=== PATIENT | female | born 1940 | race Caucasian/White ===

== ENCOUNTER → 2019-04-06 12:54 | Outpatient (CLI) | payer MEDICARE, SELFPAY | PROVIDERS: Visit Provider Physician Assistant | DX: L02.91 Cutaneous abscess, unspecified (principal) | CPT/HCPCS: 87070; 87075; 87077; 87147; 87186; 87205 ==

== ENCOUNTER → 2020-04-09 15:19 | Outpatient (CLI) | payer MEDICARE, SELFPAY ==
[2020-04-09 17:09] LABS: BUN Creatinine Ratio 29.4 (6-22); Blood Urea Nitrogen 15 mg/dL (7-17); Carbon Dioxide 27 mmol/L (22-32); Chloride 104 mmol/L (98-107); Estimated Glomerular Filt Rate > 60.0 mL/min (>60); Glucose 119 mg/dL (80-110); HEMOLYSIS < 15 (0-50); Phosphorous 3.3 mg/dL (2.8-4.1); Potassium 4.3 mmol/L (3.4-5.1); Sodium 139 mmol/L (137-145)
== END ==
PROVIDERS: PCP Student in an Organized Health Care Education/Training Program; Referring Provider Student in an Organized Health Care Education/Training Program; Visit Provider Student in an Organized Health Care Education/Training Program
DX: E83.31 Familial hypophosphatemia (principal); I10 Essential (primary) hypertension
CPT/HCPCS: 36415; 80048; 84100

== ENCOUNTER → 2020-06-03 11:36 | Outpatient (CLI) | payer MEDICARE, SELFPAY ==
[2020-06-03 12:31] LABS: Appearance Urine UA CLOUDY; Bilirubin Urine UA NEGATIVE (NEGATIVE); Color Urine UA YELLOW; Glucose Urine UA NEGATIVE (Negative); Ketones Urine UA NEGATIVE (NEGATIVE); Leukocyte Esterase Urine UA 3+ (NEGATIVE); Nitrite Urine UA POSITIVE (Negative); Occult Blood Urine UA 1+ (Negative); Protein Urine UA TRACE (Negative); Urobilinogen Urine UA 0.2 E.U./dL (0.2)
[2020-06-03 12:36] LABS: Bacteria Urine Many (>30); Culture Indicated Urine Specimen Cultured; RBC Urine 5-10/HPF (0-5/HPF); WBC Urine >100/HPF (0-5/HPF)
== END ==
PROVIDERS: PCP Student in an Organized Health Care Education/Training Program; Referring Provider Student in an Organized Health Care Education/Training Program; Visit Provider Student in an Organized Health Care Education/Training Program
DX: R30.0 Dysuria (principal)
CPT/HCPCS: 81001; 87077; 87086; 87186

== ENCOUNTER → 2021-01-13 12:08 | Outpatient (CLI) | payer MEDICARE, MEDICAID, SELFPAY ==
[2021-01-13 13:05] LABS: BUN Creatinine Ratio 26.5 (6-22); Blood Urea Nitrogen 13 mg/dL (7-17); Calcium 8.9 mg/dL (8.4-10.2); Carbon Dioxide 29 mmol/L (22-32); Chloride 104 mmol/L (98-107); Estimated Glomerular Filt Rate > 60.0 mL/min (>60); Glucose 107 mg/dL (80-110); HEMOLYSIS < 15 (0-50); Phosphorous 2.4 mg/dL (2.8-4.1); Potassium 4.1 mmol/L (3.4-5.1); Sodium 140 mmol/L (137-145)
== END ==
PROVIDERS: PCP Student in an Organized Health Care Education/Training Program; Referring Provider Student in an Organized Health Care Education/Training Program; Visit Provider Student in an Organized Health Care Education/Training Program
DX: E83.31 Familial hypophosphatemia (principal); I10 Essential (primary) hypertension
CPT/HCPCS: 36415; 80048; 84100

== ENCOUNTER → 2021-04-22 14:44 | Outpatient (CLI) | payer MEDICARE, MEDICAID, SELFPAY ==
--- NOTE | 2021-04-22 14:45 | DI.RAD.S_ITS ---
PROCEDURE: XR KNEE RT 1TO2V INDICATIONS: Cellulitis, R/o osteo TECHNIQUE: 2 views of the knee were acquired. COMPARISON: [facility], , XR KNEE 1 OR 2 VIEWS RIGHT, 11/09/2019, 17:12. FINDINGS: Bones: Poorly visualized distal femoral fracture with mild displacement is present. Severe degenerative changes present at the knee. Below the knee amputation is present. There are areas of irregularity within the distal stump, noting increased sclerosis and bony overgrowth. This appears chronic. No definitive area of new erosion is identified. Soft tissues: No joint effusion. No suspicious soft tissue calcifications. IMPRESSION: Proximal femoral fracture is present. Below the knee amputation demonstrate sclerosis of bony overgrowth at the stump suggestive of a chronic process. Underlying area of acute osteomyelitis cannot be excluded. Dictated by: Tammy Quiroz M.D. on 04/22/2021 at 16:43 Approved by: Tammy Quiroz M.D. on 04/22/2021 at 16:45
== END ==
PROVIDERS: PCP Student in an Organized Health Care Education/Training Program; Referring Provider Student in an Organized Health Care Education/Training Program; Visit Provider Student in an Organized Health Care Education/Training Program
DX: S72.401A Unspecified fracture of lower end of right femur, initial encounter for closed fracture (principal); L03.90 Cellulitis, unspecified; L89.90 Pressure ulcer of unspecified site, unspecified stage; Z89.511 Acquired absence of right leg below knee
CPT/HCPCS: 73560

== ENCOUNTER → 2022-12-21 16:03 | Outpatient (ROUT) | payer MEDICARE, MEDICAID, SELFPAY ==
[2022-12-21 16:56] LABS: Clostridium Difficile Tox PCR Positive for C. diff (Negative)
[2022-12-23 13:55] LABS: C difficie Toxins A and B, EIA Positive (Negative)
== END ==
PROVIDERS: PCP Student in an Organized Health Care Education/Training Program; Visit Provider Internal Medicine
DX: R19.7 Diarrhea, unspecified (principal)
CPT/HCPCS: 87324; 87493

== ENCOUNTER → 2023-04-19 11:21 | Outpatient (ROUT) | payer MEDICARE, MEDICAID, SELFPAY ==
[2023-04-19 12:11] LABS: Appearance Urine UA CLEAR; Bilirubin Urine UA NEGATIVE (NEGATIVE); Color Urine UA YELLOW; Glucose Urine UA NEGATIVE (Negative); Ketones Urine UA NEGATIVE (NEGATIVE); Leukocyte Esterase Urine UA TRACE (NEGATIVE); Nitrite Urine UA POSITIVE (Negative); Occult Blood Urine UA TRACE-INTACT (Negative); Protein Urine UA 2+ (Negative); Urobilinogen Urine UA 0.2 E.U./dL (0.2)
[2023-04-19 12:58] LABS: Bacteria Urine Many (>30); Culture Indicated Urine Specimen Cultured; RBC Urine 0-1/HPF (0-5/HPF); Squamous Epithelial Cell Urine 0-1 /HPF (0-5/HPF); WBC Urine 1-5/HPF (0-5/HPF)
== END ==
PROVIDERS: PCP Student in an Organized Health Care Education/Training Program; Visit Provider Internal Medicine
DX: G00.8 Other bacterial meningitis (principal)
CPT/HCPCS: 81001; 87077; 87086; 87186

== ENCOUNTER → 2023-06-09 18:11 | Outpatient (ROUT) | payer MEDICARE, MEDICAID, SELFPAY ==
[2023-06-09 20:43] LABS: Clostridium Difficile Tox PCR Negative for C. diff (Negative)
== END ==
PROVIDERS: PCP Student in an Organized Health Care Education/Training Program; Visit Provider Registered Nurse
DX: Z11.2 Encounter for screening for other bacterial diseases (principal)
CPT/HCPCS: 87493

== ENCOUNTER 2023-07-31 18:18 | Inpatient (IN) | payer MEDICARE, MEDICAID, SELFPAY ==
[2023-07-31] VITALS (15 sets, daily range): BP systolic 118–179; BP diastolic 57–81; PULSE 66–107; RESP 22–33; TEMP 36.9; O2SAT 87–99; BMI 25.6
--- NOTE | 2023-07-31 18:39 | DI.RAD.S_ITS ---
PROCEDURE: XR CHEST 1V INDICATIONS: cough TECHNIQUE: One view of the chest was acquired. COMPARISON: [facility], , XR CHEST 1 VIEW, 11/09/2019, 19:25. FINDINGS: Surgical changes and devices: None. Lungs and pleura: Multifocal consolidations, including retrocardiac and right perihilar. Possible left pleural effusion. Low lung volumes. Mediastinum: Cardiomegaly. Heart borders are obscured. Bones and chest wall: Degenerative changes. IMPRESSION: Multifocal consolidations suspicious for infection. Suspected cardiomegaly. Possible left pleural effusion. Consider future imaging surveillance to assess for resolution. Dictated by: Lv Vargas M.D. on 07/31/2023 at 20:48 Approved by: Lv Vargas M.D. on 07/31/2023 at 20:49
[2023-07-31 18:57] LABS: Add Manual Diff / Slide Review NO; Basophils Absolute Auto 100 /uL (0-100); Basophils Percent Auto 0.8 % (0-2); Eosinophils Absolute Auto 300 /uL (0-450); Eosinophils Percent Auto 3.2 % (2-4); Hematocrit 34.9 % (36-46); Hemoglobin 11.7 g/dL (12.0-16.0); Lymphocytes Absolute Auto 2000 /uL (1100-4500); Lymphocytes Percent Auto 20.3 % (25-40); Mean Corpuscular HGB Conc 33.4 % (30-36); Mean Corpuscular Hemoglobin 29.8 PG (26-34); Mean Corpuscular Volume 89.3 fL (80-100); Monocytes Absolute Auto 700 /uL (0-900); Neutrophils Absolute Auto 6600 /uL (1500-7000); Neutrophils Percent Auto 68.7 % (50-75); Platelet Count 442 X10^3/uL (150-400); Red Blood Cell Count 3.91 X10^6/uL (4.0-5.2); White Blood Cell Count 9.6 X10^3/uL (4.5-11.0)
[2023-07-31 19:01] LABS: INR 1.2 (0.9-1.3); Prothrombin Time 14.2 SECONDS (9.4-12.5)
[2023-07-31 19:04] LABS: PTT Partial Thromboplastin Tim 27 SECONDS (25.1-36.5)
[2023-07-31 19:08] LABS: Lactate (Lactic Acid) 2.8 mmol/L (0.7-2.1)
[2023-07-31 19:09] LABS: Alanine Aminotransferase 19 IU/L (<35); Albumin 3.2 g/dL (3.5-5.0); Albumin Globulin Ratio 0.8 (1.0-2.8); Alkaline Phosphatase 130 U/L (38-126); Aspartate Aminotransferase 26 IU/L (14-36); BUN Creatinine Ratio 46.3 (6-22); Bilirubin Total 0.5 mg/dL (0.2-1.3); Blood Urea Nitrogen 25 mg/dL (7-17); Calcium 8.2 mg/dL (8.4-10.2); Carbon Dioxide 28 mmol/L (22-32); Chloride 103 mmol/L (98-107); Creatine Kinase 161 U/L (30-135); Estimated Glomerular Filt Rate > 60 mL/min (>60); Globulin 4.2 g/dL (1.7-4.1); Glucose 196 mg/dL (80-110); HEMOLYSIS < 15 (0-50); Lipase 47 U/L (23-300); Potassium 3.1 mmol/L (3.4-5.1); Sodium 139 mmol/L (137-145); Total Protein 7.4 g/dL (6.3-8.2)
[2023-07-31 19:18] LABS: NT-proBNP (BNP-Adult 18+) 385 pg/mL (<450)
[2023-07-31 19:20] LABS: Troponin I < 0.012 ng/mL (0.01-0.034)
[2023-07-31 19:26] LABS: Procalcitonin 0.08 ng/mL (<0.5)
[2023-07-31 19:32] LABS: Influenza A - CEPHEID Flu A NEGATIVE (NEGATIVE); Influenza B - CEPHEID Flu B NEGATIVE (NEGATIVE); Respiratory Syncytial Virus Negative (Negative)
[2023-07-31 19:35] LABS: COVID-19 CEPHEID 4-PLEX PCR Negative (Negative)
--- NOTE | 2023-07-31 19:54 | ED.ABDPAIN ---
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 Daughter at bedside reports that she has been residing rehab center for the last 3-4 months. She has a cut at her amputation site it has been there for about a week it was thought to be infected and a skin tear. It is unclear if she fell. However she reports it is quite swollen and tender she is concerned about that. She is also concerned increased abdominal distention significant decrease in appetite. She reports that normally she eats very well how the last 5 days she has not been eating. She is noted to be hypoxic here in the ED with O2 sat in the 80s on about 3-4 L nasal cannula. No fever chills or cough. Daughter reports that she is at her baseline mental status. Previously she has had UTIs and had altered mental status but not at this time. She has has had productive raspy like cough. Patient herself is not very verbal daughter is primary historian. Related Data Previous Rx's Medication Instructions Recorded lamotrigine 150 mg tablet 150 mg PO DAILY #90 tabs 04/23/21 Probiotic #30 ea 06/22/21 ascorbic acid (vitamin C) 500 mg 500 mg PO DAILY #30 tabs 06/22/21 tablet polyethylene glycol 3350 17 17 g PO DAILY PRN constipation 06/22/21 gram/dose oral powder (Miralax) #510 grams primidone 250 mg tablet 250 mg PO BEDTIME #90 tabs 06/24/21 primidone 50 mg tablet 50 mg PO BEDTIME #90 tabs 06/24/21 acetaminophen 500 mg tablet 1,000 mg (2 x 500 mg) PO TID PRN 07/09/21 fever or pain #180 tabs lorazepam 0.5 mg tablet 0.5 mg PO Q6H PRN agitation #10 01/18/22 tabs calcitriol 0.25 mcg capsule 0.25 mcg PO DAILY #90 caps 03/07/22 sodium di- and 1 tab PO BID #180 tabs 04/05/22 monophosphate-potassium phos monobasic 250 mg tablet (D-[id number]-Jbxoatp) escitalopram oxalate 20 mg tablet 20 mg PO DAILY #15 tabs 07/26/22 lisinopril 10 mg tablet 10 mg PO DAILY #30 tabs 08/24/22 Allergies Allergy/AdvReac Type Severity Reaction Status Date / Time No Known Allergies Allergy Uncoded 04/22/21 14:10 Patient History Social History household members: other Smoking Status: Never smoker alcohol intake: never Smoking Status: Never smoker Substance Use Type: does not use Exam Initial Vital Signs Initial Vital Signs: Vital Signs Pulse Rate 87 07/31/23 18:27 Respiratory Rate 32 H 07/31/23 18:27 Pulse Oximetry 87 L 07/31/23 18:27 Oxygen Delivery Method Room Air 07/31/23 18:27 GENERAL: Alert 82-year-old female no acute distress HEENT: Head atraumatic,EOMI, pupils reactive, face symmetric, moist mucous membranes CARDIOVASCULAR: Regular rate and rhythm without murmurs, rubs or gallops. RESPIRATORY: Breath sounds equal bilaterally, no wheezes rales or rhonchi. Shallow breathing but not coarse ABDOMEN: Soft, mild distention no guarding no rebound no fluid wave, mild tenderness right upper quadrant minimal guarding EXTREMITIES: Normal range of motion, no clubbing or edema. Neurovascularly intact NEUROLOGICAL: Right-sided deficit at baseline moving left side good test and balance engineer strength no facial droop SKIN: Right [id number] amputation mild swelling no significant erythema no drainage Course Orders Ordered: ED Orders 07/31/23 22:02 US abdomen limited Stat Acetaminophen (Acetaminophen 325 Mg Tablet) 650 mg PO Q6H PRN PRN Reason: Fever/Mild Pain (1-3) Albuterol (Albuterol 2.5 Mg/3 Ml Neb (Adult)) 2.5 mg INH [id number] PRN PRN Reason: Shortness Of Breath Escitalopram Oxalate (Escitalopram 10 Mg Tablet) 20 mg PO DAILY KELSIE Guaifenesin (Guaifenesin Er 600 Mg Tab) 600 mg PO BID KELSIE Sodium Chloride (Normal Saline 0.9%) 1,000 mls @ 125 mls/hr IV CONT KELSIE Last Admin: 07/31/23 22:35 Dose: 125 mls/hr Documented By: JEANNETTE Ceftriaxone Sodium 1,000 mg/ (Sodium Chloride) 100 mls @ 200 mls/hr IV Q24H KELSIE Azithromycin 500 mg/ Dextrose 250 mls @ 250 mls/hr IV Q24H KELSIE Lamotrigine (Lamotrigine 100 Mg Tablet) 150 mg PO DAILY KELSIE Lorazepam (Lorazepam 0.5 Mg Tablet) 0.5 mg PO Q6H PRN PRN Reason: agitation Magnesium Hydroxide (Magnesium Hydroxide 30 Ml Udc) 30 ml PO DAILY PRN PRN Reason: Constipation Naloxone HCl (Naloxone 0.4 Mg/Ml Vial) 0.2 mg IV Q2MIN PRN PRN Reason: Opiate Reversal Ondansetron HCl (Ondansetron 4 Mg Odt) 4 mg PO Q8HR PRN PRN Reason: Nausea And Vomiting Primidone (Primidone 50 Mg Tablet) 300 mg PO BEDTIME KELSIE Discontinued Medications Acetaminophen (Ofirmev) 1,000 mg in 100 mls @ 400 mls/hr IV NOW ONE Stop: 07/31/23 20:10 Last Infusion: 07/31/23 20:50 Dose: Infused Documented By: Admin: 07/31/23 20:29 Dose: 400 mls/hr Documented By: GABY Ceftriaxone Sodium 2,000 mg/ (Sodium Chloride) 100 mls @ 200 mls/hr IV NOW ONE Stop: 07/31/23 22:06 Last Admin: 07/31/23 22:40 Dose: 200 mls/hr Documented By: JEANNETTE Azithromycin 500 mg/ Dextrose 250 mls @ 250 mls/hr IV NOW ONE Stop: 07/31/23 22:06 Last Admin: 07/31/23 23:24 Dose: 250 mls/hr Documented By: JEANNETTE Primidone (Primidone 50 Mg Tablet) 50 mg PO BEDTIME KELSIE Vital Signs Vital signs: Vital Signs - 8 hr 07/31/23 22:00 07/31/23 22:27 07/31/23 22:27 Pulse Rate 69 76 Respiratory Rate 26 H 28 H Blood Pressure 131/65 Pulse Oximetry 97 92 Oxygen Delivery Method Nasal Cannula Nasal Cannula Oxygen Flow Rate 2 2 07/31/23 22:30 07/31/23 22:30 07/31/23 23:00 Pulse Rate 72 66 Respiratory Rate 26 H 25 H Blood Pressure 118/57 L Pulse Oximetry 96 98 Oxygen Delivery Method Oxygen Flow Rate MDM - Abdominal Pain Lab Data 07/31/23 18:45 07/31/23 18:45 Labs: Lab Results 07/31/23 07/31/23 Range/Units 18:45 21:45 WBC 9.6 (4.5-11.0) X10^3/uL RBC 3.91 L (4.0-5.2) X10^6/uL Hgb 11.7 L (12.0-16.0) g/dL Hct 34.9 L (36-46) % MCV 89.3 (80-100) fL MCH 29.8 (26-34) PG MCHC 33.4 (30-36) % RDW 13.0 (11.6-14.8) % Plt Count 442 H (150-400) X10^3/uL Neut % (Auto) 68.7 (50-75) % Lymph % (Auto) 20.3 L (25-40) % [place] % (Auto) 7.0 (3-14) % Eos % (Auto) 3.2 (2-4) % Baso % (Auto) 0.8 (0-2) % Neut # (Auto) 6600 (3086-3587) /uL Lymph # (Auto) 2000 (8794-6406) /uL [place] # (Auto) 700 (0-900) /uL Eos # (Auto) 300 (0-450) /uL Baso # (Auto) 100 (0-100) /uL PT 14.2 H (9.4-12.5) SECONDS INR 1.2 (0.9-1.3) APTT 27 (25.1-36.5) SECONDS Sodium 139 (137-145) mmol/L Potassium 3.1 L (3.4-5.1) mmol/L Chloride 103 (98-107) mmol/L Carbon Dioxide 28 (22-32) mmol/L BUN 25 H (7-17) mg/dL Creatinine 0.54 (0.52-1.04) mg/dL Estimated GFR > 60 (>60) mL/min BUN/Creatinine Ratio 46.3 H (6-22) Glucose 196 H (80-110) mg/dL Lactate 2.8 H 1.5 (0.7-2.1) mmol/L Calcium 8.2 L (8.4-10.2) mg/dL Total Bilirubin 0.5 (0.2-1.3) mg/dL AST 26 (14-36) IU/L ALT 19 (<35) IU/L Alkaline Phosphatase 130 H (38-126) U/L Total Creatine Kinase 161 H (30-135) U/L Troponin I < 0.012 (0.01-0.034) ng/mL NT-Pro-B Natriuret Pep 385 (<450) pg/mL Total Protein 7.4 (6.3-8.2) g/dL Albumin 3.2 L (3.5-5.0) g/dL Globulin 4.2 H (1.7-4.1) g/dL Albumin/Globulin Ratio 0.8 L (1.0-2.8) Lipase 47 (23-300) U/L Procalcitonin 0.08 (<0.5) ng/mL SARS-CoV-2 (PCR) Negative (Negative) Influenza A (RT-PCR) Flu a negative (NEGATIVE) Influenza B (RT-PCR) Flu b negative (NEGATIVE) RSV (PCR) Negative (Negative) Imaging Data CT scan - abdomen/pelvis: Radiologist's Impression: PROCEDURE: CT ABDOMEN PELVIS W CON INDICATIONS: ab pain. TECHNIQUE: After the administration of intravenous contrast, axial sections acquired from the lung bases to the pubic symphysis. Coronal and sagittal reformats were performed. For radiation dose reduction, the following was used: automated exposure control, adjustment of mA and/or kV according to patient size. COMPARISON: None. FINDINGS: Image quality: Diagnostic Lower chest: Bibasilar opacities and atelectasis, [id number]. There is pleural thickening without drainable effusion. Small hiatal hernia. Leftward shift of the heart, which is borderline enlarged. Liver: Hypoattenuating liver lesions, these are under a cm and too small to characterize and may represent cysts or hemangiomas. Gallbladder and biliary system: Distended gallbladder. Mild pericholecystic fat stranding and wall thickening. CBD is prominent, not pathologically dilated Pancreas: Unremarkable Spleen: Nonenlarged. Possible cyst at the posterior region. Adrenals: Bilateral thickening and nodularity, a focal nodule is seen at the left adrenal body measuring 1 cm, consider adrenal protocol CT or MRI for confirmation. Kidneys: No solid mass or hydronephrosis Vessels and lymph nodes: The main portal vein is patent. No abdominal aortic aneurysm or pathologic lymph nodes by size criteria. Bowel and peritoneum: No evidence of small bowel obstruction. No pathologic ascites or drainable abscess. Colonic diverticulosis. There is mild wall thickening in the distal colon, and rectum. Possible wall thickening also seen in the ascending colon. Body wall: There are anterior body wall venous collaterals. Pelvis: Bladder is unremarkable. Reproductive organs are not well evaluated on this study, overall unremarkable Bones: Advanced degenerative changes and osseous demineralization. No suspicious focal findings. Small scattered sclerotic lesions, for example at the right ischium, indeterminate, possibly bone islands of patient does not have a malignancy history. IMPRESSION: Distended gallbladder with mild surrounding inflammatory changes, consider sonographic correlation for cholecystitis. Scattered colonic wall thickening particularly involving the cecum and distal colon. Wall thickening extends in the rectum. Findings suggestive of proctocolitis. Consider correlation with age-appropriate colonoscopy results. Bibasilar atelectasis and pulmonary opacities, possibly infectious or inflammatory, including from aspiration. Consider future imaging surveillance to assess for resolution. Numerous other suspected nonacute incidental findings are described above Dictated by: Lv Vargas M.D. on 07/31/2023 at 21:14 Chest x-ray: Radiologist's Impression: PROCEDURE: XR CHEST 1V INDICATIONS: cough TECHNIQUE: One view of the chest was acquired. COMPARISON: [facility], , XR CHEST 1 VIEW, 11/09/2019, 19:25. FINDINGS: Surgical changes and devices: None. Lungs and pleura: Multifocal consolidations, including retrocardiac and right perihilar. Possible left pleural effusion. Low lung volumes. Mediastinum: Cardiomegaly. Heart borders are obscured. Bones and chest wall: Degenerative changes. IMPRESSION: Multifocal consolidations suspicious for infection. Suspected cardiomegaly. Possible left pleural effusion. Consider future imaging surveillance to assess for resolution. Dictated by: Lv Vargas M.D. on 07/31/2023 at 20:48 ECG Data Interpretation: Is rhythm rate 79 DE interval 158 QRS [address] depression lead 2 and V3 no elevations or T-wave inversions no priors to compare MDM Narrative Medical decision making narrative: Patient 82-year-old female resides at rehab facility presenting today a variety of symptoms. It sounds as though she has had a 5 day decline with decreasing intake some coughing maybe some abdominal pain daughter is worried about infection in the right lower leg. On exam she is hypoxic but lung sounds are fairly clear she has not in respiratory distress. She is tender in her right upper quadrant. Like itself does not look significantly infected no severe erythema or swelling but she does have a open wound is not draining. Blood work has been reviewed overall reassuring she has no leukocytosis, lactate mildly elevated 2.8 improves to 1.5, potassium slightly low at 3.1, mild dehydration BUN 25 with a creatinine of 0.5 bilirubin 0.5 AST 26 ALT 19 alk-phos 130 lipase 47 Chest x-ray reviewed does show concern for an infection Abdominal CT show cholelithiasis ultrasound confirms cholelithiasis without evidence of cholecystitis Patient is requiring 2-3 L she has pneumonia on x-ray she does have a cough. She has afebrile no leukocytosis. She is on a thickened diet due to some aphasia secondary to stroke. Possible aspiration. No evidence cardiomegaly. Suspicion for pulmonary embolism. Patient mildly tender right upper quadrant consistent cholelithiasis without cholecystitis or ascending cholangitis. Dr. Urban accepts patient. Agree no need for CT at this time Discharge Plan Departure Patient Disposition: Admitted As Inpatient Clinical Impression: Pneumonia, Hypoxia Admit Date/Time: 07/31/23 23:45 Admit Provider: Yovanny Junior
--- NOTE | 2023-07-31 19:55 | DI.RAD.S_ITS ---
PROCEDURE: XR KNEE RT 1TO2V INDICATIONS: amputation (old) swelling pain TECHNIQUE: 2 view(s) of the knee acquired. COMPARISON: [facility], CR, XR KNEE RT 1TO2V, 04/22/2021, 14:41. FINDINGS: Bones: There are advanced degenerative changes of the knee. Diffuse osseous around is a reyez. Suspected old distal femur fracture deformity also again seen. Proximal tibial amputation with overall similar corticated edges and irregularity of the stomach. Soft tissues: No suspicious calcifications elsewhere. There is soft tissue swelling, without a significant joint effusion on lateral view. IMPRESSION: Chronic deformities of the distal femur, and proximal tibial amputation. There is soft tissue swelling. Overall osseous structures appear stable compared to 2020. Knee advanced degenerative changes. Consider CT or MRI if there is further concern. Dictated by: Lv Vargas M.D. on 07/31/2023 at 20:50 Approved by: Lv Vargas M.D. on 07/31/2023 at 20:51
[2023-07-31] MEDS: ACETAMINOPHEN IV 1,000 MG/100 ML VIAL 400 MG IV (20:29)
[2023-07-31 20:33] LABS: Reflexed Lactate in 2 Hours Y
--- NOTE | 2023-07-31 22:02 | DI.US.S_ITS ---
PROCEDURE: US ABDOMEN LIMITED INDICATIONS: ruq TECHNIQUE: Real-time focused scanning was performed of the abdomen, with image documentation. COMPARISON: [facility], CT, CT ABDOMEN PELVIS W CON, 07/31/2023, 20:22. FINDINGS: Liver measures 12 cm. Cholelithiasis. No sonographic Pena sign. Mild distention of the gallbladder. CBD measures 4 mm. Visualized pancreas unremarkable. IMPRESSION: Cholelithiasis with mildly distended gallbladder. No sonographic Pena sign to suggest acute cholecystitis. Dictated by: Lv Vargas M.D. on 07/31/2023 at 23:08 Approved by: Lv Vargas M.D. on 07/31/2023 at 23:10
[2023-07-31 22:22] LABS: Lactate 2HR (Lactic Acid Rflx) 1.5 mmol/L (0.7-2.1)
[2023-07-31] MEDS: SODIUM CHLORIDE 0.9% 1,000 ML 125 ML IV (22:35)
[2023-07-31] MEDS: cefTRIAXone 2,000 MG in SODIUM CHLORIDE 0.9% 100 ML 200 MG IV (22:40)
[2023-07-31] MEDS: AZITHROMYCIN 500 MG in DEXTROSE 5% IN WATER 250 ML 250 MG IV (23:24)
[2023-08-01 00:35] VITALS: BP 112/57; PULSE 67; RESP 20; TEMP 36.8; O2SAT 99
[2023-08-01 01:09] VITALS: BP 100/46; PULSE 67; RESP 16; TEMP 36.2; O2SAT 95
[2023-08-01 02:35] VITALS: O2SAT 95
[2023-08-01 06:53] LABS: Add Manual Diff / Slide Review NO; Basophils Absolute Auto 100 /uL (0-100); Basophils Percent Auto 0.8 % (0-2); Eosinophils Absolute Auto 300 /uL (0-450); Hematocrit 29.6 % (36-46); Lymphocytes Absolute Auto 2300 /uL (1100-4500); Lymphocytes Percent Auto 23.7 % (25-40); Mean Corpuscular HGB Conc 33.6 % (30-36); Mean Corpuscular Hemoglobin 30.2 PG (26-34); Monocytes Absolute Auto 700 /uL (0-900); Monocytes Percent Auto 7.8 % (3-14); Neutrophils Absolute Auto 6200 /uL (1500-7000); Neutrophils Percent Auto 64.7 % (50-75); Platelet Count 340 X10^3/uL (150-400); Red Blood Cell Count 3.29 X10^6/uL (4.0-5.2); White Blood Cell Count 9.5 X10^3/uL (4.5-11.0)
[2023-08-01 06:54] LABS: BUN Creatinine Ratio 44.9 (6-22); Blood Urea Nitrogen 22 mg/dL (7-17); Calcium 7.6 mg/dL (8.4-10.2); Carbon Dioxide 28 mmol/L (22-32); Chloride 107 mmol/L (98-107); Estimated Glomerular Filt Rate > 60 mL/min (>60); Glucose 87 mg/dL (80-110); HEMOLYSIS 33 (0-50); Potassium 2.8 mmol/L (3.4-5.1); Sodium 138 mmol/L (137-145)
--- NOTE | 2023-08-01 07:18 | PM.HP.1 ---
History of Present Illness History of Present Illness Date Patient Seen: 07/31/23 Chief complaint: Lethargy/Weakness Narrative: 82 y/o with PMH of SAH, aphasia, came from the alf in which she moved in 4 months ago, accompanied by her daughter who reported on poor oral intake in the last 5 days and 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 In the ED hypoxemic, with leukocytosis and infiltrates on CXR. [facility] Social History household members: other Smoking Status: Never smoker alcohol intake: never Meds Home Medications and Allergies Home Medications Medication Instructions Recorded Confirmed Type lamotrigine 150 mg tablet 150 mg PO DAILY #90 tabs 04/23/21 Rx Probiotic #30 ea 06/22/21 Rx ascorbic acid (vitamin C) 500 mg 500 mg PO DAILY #30 tabs 06/22/21 Rx tablet polyethylene glycol 3350 17 17 g PO DAILY PRN constipation 06/22/21 Rx gram/dose oral powder (Miralax) #510 grams primidone 250 mg tablet 250 mg PO BEDTIME #90 tabs 06/24/21 Rx primidone 50 mg tablet 50 mg PO BEDTIME #90 tabs 06/24/21 Rx acetaminophen 500 mg tablet 1,000 mg (2 x 500 mg) PO TID PRN 07/09/21 Rx fever or pain #180 tabs lorazepam 0.5 mg tablet 0.5 mg PO Q6H PRN agitation #10 01/18/22 Rx tabs calcitriol 0.25 mcg capsule 0.25 mcg PO DAILY #90 caps 03/07/22 Rx sodium di- and 1 tab PO BID #180 tabs 04/05/22 Rx monophosphate-potassium phos monobasic 250 mg tablet (I-Jblz-Yqmdpiz) escitalopram oxalate 20 mg tablet 20 mg PO DAILY #15 tabs 07/26/22 Rx lisinopril 10 mg tablet 10 mg PO DAILY #30 tabs 08/24/22 Rx Allergies Allergy/AdvReac Type Severity Reaction Status Date / Time No Known Allergies Allergy Uncoded 04/22/21 14:10 Review of Systems Review of Systems Narrative: Unobtainable due to old aphasia, fatigue Exam Vital Signs (past 8 hours): - 07/31/23 23:50 08/01/23 00:35 08/01/23 01:09 Temperature 98.3 F 97.1 F L Pulse Rate 67 67 Respiratory Rate 20 16 Blood Pressure 112/57 L 100/46 L Pulse Oximetry 99 95 Oxygen Delivery Method Nasal Cannula Nasal Cannula Oxygen Flow Rate 2 2 08/01/23 02:35 Temperature Pulse Rate Respiratory Rate Blood Pressure Pulse Oximetry 95 Oxygen Delivery Method Nasal Cannula Oxygen Flow Rate 2 Oxygen Delivery Method Nasal Cannula Oxygen Flow Rate 2 Const Other: appears weak, in no distress Neck Other: supple Resp Other: tachypneic, rhonchi Cardio Other: RRR Neuro Other: aphasia Extrem Other: Rt BKA Objective Labs 08/01/23 06:09 08/01/23 06:09 Labs: Laboratory Results - last 24 hr 07/31/23 07/31/23 08/01/23 18:45 21:45 06:09 WBC 9.6 9.5 RBC 3.91 L 3.29 L Hgb 11.7 L 10.0 L Hct 34.9 L 29.6 L MCV 89.3 90.0 MCH 29.8 30.2 MCHC 33.4 33.6 RDW 13.0 13.0 Plt Count 442 H 340 Neut % (Auto) 68.7 64.7 Lymph % (Auto) 20.3 L 23.7 L [place] % (Auto) 7.0 7.8 Eos % (Auto) 3.2 3.0 Baso % (Auto) 0.8 0.8 Neut # (Auto) 6600 6200 Lymph # (Auto) 2000 2300 [place] # (Auto) 700 700 Eos # (Auto) 300 300 Baso # (Auto) 100 100 PT 14.2 H INR 1.2 APTT 27 Sodium 139 138 Potassium 3.1 L 2.8 L Chloride 103 107 Carbon Dioxide 28 28 BUN 25 H 22 H Creatinine 0.54 0.49 L Estimated GFR > 60 > 60 BUN/Creatinine Ratio 46.3 H 44.9 H Glucose 196 H 87 D Lactate 2.8 H 1.5 Calcium 8.2 L 7.6 L Total Bilirubin 0.5 AST 26 ALT 19 Alkaline Phosphatase 130 H Total Creatine Kinase 161 H Troponin I < 0.012 NT-Pro-B Natriuret Pep 385 Total Protein 7.4 Albumin 3.2 L Globulin 4.2 H Albumin/Globulin Ratio 0.8 L Lipase 47 Procalcitonin 0.08 SARS-CoV-2 (PCR) Negative Influenza A (RT-PCR) Flu a negative Influenza B (RT-PCR) Flu b negative RSV (PCR) Negative Assessment & Plan Assessment and plan (1) Pneumonia: Status: Acute Plan: Prudence Henry - [employer] for swallow evaluation - O2 for hypoxemia (2) Essential hypertension: Status: Chronic Plan: Holding home Lisinopril 10 mg daily (3) 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
--- NOTE | 2023-08-01 07:24 | PM.HP.1 ---
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 In the ED hypoxemic, with leukocytosis and infiltrates on CXR. [facility] Social History household members: other Smoking Status: Never smoker alcohol intake: never Meds Home Medications and Allergies Home Medications Medication Instructions Recorded Confirmed Type lamotrigine 150 mg tablet 150 mg PO DAILY #90 tabs 04/23/21 08/01/23 Rx Probiotic #30 ea 06/22/21 08/01/23 Rx ascorbic acid (vitamin C) 500 mg 500 mg PO DAILY #30 tabs 06/22/21 08/01/23 Rx tablet polyethylene glycol 3350 17 17 g PO DAILY PRN constipation 06/22/21 08/01/23 Rx gram/dose oral powder (Miralax) #510 grams primidone 250 mg tablet 250 mg PO BEDTIME #90 tabs 06/24/21 08/01/23 Rx primidone 50 mg tablet 50 mg PO BEDTIME #90 tabs 06/24/21 08/01/23 Rx acetaminophen 500 mg tablet 1,000 mg (2 x 500 mg) PO TID PRN 07/09/21 08/01/23 Rx fever or pain #180 tabs lorazepam 0.5 mg tablet 0.5 mg PO Q6H PRN agitation #10 01/18/22 08/01/23 Rx tabs calcitriol 0.25 mcg capsule 0.25 mcg PO DAILY #90 caps 03/07/22 08/01/23 Rx sodium di- and 1 tab PO BID #180 tabs 04/05/22 08/01/23 Rx monophosphate-potassium phos monobasic 250 mg tablet (T-Xulq-Dinruzl) escitalopram oxalate 20 mg tablet 20 mg PO DAILY #15 tabs 07/26/22 08/01/23 Rx lisinopril 10 mg tablet 10 mg PO DAILY #30 tabs 08/24/22 08/01/23 Rx Allergies Allergy/AdvReac Type Severity Reaction Status Date / Time No Known Allergies Allergy Uncoded 04/22/21 14:10 Review of Systems Review of Systems Narrative: Unobtainable due to old aphasia, fatigue Exam Vital Signs (past 8 hours): - 07/31/23 23:50 08/01/23 00:35 08/01/23 01:09 Temperature 98.3 F 97.1 F L Pulse Rate 67 67 Respiratory Rate 20 16 Blood Pressure 112/57 L 100/46 L Pulse Oximetry 99 95 Oxygen Delivery Method Nasal Cannula Nasal Cannula Oxygen Flow Rate 2 2 08/01/23 02:35 Temperature Pulse Rate Respiratory Rate Blood Pressure Pulse Oximetry 95 Oxygen Delivery Method Nasal Cannula Oxygen Flow Rate 2 Oxygen Delivery Method Nasal Cannula Oxygen Flow Rate 2 Const Other: appears weak, in no distress Neck Other: supple Resp Other: tachypneic, rhonchi Cardio Other: RRR Neuro Other: aphasia Extrem Other: Rt BKA Objective Labs 08/01/23 06:09 08/01/23 06:09 Labs: Laboratory Results - last 24 hr 07/31/23 07/31/23 08/01/23 18:45 21:45 06:09 WBC 9.6 9.5 RBC 3.91 L 3.29 L Hgb 11.7 L 10.0 L Hct 34.9 L 29.6 L MCV 89.3 90.0 MCH 29.8 30.2 MCHC 33.4 33.6 RDW 13.0 13.0 Plt Count 442 H 340 Neut % (Auto) 68.7 64.7 Lymph % (Auto) 20.3 L 23.7 L [place] % (Auto) 7.0 7.8 Eos % (Auto) 3.2 3.0 Baso % (Auto) 0.8 0.8 Neut # (Auto) 6600 6200 Lymph # (Auto) 2000 2300 [place] # (Auto) 700 700 Eos # (Auto) 300 300 Baso # (Auto) 100 100 PT 14.2 H INR 1.2 APTT 27 Sodium 139 138 Potassium 3.1 L 2.8 L Chloride 103 107 Carbon Dioxide 28 28 BUN 25 H 22 H Creatinine 0.54 0.49 L Estimated GFR > 60 > 60 BUN/Creatinine Ratio 46.3 H 44.9 H Glucose 196 H 87 D Lactate 2.8 H 1.5 Calcium 8.2 L 7.6 L Total Bilirubin 0.5 AST 26 ALT 19 Alkaline Phosphatase 130 H Total Creatine Kinase 161 H Troponin I < 0.012 NT-Pro-B Natriuret Pep 385 Total Protein 7.4 Albumin 3.2 L Globulin 4.2 H Albumin/Globulin Ratio 0.8 L Lipase 47 Procalcitonin 0.08 SARS-CoV-2 (PCR) Negative Influenza A (RT-PCR) Flu a negative Influenza B (RT-PCR) Flu b negative RSV (PCR) Negative Assessment & Plan Assessment and plan (1) Pneumonia: Status: Acute Plan: with acute hypoxic resp failure Prudence Henry - DIABETES SOLUTIONS SPECIALIST for swallow evaluation changed to dysphagia diet - O2 for hypoxemia (2) Essential hypertension: Status: Chronic Plan: Holding home Lisinopril 10 mg daily (3) 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
--- NOTE | 2023-08-01 07:30 | PC.NURSE ---
Admit/NOC Shift Note- Patient arrived to room via britton at 0045 from ER. Admit questions done with daughter, medication list reviewed, physical assessmnent done, and skin check completed. patient close to nurses station for frequent visual checks. Bed alartm activated. Call lainez and phone within reach. will continue to monitor.
[2023-08-01] MEDS: SODIUM CHLORIDE 0.9% 1,000 ML 125 ML IV ×3 (08:30→23:55)
[2023-08-01 09:00] VITALS: BP 131/59; PULSE 71; RESP 16; TEMP 36.4; O2SAT 100; O2SAT 98
[2023-08-01 09:14] LABS: Magnesium 2.4 mg/dL (1.6-2.3)
[2023-08-01] MEDS: POTASSIUM CHLORIDE 20 MEQ TAB 40 MEQ PO ×2 (10:01→12:46)
[2023-08-01] MEDS: ESCITALOPRAM 10 MG TABLET 20 MG PO (10:01)
[2023-08-01] MEDS: guaiFENesin ER 600 MG TAB PO ×2 (10:02→20:50)
[2023-08-01] MEDS: lamoTRIgine 100 MG TABLET 150 MG PO (10:02)
--- NOTE | 2023-08-01 10:52 | ST.IPCSEOM ---
Visit Care Team Role Provider Type Cal Jarrett MD Primary Care Provider Non-Staff Specialty: Internal Medicine Address: [address] [place] [address], [address], [address] Email: Ila Haskins DO Emergency Provider Physician Referring Provider Specialty: Emergency Medicine Address: [address] [place] [address], [address] Email: [email or web address] Yovanny Urban MD Admit Provider Physician Attending Provider Specialty: Internal Medicine Address: [address] [place] [address] Fax: Email: [email or web address] Diagnoses Depression, unspecified (07/31/23) Anxiety disorder, unspecified (07/31/23) Epilepsy, unspecified, not intractable, without status epilepticus (07/31/23) Essential (primary) hypertension (07/31/23) Aphasia following cerebral infarction (07/31/23) Hemiplegia and hemiparesis following cerebral infarction affecting unspecified side (07/31/23) Pneumonia, unspecified organism (07/31/23) Speech-Language Pathology Swallow Evaluation 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 In the ED hypoxemic, with leukocytosis and infiltrates on CXR. Chest X-ray on 07/31/23 indicated: IMPRESSION: Multifocal consolidations suspicious for infection. Suspected cardiomegaly. Possible left pleural effusion . Consider future imaging surveillance to assess for resolution. Pt resides in [facility]. Pt baseline diet at facility is pureed solids and nectar thick liquids. ST referred for swallow eval d/t Pt with PNA and swallow difficulties. Subjective Observations Pt sitting upright in bed. Pt is primarily non-verbal with cognitive deficits. Pt with O2 via in place via nasal cannula. Pt with breakfast tray in front of her with CLINICAL APPLICATION CONSULTANT assisting feeding her d/t Pt requiring 1:1 feed assist. Nursing reports she downgraded her to IDDSI 6/Honey thick liquids. Pt awake and alert. Reported by Patient/Caregiver Pain/Discomfort No Current Diet Soft & Bite-sized (IDDSI 6) The IDDSI Framework Protocol: IDDSI.1 Objective Assessment Mental Status Alert,Cooperative,Unresponsive Oral Integrity Oral residue Lip Function Mild impairment Tongue Function Mild impairment Comment ST unable to complete formal oral motor exam d/t Pt with difficulties following commands seconday to cognitive deficits. However, informally , Pt exhibited slight right sided facial weakness, labial and lingual weakness. Pt observed to have egg/pancake diffuse residue and pocketing anterior labial space and buccal cavities. Food and Liquid Trials Position During Assessment Upright (90 degrees) Liquids Trialed Mildly Thick (IDDSI 2) Solid Trials Purred (IDDSI 4),Soft & Bite- sized (IDDSI 6) Administration Type Tea spoon,Controlled cup sip, Dependent feeding Oral Impairment Moderately impaired Oral Phase Comments Pt consumed pancake cut into small pieces, scrambled eggs, and 4 oz of pudding via tsp with 4 oz of nectar thick juice via cup. For soft solids , Pt demonstrated accumluation of residue anterior labial space/buccal cavities, prolonged mastication and poor bolus control, extended ap transport, piecemeal deglutition. For nectar thick liquids via cup Pt demonstrated slightly weak lip seal, with mild right sided anterior spillage, suspected loss of bolus resulting in premature spillage. Pharyngeal Impairment Moderately impaired Pharyngeal Phase Comments Pt with suspected delay in swallow for all PO trials. Multiple swallows observed with all PO trials to assist with pharyngeal clearance. Pt with inconsistent throat clearing/delayed cough x1 throughout eval with ST unable to determine if d/t solids/ liquids or baseline cough d/t PNA. For soft solids Pt demonstrated no overt s/s of aspiration. For pudding Pt demonstrated multiple swallows , no overt s/s of aspiration. For nectar thick liquids Pt demonstrated no overt s/s of aspiration, weak laryngeal elevation. Fatigue/Endurance Endurance WNL The IDDSI Framework Protocol: IDDSI.1 Findings Swallowing Function Oropharyngeal phase dysphagia Severity of Swallow Impairment Moderately impaired Contributing Factors to Swallow Difficulty following Impairment directions,Mastication inefficiency Prognosis Good Comment Pt presents with moderate oral phase dysphagia and suspected moderate pharyngeal phase dysphagia. Pt baseline diet is pureed solids and nectar thick liquids. Recommendations Instrumental Assessment No Swallowing Treatment Yes Frequency Daily while inpatient Recommended Solids Pureed (IDDSI 4) Recommended Liquids Mildly Thick (IDDSI 2) Other Recommendations ST recommends IDDSI 4/IDDSI 2 with the below mentioned safe swallowing strategies in place . ST communicated recommendations with CLINICAL APPLICATION CONSULTANT/ Nursing and emphasized the importance of strick oral care after intake and checking for pocketing. Safety Precautions/Swallowing Supervision needed for all Recommendations meals,Remain upright (90 degrees) during all oral intake,Upright position at least 30 minutes after meals, Small bites and sips when eating,Slow rate; swallow between bites,Alternate liquids and solids,1 to 1 feeding assistance,Strict oral care after intake,Check for pocketing Medication Recommendations As Tolerated Discharge Recommendations retirement facility Education Patient/Caregiver Education Described results of evaluation,Family/caregivers expressed understanding of evaluation Goals Short-term Goals STG 1: Patient will tolerate PO trials of IDDSI 4 with no clinical s/s of dysphagia 100% of the time in order to consume least restrictive diet . STG 2: Patient will tolerate PO trials of nectar thick liquids with no clinical s/s of aspiration 100% of the time in order to consume least restrictive diet. Long-term Goals LTG: Patient will tolerate safest and most efficient diet with no clinical s/s of aspiration or dysphagia 100% of the time in order to consume least restrictive diet .
--- NOTE | 2023-08-01 12:38 | PC.NURSE ---
Patient is non verbal, but occasionally will say yes and is usually silent for no. She has a R sided BKA at the age of [age] years old. 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 Patient has a small stage 2 opening at the end of her stump with a allevyn bandage in place. She is up to the commode with a one person assist and she has had a bm. Unable to get a urine sample yet as she is incontinent or has had mixed urine. Daughter in room and patient is comfortable.
--- NOTE | 2023-08-01 15:11 | CM.DANOTE ---
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 PHUONG Original Note: DCP Assessment Note Pt is an 82yo F here following shortness of breath/weakness/lethargy. Pt had a below knee amputation as a child and for the most part is nonverbal. 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 PCP Cal Jarrett Payer Medicare and Medicaid FIELD SPECIALIST reviewed EMR. Per provider in rounds, will likely be medically cleared to dc once off O2 in two days. Pt on 2ltrs O2 at this time and uses no O2 at baseline. FIELD SPECIALIST spoke with Berna at . Reports can take her back once medically cleared. If pt was here until 08.03.23, pt could come on Medicare benefit. Transportation time not arranged at this time. FIELD SPECIALIST entered room and introduced self and role. Pt accompanied by dtr Nicci (p [phone]) at bedside. Pt nonverbal throughout interaction. Dtr primary participant. Dtr confirms pt lives at and plan is to return there. FIELD SPECIALIST answered questions about Medicare benefit/status/Medicaid to best of ability. Dtr expressed verbal agreement to return to when medically stable. Plan: return to when medically stable, likely 08.03.23. CM team will follow closely. JAYME Gilliam Discharge Planning/Care Management CM Discharge Assessment Start: 08/01/23 15:09 Freq: Status: Active Protocol: Document 08/01/23 15:09 (Rec: 08/01/23 15:11 [id number]) Discharge Planning Assessment Assigned Composite Boat Builder JAYME Guerrero DPOA/Assigned Designee Name Nicci Hyde (dtr) Contact Information [phone] Advance Directives? POLST Advance Directives on File Yes History Provided By Family Member Prior Living Arrangements Skilled Nurse Facility Comment [facility] assisted resident Household Members other Type of transporation used prior to Relies on Others admit Facility Name Admitted From: [facility] Willing to Return to Facility? Yes Independent with ADL's No Needs Assistance With Bathing,Eating,Grooming,Meal Prep,Toileting,Managing Medications,Home Chores / Shopping Patient/Family Preference [facility] Facility Discharge Plan [facility] Facility Transportation Arrangement facility transportation Referrals Initiated [facility]pc Additional Comment [facility] can accept back. tentatively planned for if weaned off O2 SNF/HH Preference return to [facility]. Has Agency SNF been contacted Yes Comment [facility] Whiteboard Updated in Patient Room with Yes name and ext. # of Composite Boat Builder Review Status In Process Next Review Type Continued Stay Review
[2023-08-01 16:45] VITALS: BP 174/77; PULSE 90; RESP 16; TEMP 37.2; O2SAT 90
[2023-08-01] MEDS: cefTRIAXone 1,000 MG in SODIUM CHLORIDE 0.9% 100 ML 200 MG IV (19:44)
[2023-08-01 20:00] VITALS: BP 144/62; PULSE 79; RESP 16; TEMP 37.1; O2SAT 95
[2023-08-01] MEDS: PRIMIDONE 50 MG TABLET 300 MG PO (20:50)
[2023-08-01] MEDS: SODIUM CHLORIDE 0.9% 250 ML 21 ML IV (20:50)
[2023-08-01] MEDS: AZITHROMYCIN 500 MG in DEXTROSE 5% IN WATER 250 ML 250 MG IV (20:50)
[2023-08-02 04:00] VITALS: BP 136/72; PULSE 86; RESP 17; TEMP 37.2; O2SAT 93
[2023-08-02 04:49] LABS: Appearance Urine UA CLEAR; Bilirubin Urine UA NEGATIVE (NEGATIVE); Color Urine UA YELLOW; Glucose Urine UA NEGATIVE (Negative); Ketones Urine UA NEGATIVE (NEGATIVE); Leukocyte Esterase Urine UA NEGATIVE (NEGATIVE); Nitrite Urine UA NEGATIVE (Negative); Occult Blood Urine UA NEGATIVE (Negative); Protein Urine UA NEGATIVE (Negative); Specific Gravity Urine UA 1.015 (1.000-1.035); Urobilinogen Urine UA 0.2 E.U./dL (0.2)
[2023-08-02 04:53] LABS: Bacteria Urine None Seen; Culture Indicated Urine Cult Not Indicated; RBC Urine None Seen (0-5/HPF); Squamous Epithelial Cell Urine 0-1 /HPF (0-5/HPF); WBC Urine None Seen (0-5/HPF)
[2023-08-02 06:58] LABS: Add Manual Diff / Slide Review NO; Basophils Absolute Auto 0 /uL (0-100); Basophils Percent Auto 0.4 % (0-2); Eosinophils Absolute Auto 300 /uL (0-450); Eosinophils Percent Auto 3.2 % (2-4); Hematocrit 30.3 % (36-46); Hemoglobin 10.2 g/dL (12.0-16.0); Lymphocytes Absolute Auto 1500 /uL (1100-4500); Lymphocytes Percent Auto 16.4 % (25-40); Mean Corpuscular HGB Conc 33.7 % (30-36); Mean Corpuscular Hemoglobin 30.2 PG (26-34); Mean Corpuscular Volume 89.6 fL (80-100); Monocytes Absolute Auto 700 /uL (0-900); Monocytes Percent Auto 8.1 % (3-14); Neutrophils Absolute Auto 6600 /uL (1500-7000); Neutrophils Percent Auto 71.9 % (50-75); Platelet Count 371 X10^3/uL (150-400); Red Blood Cell Count 3.39 X10^6/uL (4.0-5.2); Red Cell Distribution Width 13.1 % (11.6-14.8); White Blood Cell Count 9.1 X10^3/uL (4.5-11.0)
[2023-08-02 07:07] LABS: BUN Creatinine Ratio 18.8 (6-22); Blood Urea Nitrogen 9 mg/dL (7-17); Calcium 7.5 mg/dL (8.4-10.2); Carbon Dioxide 25 mmol/L (22-32); Chloride 110 mmol/L (98-107); Estimated Glomerular Filt Rate > 60 mL/min (>60); Glucose 85 mg/dL (80-110); HEMOLYSIS < 15 (0-50); Potassium 3.2 mmol/L (3.4-5.1); Sodium 138 mmol/L (137-145)
[2023-08-02 07:12] LABS: Magnesium 1.9 mg/dL (1.6-2.3)
[2023-08-02] MEDS: SODIUM CHLORIDE 0.9% 1,000 ML 125 ML IV (07:57)
[2023-08-02 08:41] VITALS: BP 160/73; PULSE 78; RESP 18; TEMP 37.1; O2SAT 96
[2023-08-02] MEDS: lamoTRIgine 100 MG TABLET 150 MG PO (09:46)
[2023-08-02] MEDS: POTASSIUM CHLORIDE 20 MEQ TAB 40 MEQ PO (09:46)
[2023-08-02] MEDS: ESCITALOPRAM 10 MG TABLET 20 MG PO (09:49)
--- NOTE | 2023-08-02 10:58 | CM.DPC ---
DCP Cont. Reviewed EMR and team rounds for status updates. Per Hospitalist, likely 1-more day before she will be ready for d/c back to [facility], pending weaning off of O2. Will continue to follow closely.
--- NOTE | 2023-08-02 11:16 | ST.IPTN ---
Visit Care Team Role Provider Type Cal aJrrett MD Primary Care Provider Non-Staff Address: [address] [place] [address], [address], [place], [address] Ila Haskins DO Emergency Provider Physician Referring Provider Address: [address] [place] [address], [id number] Yovanny Urban MD Admit Provider Physician Attending Provider Address: [address] [place] [address], [address] Fax: BUNCH MAKER Treatment Note BUNCH MAKER Treatment Note Start: 08/02/23 11:06 Freq: Status: Active Protocol: Document 08/02/23 11:06 TED (Rec: 08/02/23 11:16 TED [id number]) Speech Pathology Treatment Note Session Time Visit Start Time 09:00 Visit Stop Time 09:30 Total Visit Minutes 30 Visit Information Visit Number 2 Setting Treatment Setting Acute Care Visit Type Note Type Treatment Note General Information Patient History Per H&P: 82 y/o with PMH of SAH, aphasia, came from the [place] [facility] which she moved in 4 months ago, accompanied by her daughter who reported on poor oral intake in the last 5 days and 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 In the ED hypoxemic, with leukocytosis and infiltrates on CXR. Chest X-ray on 07/31/23 indicated: IMPRESSION: Multifocal consolidations suspicious for infection. Suspected cardiomegaly. Possible left pleural effusion . Consider future imaging surveillance to assess for resolution. Pt resides in [facility]. Pt baseline diet at facility is pureed solids and nectar thick liquids. ST referred for swallow eval d/t Pt with PNA and swallow difficulties. Objective Treatment Activities PO trials Assessment Assessment of Improvement Pt sitting upright in bed. Pt nonverbal and with cognitive deficits. Pt observed to be attempting to drink nectar thick juice out of mug, however difficulties d/t hand tremor. Nursing reports Pt with no observed swallow difficulties with pureed solids and nectar thick liquids. Pt with throat clearing/throat noises prior to PO trials. ST assessed swallow function with PO trial of pudding and 4 oz of nectar thick juice via cup. Pt required 100% feeding assistance. For pudding, Pt demonstrated good oral acceptance and containment, prolonged bolus manipulation/ munching, prolonged ap transport, piecemeal deglutition, minimal oral stasis. For nectar juice via cup Pt demonstrated adequate lip seal, mild right sided anterior spillage, suspected delay in swallow, reduced laryngeal elevation, no overt s/s of aspiration. Pt appears to be at baseline in regards to swallow ability. ST recommends continuation of IDDSI 4/ pureed solids and IDDSI 2/nectar thick liquids. ST to discharge Pt from ST d/t being at baseline. Plan Length of Session 30 Minutes
--- NOTE | 2023-08-02 11:16 | ST.IPTN ---
Visit Care Team Role Provider Type Cal Jarrett MD Primary Care Provider Non-Staff Address: [address] [place] [address], [address], [place], [address] Ila Haskins DO Emergency Provider Physician Referring Provider Address: [address] [place] [address], [address] Yovanny Urban MD Admit Provider Physician Attending Provider Address: [address] [place] [address], [address] Fax: FIRST ASSIST Treatment Note FIRST ASSIST Treatment Note Start: 08/02/23 11:06 Freq: Status: Active Protocol: Document 08/02/23 11:06 TED (Rec: 08/02/23 11:16 TED [id number]) Speech Pathology Treatment Note Session Time Visit Start Time 09:00 Visit Stop Time 09:30 Total Visit Minutes 30 Visit Information Visit Number 2 Setting Treatment Setting Acute Care Visit Type Note Type Treatment Note General Information Patient History Per H&P: 82 y/o with PMH of SAH, aphasia, came from the [facility] which she moved in 4 months ago, accompanied by her daughter who reported on poor oral intake in the last 5 days and 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 In the ED hypoxemic, with leukocytosis and infiltrates on CXR. Chest X-ray on 07/31/23 indicated: IMPRESSION: Multifocal consolidations suspicious for infection. Suspected cardiomegaly. Possible left pleural effusion . Consider future imaging surveillance to assess for resolution. Pt resides in [facility]. Pt baseline diet at facility is pureed solids and nectar thick liquids. ST referred for swallow eval d/t Pt with PNA and swallow difficulties. Objective Treatment Activities PO trials Assessment Assessment of Improvement Pt sitting upright in bed. Pt nonverbal and with cognitive deficits. Pt observed to be attempting to drink nectar thick juice out of mug, however difficulties d/t hand tremor. Nursing reports Pt with no observed swallow difficulties with pureed solids and nectar thick liquids. Pt with throat clearing/throat noises prior to PO trials. ST assessed swallow function with PO trial of pudding and 4 oz of nectar thick juice via cup. Pt required 100% feeding assistance. For pudding, Pt demonstrated good oral acceptance and containment, prolonged bolus manipulation/ munching, prolonged ap transport, piecemeal deglutition, minimal oral stasis. For nectar juice via cup Pt demonstrated adequate lip seal, mild right sided anterior spillage, suspected delay in swallow, reduced laryngeal elevation, no overt s/s of aspiration. Pt appears to be at baseline in regards to swallow ability. ST recommends continuation of IDDSI 4/ pureed solids and IDDSI 2/nectar thick liquids. ST to discharge Pt from ST d/t being at baseline. Plan Length of Session 30 Minutes
--- NOTE | 2023-08-02 13:31 | PC.NURSE ---
Day shift: Pt with multiple loose stools this afternoon. Dr Ansari aware. Stool sample sent to lab to check for C.Diff.
--- NOTE | 2023-08-02 14:37 | P.PN_ITS ---
Subjective Subjective Interval history: Patient sleeping and not awakened as she is nonverbal. Weaned to 1L O2. Patient had 4 loose stools and C. diff checked and pending. Exam Vital Signs (past 8 hours): - 08/02/23 08:41 08/02/23 10:06 Temperature 98.8 F Pulse Rate 78 Respiratory Rate 18 Blood Pressure 160/73 H Pulse Oximetry 96 Oxygen Delivery Method Room Air Oxygen Flow Rate 1 Oxygen Delivery Method Room Air Oxygen Flow Rate 1 Const Other: in no distress, sleeping Neck Other: supple Resp Other: bilateral rhonchi is improving Cardio Other: RRR Neuro Other: aphasia Extrem Other: Rt BKA Objective Labs 08/02/23 06:45 08/02/23 06:45 Labs: Laboratory Results - last 24 hr 08/01/23 08/02/23 20:30 06:45 WBC 9.1 RBC 3.39 L Hgb 10.2 L Hct 30.3 L MCV 89.6 MCH 30.2 MCHC 33.7 RDW 13.1 Plt Count 371 Neut % (Auto) 71.9 Lymph % (Auto) 16.4 L [place] % (Auto) 8.1 Eos % (Auto) 3.2 Baso % (Auto) 0.4 Neut # (Auto) 6600 Lymph # (Auto) 1500 [place] # (Auto) 700 Eos # (Auto) 300 Baso # (Auto) 0 Sodium 138 Potassium 3.2 L Chloride 110 H Carbon Dioxide 25 BUN 9 Creatinine 0.48 L Estimated GFR > 60 BUN/Creatinine Ratio 18.8 Glucose 85 Calcium 7.5 L Magnesium 1.9 Urine Color Yellow Urine Appearance Clear Urine pH 7.0 Ur Specific [place] 1.015 Urine Protein Negative Urine Glucose (UA) Negative Urine Ketones Negative Urine Occult Blood Negative Urine Nitrate Negative Urine Bilirubin Negative Urine Urobilinogen 0.2 Ur Leukocyte Esterase Negative Urine RBC None seen Urine WBC None seen Ur Squamous Epith Cells 0-1 /hpf Urine Bacteria None seen Ur Culture Indicated? Cult not indicated PFSH Social History household members: other Smoking Status: Never smoker alcohol intake: never Assessment & Plan Assessment and plan (1) Pneumonia: Status: Acute Plan: with acute hypoxic resp failure Prudence Henry - FIRE CHIEF'S AIDE for swallow evaluation, changed to dysphagia diet - O2 for hypoxemia - weaned to 1L O2 (2) Essential hypertension: Status: Chronic Plan: continue home Lisinopril 10 mg daily (3) Hemiparesis affecting dominant side as late effect of cerebrovascular accident: Status: Chronic Plan: old, since SAH (4) Aphasia as late effect of cerebrovascular accident: Status: Acute Plan: as above (5) Anxiety and depression: Status: Acute Plan: lorazepam, lexapro (6) Epilepsy: Status: Acute Plan: since SAH Primidone, Lamictal No recent breakthrough seizures as per the daughter Plan Dispo: Likely back to SNF on 08/03. Quality VTE Deep Vein Thrombosis/Pulmonary Embolism Present on Admission: No
[2023-08-02] MEDS: lisinopriL 10 MG TABLET PO (15:06)
[2023-08-02 15:51] LABS: Clostridium Difficile Tox PCR Negative for C. diff (Negative)
[2023-08-02 16:00] VITALS: RESP 16
[2023-08-02 19:15] VITALS: BP 154/67; PULSE 85; O2SAT 91
[2023-08-02] MEDS: cefTRIAXone 1,000 MG in SODIUM CHLORIDE 0.9% 100 ML 200 MG IV (19:37)
[2023-08-02 20:00] VITALS: BP 184/83; PULSE 87; RESP 16; TEMP 37.1; O2SAT 92
[2023-08-02] MEDS: AZITHROMYCIN 500 MG in DEXTROSE 5% IN WATER 250 ML 250 MG IV (20:31)
[2023-08-02] MEDS: PRIMIDONE 50 MG TABLET 300 MG PO (21:27)
[2023-08-03 04:00] VITALS: BP 166/80; PULSE 88; RESP 18; TEMP 37; O2SAT 92
[2023-08-03 07:13] LABS: Add Manual Diff / Slide Review NO; Basophils Absolute Auto 0 /uL (0-100); Basophils Percent Auto 0.4 % (0-2); Eosinophils Absolute Auto 200 /uL (0-450); Eosinophils Percent Auto 2.3 % (2-4); Hematocrit 31.6 % (36-46); Hemoglobin 10.8 g/dL (12.0-16.0); Lymphocytes Absolute Auto 1600 /uL (1100-4500); Lymphocytes Percent Auto 16.3 % (25-40); Mean Corpuscular Hemoglobin 30.4 PG (26-34); Mean Corpuscular Volume 89.2 fL (80-100); Monocytes Absolute Auto 600 /uL (0-900); Monocytes Percent Auto 6.4 % (3-14); Neutrophils Absolute Auto 7400 /uL (1500-7000); Neutrophils Percent Auto 74.6 % (50-75); Platelet Count 429 X10^3/uL (150-400); Red Blood Cell Count 3.54 X10^6/uL (4.0-5.2); Red Cell Distribution Width 12.9 % (11.6-14.8); White Blood Cell Count 9.9 X10^3/uL (4.5-11.0)
--- NOTE | 2023-08-03 07:20 | DI.RAD.S_ITS ---
PROCEDURE: XR CHEST 1V INDICATIONS: assess PNA TECHNIQUE: One view of the chest was acquired. COMPARISON: [facility], CR, XR CHEST 1 VIEW, 11/09/2019, 19:25. [facility], CR, XR CHEST 1V, 07/31/2023, 20:13. FINDINGS: Surgical changes and devices: None. Lungs and pleura: Silhouetting at the left hemidiaphragm is unchanged. This could be due to deviation of the cardiac apex to the left and prominent pericardial fat pad seen on prior CT. This also appears similar to remote CXR from 2019. Mild bibasilar hazy opacity suspected. No large pleural effusion is seen. No pneumothorax. Mediastinum: Mediastinal contours appear unchanged. Heart size appears prominent in deviated to the left. Bones and chest wall: No suspicious bony lesions. Bilateral shoulder DJD. Overlying soft tissues appear unremarkable. IMPRESSION: No interval change. Silhouetting at the left hemidiaphragm is unchanged. This has a similar appearance to 2020. Suspect that this is related to deviation of the cardiac apex to the left prominent pericardial fat pad seen on prior CT rather than a consolidation. If high suspicion for pneumonia consider CT chest. Suspect bibasilar atelectasis. Dictated by: Marco Antonio Hammonds M.D. on 08/03/2023 at 8:07 Approved by: Marco Antonio Hammonds M.D. on 08/03/2023 at 8:12
[2023-08-03 07:28] LABS: Blood Urea Nitrogen 6 mg/dL (7-17); Calcium 7.8 mg/dL (8.4-10.2); Carbon Dioxide 26 mmol/L (22-32); Chloride 105 mmol/L (98-107); Estimated Glomerular Filt Rate > 60 mL/min (>60); Glucose 88 mg/dL (80-110); HEMOLYSIS < 15 (0-50); Potassium 3.3 mmol/L (3.4-5.1); Sodium 135 mmol/L (137-145)
[2023-08-03 07:29] LABS: Magnesium 1.9 mg/dL (1.6-2.3)
[2023-08-03 07:30] VITALS: O2SAT 93
[2023-08-03 08:49] VITALS: BP 130/54; PULSE 90; RESP 18; TEMP 36.8; O2SAT 92
[2023-08-03] MEDS: POTASSIUM CHLORIDE 20 MEQ/15 ML UDC 40 MEQ PO (09:21)
[2023-08-03] MEDS: lamoTRIgine 100 MG TABLET 150 MG PO (09:21)
[2023-08-03] MEDS: ESCITALOPRAM 10 MG TABLET 20 MG PO (09:22)
[2023-08-03] MEDS: lisinopriL 10 MG TABLET PO (09:22)
[2023-08-03] MEDS: ACETAMINOPHEN 325 MG TABLET 650 MG PO (09:23)
--- NOTE | 2023-08-03 13:06 | PM.DS.1 ---
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 In the ED hypoxemic, with leukocytosis and infiltrates on CXR. Discharge Providers Provider Date of admission: 07/31/23 23:45 Discharge Date: 08/03/23 Primary care physician: Cal Jarrett MD Consults: 08/01/23 07:51 Consult to Speech Therapy Evaluate & Treat Comment: Physician Instructions: Evaluate and treat 08/03/23 10:13 Consult to Occupational Therapy Evaluate & Treat Comment: Physician Instructions: Evaluate and treat Consult to Physical Therapy Evaluate & Treat Comment: Physician Instructions: Evaluate and Treat Discharge provider: Luis Ansari DO Summary Hospital Course Discharge Diagnosis: (1) Pneumonia: Status: Acute Plan: with acute hypoxic resp failure Rocephin, Zithromax initially. Given augmentin for 1 day on discharge to finish 5 day course. 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 Although procal and WBC normal. Was requiring O2 2L. Given IV abx and O2 was weaned off. CARE TRANSITION MANAGER changed to modified dysphagia diet. Discharged back to SNF. Exam Vital Signs (past 8 hours): - 08/03/23 07:30 08/03/23 08:49 Temperature 98.3 F Pulse Rate 90 Respiratory Rate 18 Blood Pressure 130/54 L Pulse Oximetry 93 92 Oxygen Delivery Method Nasal Cannula Oxygen Flow Rate 1 1 Oxygen Delivery Method Nasal Cannula Oxygen Flow Rate 1 Const Other: in no distress, sleeping Neck Other: supple Resp Other: bilateral rhonchi is improving Cardio Other: RRR Neuro Other: aphasia Extrem Other: Rt BKA Objective Labs 08/03/23 06:45 08/03/23 06:45 Labs: Laboratory Results - last 24 hr 08/02/23 08/03/23 13:25 06:45 WBC 9.9 RBC 3.54 L Hgb 10.8 L Hct 31.6 L MCV 89.2 MCH 30.4 MCHC 34.0 RDW 12.9 Plt Count 429 H Neut % (Auto) 74.6 Lymph % (Auto) 16.3 L [place] % (Auto) 6.4 Eos % (Auto) 2.3 Baso % (Auto) 0.4 Neut # (Auto) 7400 H Lymph # (Auto) 1600 [place] # (Auto) 600 Eos # (Auto) 200 Baso # (Auto) 0 Sodium 135 L Potassium 3.3 L Chloride 105 Carbon Dioxide 26 BUN 6 L Creatinine 0.50 L Estimated GFR > 60 BUN/Creatinine Ratio 12.0 Glucose 88 Calcium 7.8 L Magnesium 1.9 C. difficile Tox (PCR) Negative for c. diff [facility] Social History household members: other Smoking Status: Never smoker alcohol intake: never Discharge Plan Discharge Plan Patient Disposition: SNF Discharge orders & Medications Prescriptions: New amoxicillin-pot clavulanate 875-125 mg tablet 1 tab PO BID 1 Days Qty: 2 0RF Rx Instructions: start on 08/04 Continued lamotrigine 150 mg tablet 150 mg PO DAILY Qty: 90 3RF (DME) Probiotic See Rx Instructions .Route .MEDSUPPLY Qty: 30 6RF Rx Instructions: 1 capsule by mouth daily; ascorbic acid (vitamin C) 500 mg tablet 500 mg PO DAILY Qty: 30 6RF polyethylene glycol 3350 [Miralax] 17 gram/dose powder 17 g PO DAILY PRN (Reason: constipation) Qty: 510 3RF primidone 50 mg tablet 50 mg PO BEDTIME Qty: 90 3RF primidone 250 mg tablet 250 mg PO BEDTIME Qty: 90 3RF acetaminophen 500 mg tablet 1,000 mg PO TID PRN (Reason: fever or pain) Qty: 180 0RF Rx Instructions: Ok to crush if needed for easier use of taking lorazepam 0.5 mg tablet 0.5 mg PO Q6H PRN (Reason: agitation) Qty: 10 0RF calcitriol 0.25 mcg capsule 0.25 mcg PO DAILY Qty: 90 0RF Rx Instructions: APPT DUE WITH PCP. PLEASE CALL TO SCHEDULE APPT. THANK YOU 03/07/22 [id number] 250 mg tablet 1 tab PO BID Qty: 180 0RF escitalopram oxalate 20 mg tablet 20 mg PO DAILY Qty: 15 0RF Rx Instructions: NO FURTHER REFILLS UNTIL SEEN. PLEASE CALL TO SCHEDULE APPT. THANKS 07/26/22. lisinopril 10 mg tablet 10 mg PO DAILY Qty: 30 0RF Rx Instructions: Patient is overdue for an appointment with Dr. Jarrett for annual follow up. Patient will need to be seen before next renewal. 08/24/22 Follow up/Referrals: Cal Jarrett MD [Primary Care Provider] - 2 Weeks Diet/Activity/Treatments Diet: Regular Visit Report/Discharge Packet Stand Alone Forms: Patient Portal/API Discharge Data Primary Care Provider: Cal Jarrett Quality VTE Deep Vein Thrombosis/Pulmonary Embolism Present on Admission: No
--- NOTE | 2023-08-03 13:13 | OT.IPNOTE ---
Pt being discharged back to [facility] at 1400. Able to call [facility] and nursing staff states prior pt needing 1:1 assist for all feeding needs and assist for all other ADl needs and able to transfer with mainly just one person. Discharge OT eval orders.
--- NOTE | 2023-08-03 13:15 | CM.DPC ---
DCP Cont. Reviewed EMR and team rounds for status updates. Plan is for pt to work with PT, then d/c to [facility] at 2:00pm. Dtr is in the room and is aware. No further DCP needs identified at this time.
--- NOTE | 2023-08-03 13:48 | PC.NURSE ---
Day shift: Report given to Shaylee at [facility] at approx 1345. All question answered.
--- NOTE | 2023-08-03 13:56 | PC.NURSE ---
Day shift: Pt going back to [facility] today at 1400. Daughter (Nicci) aware and in room . Daughter has gathered Pt's belongings. SNF packet given to transport person. Pt has all personal items from room. Left unit at approx 1415. VS WNL. RA 92%. Rt leg stump area w/ no s/s of infection or cellulitis.
--- NOTE | 2023-08-03 14:06 | PT.IIE ---
Current Diagnoses Depression, unspecified (07/31/23) Anxiety disorder, unspecified (07/31/23) Epilepsy, unspecified, not intractable, without status epilepticus (07/31/23) Essential (primary) hypertension (07/31/23) Aphasia following cerebral infarction (07/31/23) Hemiplegia and hemiparesis following cerebral infarction affecting unspecified side (07/31/23) Pneumonia, unspecified organism (07/31/23) Physical Therapy Inpatient Evaluation/Re-Eval M1 PT/OT-IP Prior Functional Status Start: 08/03/23 13:15 Freq: NEEDED Status: Active Protocol: Document 08/03/23 13:20 MB (Rec: 08/03/23 14:06 [id number]) Medical Review Prior Functional Status Medical History Reviewed Yes Communication Unsure baseline diet/ swallowing issues and pt is non-verbal. She is able to make yes and no known with affirmative or negative hum- type communication Mobility and Gait 1-2 person assistance for SPT on left leg, lift available as needed Activities of Daily Living and IADL's Dependent Social History Household Members other Living Arrangements Skilled Nurse Facility Number of Floors (Floors) One Floor Number of Stairs To Enter/Railing? No steps Home Environment Standard Height Toilet,Walk in Shower Home Equipment Manual Wheelchair,Bedside Commode,Shower Seat with Backrest,Hand Held Shower Employment Status Retired Additional Social History Comment Pt lives as long-term care resident and has assistance for all ADLs, transfers, w/c mobility M2 PT-IP Current Condition Start: 08/03/23 13:15 Freq: NEEDED Status: Active Protocol: Document 08/03/23 13:20 MB (Rec: 08/03/23 14:06 [id number]) Physical Therapy Current Condition Current Condition Evaluation Date 08/03/23 Treatment Diagnosis PNA M3 PT-IP Subjective Start: 08/03/23 13:15 Freq: NEEDED Status: Active Protocol: Document 08/03/23 13:20 MB (Rec: 08/03/23 14:06 MB [id number]) Subjective Physical Therapy Visit Type Type Initial Evaluation Visit Start Time 13:20 Visit Stop Time 13:50 Total Visit Minutes 30 Number of TELECASTING TECHNICIAN Visits 0 Physical Therapy Visit Comments Patient Comments Pt is non-verbal and does answer yes and no questions at least 75% of the time with daughter as transfer to BSC and toileting performed Therapy Pain Assessment Pain When Pain Assessed At Rest Pain Present Pain Present Denied Pain Location Abdomen Intensity 0 Scale Used Karol (Faces) M4 PT-IP Mobility and Gait Start: 08/03/23 13:15 Freq: NEEDED Status: Active Protocol: Document 08/03/23 13:20 MB (Rec: 08/03/23 14:06 MB [id number]) PT-Bed Mobility Assessment Supine to Sit Supine to Sit Total Assistance,1 Person Assistance,Head of Bed Elevated Sit to Supine Sit to Supine Total Assistance,1 Person Assistance Scooting Scooting to Edge of Bed Maximum Assistance Scooting Up and Down in Bed Maximum Assistance PT-Transfer Assessment Transfers Transfer Destination Bedside Commode Transfer Technique Squat Pivot Transfer Ability Level of Assist Total Assistance,2 Person Assistance Comments Mobility Comments Pt is able to maintain weight through LLE and daughter leads and PT assist for SPT to the left x2 with cues of gait belt to and from bed and drop arm BSC. Dependent for hygiene. PT-Balance Assessment Sitting Balance and Reactions Static Sitting Balance Ability Poor Dynamic Sitting Balance Ability Poor Standing Balance and Reactions Device Used Unable to stand M5 PT-IP Objective Assessments Start: 08/03/23 13:15 Freq: NEEDED Status: Active Protocol: Document 08/03/23 13:20 MB (Rec: 08/03/23 14:06 [id number]) Orientation Orientation/Cognition Level of Alertness Alert Language Function Ability Expressive Aphasia Comments Pt is non-verbal and moans loudly occ with needs and also responds with affirmative hum when asked yes and no questions by daughter during transfer and toileting with PT and daughter Gross Range of Motion Upper Extremity ROM Assessment Bilaterally Impaired Impairments RUE tone from old stroke Lower Extremity ROM Assessment Bilaterally Impaired Impairments R BKA and tone from old stroke Strength Upper Extremity Strength Assessment Bilaterally Impaired Lower Extremity Strength Assessment Bilaterally Impaired Comments Strength Comments Pt cannot follow MMT commands and she does have some active movement in LUE and LLE and is able to reach for daughter with left hand and WB through left leg for transfer Sensation Assessment Comments Sensation Comments Unable to assess sensation Muscle Tone Comments Muscle Tone Comments Increased flexor tone right extremities M7 PT-IP Assessment and Plan Start: 08/03/23 13:15 Freq: NEEDED Status: Active Protocol: Document 08/03/23 13:20 MB (Rec: 08/03/23 14:06 MB [id number]) PT Summary Assessment and Plan Potential Rehabilitation Potential Fair Status of Condition at Evaluation Evolving Summary Impairments ROM,Strength,Balance, Coordination,Tone,Bed Mobility ,Transfers,Gait,Activity Tolerance Progress Towards Goals Safe For Discharge Assessment Summary Pt is a lady who resides at long-term care facility and who has assistance for transfers and all ADLs. Her daughter is able to demonstrate transfer with PT assistance nearby for toileting today and she verbalizes that pt is close to baseline. She is concern about right residual limb wound and hopes pt will get usp care or wound care consult at facility as her goal. She is interested in restorative program to be created by therapist at facility as appropriate to help with limb ROM to help with pain and positioning. No acute PT needs. Frequency of Treatment Frequency Of Treatment Discharge Recommendations To Nursing Amount of Assist Needed Mechanical Lift Discharge Recommendations Other Discharge Recommendations Long-term care at SNF facility where she lives Transportation Needs at Discharge Wheelchair/Cabulance
== END 2023-08-03 14:41 | DRG 193 ==
LOC: ED 23:45 → AC 23:46
PROVIDERS: Student in an Organized Health Care Education/Training Program; Admitting Provider Internal Medicine; Emergency Provider Emergency Medicine; PCP Student in an Organized Health Care Education/Training Program; Referring Provider Emergency Medicine; Visit Provider Internal Medicine
DX: J18.9 Pneumonia, unspecified organism (principal); J96.01 Acute respiratory failure with hypoxia; I69.351 Hemiplegia and hemiparesis following cerebral infarction affecting right dominant side; I10 Essential (primary) hypertension; F41.9 Anxiety disorder, unspecified; F32.A Depression, unspecified; G40.909 Epilepsy, unspecified, not intractable, without status epilepticus; M79.604 Pain in right leg; Z89.511 Acquired absence of right leg below knee
CPT/HCPCS: 0241U; 36415; 71045; 73560; 74177; 76705; 80048; 80053; 81001; 82550; 83605; 83690; 83735; 83880; 84145; 84484; 85025; 85610; 85730; 87040; 87493; 92526; 92610; 93005; 93010; 94762; 96365; 97161; 99284; 99285; J0136; J0696; Q9967

== ENCOUNTER 2023-09-01 04:48 | Inpatient (IN) | payer MEDICARE, MEDICAID, SELFPAY ==
[2023-07-31 23:50] VITALS: BMI 25.6
[2023-09-01] VITALS (54 sets, daily range): BP systolic 78–171; BP diastolic 45–101; PULSE 70–125; RESP 18–73; TEMP 36.4–37.5; O2SAT 87–100
--- NOTE | 2023-09-01 04:56 | DI.RAD.S_ITS ---
PROCEDURE: XR CHEST 1V INDICATIONS: Probable aspiration now with hypoxia TECHNIQUE: One view of the chest was acquired. COMPARISON: [facility], CR, XR CHEST 1V, 08/03/2023, 7:43. [facility], CR, XR CHEST 1V, 07/31/2023, 20:13. FINDINGS: Surgical changes and devices: None. Lungs and pleura: Patchy left basilar airspace opacity. Mediastinum: Mediastinal contours appear normal. Heart size is normal. Bones and chest wall: No suspicious bony lesions. Overlying soft tissues appear unremarkable. Severe degenerative changes of the shoulders. IMPRESSION: Patchy left basilar airspace opacity, decreased from 08/03/2023. Findings suggest a resolving process. Recommend follow-up in 1-2 months with chest x-ray to ensure resolution. Dictated by: Aaron Gentile M.D. on 09/01/2023 at 8:26 Approved by: Aaron Gentile M.D. on 09/01/2023 at 8:27
--- NOTE | 2023-09-01 05:02 | ED_ITS ---
HPI - General Adult General Chief complaint: Upper Respiratory Symptoms Stated complaint: respitory failure Time Seen by Provider: 09/01/23 04:55 Source: EMS Mode of arrival: EMS Limitations: other (Nonverbal) History of Present Illness HPI narrative: Patient is an 82-year-old female. She has a DNR/DNI with limited interventions. Her PLOST form is at bedside. She comes from rehab facility across the street from hospital. Within the past several hours it was witnessed by staff at the facility that the patient vomited and most likely aspirated at the time. She was not hypoxic initially. She was observed for a period of time. Apparently the patient did sleep for a period of time. When they went back in to check on her they found her to be short of breath. Also to have coughing and coarse breath sounds. Was found to be hypoxic in the 70s. Was given an albuterol nebulizer by the staff without any improvement of symptoms. EMS was called. Upon their initial evaluation they stated that she had a room air saturation in the mid to upper 70s. Was hypotensive. She was placed on a non-rebreather which brought her oxygen saturations greater than 90%. Patient is nonverbal. This is baseline for her. Secondary to a prior stroke. Related Data Previous Rx's Medication Instructions Recorded lamotrigine 150 mg tablet 150 mg PO DAILY #90 tabs 04/23/21 Probiotic #30 ea 06/22/21 ascorbic acid (vitamin C) 500 mg 500 mg PO DAILY #30 tabs 06/22/21 tablet polyethylene glycol 3350 17 17 g PO DAILY PRN constipation 06/22/21 gram/dose oral powder (Miralax) #510 grams primidone 250 mg tablet 250 mg PO BEDTIME #90 tabs 06/24/21 primidone 50 mg tablet 50 mg PO BEDTIME #90 tabs 06/24/21 acetaminophen 500 mg tablet 1,000 mg (2 x 500 mg) PO TID PRN 07/09/21 fever or pain #180 tabs lorazepam 0.5 mg tablet 0.5 mg PO Q6H PRN agitation #10 01/18/22 tabs calcitriol 0.25 mcg capsule 0.25 mcg PO DAILY #90 caps 03/07/22 sodium di- and 1 tab PO BID #180 tabs 04/05/22 monophosphate-potassium phos monobasic 250 mg tablet ([id number]) escitalopram oxalate 20 mg tablet 20 mg PO DAILY #15 tabs 07/26/22 lisinopril 10 mg tablet 10 mg PO DAILY #30 tabs 08/24/22 Allergies Allergy/AdvReac Type Severity Reaction Status Date / Time No Known Allergies Allergy Verified 09/01/23 06:29 Review of Systems Review of Systems Narrative: Patient unable to provide any history secondary to being nonverbal. History from HPI came from EMS. Patient History Social History household members: other Smoking Status: Never smoker alcohol intake: never Smoking Status: Never smoker Substance Use Type: does not use Exam Initial Vital Signs Initial Vital Signs: Vital Signs Pulse Rate 122 H 09/01/23 04:55 Pulse Oximetry 94 09/01/23 04:55 Const General: in distress HENMT Head: normal to inspection and normocephalic Resp Effort & Inspection: labored, respiratory distress, no retractions and tachypneic Auscultation: rhonchi and no wheezes Cardio Rate: tachycardic Rhythm: regular rhythm GI Inspection: non-distended Neuro Other: Patient is nonverbal. Extrem Other: Right [id number] amputation Course Orders Ordered: ED Orders 09/01/23 04:45 Complete Blood Count AUTO DIFF Stat Comprehensive Metabolic Panel Stat Lipase Stat 09/01/23 04:56 XR chest 1V Stat EKG-12 Lead Stat RT Consult Eval and Treat Now 09/01/23 05:28 Education, smoking cessation ONGOING 09/01/23 05:30 Blood Culture Stat 09/01/23 05:31 Consult to Discharge Planning Routine 09/01/23 05:41 Lactate (Lactic Acid) Stat Procalcitonin Stat 09/02/23 07:00 Comprehensive Metabolic Panel DAILY Magnesium DAILY 09/03/23 07:00 Comprehensive Metabolic Panel DAILY Magnesium DAILY 09/04/23 07:00 Comprehensive Metabolic Panel DAILY Magnesium DAILY Acetaminophen (Acetaminophen 325 Mg Tablet) 650 mg PO Q6H PRN PRN Reason: Fever/Mild Pain (1-3) Albuterol (Albuterol 2.5 Mg/3 Ml Neb (Adult)) 2.5 mg INH [id number] PRN PRN Reason: Dyspnea Ascorbic Acid (Ascorbic Acid 500 Mg Tablet) 500 mg PO DAILY [facility] Calcitriol (Calcitriol 0.25 Mcg Capsule) 0.25 mcg PO DAILY [facility] Escitalopram Oxalate (Escitalopram 10 Mg Tablet) 20 mg PO DAILY [facility] Hydromorphone HCl (Hydromorphone 0.5 Mg Inj) 0.5 mg IV Q2H PRN PRN Reason: Pain, Severe (7-10) Sodium Chloride (Normal Saline 0.9%) 1,000 mls @ 125 mls/hr IV CONT [facility] Last Admin: 09/01/23 05:11 Dose: 125 mls/hr Documented By: BLANCA Sodium Chloride (Normal Saline 0.9%) 1,000 mls @ 100 mls/hr IV CONT [facility] Piperacillin Sod/Tazobactam (Sod 3.375 gm/ Sodium Chloride) 100 mls @ 25 mls/hr IV Q8H [facility] Stop: 09/06/23 05:29 Lamotrigine (Lamotrigine 100 Mg Tablet) 150 mg PO DAILY [facility] Lisinopril (Lisinopril 10 Mg Tablet) 10 mg PO DAILY [facility] Lorazepam (Lorazepam 0.5 Mg Tablet) 0.5 mg PO Q6H PRN PRN Reason: agitation Naloxone HCl (Naloxone 0.4 Mg/Ml Vial) 0.2 mg IV Q2MIN PRN PRN Reason: Opiate Reversal Ondansetron HCl (Ondansetron 4 Mg/2 Ml Inj) 4 mg IV Q8HR PRN PRN Reason: Nausea And Vomiting Polyethylene Glycol (Polyethylene Glycol 3350 17 Gm Powd.Pack) 17 gm PO DAILY PRN PRN Reason: constipation Primidone (Primidone 50 Mg Tablet) 50 mg PO BEDTIME [facility] Primidone (Primidone 50 Mg Tablet) 250 mg PO BEDTIME [facility] Sodium Phosphate (Phospha 250 Neutral Tablet) 250 mg PO BID [facility] Discontinued Medications Acetaminophen (Acetaminophen 325 Mg Tablet) 975 mg PO TID PRN PRN Reason: PRN PAIN OR FEVER Piperacillin Sod/Tazobactam (Sod 4.5 gm/ Sodium Chloride) 100 mls @ 200 mls/hr IV NOW ONE Stop: 09/01/23 05:16 Last Infusion: 09/01/23 06:25 Dose: Infused Documented By: Admin: 09/01/23 05:52 Dose: 200 mls/hr Documented By: BLANCA Non-Formulary Medication (Acetaminophen) 1,000 mg PO TID PRN PRN Reason: fever or pain Vital Signs Vital signs: Vital Signs - 8 hr 09/01/23 04:55 09/01/23 04:56 09/01/23 04:59 Temperature 97.5 F L Pulse Rate 122 H 119 H Respiratory Rate 46 H Blood Pressure 104/58 L 104/58 L Pulse Oximetry 94 100 Oxygen Delivery Method Non -Rebreather Oxygen Flow Rate 09/01/23 04:59 09/01/23 05:00 09/01/23 05:01 Temperature Pulse Rate 117 H 124 H Respiratory Rate 42 H 46 H Blood Pressure 91/50 L Pulse Oximetry 99 89 L Oxygen Delivery Method Non -Rebreather Non -Rebreather Oxygen Flow Rate 12 09/01/23 05:01 09/01/23 05:30 09/01/23 05:44 Temperature Pulse Rate 124 H 114 H 114 H Respiratory Rate 41 H 42 H 40 H Blood Pressure 78/50 L Pulse Oximetry 89 L 91 Oxygen Delivery Method Non -Rebreather Oxygen Flow Rate 13 09/01/23 05:44 09/01/23 05:44 09/01/23 06:00 Temperature Pulse Rate 115 H Respiratory Rate 39 H Blood Pressure 78/50 L 78/48 L Pulse Oximetry 87 L Oxygen Delivery Method Non -Rebreather Oxygen Flow Rate 09/01/23 06:00 Temperature Pulse Rate 116 H Respiratory Rate 44 H Blood Pressure Pulse Oximetry 90 L Oxygen Delivery Method Non -Rebreather Oxygen Flow Rate 13 Medical Decision Making Medical Records Medical records reviewed: Yes I reviewed the patient's medical records. Lab Data Lab results reviewed: Yes I reviewed the patient's lab results. 09/01/23 04:45 09/01/23 04:45 Labs: Lab Results 09/01/23 09/01/23 Range/Units 04:45 05:41 WBC 27.1 H (4.5-11.0) X10^3/uL RBC 5.05 (4.0-5.2) X10^6/uL Hgb 15.5 (12.0-16.0) g/dL Hct 46.6 H (36-46) % MCV 92.4 (80-100) fL MCH 30.7 (26-34) PG MCHC 33.3 (30-36) % RDW 14.8 (11.6-14.8) % Plt Count 459 H (150-400) X10^3/uL Neut % (Auto) Not Reportable Lymph % (Auto) Not Reportable [place] % (Auto) Not Reportable Eos % (Auto) Not Reportable Baso % (Auto) Not Reportable Lymph # (Auto) Not Reportable [place] # (Auto) Not Reportable Baso # (Auto) Not Reportable Total Counted 100 Seg Neutrophils % 48.0 (38-70) % Band Neutrophils % 25.0 H (3-7) % Lymphocytes % (Manual) 25.0 (25-45) % Monocytes % (Manual) 2.0 (2-11) % Neutrophils # (Manual) 84317 H (3513-2275) /uL Platelet Estimate Increased on smear RBC Morphology Normal morphology Lactate 4.6 H* (0.7-2.1) mmol/L Procalcitonin 0.73 H (<0.5) ng/mL Point of Care Testing Glucose POC 119 Point of care testing: Point of Care Testing Glucose POC 119 Imaging Data Chest x-ray: Radiologist's Impression: Left basilar and bilateral perihilar opacities nonspecific on limited study could represent pneumonia including aspiration. Clinical correlation, comparison with prior studies follow-up to resolution recommended ECG Data Attestation: I personally reviewed and interpreted this ECG as follows: Interpretation: Sinus tachycardia Ventricular rate of 120 Normal axis Artifact noted throughout EKG Nonspecific ST T wave changes MDM Narrative Medical decision making narrative: With review of the medical record patient is nonverbal at baseline. She was hypoxic upon arrival requiring oxygen by non-rebreather. She did have coarse breath sounds. We were able to suction her mouth and some of the sounds did improve. Despite the suctioning she was still requiring oxygen. Has been tachycardic. Has a leukocytosis. Elevated lactate. Her presentation is most consistent with a aspiration event. I suspect that the elevated lactate in the leukocytosis is not necessarily from an active infection as it is too soon from the event for this to happen and I suspect that that is stress reaction from her prolonged time of hypoxia and tachypnea and tachycardia. Despite this antibiotics were administered. Lactate and blood cultures were requested by admitting provider. Discussed the case with hospitalist. We will admit for further evaluation and treatment. Discharge Plan Departure Patient Disposition: Admitted As Inpatient Clinical Impression: Aspiration into airway, Hypoxia Admit Date/Time: 09/01/23 06:04 Admit Provider: Gonzalo Horton
[2023-09-01] MEDS: SODIUM CHLORIDE 0.9% 1,000 ML 125 ML IV ×3 (05:11→17:31)
[2023-09-01 05:14] LABS: Hematocrit 46.6 % (36-46); Hemoglobin 15.5 g/dL (12.0-16.0); Mean Corpuscular HGB Conc 33.3 % (30-36); Mean Corpuscular Hemoglobin 30.7 PG (26-34); Mean Corpuscular Volume 92.4 fL (80-100); Platelet Count 459 X10^3/uL (150-400); Red Blood Cell Count 5.05 X10^6/uL (4.0-5.2); Red Cell Distribution Width 14.8 % (11.6-14.8); White Blood Cell Count 27.1 X10^3/uL (4.5-11.0)
[2023-09-01 05:16] LABS: Add Manual Diff / Slide Review YES
[2023-09-01] MEDS: PIPERACILLIN/TAZO 4.5 GM in SODIUM CHLORIDE 0.9% 100 ML IV (05:52)
[2023-09-01 06:10] LABS: Lactate (Lactic Acid) 4.6 mmol/L (0.7-2.1)
[2023-09-01 06:16] LABS: Neutrophils Absolute Manual 19783 /uL (3000-5900); Platelet Estimate Increased on smear; RBC Morphology Normal Morphology; Total Cells Counted 100
[2023-09-01 06:23] LABS: Procalcitonin 0.73 ng/mL (<0.5)
[2023-09-01 06:34] LABS: Albumin 4.1 g/dL (3.5-5.0); Albumin Globulin Ratio 0.9 (1.0-2.8); Alkaline Phosphatase 566 U/L (38-126); Aspartate Aminotransferase 695 IU/L (14-36); BUN Creatinine Ratio 18.6 (6-22); Bilirubin Total 3.3 mg/dL (0.2-1.3); Blood Urea Nitrogen 18 mg/dL (7-17); Calcium 8.7 mg/dL (8.4-10.2); Carbon Dioxide 21 mmol/L (22-32); Chloride 106 mmol/L (98-107); Estimated Glomerular Filt Rate 59 mL/min (>60); Globulin 4.6 g/dL (1.7-4.1); Glucose 140 mg/dL (80-110); HEMOLYSIS 20 (0-50); Sodium 142 mmol/L (137-145); Total Protein 8.7 g/dL (6.3-8.2)
--- NOTE | 2023-09-01 06:37 | PM.HP.1 ---
History of Present Illness History of Present Illness Chief complaint: respitory failure Narrative: 82 years old female with history of SAH, epilepsy, hypertension, anxiety, depression, DNR/DNI presented from rehab facility after she vomited and most likely aspirated. Found to be hypoxic in the 70s and short of breath. She was given albuterol nebulizer by the staff without improvement of her symptoms and EMS was called. She also was hypotensive, placed on nonrebreather which brought her oxygenation greater than 90%. The patient is nonverbal at her baseline secondary to prior stroke. Laboratory shows WBC 27.1, lactate 4.6, procalcitonin 0.73. The rest of the lab is still pending. Chest x-ray shows improvement from previous imaging study. In the ER she was given Zosyn 4.5 g IV, Tylenol and was decided to be admitted for further management. [facility] Social History household members: other Smoking Status: Never smoker alcohol intake: never Meds Home Medications and Allergies Home Medications Medication Instructions Recorded Confirmed Type lamotrigine 150 mg tablet 150 mg PO DAILY #90 tabs 04/23/21 08/01/23 Rx Probiotic #30 ea 06/22/21 08/01/23 Rx ascorbic acid (vitamin C) 500 mg 500 mg PO DAILY #30 tabs 06/22/21 08/01/23 Rx tablet polyethylene glycol 3350 17 17 g PO DAILY PRN constipation 06/22/21 08/01/23 Rx gram/dose oral powder (Miralax) #510 grams primidone 250 mg tablet 250 mg PO BEDTIME #90 tabs 06/24/21 08/01/23 Rx primidone 50 mg tablet 50 mg PO BEDTIME #90 tabs 06/24/21 08/01/23 Rx acetaminophen 500 mg tablet 1,000 mg (2 x 500 mg) PO TID PRN 07/09/21 08/01/23 Rx fever or pain #180 tabs lorazepam 0.5 mg tablet 0.5 mg PO Q6H PRN agitation #10 01/18/22 08/01/23 Rx tabs calcitriol 0.25 mcg capsule 0.25 mcg PO DAILY #90 caps 03/07/22 08/01/23 Rx sodium di- and 1 tab PO BID #180 tabs 04/05/22 08/01/23 Rx monophosphate-potassium phos monobasic 250 mg tablet (P-[id number]-Ccysecu) escitalopram oxalate 20 mg tablet 20 mg PO DAILY #15 tabs 07/26/22 08/01/23 Rx lisinopril 10 mg tablet 10 mg PO DAILY #30 tabs 08/24/22 08/01/23 Rx Allergies Allergy/AdvReac Type Severity Reaction Status Date / Time No Known Allergies Allergy Verified 09/01/23 06:29 Review of Systems Review of Systems ROS: Yes All systems reviewed with the patient and are negative except as otherwise documented Constitutional Constitutional: Reports as per HPI and Reports system reviewed and no additional complaints, except as documented Eyes Eyes: Reports as per HPI and Reports system reviewed and no additional complaints, except as documented ENT Ears, Nose, Mouth, and Throat: Yes as per HPI and Yes system reviewed and no additional complaints, except as documented Cardiovascular Cardiovascular: Reports system reviewed and no additional complaints, except as documented Respiratory Respiratory: Reports system reviewed and no additional complaints, except as documented Gastrointestinal Gastrointestinal: Reports system reviewed and no additional complaints, except as documented Genitourinary Genitourinary: Reports system reviewed and no additional complaints, except as documented Musculoskeletal Musculoskeletal: Reports system reviewed and no additional complaints, except as documented, Reports abnormal gait and Reports numbness Neurologic Neurologic: Reports system reviewed and no additional complaints, except as documented, Reports abnormal gait, Reports confusion and Reports numbness Psychiatric Psychiatric: Reports system reviewed and no additional complaints, except as documented and Reports confusion Exam Vital Signs (past 8 hours): - 09/01/23 04:55 09/01/23 04:56 09/01/23 04:59 Temperature 97.5 F L Pulse Rate 122 H 119 H Respiratory Rate 46 H Blood Pressure 104/58 L 104/58 L Pulse Oximetry 94 100 Oxygen Delivery Method Non -Rebreather Oxygen Flow Rate 09/01/23 04:59 09/01/23 05:00 09/01/23 05:01 Temperature Pulse Rate 117 H 124 H Respiratory Rate 42 H 46 H Blood Pressure 91/50 L Pulse Oximetry 99 89 L Oxygen Delivery Method Non -Rebreather Non -Rebreather Oxygen Flow Rate 12 09/01/23 05:01 09/01/23 05:30 09/01/23 05:44 Temperature Pulse Rate 124 H 114 H 114 H Respiratory Rate 41 H 42 H 40 H Blood Pressure 78/50 L Pulse Oximetry 89 L 91 Oxygen Delivery Method Non -Rebreather Oxygen Flow Rate 13 09/01/23 05:44 09/01/23 05:44 09/01/23 06:00 Temperature Pulse Rate 115 H Respiratory Rate 39 H Blood Pressure 78/50 L 78/48 L Pulse Oximetry 87 L Oxygen Delivery Method Non -Rebreather Oxygen Flow Rate 09/01/23 06:00 Temperature Pulse Rate 116 H Respiratory Rate 44 H Blood Pressure Pulse Oximetry 90 L Oxygen Delivery Method Non -Rebreather Oxygen Flow Rate 13 Oxygen Delivery Method Non -Rebreather Oxygen Flow Rate 13 Const General: comfortable and well developed Orientation: confused HENCA Head: normal to inspection, normocephalic and atraumatic Face and sinus: normal facial exam Mouth: oral mucosae normal and moist mucous membranes Throat: posterior oropharynx normal Eyes General: appearance normal, both eyes and all related structures Pupils: PERRL EOM: EOM intact bilaterally Neck Neck: normal visual inspection and full ROM Chest Chest: normal inspection of the chest Resp Effort & Inspection: normal respiratory effort and able to speak in complete sentences Auscultation: clear to auscultation bilaterally Cardio Palpation: normal PMI Rate: regular rate Rhythm: regular rhythm Heart Sounds: S1 normal and S2 normal GI Inspection: normal to inspection Palpation: soft and no hepatosplenomegaly Auscultation: normal bowel sounds Skin General: no rashes or lesions noted Lesions: no lesions Rashes: no rashes Trauma: no lacerations or abrasions Neuro General: patient alert, patient awake, patient oriented x3 and no focal motor deficits Cranial Nerves: CN's II-XI intact bilaterally Cognition: normal cognition Speech: speech normal Gait: normal gait Motor: muscle tone normal throughout Sensory Exam: no sensory deficits noted Extrem Other: right BKA Objective Labs 09/01/23 04:45 09/01/23 04:45 Labs: Laboratory Results - last 24 hr 09/01/23 09/01/23 04:45 05:41 WBC 27.1 H RBC 5.05 Hgb 15.5 Hct 46.6 H MCV 92.4 MCH 30.7 MCHC 33.3 RDW 14.8 Plt Count 459 H Neut % (Auto) Not Reportable Lymph % (Auto) Not Reportable [place] % (Auto) Not Reportable Eos % (Auto) Not Reportable Baso % (Auto) Not Reportable Lymph # (Auto) Not Reportable [place] # (Auto) Not Reportable Baso # (Auto) Not Reportable Total Counted 100 Seg Neutrophils % 48.0 Band Neutrophils % 25.0 H Lymphocytes % (Manual) 25.0 Monocytes % (Manual) 2.0 Neutrophils # (Manual) 62038 H Platelet Estimate Increased on smear RBC Morphology Normal morphology Lactate 4.6 H* Procalcitonin 0.73 H Assessment & Plan Assessment & Plan narrative: Aspiration pneumonia Acute respiratory failure with hypoxia -Continue Zosyn IV -Follow-up on the blood cultures -Aspiration precaution -IV fluids -Albuterol as needed -Oxygen supplement to keep her oxygenation greater than 92% SAH/epilepsy -Continue with lamotrigine, primidone and escitalopram Anxiety. Continue lorazepam as needed Hypertension. Continue with lisinopril Constipation. Continue with polyethylene glycol Time Spent With Patient Time with patient: 50 to 69 minutes with 50% spent counseling/coordinating care Quality VTE Deep Vein Thrombosis/Pulmonary Embolism Present on Admission: No MIPS - Admit I confirm the patient?s Advance Care Plan is present, Code status is documented, Surrogate decision maker is in patient?s record [If Yes, STOP here]: Yes MIPS - Meds 'Current medications' to include all prescriptions, [id number] products, herbals, cannabis/cannabidiol products, and vitamin/mineral/dietary (nutritional) supplements. I have utilized all available resources to obtain, update, or review the patient?s current medications. [If Yes, STOP here]: Yes
[2023-09-01 06:41] LABS: Alanine Aminotransferase 752 IU/L (<35)
[2023-09-01 07:14] LABS: Lipase 38642 U/L (23-300)
[2023-09-01 07:31] LABS: Reflexed Lactate in 2 Hours Y
--- NOTE | 2023-09-01 07:51 | DI.RAD.S_ITS ---
PROCEDURE: FL BARIUM SWALLOW W SPEECH INDICATIONS: aspiration COMPARISON: None. TECHNIQUE: Examination was conducted in conjunction with speech pathology per standard protocol. In the lateral projection, filming was performed of the patient swallowing. AP projection filming may also be performed with patient swallowing. COMPARISON: FINDINGS: Function: The oral preparatory phase appears delayed. There is laryngotracheal penetration. No definite aspiration. Morphology: No cricopharyngeal bar is identified. No cervical esophageal webs. No Zenker's diverticulum. No strictures. IMPRESSION: There is laryngotracheal penetration without definite aspiration. Please refer to the dedicated speech therapy swallowing evaluation report which will be independently generated. Dictated by: Viplu Simmons M.D. on 09/01/2023 at 16:52 Approved by: Vipul Simmons M.D. on 09/01/2023 at 16:53
--- NOTE | 2023-09-01 07:57 | DI.CT.S_ITS ---
PROCEDURE: CT CHEST ABD PEL W CON INDICATIONS: lipase 38k, elevated LFT's, septic TECHNIQUE: After the administration of intravenous contrast, 5 mm thick sections acquired from the lung apices to the symphysis. 5 mm coronal and sagittal reformats were performed, with additional 7 mm MIP reformats through the lungs. For radiation dose reduction, the following was used: automated exposure control, adjustment of mA and/or kV according to patient size. COMPARISON: [facility], CT, CT ABDOMEN PELVIS W CON, 07/31/2023, 20:22. CT, CT CHEST WITHOUT CONTRAST, 05/18/2019, 17:49. FINDINGS: Image quality: Excellent. CHEST: Lower Neck: No enlarged lymph nodes. Thyroid: There are ow-attenuation foci bilaterally. They appear slightly more prominent when compared to 2019. Axillae: No enlarged lymph nodes. Chest Wall: Unremarkable. Lungs and Pleura: Bilateral areas of patchy opacity are present most severe in the right base. Partial left pneumonectomy changes are present. Heart: Heart size is normal. No pericardial effusion. Thoracic Vessels: The aorta and pulmonary arteries demonstrate normal size. Mediastinum and Yara: No enlarged lymph nodes. Esophagus: No wall thickening. Mild fluid-filled appearance is present within the mid and distal portion. Minimal hiatal hernia. ABDOMEN: Liver: No solid mass. Hepatic steatosis. Gallbladder: No radiopaque gallstones or wall thickening. Biliary ducts: No biliary dilation. Pancreas: No ductal dilation. There is a mildly prominent appearance of the pancreas with mild peripancreatic fluid particularly surrounding the body and tail region. No focal abscess or pseudocyst is identified. There is homogeneous contrast enhancement with out appearance to suggest necrotizing pancreatitis. Spleen: Size is within normal limits. Adrenal Glands: No adrenal nodules. Kidneys and Ureters: No hydronephrosis. Simple right renal cyst. Stomach and Bowel: Normal colonic caliber, without significant wall thickening. Colonic diverticular present. Significant fecal rectal impaction is present. Peritoneum: No abnormal intraperitoneal fluid. No free air. Ventral Wall: No significant ventral hernia. Abdominal Nodes: No retroperitoneal or mesenteric adenopathy by size criteria. Vessels: Aorta and inferior vena cava are normal in size. PELVIS: Pelvic Organs: Unremarkable. Bladder: No bladder wall thickening, accounting for underdistention. Pelvic Nodes: No enlarged lymph nodes. Miscellaneous: No inguinal hernias are seen. Bones: No aggressive osseous abnormality. IMPRESSION: Mild edema of the pancreas with peripancreatic fluid most consistent with pancreatitis. No pseudocyst or evidence of necrotizing pancreatitis. Diverticulosis. Low-attenuation foci within the thyroid gland, slightly more prominent when compared to 2019. Nonemergent thyroid ultrasound may be obtained for further evaluation. Dictated by: Tammy Quiroz M.D. on 09/01/2023 at 11:03 Approved by: Tammy Quiroz M.D. on 09/01/2023 at 11:07
[2023-09-01] MEDS: POTASSIUM CHLORIDE IN WATER 10 MEQ/100 ML PIGGYBACK 100 MEQ IV ×4 (08:40→12:27)
[2023-09-01] MEDS: LACTATED RINGERS 1,000 ML 2000 ML IV (08:40)
[2023-09-01 08:53] LABS: Lactate 2HR (Lactic Acid Rflx) 3.6 mmol/L (0.7-2.1)
--- NOTE | 2023-09-01 11:24 | DI.US.S_ITS ---
PROCEDURE: US ABDOMEN LIMITED INDICATIONS: pancreatitis, assess biliary system TECHNIQUE: Real-time focused scanning was performed of the abdomen, with image documentation. COMPARISON: [facility], , US ABDOMEN LIMITED, 07/31/2023, 22:30. FINDINGS: Somewhat limited study due to the inability of the patient to fully cooperate with the positioning and suspension of respiration for this examination. The liver is normal in size, and where well visualized appears normal in echotexture. Main portal vein flow direction is normal. Multiple gallstones are seen within the gallbladder neck in the supine position, but the gallbladder wall is normal in thickness and there is no adjacent free fluid. The patient is non communicative and therefore assessment for tenderness during sonographic palpation of the gallbladder is not possible. The bile ducts are normal in caliber, the pancreatic duct visualized is normal. The right kidney visualized is 8.6 cm in length with renal cortical thickness 1.1 cm. IMPRESSION: No significant change from prior evaluation. Gallstones within the gallbladder lumen but no definite evidence of acute cholecystitis or biliary obstruction. Limited study as discussed above. Dictated by: Toñito Shannon M.D. on 09/01/2023 at 13:14 Approved by: Toñito Shannon M.D. on 09/01/2023 at 13:16
[2023-09-01 11:29] LABS: MRSA (Nasal) PCR Not Detected (Not Detect)
[2023-09-01] MEDS: PIPERACILLIN/TAZO 3.375 GM in SODIUM CHLORIDE 0.9% 100 ML IV ×2 (11:34→17:28)
--- NOTE | 2023-09-01 11:54 | CM.DANOTE ---
Initial DCP Assessment Note Patient is an 82 yo F, [facility] resident at [facility], admitted with suspected aspiration pneumonia. PCP: Cal Jarrett listed- this provider is no longer at [facility] Payer: [employer] Reviewed chart, met with son Godwin who reports he is patient's guardian. Requested guardianship ppk for patient's chart. Godwin confirms patient is a resident at [facility] and he would like patient to return once medically stable to do so. 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 Spoke with Tata at [facility] who confirms patient is welcome to return upon discharge. No PASRR needed unless there is a is a significant change. Plan: Discharge back to [facility], [facility] resident, expected, likely via w/c vs BLS. CM team will plan to follow closely for coordination of discharge plan. JAYME Ashford Discharge Planning/Care Management CM Discharge Assessment Start: 09/01/23 11:07 Freq: Status: Active Protocol: Document 09/01/23 11:08 FRANCISCO (Rec: 09/01/23 11:54 [id number]) Discharge Planning Assessment Assigned Flosser JAYME Moncada DPOA/Assigned Designee Name Godwin Hyde, son and guardian Contact Information [phone] Advance Directives? POLST Advance Directives on File No: Requested guardian ppk from son History Provided By Family Member,Medical Record Prior Living Arrangements Skilled Nurse Facility Household Members other Type of transporation used prior to Relies on Others admit Facility Name Admitted From: [facility] Willing to Return to Facility? Yes Independent with ADL's No Is patient alert and oriented? No Comment Total care Patient/Family Preference Custodial Facility Barriers to Discharge No Comment Return to [facility] expected. Discharge Plan Custodial Facility Transportation Arrangement facility transportation Referrals Initiated Custodial Additional Comment [facility] can accept back. [facility] resident Whiteboard Updated in Patient Room with Yes name and ext. # of Flosser
--- NOTE | 2023-09-01 16:05 | P.HP_ITS ---
History of Present Illness History of Present Illness Chief complaint: respitory failure Narrative: From overnight provider: 82 years old female with history of SAH, epilepsy, hypertension, anxiety, depression, DNR/DNI presented from rehab facility after she vomited and most likely aspirated. Found to be hypoxic in the 70s and short of breath. She was given albuterol nebulizer by the staff without improvement of her symptoms and EMS was called. She also was hypotensive, placed on nonrebreather which brought her oxygenation greater than 90%. The patient is nonverbal at her baseline secondary to prior stroke. Laboratory shows WBC 27.1, lactate 4.6, procalcitonin 0.73. The rest of the lab is still pending. Chest x-ray shows improvement from previous imaging study. In the ER she was given Zosyn 4.5 g IV, Tylenol and was decided to be admitted for further management. [facility] Social History household members: other Smoking Status: Never smoker alcohol intake: never Meds Home Medications and Allergies Home Medications Medication Instructions Recorded Confirmed Type lamotrigine 150 mg tablet 150 mg PO DAILY #90 tabs 04/23/21 09/01/23 Rx Probiotic #30 ea 06/22/21 08/01/23 Rx ascorbic acid (vitamin C) 500 mg 500 mg PO DAILY #30 tabs 06/22/21 09/01/23 Rx tablet polyethylene glycol 3350 17 17 g PO DAILY PRN constipation 06/22/21 09/01/23 Rx gram/dose oral powder (Miralax) #510 grams primidone 250 mg tablet 250 mg PO BEDTIME #90 tabs 06/24/21 09/01/23 Rx primidone 50 mg tablet 50 mg PO BEDTIME #90 tabs 06/24/21 09/01/23 Rx acetaminophen 500 mg tablet 1,000 mg (2 x 500 mg) PO TID PRN 07/09/21 09/01/23 Rx fever or pain #180 tabs lorazepam 0.5 mg tablet 0.5 mg PO Q6H PRN agitation #10 01/18/22 09/01/23 Rx tabs calcitriol 0.25 mcg capsule 0.25 mcg PO DAILY #90 caps 03/07/22 09/01/23 Rx sodium di- and 1 tab PO BID #180 tabs 04/05/22 09/01/23 Rx monophosphate-potassium phos monobasic 250 mg tablet (F-Lnxk-[place]) escitalopram oxalate 20 mg tablet 20 mg PO DAILY #15 tabs 07/26/22 09/01/23 Rx lisinopril 10 mg tablet 10 mg PO DAILY #30 tabs 08/24/22 09/01/23 Rx Allergies Allergy/AdvReac Type Severity Reaction Status Date / Time No Known Allergies Allergy Verified 09/01/23 06:29 Review of Systems Review of Systems Narrative: Unable to obtain as patient is nonverbal. Exam Vital Signs (past 8 hours): - 09/01/23 08:30 09/01/23 08:31 09/01/23 08:31 Temperature Pulse Rate 110 H 111 H Respiratory Rate 42 H 52 H Blood Pressure 89/54 L Pulse Oximetry 97 97 Oxygen Delivery Method Oxygen Flow Rate 09/01/23 09:00 09/01/23 09:15 09/01/23 09:30 Temperature Pulse Rate 100 H 107 H Respiratory Rate 33 H 32 H Blood Pressure Pulse Oximetry 98 97 98 Oxygen Delivery Method Oxygen Flow Rate 8 09/01/23 09:48 09/01/23 09:48 09/01/23 10:00 Temperature Pulse Rate 104 H 102 H Respiratory Rate 33 H 19 Blood Pressure 140/101 H Pulse Oximetry 95 98 Oxygen Delivery Method Oxygen Flow Rate 09/01/23 10:15 09/01/23 10:37 09/01/23 11:00 Temperature Pulse Rate 107 H 108 H Respiratory Rate 38 H Blood Pressure Pulse Oximetry 97 96 Oxygen Delivery Method Oxygen Flow Rate 6 09/01/23 11:15 09/01/23 11:30 09/01/23 12:00 Temperature Pulse Rate 101 H 100 H Respiratory Rate 30 H 42 H Blood Pressure Pulse Oximetry 96 97 98 Oxygen Delivery Method Oxygen Flow Rate 4 09/01/23 12:15 09/01/23 12:30 09/01/23 12:40 Temperature Pulse Rate 107 H 109 H Respiratory Rate 34 H 37 H Blood Pressure Pulse Oximetry 95 94 94 Oxygen Delivery Method Oxygen Flow Rate 2 09/01/23 12:40 09/01/23 12:42 09/01/23 13:19 Temperature 98.7 F Pulse Rate 103 H 70 Respiratory Rate 20 Blood Pressure 122/80 122/80 Pulse Oximetry 95 90 L Oxygen Delivery Method Oxygen Flow Rate 2 09/01/23 13:22 09/01/23 13:22 09/01/23 13:30 Temperature Pulse Rate 107 H 108 H Respiratory Rate 33 H 34 H Blood Pressure 82/63 L Pulse Oximetry 96 95 Oxygen Delivery Method Oxygen Flow Rate 09/01/23 14:26 Temperature Pulse Rate 99 H Respiratory Rate 22 Blood Pressure Pulse Oximetry 94 Oxygen Delivery Method Nasal Cannula Oxygen Flow Rate Oxygen Delivery Method Nasal Cannula Oxygen Flow Rate 2 Narrative Exam Narrative: GEN: no acute distress, nonverbal HEENT: moist mucous membranes, PERRL NECK: trachea midline, no JVD CV: regular rate and rhythm, no murmurs PULM: bilateral rhonchi ABD: soft, nontender, nondistended, no organomegaly EXT: warm and well perfused with no edema, right BKA NEURO: awake, alert, oriented, no focal deficits Objective Labs 09/01/23 04:45 09/01/23 04:45 Labs: Laboratory Results - last 24 hr 09/01/23 09/01/23 09/01/23 04:45 05:41 08:30 WBC 27.1 H RBC 5.05 Hgb 15.5 Hct 46.6 H MCV 92.4 MCH 30.7 MCHC 33.3 RDW 14.8 Plt Count 459 H Neut % (Auto) Not Reportable Lymph % (Auto) Not Reportable [place] % (Auto) Not Reportable Eos % (Auto) Not Reportable Baso % (Auto) Not Reportable Lymph # (Auto) Not Reportable [place] # (Auto) Not Reportable Baso # (Auto) Not Reportable Total Counted 100 Seg Neutrophils % 48.0 Band Neutrophils % 25.0 H Lymphocytes % (Manual) 25.0 Monocytes % (Manual) 2.0 Neutrophils # (Manual) 42158 H Platelet Estimate Increased on smear RBC Morphology Normal morphology Sodium 142 Potassium 3.0 L Chloride 106 Carbon Dioxide 21 L BUN 18 H Creatinine 0.97 Estimated GFR 59 L BUN/Creatinine Ratio 18.6 Glucose 140 H Lactate 4.6 H* 3.6 H Calcium 8.7 Magnesium 2.0 Total Bilirubin 3.3 H AST 695 H ALT 752 H Alkaline Phosphatase 566 H Total Protein 8.7 H Albumin 4.1 Globulin 4.6 H Albumin/Globulin Ratio 0.9 L Lipase 54800 H Procalcitonin 0.73 H Nasal Screen MRSA (PCR) 09/01/23 09:15 WBC RBC Hgb Hct MCV MCH MCHC RDW Plt Count Neut % (Auto) Lymph % (Auto) [place] % (Auto) Eos % (Auto) Baso % (Auto) Lymph # (Auto) [place] # (Auto) Baso # (Auto) Total Counted Seg Neutrophils % Band Neutrophils % Lymphocytes % (Manual) Monocytes % (Manual) Neutrophils # (Manual) Platelet Estimate RBC Morphology Sodium Potassium Chloride Carbon Dioxide BUN Creatinine Estimated GFR BUN/Creatinine Ratio Glucose Lactate Calcium Magnesium Total Bilirubin AST ALT Alkaline Phosphatase Total Protein Albumin Globulin Albumin/Globulin Ratio Lipase Procalcitonin Nasal Screen MRSA (PCR) Not detected Assessment & Plan Assessment & Plan narrative: # acute sepsis -WBC 27.1, procal 0.71, RR 30's -secondary to PNA -s/p 2L bolus -f/up blood cultures # Acute respiratory failure with hypoxia 2/2 aspiration pneumonia -requiring 2L NC after witness aspiration event at [facility] -CT chest with R basilar consolidation -Continue Zosyn IV -MBS and THERMAL ENGINEER consult ordered, dysphagia diet ordered -IV fluids -Albuterol as needed -Oxygen supplement to keep her oxygenation greater than 92% # acute pancreatitis -lipase 38k with peripancreatic edema on CT abd -abd US with gallstones but no biliary dilation or cholecystitis -IV pain meds -IVF -advance diet slowly # tranasaminitis -AST 695 and ALT 752 -due to sepsis or pancreatitis -trend # SAH/epilepsy -Continue with lamotrigine, primidone # Anxiety, depression -continue lexapro -continue lorazepam as needed # Hypertension -hold home lisinopril due to sepsis # Constipation -Continue with polyethylene glycol Dispo: Pending improvement in hypoxia and PNA. 2-3 days. If not improving would recommend hospice. Time Spent With Patient Time with patient: 50 to 69 minutes with 50% spent counseling/coordinating care Quality VTE Deep Vein Thrombosis/Pulmonary Embolism Present on Admission: No
--- NOTE | 2023-09-01 16:21 | ST.SWALLOW ---
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 Ansari Reason for Referral dysphagia Setting Setting Acute Care Patient Information Identification Type Name,Date of Patient History 82 years old female with history of SAH, epilepsy, hypertension, anxiety, depression, DNR/DNI presented from rehab facility after she vomited and most likely aspirated. Found to be hypoxic in the 70s and short of breath. She was given albuterol nebulizer by the staff without improvement of her symptoms and EMS was called. She also was hypotensive, placed on nonrebreather which brought her oxygenation greater than 90%. The patient is nonverbal at her baseline secondary to prior stroke. Pt's swallowing was evaluated when [facility] inpatient in July 2023. ST findings at that time indicated pt was at baseline diet of puree texture and nectar thick liquids. ST was not recommended as pt swallow was baseline. MBSS ordered due to possible aspiration of vomitus at [facility] this morning. CXR indicated bilateral opacity with right base greater than left. Subjective Observations Pt arrived in the fluoroscopy chair to the fluoro room. Pt is nonverbal and unsure if receptive language intact. Instructions were described for the pt. Patient Positioning Position View Lateral Imaging Lateral View Textures Administered Trials Presented Thin Liquid via Spoon (IDDSI 0 ),Thin Liquid via Cup (IDDSI 0 ),Mildly Thick Liquid via Spoon (IDDSI 2),Mildly Thick Liquid via Cup (IDDSI 2),Puree (IDDSI 4),Minced & Moist ( IDDSI 5) Barium Tablet No The IDDSI Framework Protocol: IDDSI.1 Oral Impairment Source: The Modified Barium Swallow Impairment Profile (MBSImP??) Lip Closure Escape beyond mid-chin Bolus Transport/Lingual Motion Repetitive/disorganized tongue motion Oral Residue Residue collection on oral structures Location Floor of mouth,Tongue Additional Oral Impairment Observations Unable to perform OME as pt unable to follow directions. Mastication appeared to be disorganized with delayed AP transition with minced/moist and pureed textures Pharyngeal Impairment Source: The Modified Barium Swallow Impairment Profile (MBSImP??) Soft Palate Elevation No bolus between soft palate & pharyngeal wall Laryngeal Elevation Part.sup.move.thyroid cart/ part.approx.arytenoids to epiglot.petiole Anterior Hyoid Excursion Partial anterior movement Epiglottic Movement Partial inversion Laryngeal Vestibular Closure Complete; no air/contrast in laryngeal vestibule Pharyngeal Stripping Wave Present - diminished Pharyngoesophageal Segment Opening Complete distention & complete duration; no obstruction of flow Tongue Base Retraction Wide column of contrast/air betwn tongue base & post. pharyngeal wall Pharyngeal Residue Collection of residue within/ on pharyngeal structures Location Diffuse (>3 areas) Additional Pharyngeal Impairment Overall pharyngeal weakness Observations noted. Tongue base retaction, hyolaryngeal elevation/ movement and epiglottic inversion were all observed to be reduced. The epiglottis was noted to be horizontal at greatest extension. No penetration or aspiration observed with trials presented . Pharyngeal pooling observed throughout. Pooling within the pharynx may pose a silent aspiration risk. Recommend HOB elevation to reduce aspiration risk. A/P View The IDDSI Framework Protocol: IDDSI.1 A/P View Observations Additional A-P Observations No AP view obtained Clinical Impressions Dysphagia Type Oral,Pharyngeal Findings Moderate to severe oropharyngeal dysphagia characterized by overall weakness, poor coordination of structures and poor bolus control Pt's current diet of puree texture with nectar thick liquids remains the safest and most appropriate for the pt. Rehabilitation Potential Fair Patient Appropriate for Therapy Yes Recommendations Diet Liquids Order Mildly Thick (IDDSI 2) Diet Order Pureed (IDDSI 4) Medication Recommendation Crushed in Carrier Additional Dietary Needs Single Sips,1:1 Assistance Aspiration Precautions Recommended Precautions Upright at 90 Degrees,Frequent Rest Periods,Small Bites/Sips Additional Precautions SLOW feeding due to poor oral transition to pharynx Treatment Plan Therapy Recommendations Inpatient Speech Therapy Additional Recommended Referrals ST to monitor for safety and appropriateness of diet while inpatient Therapy Strategy Recommendations Sitting Upright (90 deg), Liquids from Spoon Additional Strategies Recommended Pt did not accept straw - bit straw during each attempt Short Term Goals 1. Family education re:diet, need for supervision, risk of aspiration, aspiration precautions 2. Pt will safely tolerate current diet without s/sx aspiration Family Practice Nurse Practitioner Goals Pt will safely tolerate least restrictive diet to meet nutrition and hydration needs with s/sx aspiration. Placement Recommendation After Discharge Nursing Home Facility,[facility] Care Facility
[2023-09-01 16:42] LABS: Appearance Urine UA CLEAR; Bilirubin Urine UA 2+ (NEGATIVE); Color Urine UA YELLOW; Glucose Urine UA NEGATIVE (Negative); Ketones Urine UA NEGATIVE (NEGATIVE); Leukocyte Esterase Urine UA NEGATIVE (NEGATIVE); Nitrite Urine UA NEGATIVE (Negative); Occult Blood Urine UA 1+ (Negative); Protein Urine UA 1+ (Negative); Specific Gravity Urine UA <=1.005 (1.000-1.035)
[2023-09-01 16:50] LABS: Amorphous Sediment Urine 1+; Bacteria Urine Occasional (0-1); Culture Indicated Urine Cult Not Indicated; RBC Urine 0-1/HPF (0-5/HPF); Squamous Epithelial Cell Urine 1-5 /HPF (0-5/HPF); Urine Volume 10mL (spun); WBC Urine 0-1/HPF (0-5/HPF)
[2023-09-01] MEDS: PRIMIDONE 50 MG TABLET 250 MG PO (20:58)
[2023-09-01] MEDS: PRIMIDONE 50 MG TABLET PO (20:58)
[2023-09-02] VITALS (50 sets, daily range): BP systolic 132–223; BP diastolic 59–122; PULSE 86–117; RESP 17–50; TEMP 36.6–38.7; O2SAT 93–99
[2023-09-02] MEDS: PIPERACILLIN/TAZO 3.375 GM in SODIUM CHLORIDE 0.9% 100 ML IV ×3 (01:34→17:42)
[2023-09-02] MEDS: SODIUM CHLORIDE 0.9% 1,000 ML 125 ML IV ×2 (01:35→10:18)
--- NOTE | 2023-09-02 10:28 | PC.NURSE ---
Spoke to Speech therapist Kathrine regarding concern for pt ability to swallow without aspirating, and to manage her secretions. Dr Ansari ordered for speech to re-evaluate pt. Kathrine states that pt should be made NPO with care leaning more toward comfort/hospice as pt is unable to take oral medications or nutrition without coughing/choking. Pt is refusing oral care/suctioning by pushing hands away when the attempt is made and refusing to open her mouth. Dr Ansari updated on conversation with speech and will re-evaluate patient. No further patient needs at this time, bedside report given to nurse Mazin. No further patient contact at this time
[2023-09-02] MEDS: DEXTROSE 5%-0.9% NS 1,000 ML 84 ML IV (11:16)
[2023-09-02] MEDS: ENOXAPARIN 40 MG/0.4 ML SYRINGE SUBCUT (11:32)
--- NOTE | 2023-09-02 13:12 | CM.DPC ---
DCP Cont. Reviewed EMR and team rounds for status updates. Pt has declined rapidly in overall status. She is no longer able to swallow, has been made NPO by PHONOGRAPH MECHANIC, comfort care now. Pt refusing to open her mouth or allow for care, is mostly non-arousable and sleeping most of the time. Dr. Ansari will be contacting her son at some point today to discuss goals of care and pt's clinical presentation condusive with end of life. Cont. to monitor for family support needs.
--- NOTE | 2023-09-02 14:12 | PM.PN.1 ---
Subjective Subjective Interval history: Patient's swallow worsened overnight, had near aspiration event with dinner with lots of coughing. Patient also not clearing secretions and is refusing her meds. Spoke with speech who recommended NPO and comfort care. Spoke wtih son that she is unsafe to swallow anymore and we recommend palliative treatment only. He wants his sister to be present before this decision is made and she arrives from [place] tomorrow. He is ok with her being strict NPO for now. Started D5 for IV nutrition. Exam Vital Signs (past 8 hours): - 09/02/23 07:00 09/02/23 07:00 09/02/23 07:00 Temperature Pulse Rate 94 H Respiratory Rate 27 H Blood Pressure 164/75 H Pulse Oximetry 98 Oxygen Delivery Method Nasal Cannula Oxygen Flow Rate 09/02/23 07:58 09/02/23 07:58 09/02/23 08:00 Temperature Pulse Rate 91 H Respiratory Rate 28 H Blood Pressure 173/79 H 177/79 H Pulse Oximetry 98 Oxygen Delivery Method Oxygen Flow Rate 09/02/23 08:00 09/02/23 12:01 09/02/23 13:06 Temperature 97.8 F Pulse Rate 98 H 101 H Respiratory Rate 30 H 35 H Blood Pressure 165/77 H Pulse Oximetry 98 98 Oxygen Delivery Method Oxygen Flow Rate 2 Fraction of Inspired Oxygen 28 SaO2/FiO2 Ratio 342 Oxygen Delivery Method Nasal Cannula Oxygen Flow Rate 2 Narrative Exam Narrative: GEN: no acute distress, nonverbal, audible rattle in throat from secretions HEENT: moist mucous membranes, PERRL NECK: trachea midline, no JVD CV: regular rate and rhythm, no murmurs PULM: bilateral rhonchi ABD: soft, nontender, nondistended, no organomegaly EXT: warm and well perfused with no edema, right BKA NEURO: awake, alert, no focal deficits Objective Labs 09/01/23 04:45 09/01/23 04:45 Labs: Laboratory Results - last 24 hr 09/01/23 16:00 Urine Color Yellow Urine Appearance Clear Urine pH 5.0 Ur Specific [place] <=1.005 Urine Protein 1+ H Urine Glucose (UA) Negative Urine Ketones Negative Urine Occult Blood 1+ H Urine Nitrate Negative Urine Bilirubin 2+ H Ur Bilirubin Confirm TNP Urine Urobilinogen 2.0 H Ur Leukocyte Esterase Negative Urine RBC 0-1/hpf Urine WBC 0-1/hpf Ur Squamous Epith Cells 1-5 /hpf Amorphous Sediment 1+ Urine Bacteria Occasional (0-1) Ur Culture Indicated? Cult not indicated Vol Urine Centrifuged 10ml (spun) PFSH Social History household members: other Smoking Status: Never smoker alcohol intake: never Assessment & Plan Assessment & Plan narrative: # goals of care -patient now too high an aspiration risk so is strict NPO, is also refusing meds and not clearing secretions -spoke with son who is POA on 09/02 and recommended comfort focused palliative care, he wants to defer this until his sister is present -unclear if family will want to pursue artificial means of nutrition # acute sepsis, improving -WBC 27.1, procal 0.71, RR 30's -secondary to PNA -s/p 2L bolus -f/up blood cultures -unable to draw labs despite multiple attempts -midline ordered # acute respiratory failure with hypoxia 2/2 aspiration pneumonia -requiring 2L NC after witness aspiration event at [facility] -CT chest with R basilar consolidation -Continue Zosyn IV -IV fluids -Albuterol as needed -Oxygen supplement to keep her oxygenation greater than 92% # mod-severe dysphagia -MBS showed deep penetration but not aspiration, pureed and nectar thick diet recommended -patient had witnessed aspiration event with pureed dinner on 09/02 -speech now recommending strict NPO # acute pancreatitis -lipase 38k with peripancreatic edema on CT abd -abd US with gallstones but no biliary dilation or cholecystitis -IV pain meds -IVF -now strict NPO due to aspiration # tranasaminitis -AST 695 and ALT 752 -due to sepsis or pancreatitis -trend # SAH/epilepsy -continue with lamotrigine, primidone # Anxiety, depression -continue lexapro -continue lorazepam as needed # Hypertension -continue lisinopril # Constipation -Continue with polyethylene glycol Dispo: Pending improvement in dysphagia, hypoxia and PNA. 2-3 days. If not improving would recommend hospice conversation once daughter arrives on 09/03. Time Spent With Patient Time with patient: 50 to 69 minutes with 50% spent counseling/coordinating care Quality VTE Deep Vein Thrombosis/Pulmonary Embolism Present on Admission: No
[2023-09-02 16:53] LABS: Alanine Aminotransferase 299 IU/L (<35); Albumin Globulin Ratio 0.8 (1.0-2.8); Alkaline Phosphatase 331 U/L (38-126); Aspartate Aminotransferase 159 IU/L (14-36); BUN Creatinine Ratio 18.5 (6-22); Bilirubin Total 1.3 mg/dL (0.2-1.3); Blood Urea Nitrogen 12 mg/dL (7-17); Calcium 7.6 mg/dL (8.4-10.2); Carbon Dioxide 22 mmol/L (22-32); Chloride 110 mmol/L (98-107); Estimated Glomerular Filt Rate > 60 mL/min (>60); Globulin 3.8 g/dL (1.7-4.1); Glucose 127 mg/dL (80-110); HEMOLYSIS < 15 (0-50); Lipase 281 U/L (23-300); Magnesium 1.7 mg/dL (1.6-2.3); Potassium 2.9 mmol/L (3.4-5.1); Sodium 141 mmol/L (137-145); Total Protein 6.8 g/dL (6.3-8.2)
[2023-09-02 17:07] LABS: Lactate (Lactic Acid) 1.2 mmol/L (0.7-2.1)
[2023-09-02 17:09] LABS: Procalcitonin 10.2 ng/mL (<0.5)
[2023-09-02] MEDS: POTASSIUM CHLORIDE IN WATER 10 MEQ/100 ML PIGGYBACK 100 MEQ IV ×6 (17:28→23:32)
[2023-09-02] MEDS: ACETAMINOPHEN 650 MG SUPP PR (20:39)
[2023-09-03] VITALS (41 sets, daily range): BP systolic 84–192; BP diastolic 57–115; PULSE 60–122; RESP 17–32; TEMP 36.4–39; O2SAT 90–100
[2023-09-03] MEDS: PIPERACILLIN/TAZO 3.375 GM in SODIUM CHLORIDE 0.9% 100 ML IV ×3 (01:45→17:38)
[2023-09-03 04:57] LABS: Alanine Aminotransferase 231 IU/L (<35); Albumin 2.7 g/dL (3.5-5.0); Albumin Globulin Ratio 0.7 (1.0-2.8); Alkaline Phosphatase 266 U/L (38-126); Aspartate Aminotransferase 90 IU/L (14-36); BUN Creatinine Ratio 18.6 (6-22); Bilirubin Total 1.2 mg/dL (0.2-1.3); Blood Urea Nitrogen 11 mg/dL (7-17); Calcium 7.7 mg/dL (8.4-10.2); Carbon Dioxide 22 mmol/L (22-32); Chloride 109 mmol/L (98-107); Estimated Glomerular Filt Rate > 60 mL/min (>60); Globulin 3.7 g/dL (1.7-4.1); Glucose 130 mg/dL (80-110); HEMOLYSIS < 15 (0-50); Magnesium 1.6 mg/dL (1.6-2.3); Potassium 3.5 mmol/L (3.4-5.1); Sodium 138 mmol/L (137-145); Total Protein 6.4 g/dL (6.3-8.2)
[2023-09-03 05:16] LABS: Lipase 125 U/L (23-300)
[2023-09-03 05:34] LABS: Procalcitonin 7.85 ng/mL (<0.5)
[2023-09-03] MEDS: DEXTROSE 5%-0.9% NS 1,000 ML 84 ML IV (05:43)
--- NOTE | 2023-09-03 06:55 | PC.NURSE ---
02 decreased to 2L at 0500
[2023-09-03] MEDS: MAGNESIUM SULFATE 2 GM/50 ML PIGGYBACK IV (07:03)
[2023-09-03] MEDS: POTASSIUM CHLORIDE IN WATER 10 MEQ/100 ML PIGGYBACK 100 MEQ IV ×2 (08:58→10:11)
[2023-09-03] MEDS: lisinopriL 10 MG TABLET PO (09:44)
[2023-09-03] MEDS: ENOXAPARIN 40 MG/0.4 ML SYRINGE SUBCUT (09:44)
[2023-09-03] MEDS: lamoTRIgine 100 MG TABLET 150 MG PO (09:57)
--- NOTE | 2023-09-03 12:29 | PM.PN.1 ---
Subjective Subjective Interval history: 82 F with PMH of CVA which resulted in substantial neurological deficits, chronic aphasia and non-verbal at baseline who presented to the emergency room with hypoxia after episode of emesis. She was presumed to have aspirated. In review of her labs, they showed marked transaminitis with elevated T bili and marked Lipase elevation. She likely had gallstone pancreatitis contributing to her symptoms. Her swallow / aspiration has been waxing and waning since admission. Previous providers focused on aspiration managment and initial goals of care discussions. Per daughter at bedside today, she is not much changed from her usual baseline swallow. She requires to be sitting upright in her wheelchair usually. She did well this morning with bedside staff swallowing. Have reordered her dysphagia diet. I did discuss with the general surgeon, whom will formally consult tomorrow regarding risk / benefit discussion regarding cholecystectomy vs ERCP for gallstone pancreatitis. Discussed with daugther and does not wish to have patient on comfort measures after above discussion regarding presentation. Daughter did not wish to persue PEG placement at this time, discussion ongoing depending on patient's swallow ability moving forward. Exam Vital Signs (past 8 hours): - 09/03/23 05:00 09/03/23 05:01 09/03/23 05:01 Temperature Pulse Rate 87 82 Respiratory Rate Blood Pressure 173/80 H Pulse Oximetry 100 99 Oxygen Delivery Method Oxygen Flow Rate Fraction of Inspired Oxygen 09/03/23 05:05 09/03/23 06:00 09/03/23 07:00 Temperature Pulse Rate 85 91 H Respiratory Rate 32 H Blood Pressure 173/80 H Pulse Oximetry 100 96 Oxygen Delivery Method Nasal Cannula Oxygen Flow Rate 4 Fraction of Inspired Oxygen 09/03/23 07:00 09/03/23 07:32 09/03/23 07:49 Temperature Pulse Rate 111 H Respiratory Rate Blood Pressure 192/92 H Pulse Oximetry 97 98 Oxygen Delivery Method Nasal Cannula Oxygen Flow Rate 4 Fraction of Inspired Oxygen 36 09/03/23 07:49 09/03/23 08:00 09/03/23 09:00 Temperature 99 F Pulse Rate 101 H 105 H 113 H Respiratory Rate 28 H Blood Pressure 138/93 H Pulse Oximetry 96 96 96 Oxygen Delivery Method Oxygen Flow Rate 2 Fraction of Inspired Oxygen 09/03/23 09:00 09/03/23 09:44 09/03/23 09:50 Temperature 97.5 F L Pulse Rate 100 H 100 H Respiratory Rate Blood Pressure 192/92 H 138/93 H Pulse Oximetry 96 Oxygen Delivery Method Oxygen Flow Rate Fraction of Inspired Oxygen 09/03/23 09:50 09/03/23 10:00 09/03/23 11:00 Temperature Pulse Rate 111 H 116 H 109 H Respiratory Rate Blood Pressure Pulse Oximetry 95 94 96 Oxygen Delivery Method Oxygen Flow Rate Fraction of Inspired Oxygen Fraction of Inspired Oxygen 36 SaO2/FiO2 Ratio 272 Oxygen Delivery Method Nasal Cannula Oxygen Flow Rate 2 Narrative Exam Narrative: GEN: no acute distress, nonverbal, audible rattle in throat from secretions HEENT: moist mucous membranes, PERRL NECK: trachea midline, no JVD CV: regular rate and rhythm, no murmurs PULM: bilateral rhonchi ABD: soft, nontender, nondistended, no organomegaly EXT: warm and well perfused with no edema, right BKA NEURO: awake, alert, no focal deficits Objective Labs 09/01/23 04:45 09/03/23 04:20 Labs: Laboratory Results - last 24 hr 09/02/23 09/02/23 09/03/23 16:30 16:45 04:20 Sodium 141 138 Potassium 2.9 L 3.5 Chloride 110 H 109 H Carbon Dioxide 22 22 BUN 12 11 Creatinine 0.65 0.59 Estimated GFR > 60 > 60 BUN/Creatinine Ratio 18.5 18.6 Glucose 127 H 130 H Lactate 1.2 Calcium 7.6 L 7.7 L Magnesium 1.7 1.6 Total Bilirubin 1.3 1.2 AST 159 H 90 H ALT 299 H 231 H Alkaline Phosphatase 331 H 266 H Total Protein 6.8 6.4 Albumin 3.0 L 2.7 L Globulin 3.8 3.7 Albumin/Globulin Ratio 0.8 L 0.7 L Lipase 281 D 125 D Procalcitonin 10.2 H 7.85 H PFSH Social History household members: other Smoking Status: Never smoker alcohol intake: never Assessment & Plan Assessment & Plan narrative: #Sespsis secondary to aspiration pneumonia or possible cholangitis with hyperbilirubinemia, RACHEL, and acute respiratory failure with hypoxia. - continue zosyn - unclear if initial presentation due to ? cholangitis or aspiration, both are possible, though aspiration probably more likely due to vomiting from her pancreatitis. - cr 0.97 on admission improved to 0.59 today consistent with RACHEL. - respiratory failure now resolved. # mod-severe dysphagia, chronic -MBS showed deep penetration but not aspiration, pureed and nectar thick diet recommended -patient had witnessed aspiration event with pureed dinner on 09/02, but seems to be improved today. -continue dysphagia diet, continue to reassess. Family not interested in PEG at this time. 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 # acute gallstone pancreatitis -lipase 38k with peripancreatic edema on CT abd -abd US with gallstones but no biliary dilation or cholecystitis -may have passed prior to admission -given non-verbal at baseline, difficult to tell if possible abdominal symptoms are contributing to her aspiration events. -discussed with general surgeon today, will formally assess tomorrow to discuss risks and benefits of different management options. # SAH/epilepsy -continue with lamotrigine, primidone # Anxiety, depression -continue lexapro -continue lorazepam as needed # Hypertension -continue lisinopril # Constipation -Continue with polyethylene glycol Dispo: Pending above surgical consultation, likely discharge in 2-3 days depending on surgical discussion, also unclear of progress/status on aspiration. Code: DNR, surrogate is patient's daughter. Discussed with case management and surgeon to contribute to the above assessment and plan. Additional history obtained via discussion with patient's daughter. Time Spent With Patient Time with patient: 50 to 69 minutes with 50% spent counseling/coordinating care Quality VTE Deep Vein Thrombosis/Pulmonary Embolism Present on Admission: No
--- NOTE | 2023-09-03 12:46 | CM.DPC ---
DCP Cont: Per MD and RN, pt was able to tolerate some applesauce this morning and now weaned off oxygen to see if she can maintain room air and per MD plan is to Consult with Surgeon regarding pt's pancreatitis/gallstones and recommendations for options. Surgeon Consult pending for possibly later today vs tomorrow Monday. PT ordered and pending for assist with safe transfers to see how pt does up in chair with feedings. SW met bedside with pt and her Dtr Nicci who lives locally in [place] and supportively involved in pt's care and tx and explained role and Dtr confirms that pt does not vomit at baseline and she is in agreement that likely gallstones/pancreatitis a factor in pt's vomit/aspiration and interested in Surgeon recommendations. Dtr and her brother/DPOA Godwin who lives on [facility] confirm that currently they are not interested in Comfort Measures yet and interested in pursuing treatment as pt showing signs of improvement and historically improved after a few days of tx. Preference is for pt to improve and then return to [facility] L[facility]. RN now working on feeding pt SOFTWARE DESIGN ENGINEER recommendations of pureed nectar thick for lunch to see how pt tolerates. Plan: SW to follow closely for Surgeon Consult and recommendations towards family preference of pursing tx and improvements towards d/c back to [facility]. JAYME Medellin
[2023-09-03] MEDS: ACETAMINOPHEN 325 MG TABLET 650 MG PO (13:28)
--- NOTE | 2023-09-03 15:20 | PT-IP ANOTE ---
Attempted Physical Therapy evaluation. Pt is fatigued after being up with nursing earlier today. Nursing used ge lift for transfer today. Pt does a stand-pivot transfer at baseline with staff assist at [facility]. Will plan to see tomorrow for evaluation.
[2023-09-04] VITALS (31 sets, daily range): BP systolic 110–180; BP diastolic 59–92; PULSE 45–104; RESP 20–26; TEMP 36.9–37.7; O2SAT 88–98
[2023-09-04] MEDS: PIPERACILLIN/TAZO 3.375 GM in SODIUM CHLORIDE 0.9% 100 ML IV ×3 (02:07→17:45)
[2023-09-04 06:04] LABS: Add Manual Diff / Slide Review NO; Basophils Absolute Auto 0 /uL (0-100); Basophils Percent Auto 0.1 % (0-2); Eosinophils Absolute Auto 0 /uL (0-450); Eosinophils Percent Auto 0.2 % (2-4); Hematocrit 30.8 % (36-46); Hemoglobin 10.3 g/dL (12.0-16.0); Lymphocytes Absolute Auto 1300 /uL (1100-4500); Lymphocytes Percent Auto 6.1 % (25-40); Mean Corpuscular HGB Conc 33.6 % (30-36); Mean Corpuscular Hemoglobin 30.3 PG (26-34); Mean Corpuscular Volume 90.1 fL (80-100); Monocytes Absolute Auto 1100 /uL (0-900); Monocytes Percent Auto 5.3 % (3-14); Neutrophils Absolute Auto 18100 /uL (1500-7000); Neutrophils Percent Auto 88.3 % (50-75); Platelet Count 299 X10^3/uL (150-400); Red Blood Cell Count 3.41 X10^6/uL (4.0-5.2); Red Cell Distribution Width 13.8 % (11.6-14.8); White Blood Cell Count 20.5 X10^3/uL (4.5-11.0)
[2023-09-04 06:20] LABS: Alanine Aminotransferase 148 IU/L (<35); Albumin 2.9 g/dL (3.5-5.0); Albumin Globulin Ratio 0.8 (1.0-2.8); Alkaline Phosphatase 246 U/L (38-126); Aspartate Aminotransferase 40 IU/L (14-36); BUN Creatinine Ratio 19.1 (6-22); Bilirubin Total 1.1 mg/dL (0.2-1.3); Blood Urea Nitrogen 9 mg/dL (7-17); Calcium 7.4 mg/dL (8.4-10.2); Carbon Dioxide 21 mmol/L (22-32); Chloride 109 mmol/L (98-107); Estimated Glomerular Filt Rate > 60 mL/min (>60); Globulin 3.7 g/dL (1.7-4.1); Glucose 133 mg/dL (80-110); HEMOLYSIS 15 (0-50); Magnesium 1.8 mg/dL (1.6-2.3); Potassium 2.8 mmol/L (3.4-5.1); Sodium 138 mmol/L (137-145); Total Protein 6.6 g/dL (6.3-8.2)
[2023-09-04 06:56] LABS: Procalcitonin 4.58 ng/mL (<0.5)
[2023-09-04] MEDS: lisinopriL 10 MG TABLET PO (08:24)
[2023-09-04] MEDS: ENOXAPARIN 40 MG/0.4 ML SYRINGE SUBCUT (08:24)
[2023-09-04] MEDS: lamoTRIgine 100 MG TABLET 150 MG PO (08:25)
[2023-09-04] MEDS: SODIUM,POTASSIUM PHOSPHATES PACKET 1 EACH PO ×2 (09:16→20:19)
[2023-09-04] MEDS: ESCITALOPRAM 10 MG TABLET 20 MG PO (09:16)
[2023-09-04] MEDS: POTASSIUM CHLORIDE IN WATER 10 MEQ/100 ML PIGGYBACK 100 MEQ IV ×6 (09:16→14:21)
[2023-09-04] MEDS: DEXTROSE 5%-0.9% NS 1,000 ML 84 ML IV (10:19)
--- NOTE | 2023-09-04 10:52 | CM.DPC ---
Addendum entered by JAYME Medellin 09/04/23 15:31: ADD: Surgeon rounded on pt (no family present and did assessment and working with anesthesiologist to determine if pt would be a candidate for any surgical intervention. Surgeon called Dtr and spoke to her and potential for surgical intervention tomorrow pending if Surgeon and Anesthesiologist comfortable with sedating patient. SW updated Tata at [facility] and they feel due to pt's dx that she would qualify for SNF rehab under Medicare at d/c and PASRR completed and signed and SW faxed to PASRR coordinator Lidia due to anxiety/depression. SW called pt's legal guardian/son Godwin and discussed return to [facility] at discharge and he is agreeable with SNF rehab before LTC. Plan: SW to follow closely for possible surgery tomorrow if determined pt a candidate for surgical intervention and then return to [facility] for rehab. JAYME Medellin Original Note: DCP Cont: Per MD, pt has made progress and likely could be medically stable to d/c back to SNF pending Surgeon Consult today and recommendations and POC. Surgeon in the clinic this morning and to likely round on patients around 1200 today. SW met bedside with pt (non-verbal) and Dtr Nicci and updated on above and unfortunately Dtr can only be bedside until about 1145 and then has to go to work for meetings but available by phone for Surgeon Recommendations and also her brother Godwin/pt's legal guardian who lives in [place] is also available by phone. ZACH spoke to son Godwin/legal guardian and updated on above as well and he remains in agreement and faxed copy of his Court Guardianship pwk to Care Management and CC Marge scanned into EMR. ZACH called Tata at [facility] and updated on plan of return to [facility], not on comfort care, and awaiting Surgeon Consult to determine POC for possible surgical intervention. JAYME Medellin
[2023-09-04] MEDS: SODIUM CHLORIDE 0.9% 250 ML 21 ML IV (14:40)
--- NOTE | 2023-09-04 14:44 | PT-IP ANOTE ---
Received PT orders and completed chart review. Pt is noted to require 1-2 person assist for stand pivot transfers to wheelchair at baseline. Pt is aphasic and PT suspects she would do best with family in the room. Pt's daughter is only available in the mornings. Will plan to follow up for evaluation in the AM if pt remains admitted and pt's daughter is here. Recommend nursing continue to use mechanical lift for transfers.
--- NOTE | 2023-09-04 14:53 | P.PN_ITS ---
Subjective Subjective Interval history: 82 F with PMH of CVA which resulted in substantial neurological deficits, chronic aphasia and non-verbal at baseline who presented to the emergency room with hypoxia after episode of emesis. She was presumed to have aspirated. In review of her labs, they showed marked transaminitis with elevated T bili and marked Lipase elevation. General surgery discussing options with daughter today regarding either ERCP recommendation, cholecystectomy, or non-invasive management. Exam Vital Signs (past 8 hours): - 09/04/23 07:00 09/04/23 08:24 09/04/23 09:00 Temperature 98.4 F Pulse Rate 100 H 92 H Respiratory Rate 21 Blood Pressure 176/76 H 176/76 H Pulse Oximetry 93 Oxygen Delivery Method Room Air Oxygen Flow Rate 0 09/04/23 13:00 Temperature 99.8 F H Pulse Rate 91 H Respiratory Rate 24 Blood Pressure 180/71 H Pulse Oximetry 92 Oxygen Delivery Method Oxygen Flow Rate 2 Fraction of Inspired Oxygen 36 SaO2/FiO2 Ratio 272 Oxygen Delivery Method Room Air Oxygen Flow Rate 2 Narrative Exam Narrative: GEN: no acute distress, nonverbal, audible rattle in throat from secretions HEENT: moist mucous membranes, PERRL NECK: trachea midline, no JVD CV: regular rate and rhythm, no murmurs PULM: bilateral rhonchi ABD: soft, nontender, nondistended, no organomegaly EXT: warm and well perfused with no edema, right BKA NEURO: awake, alert, no focal deficits Objective Labs 09/04/23 05:50 09/04/23 05:50 Labs: Laboratory Results - last 24 hr 09/04/23 05:50 WBC 20.5 H RBC 3.41 L Hgb 10.3 L Hct 30.8 L MCV 90.1 MCH 30.3 MCHC 33.6 RDW 13.8 Plt Count 299 Neut % (Auto) 88.3 H Lymph % (Auto) 6.1 L [place] % (Auto) 5.3 Eos % (Auto) 0.2 L Baso % (Auto) 0.1 Neut # (Auto) 83215 H Lymph # (Auto) 1300 [place] # (Auto) 1100 H Eos # (Auto) 0 Baso # (Auto) 0 Sodium 138 Potassium 2.8 L Chloride 109 H Carbon Dioxide 21 L BUN 9 Creatinine 0.47 L Estimated GFR > 60 BUN/Creatinine Ratio 19.1 Glucose 133 H Calcium 7.4 L Magnesium 1.8 Total Bilirubin 1.1 AST 40 H ALT 148 H Alkaline Phosphatase 246 H Total Protein 6.6 Albumin 2.9 L Globulin 3.7 Albumin/Globulin Ratio 0.8 L Procalcitonin 4.58 H PFSH Social History household members: other Smoking Status: Never smoker alcohol intake: never Assessment & Plan Assessment & Plan narrative: #Sespsis secondary to aspiration pneumonia or possible cholangitis with hyperbilirubinemia, RACHEL, and acute respiratory failure with hypoxia. - continue zosyn - unclear if initial presentation due to ? cholangitis or aspiration, both are possible, though aspiration probably more likely due to vomiting from her pancreatitis. - cr 0.97 on admission improved to 0.59 today consistent with RACHEL. - respiratory failure now resolved. - procalcitonin and leukocytosis improving today, continue to trend. # mod-severe dysphagia, chronic -MBS showed deep penetration but not aspiration, pureed and nectar thick diet recommended -patient had witnessed aspiration event with pureed dinner on 09/02, but seems to be improved today. -continue dysphagia diet, continue to reassess. Family not interested in PEG at this time. -continue BILINGUAL OPERATOR evaluation and therapies. # acute gallstone pancreatitis -lipase 38k with peripancreatic edema on CT abd -abd US with gallstones but no biliary dilation or cholecystitis -may have passed stone prior to admission -given non-verbal at baseline, difficult to tell if possible abdominal symptoms are contributing to her aspiration events. -discussed with general surgeon, awaiting discussion with family talk about the risks and benefits of different management options. # SAH/epilepsy -continue with lamotrigine, primidone # Anxiety, depression -continue lexapro -continue lorazepam as needed # Hypertension -continue lisinopril # Constipation -Continue with polyethylene glycol Dispo: Pending above surgical consultation, likely discharge in 1-2 days depending on surgical discussion, also unclear of progress/status on aspiration. Code: DNR, surrogate is patient's daughter. Discussed with case management and surgeon to contribute to the above assessment and plan. Additional history obtained via discussion with patient's daughter. Time Spent With Patient Time with patient: 50 to 69 minutes with 50% spent counseling/coordinating care Quality VTE Deep Vein Thrombosis/Pulmonary Embolism Present on Admission: No
--- NOTE | 2023-09-04 16:23 | P.PN_ITS ---
Subjective Subjective Date Patient Seen: 09/04/23 Time Patient Seen: 15:30 Interval history: Requested by Dr. Quigley to assess whether pt is a candidate for surgery tomorrow for a lap blanca. 82yo female with right hemiplegia after surgery for meningioma resection in December 2016 (some tumor remaining, per daughter) with perioperative CVA. Pt lives in a retirement. She is able to sit in a wheelchair all day and can scoot herself around a little in the chair. Pt has aphasia but can reportedly communicate to some extent with family. Per daughter, pt has been having abdominal pain, distension, and discomfort for the past two to three months, and this hospital admission is for probable gallstone pancreatitis. Hx chronic aspiration, including 07/2023. Daughter Nicci reports that her mother has aspirated many times. On my exam, pt is on room air with O2 sats ranging between 88-98%, coarse breath sounds, and mild tachypnea. Regarding other pertinent medical history, Nicci reports that her mother has NO known hx of CAD, DC, cardiac stents, CHF, arrhythmia, or enlarged heart. I considered ordering a preop echo due to some recent radiology studies that commented on an enlarged heart, but other radiology studies report normal heart size. Per discussion with Dr. Beltran, patient's hospitalist, there is no clinical indication for an echo from his standpoint, and given pt's lack of any concerning cardiac hx, I am willing to proceed with anesthesia and surgery without an echo. Discussed patient's code status with daughter Nicci. Pt is DNR. Pt will require intubation for her gallbladder surgery, and I discussed with Nicci that there is a small possibility that pt will remain intubated after the procedure until her respiratory condition allows extubation. I also discussed that because of the stresses of anesthesia and surgery, medical conditions such as slow heart rate or low blood pressure can occur and potentially be life-threatening. For this reason, we ask patients and family members to suspend DNR status perioperatively. The DNR status would be reinstated once pt returns to her room upstairs. Nicci wants to discuss this with her brother prior to final agreement, but she conditionally agrees with intubation and suspension of DNR status. She said she would come to the hospital tomorrow and sign consents for her mother. Based on the above and my discussion with Dr. Quigley, we will plan to proceed with lap blanca surgery tomorrow afternoon, and the surgery has been booked. Exam Vital Signs (past 8 hours): - 09/04/23 08:24 09/04/23 09:00 09/04/23 13:00 Temperature 98.4 F 99.8 F H Pulse Rate 100 H 92 H 91 H Respiratory Rate 21 24 Blood Pressure 176/76 H 176/76 H 180/71 H Pulse Oximetry 93 92 Oxygen Flow Rate 0 2 Fraction of Inspired Oxygen 36 SaO2/FiO2 Ratio 272 Oxygen Delivery Method Room Air Oxygen Flow Rate 2 Objective Labs 09/04/23 05:50 09/04/23 05:50 Labs: Laboratory Results - last 24 hr 09/04/23 05:50 WBC 20.5 H RBC 3.41 L Hgb 10.3 L Hct 30.8 L MCV 90.1 MCH 30.3 MCHC 33.6 RDW 13.8 Plt Count 299 Neut % (Auto) 88.3 H Lymph % (Auto) 6.1 L [place] % (Auto) 5.3 Eos % (Auto) 0.2 L Baso % (Auto) 0.1 Neut # (Auto) 34256 H Lymph # (Auto) 1300 [place] # (Auto) 1100 H Eos # (Auto) 0 Baso # (Auto) 0 Sodium 138 Potassium 2.8 L Chloride 109 H Carbon Dioxide 21 L BUN 9 Creatinine 0.47 L Estimated GFR > 60 BUN/Creatinine Ratio 19.1 Glucose 133 H Calcium 7.4 L Magnesium 1.8 Total Bilirubin 1.1 AST 40 H ALT 148 H Alkaline Phosphatase 246 H Total Protein 6.6 Albumin 2.9 L Globulin 3.7 Albumin/Globulin Ratio 0.8 L Procalcitonin 4.58 H PFSH Social History household members: other Smoking Status: Never smoker alcohol intake: never Quality VTE Deep Vein Thrombosis/Pulmonary Embolism Present on Admission: No
--- NOTE | 2023-09-04 16:37 | P.CONS_ITS ---
History of Present Illness Consult details Date Patient Seen: 09/04/23 Chief complaint: respitory failure Narrative: Quyen is an 82-year-old woman with expressive aphasia from a prior stroke who lives at a residential. She was admitted to the hospital with presumed aspiration pneumonia about 3 days ago. She was also noted to have pancreatitis and gallstones. Her daughter Nicci believes that she has had abdominal pain recently at the residential at times quite severe. The elevated lipase has returned to normal. Meds Home Medications and Allergies Home Medications Medication Instructions Recorded Confirmed Type lamotrigine 150 mg tablet 150 mg PO DAILY #90 tabs 04/23/21 09/01/23 Rx Probiotic #30 ea 06/22/21 09/01/23 Rx ascorbic acid (vitamin C) 500 mg 500 mg PO DAILY #30 tabs 06/22/21 09/01/23 Rx tablet polyethylene glycol 3350 17 17 g PO DAILY PRN constipation 06/22/21 09/01/23 Rx gram/dose oral powder (Miralax) #510 grams primidone 250 mg tablet 250 mg PO BEDTIME #90 tabs 06/24/21 09/01/23 Rx primidone 50 mg tablet 50 mg PO BEDTIME #90 tabs 06/24/21 09/01/23 Rx acetaminophen 500 mg tablet 1,000 mg (2 x 500 mg) PO TID PRN 07/09/21 09/01/23 Rx fever or pain #180 tabs lorazepam 0.5 mg tablet 0.5 mg PO Q6H PRN agitation #10 01/18/22 09/01/23 Rx tabs calcitriol 0.25 mcg capsule 0.25 mcg PO DAILY #90 caps 03/07/22 09/01/23 Rx sodium di- and 1 tab PO BID #180 tabs 04/05/22 09/01/23 Rx monophosphate-potassium phos monobasic 250 mg tablet (M-[id number]-Qzmmnwp) escitalopram oxalate 20 mg tablet 20 mg PO DAILY #15 tabs 07/26/22 09/01/23 Rx lisinopril 10 mg tablet 10 mg PO DAILY #30 tabs 08/24/22 09/01/23 Rx Allergies Allergy/AdvReac Type Severity Reaction Status Date / Time No Known Allergies Allergy Verified 09/01/23 06:29 Exam Vital Signs (past 8 hours): - 09/04/23 09:00 09/04/23 13:00 Temperature 98.4 F 99.8 F H Pulse Rate 92 H 91 H Respiratory Rate 21 24 Blood Pressure 176/76 H 180/71 H Pulse Oximetry 93 92 Oxygen Flow Rate 0 2 Fraction of Inspired Oxygen 36 SaO2/FiO2 Ratio 272 Oxygen Delivery Method Room Air Oxygen Flow Rate 2 Narrative Exam Narrative: Aphasic Abdomen is soft with no obvious Pena sign Objective Labs 09/04/23 05:50 09/04/23 05:50 Labs: Laboratory Results - last 24 hr 09/04/23 05:50 WBC 20.5 H RBC 3.41 L Hgb 10.3 L Hct 30.8 L MCV 90.1 MCH 30.3 MCHC 33.6 RDW 13.8 Plt Count 299 Neut % (Auto) 88.3 H Lymph % (Auto) 6.1 L [place] % (Auto) 5.3 Eos % (Auto) 0.2 L Baso % (Auto) 0.1 Neut # (Auto) 59717 H Lymph # (Auto) 1300 [place] # (Auto) 1100 H Eos # (Auto) 0 Baso # (Auto) 0 Sodium 138 Potassium 2.8 L Chloride 109 H Carbon Dioxide 21 L BUN 9 Creatinine 0.47 L Estimated GFR > 60 BUN/Creatinine Ratio 19.1 Glucose 133 H Calcium 7.4 L Magnesium 1.8 Total Bilirubin 1.1 AST 40 H ALT 148 H Alkaline Phosphatase 246 H Total Protein 6.6 Albumin 2.9 L Globulin 3.7 Albumin/Globulin Ratio 0.8 L Procalcitonin 4.58 H PFSH Social History household members: other Tobacco & Substance Use Smoking Status: Never smoker alcohol intake: never Assessment & Plan Assessment and plan (1) Gallstones: Status: Acute Plan I had a long discussion with Quyen daughter Nicci about her condition. It is difficult to know how much pain she is having from her gallbladder. It is likely that she has passed a gallstone causing gallstone pancreatitis and that is likely to happen again. She has a high risk for complications from surgery and anesthesia given her frail state of health. Nicci understands the risks are increased but her goal is to be sure that we minimize pain and discomfort in any way possible. We can proceed with a laparoscopic cholecystectomy with intraoperative cholangiogram tomorrow pending anesthesia approval.
--- NOTE | 2023-09-04 17:21 | SLP.IPNOTE ---
CLINIC MGR attempted tx at approx 11:40am. Nursing reported that she has not been drinking nectar/mildly thick liquids over the weekend, only consuming pudding/puree thick solids due to s/sx aspiration on nectar thick (IDDSI 2) liquids. CLINIC MGR attempted trials of pudding and nectar. Pt accepted one tsp of pudding before refusing further trials. Will re-attempt tomorrow if appropriate as pt is having surgery in AM.
[2023-09-04] MEDS: PRIMIDONE 50 MG TABLET 250 MG PO (20:19)
[2023-09-04] MEDS: PRIMIDONE 50 MG TABLET PO (20:19)
[2023-09-05] VITALS (21 sets, daily range): BP systolic 129–164; BP diastolic 60–84; PULSE 74–105; RESP 16–27; TEMP 36.2–38.2; O2SAT 86–99
--- NOTE | 2023-09-05 | PATH_ITS ---
[facility] Accession Number: [id number] No. of containers..01 Tissue . 01 Material submitted: . gallbladder - GALLBLADDER AND CONTENTS . 01 Diagnosis: GALLBLADDER, CHOLECYSTECTOMY: Cholelithiasis. No evidence of neoplasm. MRV 09/11/2023 1018 Local . 01 Electronically signed: . Luis Valladares MD, PhD, Pathologist NPI- [id number] . 01 Gross description: . The specimen is received in formalin labeled with the patient's name, , and gallbladder and contents', and consists of an intact gallbladder measuring 7.7 x 3.2 x 3.0 cm. The cystic duct margin is inked blue, and no pericystic lymph node is identified. The lumen is filled with pale yellow bosselated calculi measuring up to 1.3 cm in greatest dimension grossly obstructing the cystic duct and admixed with minimal green-brown mucoid bile. The mucosa is reese and diffusely denuded with no yellow discoloration, polyps, or lesions identified. The driver average 0.3 cm thick. Hospital Liaison sections to include the cystic duct margin and full thickness sections are submitted in cassette A1. ([id number]) /MRV 09/07/2023 1340 Local . 01 Pathologist provided ICD-10: K80.70 . 01 CPT . 107331 Specimen Comment: A courtesy copy of this report has been sent to [phone] Performed at: 01 [facility] [address] [place] [address] [id number] MD Alec Sears MD Phone: [phone]
[2023-09-05] MEDS: PIPERACILLIN/TAZO 3.375 GM in SODIUM CHLORIDE 0.9% 100 ML IV ×3 (01:58→18:16)
[2023-09-05] MEDS: DEXTROSE 5%-0.9% NS 1,000 ML 84 ML IV ×2 (01:59→18:08)
[2023-09-05 04:57] LABS: Add Manual Diff / Slide Review NO; Basophils Absolute Auto 0 /uL (0-100); Basophils Percent Auto 0.1 % (0-2); Eosinophils Absolute Auto 100 /uL (0-450); Eosinophils Percent Auto 0.7 % (2-4); Hematocrit 27.9 % (36-46); Hemoglobin 9.3 g/dL (12.0-16.0); Lymphocytes Absolute Auto 1700 /uL (1100-4500); Lymphocytes Percent Auto 9.3 % (25-40); Mean Corpuscular HGB Conc 33.2 % (30-36); Mean Corpuscular Hemoglobin 29.6 PG (26-34); Mean Corpuscular Volume 89.1 fL (80-100); Monocytes Absolute Auto 1300 /uL (0-900); Neutrophils Absolute Auto 15300 /uL (1500-7000); Neutrophils Percent Auto 82.9 % (50-75); Platelet Count 286 X10^3/uL (150-400); Red Blood Cell Count 3.13 X10^6/uL (4.0-5.2); Red Cell Distribution Width 14.3 % (11.6-14.8); White Blood Cell Count 18.5 X10^3/uL (4.5-11.0)
--- NOTE | 2023-09-05 08:36 | P.PN_ITS ---
Subjective Subjective Interval history: Not speaking, awake. No distress. Exam Vital Signs (past 8 hours): - 09/05/23 01:00 09/05/23 01:16 09/05/23 02:00 Temperature Pulse Rate 78 85 75 Respiratory Rate 16 Blood Pressure Pulse Oximetry 94 93 Oxygen Delivery Method Nasal Cannula Oxygen Flow Rate 2 09/05/23 03:00 09/05/23 03:37 09/05/23 03:37 Temperature Pulse Rate 75 78 Respiratory Rate Blood Pressure 134/63 Pulse Oximetry 87 L 86 L Oxygen Delivery Method Oxygen Flow Rate 09/05/23 04:00 09/05/23 04:00 09/05/23 08:00 Temperature 98.3 F 98.4 F Pulse Rate 74 80 Respiratory Rate 20 Blood Pressure 152/74 H Pulse Oximetry 87 L 90 L Oxygen Delivery Method Oxygen Flow Rate 0 Fraction of Inspired Oxygen 36 SaO2/FiO2 Ratio 272 Oxygen Delivery Method Nasal Cannula Oxygen Flow Rate 0 Narrative Exam Narrative: No speaking. NAD Lungs with scattered ronchi, normal rate and effrot. CV regular Abdomen Soft and NT. No RUQ tenderness, No leg edema. Objective Labs 09/05/23 04:10 09/04/23 05:50 Labs: Laboratory Results - last 24 hr 09/05/23 04:10 WBC 18.5 H RBC 3.13 L Hgb 9.3 L Hct 27.9 L MCV 89.1 MCH 29.6 MCHC 33.2 RDW 14.3 Plt Count 286 Neut % (Auto) 82.9 H Lymph % (Auto) 9.3 L [place] % (Auto) 7.0 Eos % (Auto) 0.7 L Baso % (Auto) 0.1 Neut # (Auto) 47603 H Lymph # (Auto) 1700 [place] # (Auto) 1300 H Eos # (Auto) 100 Baso # (Auto) 0 PFSH Social History household members: other Smoking Status: Never smoker alcohol intake: never Assessment & Plan Assessment & Plan narrative: Sepsis secondary to possible cholangitis with hyperbilirubinemia, present on admission and active. - continue zosyn. - lap blanca today. Possible aspiration pneumonia, present on admission and active. - Antibiotics. Acute hypoxic respiratory failure, present on admission and active. -wean O2 as able. Hypokalemia, new and active. -repaet labes and repleat as needed, Severe dysphagia, chronic. Present on admission and active. -MBS showed deep penetration but not aspiration, pureed and nectar thick diet recommended -patient had witnessed aspiration event with pureed dinner on 09/02, but seems to be improved today. -continue dysphagia diet, continue to reassess. Family not interested in PEG at this time. 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 Acute gallstone pancreatitis, present on admission and active. -lipase 38k with peripancreatic edema on CT abd -abd US with gallstones but no biliary dilation or cholecystitis -may have passed stone prior to admission -given non-verbal at baseline, difficult to tell if possible abdominal symptoms are contributing to her aspiration events. -discussed with general surgeon, awaiting discussion with family talk about the risks and benefits of different management options. SAH/epilepsy, present on admission and stable. -continue with lamotrigine, primidone Anxiety, depression. Present on admission and stable. -continue lexapro -continue lorazepam as needed Hypertension, present on admission and stable. -continue lisinopril Constipation, present on admission and stable. -Continue with polyethylene glycol Dispo: likely discharge in 1-2 days depending on spost operative course. Code: DNR, surrogate is patient's daughter. Time Spent With Patient Time with patient: 30 to 49 minutes with 50% spent counseling/coordinating care Quality VTE Deep Vein Thrombosis/Pulmonary Embolism Present on Admission: No
[2023-09-05 09:28] LABS: Alanine Aminotransferase 88 IU/L (<35); Albumin 2.4 g/dL (3.5-5.0); Albumin Globulin Ratio 0.7 (1.0-2.8); Alkaline Phosphatase 207 U/L (38-126); Aspartate Aminotransferase 24 IU/L (14-36); Bilirubin Total 0.6 mg/dL (0.2-1.3); Blood Urea Nitrogen 9 mg/dL (7-17); Calcium 7.3 mg/dL (8.4-10.2); Carbon Dioxide 21 mmol/L (22-32); Chloride 112 mmol/L (98-107); Estimated Glomerular Filt Rate > 60 mL/min (>60); Globulin 3.6 g/dL (1.7-4.1); Glucose 118 mg/dL (80-110); HEMOLYSIS < 15 (0-50); Potassium 3.2 mmol/L (3.4-5.1); Sodium 141 mmol/L (137-145)
--- NOTE | 2023-09-05 12:15 | CM.DPC ---
Reviewed EMR and team rounds for pt's status updates. Plan is to move forward with laparoscopic cholecystectomy later today. D/C plan at this time continue to be for her to return to [facility] for rehab. Will follow closely for likely d/c tomorrow.
[2023-09-05] MEDS: LACTATED RINGERS 1,000 ML 42 ML IV (14:19)
[2023-09-05] MEDS: ALBUTEROL/IPRATROPIUM 3 ML AMPUL INH (14:19)
--- NOTE | 2023-09-05 14:48 | PT-IP ANOTE ---
PT eval order received and EMR reviewed. pt undergoing sx at this time. will f/u tomorrow.
[2023-09-05 14:51] LABS: COVID19 -Nasal RAPID Negative (Negative)
--- NOTE | 2023-09-05 15:26 | SUR.OPER ---
Supine on padded OR bed, head on pillow, left secured on padded arm boards at <90 degrees abduction, right arm tucked in, legs uncrossed, safety belt at thigh, tape over blanket over lower legs.
[2023-09-05] MEDS: ACETAMINOPHEN IV 1,000 MG/100 ML VIAL 400 MG IV (15:30)
[2023-09-05] MEDS: BUPIVACAINE 0.5% (PF) 30 ML, EPINEPHrine 0.15 MG INJ (15:33)
[2023-09-05] MEDS: iopamidoL 30 ML VIAL INJ (15:34)
--- NOTE | 2023-09-05 16:46 | PM.OP.1 ---
Operative Date/Time/Diagnoses Date of procedure: 09/05/23 Time of procedure: 16:46 Pre-op diagnosis: Gallstone pancreatitis Post-op diagnosis: same Procedure & Clinicians Procedure: Laparoscopic cholecystectomy with intraoperative cholangiogram Same procedure as scheduled: Yes Surgeon: Gil Quigley Anesthesia Type: General Operative Notes Procedure in detail: The patient was on scheduled antibiotics. The patient was brought to the operating room, placed on the table in the supine position. General endotracheal anesthesia was induced. The abdomen was prepped and draped. A time-out was performed. We made a 1 cm infraumbilical incision. We dissected down to the base of the umbilical stalk using cautery. We grasped the umbilical stalk with a Carmen clamp to elevate the abdominal wall. We scored the fascia in the midline with cautery 1 cm. We pierced the peritoneum with a Peon clamp. The Deepti port was placed and the abdomen was insufflated to 15 mmHg. A 5 mm 30 degree laparoscopic was inserted. There was no evidence of any injury from the entry. Next, we placed 5 mm ports in the subxiphoid position and right upper quadrant at the midclavicular line and anterior axillary line. The patient was then positioned in reverse Trendelenburg and the table was tilted to the left. Stomach and small bowel were relatively dilated and so an additional 5 mm port was placed in the left abdomen to allow for additional retraction of the viscera away from the cystic duct. The gallbladder was grasped at the dome and retracted cephalad. There were some adhesions of mesenteric tissue to the gallbladder which were carefully dissected with cautery to allow full retraction of the gallbladder. We then dissected the cystic structures with a combination of hook cautery and blunt dissection. Prominent artery was running anterior to the cystic duct onto the gallbladder and was clipped and divided. Next, a cholangiogram was performed using the 6 English ureteral catheter. Glucagon was administered. There was good flow of contrast into the duodenum and liver with no obvious filling defects. The cystic duct-common duct junction was well visualized. We then placed hemoclips on the cystic duct and artery and divided the cystic duct and artery sharply between the clips. The gallbladder was then dissected off the liver and placed in a specimen retrieval bag. We irrigated the right upper quadrant and all the aspirate returned clear. We then removed the 5 mm ports under direct vision we removed the Deepti port. We then injected some local into the fascia and closed the fascia with four interrupted 0 Vicryl sutures. The skin incisions were closed with 4 Monocryl and Steri-Strips were applied. Band-Aids were applied over the Steri-Strips. EBL: 30 mL Specimen: Gallbladder Post-operative Condition: stable Disposition: PACU
--- NOTE | 2023-09-05 17:13 | DI.RAD.S_ITS ---
PROCEDURE: XR CHOLANGIOGRAM OPERATIVE INDICATIONS: CHOLECYSTITIS COMPARISON: None. FINDINGS: Biliary ducts: The surgeon injected contrast into the biliary ducts after cannulation of the cystic duct stump. Visualized intra- and extrahepatic bile ducts are normal in caliber, without strictures. Two of the 3 intraoperative images demonstrate filling defects within the common bile duct with subsequent intraoperative image demonstrating no intraluminal filling defects to suggest retained ductal stones or sludge. No evidence for iatrogenic ductal injury. Duodenum: Contrast flows promptly through the sphincter of Oddi into the duodenum, which appears normal in caliber. IMPRESSION: Intraoperative cholangiogram images. Please see separately dictated operative report for full details. Approved by: Jocelyn Ybarra M.D. on 09/06/2023 at 2:08
--- NOTE | 2023-09-05 17:58 | DIET.CONS2 ---
Dietary Inpatient Consultation Note Admission Date: 09/01/2023 06:04 RD adjusted patient diet to reflect Dysphagia reccs of Level 4 and Level 2 per DEHYDRATING PRESS OPERATOR with modifier of fat restriction due to s/p cholecystectomy Diet: 09/05/23 Dinner Dysphagia Diet Diet Modifications: fat restricted diet Food Texture: Level 4 - Pureed Liquid Consistency: Level 2 - Mildly Thick Nutrition Percent Meal Consumed pt is NPO 09/05/23 12:50 Percent Meal Consumed 100% 09/04/23 18:05 Percent Meal Consumed 75% 09/04/23 09:24 Percent Meal Consumed pt ref dinner 09/03/23 19:00 Electronically Signed by: Sanna Bailey 09/05/23 17:58 Clinical Dietitian [address] [address]
[2023-09-05] MEDS: SODIUM CHLORIDE 0.9% 250 ML 21 ML IV (18:11)
[2023-09-05] MEDS: POTASSIUM CHLORIDE IN WATER 10 MEQ/100 ML PIGGYBACK 100 MEQ IV ×4 (18:24→23:35)
[2023-09-05] MEDS: PRIMIDONE 50 MG TABLET PO (20:26)
[2023-09-05] MEDS: PRIMIDONE 50 MG TABLET 250 MG PO (20:26)
[2023-09-05] MEDS: ACETAMINOPHEN 650 MG SUPP PR (20:27)
[2023-09-05] MEDS: SODIUM,POTASSIUM PHOSPHATES PACKET 1 EACH PO (21:48)
[2023-09-06] VITALS (10 sets, daily range): BP systolic 113–168; BP diastolic 51–83; PULSE 63–113; RESP 16–22; TEMP 35.7–36.8; O2SAT 93–100
[2023-09-06] MEDS: PIPERACILLIN/TAZO 3.375 GM in SODIUM CHLORIDE 0.9% 100 ML IV (01:27)
[2023-09-06 04:54] LABS: Add Manual Diff / Slide Review NO; Basophils Absolute Auto 0 /uL (0-100); Basophils Percent Auto 0.1 % (0-2); Eosinophils Absolute Auto 0 /uL (0-450); Eosinophils Percent Auto 0.1 % (2-4); Hematocrit 30.4 % (36-46); Hemoglobin 10.1 g/dL (12.0-16.0); Lymphocytes Absolute Auto 1200 /uL (1100-4500); Lymphocytes Percent Auto 8.1 % (25-40); Mean Corpuscular HGB Conc 33.4 % (30-36); Mean Corpuscular Hemoglobin 29.6 PG (26-34); Mean Corpuscular Volume 88.4 fL (80-100); Monocytes Absolute Auto 900 /uL (0-900); Monocytes Percent Auto 5.8 % (3-14); Neutrophils Absolute Auto 12600 /uL (1500-7000); Neutrophils Percent Auto 85.9 % (50-75); Platelet Count 296 X10^3/uL (150-400); Red Blood Cell Count 3.43 X10^6/uL (4.0-5.2); Red Cell Distribution Width 14.3 % (11.6-14.8); White Blood Cell Count 14.7 X10^3/uL (4.5-11.0)
[2023-09-06 05:11] LABS: Blood Urea Nitrogen 8 mg/dL (7-17); Calcium 7.2 mg/dL (8.4-10.2); Carbon Dioxide 24 mmol/L (22-32); Chloride 109 mmol/L (98-107); Estimated Glomerular Filt Rate > 60 mL/min (>60); Glucose 110 mg/dL (80-110); HEMOLYSIS < 15 (0-50); Potassium 3.9 mmol/L (3.4-5.1); Sodium 139 mmol/L (137-145)
[2023-09-06 05:34] LABS: Magnesium 1.6 mg/dL (1.6-2.3)
--- NOTE | 2023-09-06 08:03 | PM.PN.1 ---
Subjective Subjective Interval history: She appears comfortable today, she does not speak. Narrative otherwise unobtainable. She does not appear to be in any pain. Exam Vital Signs (past 8 hours): - 09/06/23 04:00 Temperature 96.2 F L Pulse Rate 63 Respiratory Rate 16 Blood Pressure 135/53 L Pulse Oximetry 100 Oxygen Flow Rate 3 Fraction of Inspired Oxygen 36 SaO2/FiO2 Ratio 272 Oxygen Delivery Method Nasal Cannula Oxygen Flow Rate 3 Narrative Exam Narrative: Dysconjugate gaze, no acute distress. She tracks well. Lungs are clear, normal rate and effort. Heart is regular, no murmur. Abdomen is soft, nontender. No leg edema. Abdominal wounds are unremarkable. Abdomen is otherwise unremarkable. Objective Labs 09/06/23 04:01 09/06/23 04:01 Labs: Laboratory Results - last 24 hr 09/05/23 09/05/23 09/06/23 04:10 14:23 04:01 WBC 14.7 H RBC 3.43 L Hgb 10.1 L Hct 30.4 L MCV 88.4 MCH 29.6 MCHC 33.4 RDW 14.3 Plt Count 296 Neut % (Auto) 85.9 H Lymph % (Auto) 8.1 L [place] % (Auto) 5.8 Eos % (Auto) 0.1 L Baso % (Auto) 0.1 Neut # (Auto) 60246 H Lymph # (Auto) 1200 [place] # (Auto) 900 Eos # (Auto) 0 Baso # (Auto) 0 Sodium 141 139 Potassium 3.2 L 3.9 Chloride 112 H 109 H Carbon Dioxide 21 L 24 BUN 9 8 Creatinine 0.53 0.42 L Estimated GFR > 60 > 60 BUN/Creatinine Ratio 17.0 19.0 Glucose 118 H 110 Calcium 7.3 L 7.2 L Magnesium 1.6 Total Bilirubin 0.6 AST 24 ALT 88 H Alkaline Phosphatase 207 H Total Protein 6.0 L Albumin 2.4 L Globulin 3.6 Albumin/Globulin Ratio 0.7 L SARS-CoV-2 (PCR) Negative [facility] Social History household members: other Smoking Status: Never smoker alcohol intake: never Assessment & Plan Assessment & Plan narrative: Sepsis secondary to possible cholangitis with hyperbilirubinemia, present on admission and improving. - continue zosyn. - lap blanca 09/05. Possible aspiration pneumonia, present on admission and active. - Antibiotics. Acute hypoxic respiratory failure, present on admission and active. -wean O2 as able. Hypokalemia, new and active. -follow labs and repleat as needed, Severe dysphagia, chronic. Present on admission and active. -MBS showed deep penetration but not aspiration, pureed and nectar thick diet recommended -patient had witnessed aspiration event with pureed dinner on 09/02, but seems to be improved today. -continue dysphagia diet, continue to reassess. Family not interested in PEG at this time. -continue STUDENT MINISTRIES DIRECTOR evaluation and therapies. Acute gallstone pancreatitis, present on admission and active. -lipase 38k with peripancreatic edema on CT abd -abdomen US with gallstones but no biliary dilation or cholecystitis -may have passed stone prior to admission -given non-verbal at baseline, difficult to tell if possible abdominal symptoms are contributing to her aspiration events. -discussed with general surgeon, awaiting discussion with family talk about the risks and benefits of different management options. SAH/epilepsy, present on admission and stable. -continue with lamotrigine, primidone Anxiety, depression. Present on admission and stable. -continue lexapro -continue lorazepam as needed Hypertension, present on admission and stable. -continue lisinopril Constipation, present on admission and stable. -Continue with polyethylene glycol Dispo: likely discharge in 1-2 days depending on post operative course. Code: DNR, surrogate is patient's daughter. Met with daughter. Time Spent With Patient Time with patient: 30 to 49 minutes with 50% spent counseling/coordinating care Quality VTE Deep Vein Thrombosis/Pulmonary Embolism Present on Admission: No
[2023-09-06] MEDS: ASCORBIC ACID 500 MG TABLET PO (09:05)
[2023-09-06] MEDS: lisinopriL 10 MG TABLET PO (09:05)
[2023-09-06] MEDS: lamoTRIgine 100 MG TABLET 150 MG PO (09:06)
[2023-09-06] MEDS: ESCITALOPRAM 10 MG TABLET 20 MG PO (09:06)
[2023-09-06] MEDS: SODIUM,POTASSIUM PHOSPHATES PACKET 1 EACH PO ×2 (09:06→20:20)
--- NOTE | 2023-09-06 09:23 | PT-IP ANOTE ---
Reviewed EMR. Pt is a LTC resident at [facility]. 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 Pt is at [facility] and will d/c PT. informed hospitalist, community case manager and nurse.
[2023-09-06] MEDS: ENOXAPARIN 40 MG/0.4 ML SYRINGE SUBCUT (12:02)
--- NOTE | 2023-09-06 12:45 | P.PN_ITS ---
Subjective Subjective Date Patient Seen: 09/06/23 Time Patient Seen: 12:45 Interval history: No new issues. It appears she had some bowel movement overnight. Exam Vital Signs (past 8 hours): - 09/06/23 08:00 09/06/23 08:15 09/06/23 08:29 Temperature 97.1 F L Pulse Rate 78 Respiratory Rate 19 Blood Pressure 153/82 H Pulse Oximetry 96 97 Oxygen Delivery Method Nasal Cannula Nasal Cannula Oxygen Flow Rate 3 2 09/06/23 09:05 09/06/23 12:00 Temperature 97.4 F L Pulse Rate 78 88 Respiratory Rate 22 Blood Pressure 153/82 H 168/83 H Pulse Oximetry 99 Oxygen Delivery Method Oxygen Flow Rate 3 Fraction of Inspired Oxygen 36 SaO2/FiO2 Ratio 272 Oxygen Delivery Method Nasal Cannula Oxygen Flow Rate 3 Narrative Exam Narrative: Abdomen is soft Objective Labs 09/06/23 04:01 09/06/23 04:01 Labs: Laboratory Results - last 24 hr 09/05/23 09/06/23 14:23 04:01 WBC 14.7 H RBC 3.43 L Hgb 10.1 L Hct 30.4 L MCV 88.4 MCH 29.6 MCHC 33.4 RDW 14.3 Plt Count 296 Neut % (Auto) 85.9 H Lymph % (Auto) 8.1 L [place] % (Auto) 5.8 Eos % (Auto) 0.1 L Baso % (Auto) 0.1 Neut # (Auto) 07895 H Lymph # (Auto) 1200 [place] # (Auto) 900 Eos # (Auto) 0 Baso # (Auto) 0 Sodium 139 Potassium 3.9 Chloride 109 H Carbon Dioxide 24 BUN 8 Creatinine 0.42 L Estimated GFR > 60 BUN/Creatinine Ratio 19.0 Glucose 110 Calcium 7.2 L Magnesium 1.6 SARS-CoV-2 (PCR) Negative [facility] Social History household members: other Smoking Status: Never smoker alcohol intake: never Assessment & Plan Assessment and plan (1) Gallstones: Status: Acute Plan Okay to advance diet Okay to discharge from a surgical standpoint Quality VTE Deep Vein Thrombosis/Pulmonary Embolism Present on Admission: No
--- NOTE | 2023-09-06 14:48 | CM.DPC ---
DCP Cont. Reviewed EMR and team rounds for status updates. Plan is for pt to return to [facility] on Monday. Will plan to check-in with them again tomorrow to get approx. time for return transport for Monday, so that best case scenario we can have pt's dtr here in the room to help transfer her to the w/c. Will cont. to monitor for any additional d/c needs/recommendations.
--- NOTE | 2023-09-06 14:48 | ST.IPDYTX ---
Visit Care Team Role Provider Type Cal Jarrett MD Primary Care Provider Non-Staff Specialty: Internal Medicine Address: [address] [place] [address], [address], [place], [address] Email: Caleb Russell DO Emergency Provider Physician Referring Provider Specialty: Emergency Medicine Address: [address] [place] [address], [id number] Email: [email or web address] Horton MD Admit Provider Physician Attending Provider Specialty: Internal Medicine Address: [address] [place] [address], [address] Fax: Email: [email or web address] CIVIL ENGINEERING DRAFTSPERSON Dysphagia Treatment CIVIL ENGINEERING DRAFTSPERSON Dysphagia Treatment Start: 09/06/23 13:27 Freq: Status: Active Protocol: Document 09/06/23 13:28 CG (Rec: 09/06/23 13:31 CG [id number]) Dysphagia Treatment Session Time Visit Start Time 13:00 Visit Stop Time 13:25 Total Visit Minutes 25 Setting Assessment Location Acute Care Visit Type Note Type Treatment Note Next Note Type Next Note Type Treatment Note Patient Information Subjective Observations Pt sitting upright in bed. Pt is primarily non-verbal with cognitive deficits. Pt with O2 via in place via nasal cannula. Pt requiring 1:1 feed assist. Nursing reports she has been tolerating puree and nectar liquids well for the first half of the meal, but begins to sound congested/wet vocal quality towards the end of the meal. Treatment Liquids Trialed Mildly Thick (IDDSI 2) Solids Trialed Purred (IDDSI 4) Administration Type Tea Spoon,Cup Single Sip, Dependent Feeding Oral Strategies Upright at 90 degrees, Controlled Bite/Sip Size Pharyngeal Strategies Sitting Upright (90 deg),Small Bites and Sips Treatment Activities Conducted PO trials to assess diet tolerance of current diet with IDDSI 2 [place] Thick/ Mildly Thick liquids and IDDSI 4 Puree Solids. Provided nursing education re patient status and diet recommendations. The IDDSI Framework Protocol: IDDSI.1 Assessment Patient Response to Treatment Fair Assessment of Improvement Pt with wet cough at baseline. Pt seated upright 90 degrees in bed for PO trials. CIVIL ENGINEERING DRAFTSPERSON provided trials nectar thick/ mildly thick (IDDSI 2) liquid (cranberry juice) via tsp. Pt tolerated 3 trials without overt s/sx aspiration (though silent aspiration cannot be ruled out without an instrumental assessment). Trialed cup sip of nectar liquid, which resulted in immediate wet cough. Continued with 2 trials tsp IDDSI 2 liquid which were tolerated without overt s/sx aspiration. Throughout trials, CIVIL ENGINEERING DRAFTSPERSON assessed oral clearance after two swallows; no significant oral residue was noted. Continued with trials IDDSI 4 pudding thick/puree solid ( chocolate pudding) via teaspoon. Pt tolerated 3 trials without overt s/sx aspiration. 4th trial was larger tsp bite, which resulted in delayed wet cough. Pt benefitted from wait time to allow pharynx to clear before continuing with trials. As trials pudding continued, pt demonstrated increasing instances of delayed wet cough . Suspect buildup of residue in the pharynx which requires extra time to clear. CIVIL ENGINEERING DRAFTSPERSON recommends continue with current diet but allow significant wait time intermittently during feeding to allow for increased pharyngeal clearance. Recommend only tsp at a time as larger boluses will likely contribute to pharyngeal residue and increase risk of aspiration. Recommendations Recommendations Continue Current Diet Liquids Order Mildly Thick (IDDSI 2) Diet Order Pureed (IDDSI 4) Medication Recommendations Crushed in Carrier Additional Dietary Needs Single Sips,1:1 Assistance Aspiration Precautions Additional Precautions SLOW feeding due to poor oral transition to pharynx and slow pharyngeal clearance Treatment Plan Placement Recommendation after Discharge Half-Way Facility,Residential Care Facility,Home with Hospice Appropriate for Continued Therapy Yes
[2023-09-06] MEDS: ACETAMINOPHEN 325 MG TABLET 650 MG PO (17:56)
[2023-09-06] MEDS: PRIMIDONE 50 MG TABLET 250 MG PO (20:20)
[2023-09-06] MEDS: PRIMIDONE 50 MG TABLET PO (20:20)
[2023-09-07] VITALS (7 sets, daily range): BP systolic 117–157; BP diastolic 55–85; PULSE 93–108; RESP 16–20; TEMP 36.2–37.7; O2SAT 92–95
[2023-09-07] MEDS: ACETAMINOPHEN 325 MG TABLET 650 MG PO ×2 (00:16→17:58)
[2023-09-07 04:40] LABS: BUN Creatinine Ratio 17.8 (6-22); Blood Urea Nitrogen 8 mg/dL (7-17); Calcium 7.2 mg/dL (8.4-10.2); Carbon Dioxide 25 mmol/L (22-32); Chloride 110 mmol/L (98-107); Estimated Glomerular Filt Rate > 60 mL/min (>60); Glucose 97 mg/dL (80-110); HEMOLYSIS < 15 (0-50); Potassium 2.9 mmol/L (3.4-5.1); Sodium 139 mmol/L (137-145)
[2023-09-07 05:09] LABS: Magnesium 1.6 mg/dL (1.6-2.3)
--- NOTE | 2023-09-07 07:52 | P.PN_ITS ---
Subjective Subjective Interval history: Aphasic, does not speak. She appears comfortable. Exam Vital Signs (past 8 hours): - 09/07/23 00:00 09/07/23 04:00 Temperature 98.0 F 98.2 F Pulse Rate 94 H 94 H Respiratory Rate 20 19 Blood Pressure 145/63 H 131/56 L Pulse Oximetry 95 95 Oxygen Flow Rate 2 2 Fraction of Inspired Oxygen 32 SaO2/FiO2 Ratio 306 Oxygen Delivery Method Nasal Cannula Oxygen Flow Rate 2 Narrative Exam Narrative: NAD, aphasic. Lungs are clear, regular heart. Abdomen is soft. There is no tenderness. Extremities are without edema. Objective Labs 09/06/23 04:01 09/07/23 03:44 Labs: Laboratory Results - last 24 hr 09/07/23 03:44 Sodium 139 Potassium 2.9 L Chloride 110 H Carbon Dioxide 25 BUN 8 Creatinine 0.45 L Estimated GFR > 60 BUN/Creatinine Ratio 17.8 Glucose 97 Calcium 7.2 L Magnesium 1.6 PFSH Social History household members: other Smoking Status: Never smoker alcohol intake: never Assessment & Plan Assessment & Plan narrative: Sepsis secondary to possible cholangitis with hyperbilirubinemia, present on admission and improving. - continue zosyn. - lap blanca 09/05. - doing well, we will anticipate stopping antibiotics tomorrow. Possible aspiration pneumonia, present on admission and active. - Antibiotics. Doing well, plan is antibiotics to tomorrow. Acute hypoxic respiratory failure, present on admission and active. -wean O2 as able. Hypokalemia, new and active. -follow labs and repleat as needed, she will get an additional 60 mEq orally today. Severe dysphagia, chronic. Present on admission and active. -MBS showed deep penetration but not aspiration, pureed and nectar thick diet recommended -continue dysphagia diet, continue to reassess. Family not interested in PEG at this time. -continue [employer] evaluation and therapies. Acute gallstone pancreatitis, present on admission and improved. -lipase 38k with peripancreatic edema on CT abd -abdomen US with gallstones but no biliary dilation or cholecystitis -may have passed stone prior to admission -status post cholecystectomy to mitigate future episodes. SAH/epilepsy, present on admission and stable. -continue with lamotrigine, primidone Anxiety, depression. Present on admission and stable. -continue lexapro -continue lorazepam as needed Hypertension, present on admission and stable. -continue lisinopril Constipation, present on admission and stable. -Continue with polyethylene glycol Dispo: likely discharge in 1 day back to [facility]. Code: DNR, surrogate is patient's daughter. Time Spent With Patient Time with patient: 30 to 49 minutes with 50% spent counseling/coordinating care Quality VTE Deep Vein Thrombosis/Pulmonary Embolism Present on Admission: No
[2023-09-07] MEDS: ENOXAPARIN 40 MG/0.4 ML SYRINGE SUBCUT (10:06)
[2023-09-07] MEDS: calcitrioL 0.25 MCG CAPSULE PO (10:07)
[2023-09-07] MEDS: ASCORBIC ACID 500 MG TABLET PO (10:07)
[2023-09-07] MEDS: lamoTRIgine 100 MG TABLET 150 MG PO (10:07)
[2023-09-07] MEDS: SODIUM,POTASSIUM PHOSPHATES PACKET 1 EACH PO (10:07)
[2023-09-07] MEDS: ESCITALOPRAM 10 MG TABLET 20 MG PO (10:07)
[2023-09-07] MEDS: POTASSIUM CHLORIDE 20 MEQ TAB 40 MEQ PO (10:08)
[2023-09-07] MEDS: MAGNESIUM SULFATE 2 GM/50 ML PIGGYBACK IV (10:08)
[2023-09-07] MEDS: lisinopriL 10 MG TABLET PO (10:08)
--- NOTE | 2023-09-07 14:00 | CM.DPC ---
DCP Cont. Reviewed EMR and team rounds for status updates. Called [facility] re: plan for d/c tomorrow 09/08. They confirmed that they can transport her between 1:30-2:00pm, no PASSAR needed due to returning patient. D/C clinicals to be faxed tomorrow am, Hospitalist aware of d/c plan.
--- NOTE | 2023-09-07 14:47 | PC.NURSE ---
Addendum entered by Juany Bhakta R.N. 09/07/23 18:57: Patient was breathing fast, and her nose was dried and bloody from oxygen tubing. Placed some sterile water to the oxygen and she is doing better. Tylenol given to patient and she is resting now. Ate some at dinner and is watching television now. Patient is sweaty, only sheet applied to patient at this time. Original Note: Patient is alert but non verbal. 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 New dressing applied to end of knee as she has a small scabbed area. She is being repositioned every couple of hours, and needs brief changes as she is incontinent of stool. Applying cream to bottom and bed is usually side to side. Daughter called and checked on patient. She had some visitors earlier. Patient is a one to one feeder. She ate some of her breakfast, and Flavia from Speech therapy fed patient some of her lunch. Patient was not to eager to eat pureed foods. But did well with the apple juice and a protein shake. She is comfortable at this time.
--- NOTE | 2023-09-07 14:55 | ST.IPDYTX ---
Visit Care Team Role Provider Type Cal Jarrett MD Primary Care Provider Non-Staff Specialty: Internal Medicine Address: [address] [place] [address], [address], [place], [address] Email: Caleb Russell DO Emergency Provider Physician Referring Provider Specialty: Emergency Medicine Address: [address] [place] [address] Email: [email or web address] Horton MD Admit Provider Physician Attending Provider Specialty: Internal Medicine Address: [address] [place] [address] Fax: Email: [email or web address] DELIVERY ROOM SUPERVISOR Dysphagia Treatment DELIVERY ROOM SUPERVISOR Dysphagia Treatment Start: 09/06/23 13:27 Freq: Status: Active Protocol: Document 09/07/23 13:33 CG (Rec: 09/07/23 13:36 CG [id number]) Dysphagia Treatment Session Time Visit Start Time 12:45 Visit Stop Time 13:30 Total Visit Minutes 45 Visit Information Visit Number 3 Setting Assessment Location Acute Care Visit Type Note Type Treatment Note Next Note Type Next Note Type Treatment Note Patient Information Subjective Observations Pt sitting upright in bed. Pt is primarily non-verbal with cognitive deficits. Pt with O2 via in place via nasal cannula. Pt requiring 1:1 feed assist. Nursing reports she has been tolerating puree and nectar liquids well for the first half of the meal, but begins to sound congested/wet vocal quality towards the end of the meal, which is consistent from yesterday. DELIVERY ROOM SUPERVISOR saw pt with lunch tray of puree chicken, carrots, and mashed potatoes present at bedside. Treatment Liquids Trialed Mildly Thick (IDDSI 2), Moderately Thick (IDDSI 3 Solids Trialed Purred (IDDSI 4) Administration Type Tea Spoon,Cup Single Sip, Dependent Feeding Oral Strategies Upright at 90 degrees, Controlled Bite/Sip Size Pharyngeal Strategies Sitting Upright (90 deg),Small Bites and Sips Treatment Activities Conducted PO trials to assess diet tolerance of current diet with IDDSI 2 [employer] Thick/ Mildly Thick liquids and IDDSI 4 Puree Solids. Provided nursing education re patient status and diet recommendations. The IDDSI Framework Protocol: IDDSI.1 Assessment Patient Response to Treatment Fair Assessment of Improvement Pt's wet cough appears decreased today. Pt repositioned upright 90 degrees in bed for PO trials. Pt was repositioned with help of nursing and then again with the help of OT as pt tends to slide out of optimal positioning after about 15 minutes. Pt's juice which was present at bedside was closer to honey thick/moderately thick consistency (apple juice ). Pt tolerated 8 trials via tsp without overt s/sx aspiration (though silent aspiration cannot be ruled out without an instrumental assessment). Attempted trials of puree solids (puree chicken , mashed potatoes, and carrots ). However, after each bite the pt verbalized /babababa/ and furrowed brow, appearing to indicate she did not like these foods. She did not continue to produce these vebalizations when returning to juice trials. In order to increase caloric intake, DELIVERY ROOM SUPERVISOR also trialed thickened ensure. Initially thickened to nectar thick consistency, but this resulted in throat clear and cough in one trial. Further thickened to honey consistency which resolved cough. DELIVERY ROOM SUPERVISOR recommends continue with current diet but allow significant wait time intermittently during feeding to allow for increased pharyngeal clearance. Recommend only tsp at a time as larger boluses will likely contribute to pharyngeal residue and increase risk of aspiration. Pt consumed about 10 tsp of honey thick Ensure drink without overt s/sx aspiration. Based on pt appearing to tolerate honey thick liquids best at this time, reccommend changing to honey thick liquids and continue puree solids. Recommendations Recommendations Downgrade Liquid Order Liquids Order Moderately Thick (IDDSI 3) Diet Order Pureed (IDDSI 4) Medication Recommendations Crushed in Carrier Additional Dietary Needs Single Sips,1:1 Assistance Aspiration Precautions Additional Precautions SLOW feeding due to poor oral transition to pharynx Treatment Plan Placement Recommendation after Discharge Longterm Facility,Senior Living Care Facility,Home with Hospice Appropriate for Continued Therapy Yes
[2023-09-07] MEDS: POTASSIUM CHLORIDE 20 MEQ TAB PO (16:30)
[2023-09-07 20:43] LABS: BUN Creatinine Ratio 17.8 (6-22); Blood Urea Nitrogen 8 mg/dL (7-17); Calcium 7.2 mg/dL (8.4-10.2); Carbon Dioxide 24 mmol/L (22-32); Chloride 110 mmol/L (98-107); Estimated Glomerular Filt Rate > 60 mL/min (>60); Glucose 136 mg/dL (80-110); HEMOLYSIS 31 (0-50); Phosphorous 1.3 mg/dL (2.8-4.1); Potassium 3.6 mmol/L (3.4-5.1); Sodium 139 mmol/L (137-145)
[2023-09-08 02:00] VITALS: BP 142/67; PULSE 81; RESP 20; TEMP 35.9; O2SAT 96
[2023-09-08] MEDS: ACETAMINOPHEN 325 MG TABLET 650 MG PO (03:01)
[2023-09-08 06:00] VITALS: BP 155/68; PULSE 75; RESP 20; TEMP 36.1; O2SAT 96
[2023-09-08 07:45] VITALS: O2SAT 96
--- NOTE | 2023-09-08 07:55 | PM.DS.1 ---
History of Present Illness History of Present Illness Chief complaint: respitory failure Narrative: 2 years old female with history of SAH, epilepsy, hypertension, anxiety, depression, DNR/DNI presented from rehab facility after she vomited and most likely aspirated. Found to be hypoxic in the 70s and short of breath. She was given albuterol nebulizer by the staff without improvement of her symptoms and EMS was called. She also was hypotensive, placed on nonrebreather which brought her oxygenation greater than 90%. The patient is nonverbal at her baseline secondary to prior stroke. Laboratory shows WBC 27.1, lactate 4.6, procalcitonin 0.73. The rest of the lab is still pending. Chest x-ray shows improvement from previous imaging study. In the ER she was given Zosyn 4.5 g IV, Tylenol and was decided to be admitted for further management. Discharge Providers Provider Date of admission: 09/01/23 06:04 Discharge Date: 09/08/23 Primary care physician: Cal Jarrett MD Consults: 09/01/23 05:31 Consult to Discharge Planning Routine Comment: 09/01/23 07:51 Consult to Speech Therapy Evaluate & Treat Comment: Physician Instructions: Evaluate and treat 09/02/23 09:32 Consult to Speech Therapy Evaluate & Treat Comment: Physician Instructions: Evaluate and treat 09/02/23 11:40 Consult After Hours PICC Line RN Routine Comment: 09/03/23 11:57 Consult to Physical Therapy Evaluate & Treat Comment: Physician Instructions: Evaluate and Treat Discharge provider: Keith Orosco MD Summary Hospital Course Discharge Diagnosis: Sepsis secondary to possible cholangitis with hyperbilirubinemia, present on admission and improving. - 6 days of zosyn. - lap blanca 09/05. No complications. - doing well, we will anticipate stopping antibiotics at discharge. Possible aspiration pneumonia, present on admission and active. - Antibiotics. Doing well, plan is antibiotics to tomorrow. Acute hypoxic respiratory failure, present on admission and improved. -weaned O2. Hypokalemia, new and improved. -follow labs and repleat as needed, she will get an additional 60 mEq orally today. Severe dysphagia, chronic. Present on admission and active. -MBS showed deep penetration but not aspiration, pureed and nectar thick diet recommended -continue dysphagia diet, continue to reassess. Family not interested in PEG at this time. -continue FURNACE ERECTOR evaluation and therapies. Acute gallstone pancreatitis, present on admission and improved. -lipase 38k with peripancreatic edema on CT abd -abdomen US with gallstones but no biliary dilation or cholecystitis -may have passed stone prior to admission -status post cholecystectomy to mitigate future episodes. SAH/epilepsy, present on admission and stable. -continue with lamotrigine, primidone Anxiety, depression. Present on admission and stable. -continue lexapro -continue lorazepam as needed Hypertension, present on admission and stable. -continue lisinopril Constipation, present on admission and stable. -Continue with polyethylene glycol Hospital Course: The patient is an 82-year-old female who was admitted from her rehabilitation facility with vomiting and probable aspiration. She was initially hypoxemic and hypotensive. [place] [id number] and she had a lactic acidosis. The patient was started on empiric antibiotics for possible aspiration pneumonia. She was found to have a lipase of 38,000 consistent with gallstone pancreatitis. She was fluid resuscitated. She also had an elevated total bilirubin. Surgery discussed the options of surgery versus ERCP or noninvasive management. Ultimately the decision was made to take her for a laparoscopic cholecystectomy which was performed on September 05 with an intraoperative cholangiogram. The procedure went without complications and she had a negative cholangiogram. The patient continued to improve in the postoperative phase and was continued on Zosyn for a total of 6 days for her possible aspiration pneumonia. She was felt to be stable for discharge back to rehabilitation facility on September 08. Status at Discharge Cognitive/behavioral status at discharge: at baseline, oriented Functional status at discharge: uses cane/walker Overall status at discharge: patient is back to baseline Time Spent with Patient Time spent: Greater than 30 minutes Exam Vital Signs (past 8 hours): - 09/08/23 02:00 09/08/23 06:00 Temperature 96.6 F L 97.0 F L Pulse Rate 81 75 Respiratory Rate 20 20 Blood Pressure 142/67 H 155/68 H Pulse Oximetry 96 96 Oxygen Flow Rate 2 2 Fraction of Inspired Oxygen 32 SaO2/FiO2 Ratio 306 Oxygen Delivery Method Nasal Cannula Oxygen Flow Rate 2 Narrative Exam Narrative: NAD, alert. She is aphasia. Lungs are clear with normal rate and effort. Heart is regular, no murmur gallop or rub. Abdomen is soft, the wound is unremarkable. No leg edema. Objective Imaging US - abdomen: Radiologist's impression: IMPRESSION: No significant change from prior evaluation. Gallstones within the gallbladder lumen but no definite evidence of acute cholecystitis or biliary obstruction. Limited study as discussed above. CT scan - abdomen: Radiologist's impression: Mild edema of the pancreas with peripancreatic fluid most consistent with pancreatitis. No pseudocyst or evidence of necrotizing pancreatitis. Diverticulosis. Low-attenuation foci within the thyroid gland, slightly more prominent when compared to 2019. Nonemergent thyroid ultrasound may be obtained for further evaluation. Chest x-ray: Radiologist's impression: Patchy left basilar airspace opacity, decreased from 08/03/2023. Findings suggest a resolving process. Recommend follow-up in 1-2 months with chest x-ray to ensure resolution. Intraop cholangiogram: Radiologist's impression: No filling defects Modified barium swallow: Radiologist's impression: There is laryngotracheal penetration without definite aspiration. Please refer to the dedicated speech therapy swallowing evaluation report which will be independently generated. Labs 09/06/23 04:01 09/07/23 20:13 Labs: Laboratory Results - last 24 hr 09/07/23 20:13 Sodium 139 Potassium 3.6 Chloride 110 H Carbon Dioxide 24 BUN 8 Creatinine 0.45 L Estimated GFR > 60 BUN/Creatinine Ratio 17.8 Glucose 136 H Calcium 7.2 L Phosphorus 1.3 L Magnesium 2.0 PFSH Social History household members: other Smoking Status: Never smoker alcohol intake: never Discharge Assessment & Plan Assessment and Plan Assessment: Sepsis secondary to possible cholangitis with hyperbilirubinemia, present on admission and improving. Possible aspiration pneumonia, present on admission and improved. Acute hypoxic respiratory failure, present on admission and improved. Hypokalemia, new and improved. Severe dysphagia, chronic. Present on admission and active. -MBS showed deep penetration but not aspiration, pureed and nectar thick diet recommended -continue dysphagia diet, continue to reassess. Family not interested in PEG at this time. -continue FURNACE ERECTOR evaluation and therapies. Acute gallstone pancreatitis, present on admission and improved. SAH/epilepsy, present on admission and stable. -continue with lamotrigine, primidone Anxiety, depression. Present on admission and stable. -continue lexapro -continue lorazepam as needed Hypertension, present on admission and stable. -continue lisinopril Constipation, present on admission and stable. -Continue with polyethylene glycol Plan of Treatment: She will return to [facility] today for ongoing care. Her medications will continue largely without change. Antibiotics will be discontinued after 6-8 course. Recommendations for a CMP and CBC within the next [address] Adrian will assume care at [facility]. Discharge Plan Discharge Plan Patient Disposition: SNF Transfer to: [facility] Discharge orders & Medications Prescriptions: Continued lamotrigine 150 mg tablet 150 mg PO DAILY Qty: 90 3RF (DME) Probiotic See Rx Instructions .Route .MEDSUPPLY Qty: 30 6RF Rx Instructions: 1 capsule by mouth daily; ascorbic acid (vitamin C) 500 mg tablet 500 mg PO DAILY Qty: 30 6RF polyethylene glycol 3350 [Miralax] 17 gram/dose powder 17 g PO DAILY PRN (Reason: constipation) Qty: 510 3RF primidone 50 mg tablet 50 mg PO BEDTIME Qty: 90 3RF primidone 250 mg tablet 250 mg PO BEDTIME Qty: 90 3RF acetaminophen 500 mg tablet 1,000 mg PO TID PRN (Reason: fever or pain) Qty: 180 0RF Rx Instructions: Ok to crush if needed for easier use of taking calcitriol 0.25 mcg capsule 0.25 mcg PO DAILY Qty: 90 0RF Rx Instructions: APPT DUE WITH PCP. PLEASE CALL TO SCHEDULE APPT. THANK YOU 03/07/22 C-Wesa-Ggtpahc 250 mg tablet 1 tab PO BID Qty: 180 0RF escitalopram oxalate 20 mg tablet 20 mg PO DAILY Qty: 15 0RF Rx Instructions: NO FURTHER REFILLS UNTIL SEEN. PLEASE CALL TO SCHEDULE APPT. THANKS 07/26/22. lisinopril 10 mg tablet 10 mg PO DAILY Qty: 30 0RF Rx Instructions: Patient is overdue for an appointment with Dr. Jarrett for annual follow up. Patient will need to be seen before next renewal. 08/24/22 lorazepam 0.5 mg tablet 0.5 mg PO Q6H PRN (Reason: agitation) Qty: 10 0RF Medication counseling provided by Pharmacist: No Follow up/Referrals: Cal Jarrett MD [Primary Care Provider] - Discharge Health Status Multidrug resistant organism: No MDRO Diet/Activity/Treatments Diet: Diet as Tolerated Skin/Wound/Dressing Care Report to your healthcare provider any signs of infection, such as:: chills, fever, increased pain and unusual drainage Special Rehabilitation Services Reason for rehabilitation: Post-operative therapy Rehab type: Physical therapy and Occupational therapy Visit Report/Discharge Packet Instructions: DI for Laparoscopic Cholecystectomy, [facility]: Wound Care Stand Alone Forms: Patient Portal/API Discharge Data Primary Care Provider: Cal Jarrett VTE Deep Vein Thrombosis/Pulmonary Embolism Present on Admission: No
[2023-09-08] MEDS: SODIUM,POTASSIUM PHOSPHATES PACKET 1 EACH PO (09:02)
[2023-09-08] MEDS: lisinopriL 10 MG TABLET PO (09:02)
[2023-09-08] MEDS: lamoTRIgine 100 MG TABLET 150 MG PO (09:02)
[2023-09-08] MEDS: ESCITALOPRAM 10 MG TABLET 20 MG PO (09:03)
[2023-09-08] MEDS: ASCORBIC ACID 500 MG TABLET PO (09:03)
[2023-09-08] MEDS: ENOXAPARIN 40 MG/0.4 ML SYRINGE SUBCUT (09:04)
--- NOTE | 2023-09-08 10:58 | CM.DPNOTE ---
DCP Note GENERAL EDUCATION PROFESSOR reviewed EMR. Plan is to return to [facility] today between [id number]. GENERAL EDUCATION PROFESSOR confirmed with Taat at . No PASRR needed. CC Marge kindly agreed to fax med list and place in chart. GENERAL EDUCATION PROFESSOR gave RN nurse report number/updated her on dc time. GENERAL EDUCATION PROFESSOR updated RN coordinator in morning rounds of transport time. GENERAL EDUCATION PROFESSOR entered room and introduced self and role. Pt resting in bed. Pt accompanied by dtr Nicci at bedside. Confirm agreeable to return to at 1330 today. Pt's birthday is today and family is going to celebrate with her later. Plan: pt to return to today at 1330 via facility transport. No additional CM needs at this time. CM team will follow as needed. JAYME Gilliam
--- NOTE | 2023-09-08 11:37 | PC.NURSE ---
Patient was incontinent of large,loose stool this morning. She was cleaned up and did eat her breakfast for her daughter Nicci. She is not in discomfort at this time and is resting well.
== END 2023-09-08 13:30 | DRG 853 ==
LOC: ED 05:18 → AC 06:05 → ICU 06:06 → AC 09-05 15:17
PROVIDERS: Hospitalist; Internal Medicine; Student in an Organized Health Care Education/Training Program; Surgery; Admitting Provider Internal Medicine; Emergency Provider Emergency Medicine; PCP Student in an Organized Health Care Education/Training Program; Referring Provider Emergency Medicine; Visit Provider Internal Medicine
PROC: 0FT44ZZ Resection of Gallbladder, Percutaneous Endoscopic Approach (ICD-10-PCS; CPT 47562; principal; 2023-09-05 14:45)
DX: A41.9 Sepsis, unspecified organism (principal); J69.0 Pneumonitis due to inhalation of food and vomit; J96.01 Acute respiratory failure with hypoxia; K85.10 Biliary acute pancreatitis without necrosis or infection; K83.09 Other cholangitis; G40.909 Epilepsy, unspecified, not intractable, without status epilepticus; F41.9 Anxiety disorder, unspecified; I10 Essential (primary) hypertension; K59.00 Constipation, unspecified; F32.A Depression, unspecified; R65.20 Severe sepsis without septic shock; R13.10 Dysphagia, unspecified; I69.320 Aphasia following cerebral infarction; E87.6 Hypokalemia; Z66 Do not resuscitate
CPT/HCPCS: 36415; 36592; 71045; 71260; 74177; 74230; 74300; 76705; 80048; 80053; 81001; 82962; 83605; 83690; 83735; 84100; 84145; 85007; 85025; 87040; 87635; 87797; 92526; 92611; 93005; 93010; 94762; 96365; 99285; 99291; 99292; J0136; J0171; J1100; J1650; J2405; J2543; J2704; J3010; J3475; J3490; Q9967

== ENCOUNTER 2023-10-11 16:58 | Inpatient (IN) | payer MEDICARE, MEDICAID, SELFPAY ==
[2023-10-11] VITALS (15 sets, daily range): BP systolic 124–197; BP diastolic 57–92; PULSE 81–139; RESP 16–38; TEMP 36.3–38.2; O2SAT 82–100; BMI 23.4
--- NOTE | 2023-10-11 17:18 | DI.RAD.S_ITS ---
PROCEDURE: XR CHEST 1V INDICATIONS: dyspnea TECHNIQUE: One view of the chest was acquired. COMPARISON: [facility], CT, CT CHEST ABD PEL W CON, 09/01/2023, 10:24. [facility], CR, XR CHEST 1V, 09/01/2023, 5:04. [facility], CR, XR CHEST 1V, 08/03/2023, 7:43. FINDINGS: Surgical changes and devices: None. Lungs and pleura: Suspect mild bibasilar opacity. No pleural effusions or pneumothorax. Mediastinum: Mediastinal contours appear normal. Heart size is normal. Bones and chest wall: No suspicious bony lesions. Bilateral shoulder DJD. Overlying soft tissues appear unremarkable. IMPRESSION: Suspect mild bibasilar opacity. This could represent pneumonia or atelectasis. Dictated by: Marco Antonio Hammonds M.D. on 10/11/2023 at 18:17 Approved by: Marco Antonio Hammonds M.D. on 10/11/2023 at 18:19
[2023-10-11] MEDS: SODIUM CHLORIDE 0.9% 1,000 ML 1000 ML IV (17:40)
[2023-10-11 18:08] LABS: Add Manual Diff / Slide Review NO; Basophils Absolute Auto 100 /uL (0-100); Basophils Percent Auto 0.6 % (0-2); Eosinophils Absolute Auto 100 /uL (0-450); Eosinophils Percent Auto 0.5 % (2-4); Hematocrit 43.4 % (36-46); Lymphocytes Absolute Auto 1800 /uL (1100-4500); Lymphocytes Percent Auto 14.7 % (25-40); Mean Corpuscular HGB Conc 32.4 % (30-36); Mean Corpuscular Hemoglobin 29.1 PG (26-34); Mean Corpuscular Volume 89.9 fL (80-100); Monocytes Absolute Auto 500 /uL (0-900); Monocytes Percent Auto 4.2 % (3-14); Neutrophils Absolute Auto 9700 /uL (1500-7000); Platelet Count 341 X10^3/uL (150-400); Red Blood Cell Count 4.82 X10^6/uL (4.0-5.2); Red Cell Distribution Width 14.3 % (11.6-14.8); White Blood Cell Count 12.1 X10^3/uL (4.5-11.0)
[2023-10-11 18:23] LABS: Alanine Aminotransferase 16 IU/L (<35); Albumin 3.8 g/dL (3.5-5.0); Albumin Globulin Ratio 0.9 (1.0-2.8); Alkaline Phosphatase 205 U/L (38-126); Aspartate Aminotransferase 32 IU/L (14-36); BUN Creatinine Ratio 33.3 (6-22); Bilirubin Total 0.6 mg/dL (0.2-1.3); Blood Urea Nitrogen 17 mg/dL (7-17); Calcium 8.8 mg/dL (8.4-10.2); Carbon Dioxide 23 mmol/L (22-32); Chloride 108 mmol/L (98-107); Estimated Glomerular Filt Rate > 60 mL/min (>60); Globulin 4.3 g/dL (1.7-4.1); Glucose 131 mg/dL (80-110); Lipase 77 U/L (23-300); Magnesium 2.1 mg/dL (1.6-2.3); Potassium 4.1 mmol/L (3.4-5.1); Sodium 139 mmol/L (137-145); Total Protein 8.1 g/dL (6.3-8.2)
[2023-10-11 18:35] LABS: Troponin I < 0.012 ng/mL (0.01-0.034)
[2023-10-11 18:36] LABS: HEMOLYSIS 78 (0-50)
--- NOTE | 2023-10-11 18:37 | ED_ITS ---
HPI - GI Bleed General Chief complaint: GI Bleed Stated complaint: Bloody vomit Time Seen by Provider: 10/11/23 17:10 Source: family and EMS Mode of arrival: EMS Limitations: other (Nonverbal) History of Present Illness HPI Narrative: Patient is an 83-year-old female. Resident of a nursing facility. Is nonverbal secondary to prior history of strokes. Has a right vcyab-aze-wcre amputation. Not on anticoagulation. Is a DNR/DNI with limited interventions. Her PLOSt forearm is at bedside for review. He was reported that she was sent to the emergency department because of an episode of hematemesis. She has had no further episodes since arrival here to the ER. There was some concern that she potentially aspirated. She was not on oxygen at home. Was found to be in the mid to low 80s on room air and was placed on oxygen by EMS. She was unable to provide any HPI or review of systems. No reports of diarrhea. Related Data Previous Rx's Medication Instructions Recorded lamotrigine 150 mg tablet 150 mg PO DAILY #90 tabs 04/23/21 Probiotic #30 ea 06/22/21 ascorbic acid (vitamin C) 500 mg 500 mg PO DAILY #30 tabs 06/22/21 tablet polyethylene glycol 3350 17 17 g PO DAILY PRN constipation 06/22/21 gram/dose oral powder (Miralax) #510 grams primidone 250 mg tablet 250 mg PO BEDTIME #90 tabs 06/24/21 primidone 50 mg tablet 50 mg PO BEDTIME #90 tabs 06/24/21 acetaminophen 500 mg tablet 1,000 mg (2 x 500 mg) PO TID PRN 07/09/21 fever or pain #180 tabs calcitriol 0.25 mcg capsule 0.25 mcg PO DAILY #90 caps 03/07/22 sodium di- and 1 tab PO BID #180 tabs 04/05/22 monophosphate-potassium phos monobasic 250 mg tablet (S-Nyjz-Fwpmoxy) escitalopram oxalate 20 mg tablet 20 mg PO DAILY #15 tabs 07/26/22 lisinopril 10 mg tablet 10 mg PO DAILY #30 tabs 08/24/22 Allergies Allergy/AdvReac Type Severity Reaction Status Date / Time No Known Allergies Allergy Verified 10/11/23 17:16 Review of Systems Review of Systems Narrative: Limited secondary to patient's nonverbal status Respiratory Respiratory: Reports system reviewed and no additional complaints, except as documented Gastrointestinal Gastrointestinal: Reports system reviewed and no additional complaints, except as documented Patient History Surgical History Hx laparoscopic cholecystectomy Social History household members: other Smoking Status: Never smoker alcohol intake: never Smoking Status: Never smoker Substance Use Type: does not use Exam Initial Vital Signs Initial Vital Signs: Vital Signs Temperature 97.3 F L 10/11/23 16:58 Pulse Rate 91 H 10/11/23 16:58 Respiratory Rate 28 H 10/11/23 16:58 Blood Pressure 128/92 H 10/11/23 16:58 Pulse Oximetry 92 10/11/23 16:58 Oxygen Delivery Method Non -Rebreather 10/11/23 16:58 Const General: No ill appearing HENMT Head: normal to inspection and normocephalic Resp Effort & Inspection: no cough and tachypneic Auscultation: rhonchi Cardio Rate: tachycardic Rhythm: regular rhythm GI Inspection: normal to inspection and non-distended Skin General: no rashes or lesions noted Neuro General: patient alert and patient awake Extrem Other: Right midnq-wfg-rwcz amputation Course Orders Ordered: ED Orders 10/11/23 17:18 XR chest 1V Stat 10/11/23 17:35 EKG-12 Lead Stat 10/11/23 17:56 Complete Blood Count AUTO DIFF Stat Comprehensive Metabolic Panel Stat Lipase Stat Magnesium Stat Troponin I Stat 10/11/23 19:54 Consult to General Surgery Stat 10/11/23 20:15 Blood Culture Stat Type and Screen Stat 10/11/23 21:40 Urinalysis and Microscopic Stat Discontinued Medications Sodium Chloride (Normal Saline 0.9%) 1,000 mls @ 1,000 mls/hr IV BOLUS ONE Stop: 10/11/23 18:16 Last Infusion: 10/11/23 21:18 Dose: Infused Documented By: Admin: 10/11/23 17:40 Dose: 1,000 mls/hr Documented By: TESSIE Piperacillin Sod/Tazobactam (Sod 4.5 gm/ Sodium Chloride) 100 mls @ 200 mls/hr IV NOW ONE Stop: 10/11/23 19:47 Last Infusion: 10/11/23 20:58 Dose: Infused Documented By: TESSIE(2) Admin: 10/11/23 20:21 Dose: 200 mls/hr Documented By: SHEILA Pantoprazole Sodium (Pantoprazole 40 Mg Vial) 40 mg IV NOW ONE Stop: 10/11/23 19:55 Last Admin: 10/11/23 20:21 Dose: 40 mg Documented By: SHEILA Vital Signs Vital signs: Vital Signs - 8 hr 10/11/23 16:58 10/11/23 17:12 10/11/23 17:16 Temperature 97.3 F L Pulse Rate 91 H 97 H 81 Respiratory Rate 28 H 30 H 29 H Blood Pressure 128/92 H Pulse Oximetry 92 97 97 Oxygen Delivery Method Non -Rebreather Oxygen Flow Rate 10/11/23 17:16 10/11/23 17:30 10/11/23 17:30 Temperature Pulse Rate Respiratory Rate 30 H Blood Pressure 125/59 L 129/61 Pulse Oximetry 96 Oxygen Delivery Method Non -Rebreather Oxygen Flow Rate 10/11/23 18:00 10/11/23 18:00 10/11/23 18:30 Temperature Pulse Rate 137 H Respiratory Rate 29 H Blood Pressure 127/66 124/57 L Pulse Oximetry Oxygen Delivery Method Oxygen Flow Rate 10/11/23 18:30 10/11/23 19:00 10/11/23 19:00 Temperature Pulse Rate 139 H 118 H Respiratory Rate 29 H 33 H Blood Pressure 128/60 Pulse Oximetry 93 93 Oxygen Delivery Method Oxygen Flow Rate 10/11/23 19:15 10/11/23 19:18 10/11/23 19:30 Temperature Pulse Rate 116 H Respiratory Rate 38 H Blood Pressure Pulse Oximetry 82 L 96 83 L Oxygen Delivery Method Room Air Non -Rebreather Nasal Cannula Oxygen Flow Rate 5 10/11/23 19:30 10/11/23 19:34 10/11/23 20:00 Temperature 99.2 F Pulse Rate 118 H Respiratory Rate 30 H Blood Pressure 155/71 H Pulse Oximetry 94 95 Oxygen Delivery Method Non -Rebreather Non -Rebreather Oxygen Flow Rate 15 10/11/23 20:00 Temperature Pulse Rate Respiratory Rate Blood Pressure 152/84 H Pulse Oximetry Oxygen Delivery Method Oxygen Flow Rate MDM - GI Bleed Lab Data Attestation: I reviewed the patient's lab results. 10/11/23 17:56 10/11/23 17:56 Labs: Lab Results 10/11/23 Range/Units 17:56 WBC 12.1 H (4.5-11.0) X10^3/uL RBC 4.82 (4.0-5.2) X10^6/uL Hgb 14.0 (12.0-16.0) g/dL Hct 43.4 (36-46) % MCV 89.9 (80-100) fL MCH 29.1 (26-34) PG MCHC 32.4 (30-36) % RDW 14.3 (11.6-14.8) % Plt Count 341 (150-400) X10^3/uL Neut % (Auto) 80.0 H (50-75) % Lymph % (Auto) 14.7 L (25-40) % [place] % (Auto) 4.2 (3-14) % Eos % (Auto) 0.5 L (2-4) % Baso % (Auto) 0.6 (0-2) % Neut # (Auto) 9700 H (7926-1246) /uL Lymph # (Auto) 1800 (4160-6948) /uL [place] # (Auto) 500 (0-900) /uL Eos # (Auto) 100 (0-450) /uL Baso # (Auto) 100 (0-100) /uL Sodium 139 (137-145) mmol/L Potassium 4.1 (3.4-5.1) mmol/L Chloride 108 H (98-107) mmol/L Carbon Dioxide 23 (22-32) mmol/L BUN 17 (7-17) mg/dL Creatinine 0.51 L (0.52-1.04) mg/dL Estimated GFR > 60 (>60) mL/min BUN/Creatinine Ratio 33.3 H (6-22) Glucose 131 H (80-110) mg/dL Calcium 8.8 (8.4-10.2) mg/dL Magnesium 2.1 (1.6-2.3) mg/dL Total Bilirubin 0.6 (0.2-1.3) mg/dL AST 32 (14-36) IU/L ALT 16 (<35) IU/L Alkaline Phosphatase 205 H (38-126) U/L Troponin I < 0.012 (0.01-0.034) ng/mL Total Protein 8.1 (6.3-8.2) g/dL Albumin 3.8 (3.5-5.0) g/dL Globulin 4.3 H (1.7-4.1) g/dL Albumin/Globulin Ratio 0.9 L (1.0-2.8) Lipase 77 (23-300) U/L Imaging Data Chest x-ray: Radiologist's Impression: PROCEDURE: XR CHEST 1V INDICATIONS: dyspnea TECHNIQUE: One view of the chest was acquired. COMPARISON: [facility], CT, CT CHEST ABD PEL W CON, 09/01/2023, 10:24. [facility], CR, XR CHEST 1V, 09/01/2023, 5:04. [facility], CR, XR CHEST 1V, 08/03/2023, 7:43. FINDINGS: Surgical changes and devices: None. Lungs and pleura: Suspect mild bibasilar opacity. No pleural effusions or pneumothorax. Mediastinum: Mediastinal contours appear normal. Heart size is normal. Bones and chest wall: No suspicious bony lesions. Bilateral shoulder DJD. Overlying soft tissues appear unremarkable. IMPRESSION: Suspect mild bibasilar opacity. This could represent pneumonia or atelectasis. ECG Data Attestation: I personally reviewed and interpreted this ECG as follows: Interpretation: Sinus rhythm Ventricular rate 97 Normal axis Normal QRS Nonspecific ST T wave changes MDM Narrative Medical decision making narrative: Patient is hypoxic. By report this is new. She has not had any hematemesis here in the ER. Not on anticoagulation. She was given Protonix. She was not hypotensive. Not anemic. Type and screen was obtained. We will hold on blood transfusion for now. Patient is unable to provide any HPI review of systems. I did talk with the patient's son over the phone. He did confirm that the patient is a DNR/DNI but would be okay with a blood transfusion or other potential treatments to diagnose and treat any potential bleeding. I did discuss the case with Dr. Quigley who stated the patient could be admitted to the medicine service and he would consult. I then discussed the case with Dr. Condon who is the hospitalist on-call. We will admit for evaluation and treatment. Discussed the need for admission with the patient's son-in-law who is at bedside who expressed understanding and agreement as well. Discharge Plan Departure Patient Disposition: Admitted As Inpatient Clinical Impression: Aspiration pneumonia, Hypoxia, Hemoptysis Admit Date/Time: 10/11/23 20:07 Admit Provider: Velma Condon
[2023-10-11] MEDS: PIPERACILLIN/TAZO 4.5 GM in SODIUM CHLORIDE 0.9% 100 ML IV (20:21)
[2023-10-11] MEDS: PANTOPRAZOLE 40 MG VIAL IV (20:21)
[2023-10-11 22:04] LABS: Appearance Urine UA CLEAR; Bilirubin Urine UA NEGATIVE (NEGATIVE); Color Urine UA YELLOW; Glucose Urine UA NEGATIVE (Negative); Ketones Urine UA 1+ (NEGATIVE); Leukocyte Esterase Urine UA NEGATIVE (NEGATIVE); Nitrite Urine UA NEGATIVE (Negative); Occult Blood Urine UA NEGATIVE (Negative); Protein Urine UA NEGATIVE (Negative); Urobilinogen Urine UA 0.2 E.U./dL (0.2)
[2023-10-11 22:13] LABS: Bacteria Urine None Seen; Culture Indicated Urine Cult Not Indicated; RBC Urine 0-1/HPF (0-5/HPF); Squamous Epithelial Cell Urine 0-1 /HPF (0-5/HPF); Urine Volume 10mL (spun); WBC Urine 0-1/HPF (0-5/HPF)
--- NOTE | 2023-10-11 23:21 | P.HP_ITS ---
History of Present Illness History of Present Illness Date Patient Seen: 10/11/23 Time Patient Seen: 22:00 Date of Onset of Symptoms: 10/11/23 Chief complaint: Bloody vomit Narrative: Patient aphasic, unable to obtain history from patient. Son at bedside previously, was not able to give further history. Per records, brought from [facility] for hypoxia and bloody emesis. No further details were able to be obtained. ED evaluation found the patient to be hypoxic with saturations in the 80's, started on NRB 10-15L, intermittently able to wean to 4L NC however failed trial off oxygen. Discussed with General surgeron who is amenable to endoscopy tomorrow if indicated, plan for medical management as this time. Previous admission for aspiration pneumonia 09/01-09/08/23, 07/2023. Evaluated by SENIOR INFORMATION SYSTEMS ARCHITECT, dyphagia diet ordered. During admission 08/2023, sepsis secondary to acute cholangitis, gallstone pancreatitis requiring cholecystectomy. Severe dysphagia, chronic. Present on admission and active. -MBS showed deep penetration but not aspiration, pureed and nectar thick diet recommended -continue dysphagia diet, continue to reassess. Family not interested in PEG at this time. -continue SENIOR INFORMATION SYSTEMS ARCHITECT evaluation and therapies DNR/DNI okay for procedures. [facility] Surgical History Hx laparoscopic cholecystectomy Social History household members: other Smoking Status: Never smoker alcohol intake: never Meds Home Medications and Allergies Home Medications Medication Instructions Recorded Confirmed Type lamotrigine 150 mg tablet 150 mg PO DAILY #90 tabs 04/23/21 10/11/23 Rx Probiotic #30 ea 06/22/21 10/11/23 Rx ascorbic acid (vitamin C) 500 mg 500 mg PO DAILY #30 tabs 06/22/21 10/11/23 Rx tablet polyethylene glycol 3350 17 17 g PO DAILY PRN constipation 06/22/21 10/11/23 Rx gram/dose oral powder (Miralax) #510 grams primidone 250 mg tablet 250 mg PO BEDTIME #90 tabs 06/24/21 10/11/23 Rx primidone 50 mg tablet 50 mg PO BEDTIME #90 tabs 06/24/21 10/11/23 Rx acetaminophen 500 mg tablet 1,000 mg (2 x 500 mg) PO TID PRN 07/09/21 10/11/23 Rx fever or pain #180 tabs calcitriol 0.25 mcg capsule 0.25 mcg PO DAILY #90 caps 03/07/22 10/11/23 Rx sodium di- and 1 tab PO BID #180 tabs 04/05/22 10/11/23 Rx monophosphate-potassium phos monobasic 250 mg tablet (N-[id number]) escitalopram oxalate 20 mg tablet 20 mg PO DAILY #15 tabs 07/26/22 10/11/23 Rx lisinopril 10 mg tablet 10 mg PO DAILY #30 tabs 08/24/22 10/11/23 Rx Allergies Allergy/AdvReac Type Severity Reaction Status Date / Time No Known Allergies Allergy Verified 10/11/23 17:16 Review of Systems Review of Systems Narrative: Unable to obtain as patient is nonverbal. Exam Vital Signs (past 8 hours): - 10/11/23 16:58 10/11/23 17:12 10/11/23 17:16 Temperature 97.3 F L Pulse Rate 91 H 97 H 81 Respiratory Rate 28 H 30 H 29 H Blood Pressure 128/92 H Pulse Oximetry 92 97 97 Oxygen Delivery Method Non -Rebreather Oxygen Flow Rate 10/11/23 17:16 10/11/23 17:30 10/11/23 17:30 Temperature Pulse Rate Respiratory Rate 30 H Blood Pressure 125/59 L 129/61 Pulse Oximetry 96 Oxygen Delivery Method Non -Rebreather Oxygen Flow Rate 10/11/23 18:00 10/11/23 18:00 10/11/23 18:30 Temperature Pulse Rate 137 H Respiratory Rate 29 H Blood Pressure 127/66 124/57 L Pulse Oximetry Oxygen Delivery Method Oxygen Flow Rate 10/11/23 18:30 10/11/23 19:00 10/11/23 19:00 Temperature Pulse Rate 139 H 118 H Respiratory Rate 29 H 33 H Blood Pressure 128/60 Pulse Oximetry 93 93 Oxygen Delivery Method Oxygen Flow Rate 10/11/23 19:15 10/11/23 19:18 10/11/23 19:30 Temperature Pulse Rate 116 H Respiratory Rate 38 H Blood Pressure Pulse Oximetry 82 L 96 83 L Oxygen Delivery Method Room Air Non -Rebreather Nasal Cannula Oxygen Flow Rate 5 10/11/23 19:30 10/11/23 19:34 10/11/23 20:00 Temperature 99.2 F Pulse Rate 118 H Respiratory Rate 30 H Blood Pressure 155/71 H Pulse Oximetry 94 95 Oxygen Delivery Method Non -Rebreather Non -Rebreather Oxygen Flow Rate 15 10/11/23 20:00 10/11/23 20:30 10/11/23 20:30 Temperature Pulse Rate 124 H Respiratory Rate 30 H Blood Pressure 152/84 H 158/72 H Pulse Oximetry 92 Oxygen Delivery Method Non -Rebreather Oxygen Flow Rate 10 10/11/23 20:58 Temperature Pulse Rate 107 H Respiratory Rate Blood Pressure Pulse Oximetry Oxygen Delivery Method Oxygen Flow Rate Oxygen Delivery Method Non -Rebreather Oxygen Flow Rate 10 Const General: cooperative Eyes General: appearance normal, both eyes and all related structures Chest Chest: normal inspection of the chest Resp Auscultation: diminished lung sounds Cardio Rate: tachycardic Rhythm: regular rhythm GI Inspection: normal to inspection Auscultation: normal bowel sounds Skin General: no rashes or lesions noted Neuro General: patient alert, patient awake and moves all extremities Other: Aphasic Extrem General: no pedal edema and amputation noted (Right BKA) Objective Imaging Chest x-ray: My impression: Bibasilar opacities L>R Radiologist's impression: IMPRESSION: Suspect mild bibasilar opacity. This could represent pneumonia or atelectasis. Dictated by: Marco Antonio Hammonds M.D. on 10/11/2023 at 18:17 Approved by: Marco Antonio Hammonds M.D. on 10/11/2023 at 18:19 Labs 10/12/23 00:05 10/11/23 17:56 Labs: Laboratory Results - last 24 hr 10/11/23 10/11/23 10/11/23 17:56 20:15 21:40 WBC 12.1 H RBC 4.82 Hgb 14.0 Hct 43.4 MCV 89.9 MCH 29.1 MCHC 32.4 RDW 14.3 Plt Count 341 Neut % (Auto) 80.0 H Lymph % (Auto) 14.7 L [place] % (Auto) 4.2 Eos % (Auto) 0.5 L Baso % (Auto) 0.6 Neut # (Auto) 9700 H Lymph # (Auto) 1800 [place] # (Auto) 500 Eos # (Auto) 100 Baso # (Auto) 100 Sodium 139 Potassium 4.1 Chloride 108 H Carbon Dioxide 23 BUN 17 Creatinine 0.51 L Estimated GFR > 60 BUN/Creatinine Ratio 33.3 H Glucose 131 H Calcium 8.8 Magnesium 2.1 Total Bilirubin 0.6 AST 32 ALT 16 Alkaline Phosphatase 205 H Troponin I < 0.012 Total Protein 8.1 Albumin 3.8 Globulin 4.3 H Albumin/Globulin Ratio 0.9 L Lipase 77 Urine Color Yellow Urine Appearance Clear Urine pH 6.0 Ur Specific [place] 1.020 Urine Protein Negative Urine Glucose (UA) Negative Urine Ketones 1+ H Urine Occult Blood Negative Urine Nitrate Negative Urine Bilirubin Negative Urine Urobilinogen 0.2 Ur Leukocyte Esterase Negative Urine RBC 0-1/hpf Urine WBC 0-1/hpf Ur Squamous Epith Cells 0-1 /hpf Urine Bacteria None seen Ur Culture Indicated? Cult not indicated Vol Urine Centrifuged 10ml (spun) Blood Type A Positive Antibody Screen Negative Assessment & Plan Assessment and plan (1) Hemoptysis: Status: Acute (2) Aspiration pneumonia: Status: Acute (3) Sepsis: Status: Acute Plan Sepsis 2/2 suspected aspiration Aspiration pneumonia Acute respiratory failure with hypoxia - Temp 100.7, RR 38, HR 139, WBC 12.1, O2 82%; no hypotension - CXR with bibasilar opacities - Antibx started with Rocephin for aspiration, BCx pending - UA ketones, continue IV fluids while NPO - Oxygen therapy 5-15L weaning from NRB to NC with improved respiratory rate - continue pulmonary optimization - NPO, swallow eval, previously requried dysphagia diet - aspiration precautions Hemoptysis, reported DIRECTOR OF STRATEGIC MARKETING - unable to obtain further details, unclear if blood in emesis - tachycardic, no elevation in BUN to suggest fast bleed, no further episodes, BP stable, hemoccult ordered - troponin negative, continue cardiac monitoring - ED provider discussed wtih Gen Surg Dr. 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
[2023-10-11] MEDS: LACTATED RINGERS 1,000 ML 50 ML IV (23:50)
[2023-10-11] MEDS: cefTRIAXone 1,000 MG in SODIUM CHLORIDE 0.9% 100 ML 200 MG IV (23:52)
[2023-10-12] VITALS (13 sets, daily range): BP systolic 104–137; BP diastolic 52–98; PULSE 84–101; RESP 16–30; TEMP 36.7–37.7; O2SAT 93–99
[2023-10-12 00:11] LABS: Prothrombin Time 11.9 SECONDS (9.4-12.5)
[2023-10-12 00:14] LABS: Hematocrit 39.1 % (36-46); Hemoglobin 12.9 g/dL (12.0-16.0)
--- NOTE | 2023-10-12 01:44 | PC.ADMIT ---
[id number] Admission Note: The patient,Quyen Hyde,83 y/o, was given written information regarding hospital policies, unit procedures and contact persons. Patient's smoking status: Never smoker. Vital Signs - 8 hr 10/11/23 18:00 10/11/23 18:00 10/11/23 18:30 Temperature Pulse Rate 137 H Respiratory Rate 29 H Blood Pressure 127/66 124/57 L Pulse Oximetry Oxygen Delivery Method Oxygen Flow Rate 10/11/23 18:30 10/11/23 19:00 10/11/23 19:00 Temperature Pulse Rate 139 H 118 H Respiratory Rate 29 H 33 H Blood Pressure 128/60 Pulse Oximetry 93 93 Oxygen Delivery Method Oxygen Flow Rate 10/11/23 19:15 10/11/23 19:18 10/11/23 19:30 Temperature Pulse Rate 116 H Respiratory Rate 38 H Blood Pressure Pulse Oximetry 82 L 96 83 L Oxygen Delivery Method Room Air Non -Rebreather Nasal Cannula Oxygen Flow Rate 5 10/11/23 19:30 10/11/23 19:34 10/11/23 20:00 Temperature 99.2 F Pulse Rate 118 H Respiratory Rate 30 H Blood Pressure 155/71 H Pulse Oximetry 94 95 Oxygen Delivery Method Non -Rebreather Non -Rebreather Oxygen Flow Rate 15 10/11/23 20:00 10/11/23 20:30 10/11/23 20:30 Temperature Pulse Rate 124 H Respiratory Rate 30 H Blood Pressure 152/84 H 158/72 H Pulse Oximetry 92 Oxygen Delivery Method Non -Rebreather Oxygen Flow Rate 10 10/11/23 20:58 10/11/23 21:12 10/11/23 22:00 Temperature 100.7 F H Pulse Rate 107 H 100 H Respiratory Rate 16 Blood Pressure 197/75 H Pulse Oximetry 100 Oxygen Delivery Method Non -Rebreather Oxygen Flow Rate 10 10/12/23 00:17 Temperature 99.8 F H Pulse Rate 101 H Respiratory Rate 20 Blood Pressure 130/66 Pulse Oximetry 97 Oxygen Delivery Method Oxygen Flow Rate 5 Patient admitted to room 205 from ER per stretcher and transferred into bed with slider board. She is nonverbal but awake and alert. Arrived with NRB in place at 10L/min with sat of 100% so have been weaning down and is currently on 5L/min oxygen per NC with sat of 94% so now decreased to 4L/min. Breath sounds with inspiratory/expiratory rhonchi throughout; placed on continuous oximetry per order. BP high at 197/75 but is tremoring at the time and now BP is down to 130/66. Telemetry applied and was ST with rate of 100 bpm. BT present and abdomen is soft and non-tender. Has right BKA and tends to bend right leg over left to pillow placed between legs. Has stage 2 open areas on right buttock and groin as well as peeling skin on coccyx. Stump of right leg is discolored but blanchable. Calf SCD applied to left LE. FLACC score is currently at 0 and is no longer tremoring while asleep. Dr. Condon visited with patient via tele conferencing and listened to breath sounds as well as abdominal sounds, was shown area on stump and informed of vital signs including elevated temp of 100.7. On recheck at 0017 temp was down to 99.8. External catheter was placed and urine sent to lab per ER MD order. Has no edema and left heel without redness but heel protector placed. Will need repositioning q2h. Attempts to do swallow eval or oral care were met with patient keeping teeth clamped shut so unable to perform swallow eval as ordered but is NPO since 0000 and has order for ST to do eval and treat in a.m. Fall risk score is high and bed alarm is activated.
[2023-10-12 06:26] LABS: Add Manual Diff / Slide Review NO; Basophils Absolute Auto 0 /uL (0-100); Basophils Percent Auto 0.2 % (0-2); Eosinophils Absolute Auto 0 /uL (0-450); Hematocrit 33.8 % (36-46); Hemoglobin 11.3 g/dL (12.0-16.0); Lymphocytes Absolute Auto 1700 /uL (1100-4500); Lymphocytes Percent Auto 9.3 % (25-40); Mean Corpuscular HGB Conc 33.4 % (30-36); Mean Corpuscular Hemoglobin 29.8 PG (26-34); Mean Corpuscular Volume 89.3 fL (80-100); Monocytes Absolute Auto 600 /uL (0-900); Monocytes Percent Auto 3.2 % (3-14); Neutrophils Absolute Auto 15900 /uL (1500-7000); Neutrophils Percent Auto 87.3 % (50-75); Platelet Count 285 X10^3/uL (150-400); Red Blood Cell Count 3.79 X10^6/uL (4.0-5.2); Red Cell Distribution Width 14.1 % (11.6-14.8); White Blood Cell Count 18.2 X10^3/uL (4.5-11.0)
[2023-10-12 06:43] LABS: Blood Urea Nitrogen 15 mg/dL (7-17); Calcium 7.8 mg/dL (8.4-10.2); Carbon Dioxide 25 mmol/L (22-32); Chloride 113 mmol/L (98-107); Estimated Glomerular Filt Rate > 60 mL/min (>60); Glucose 132 mg/dL (80-110); HEMOLYSIS < 15 (0-50); Potassium 3.5 mmol/L (3.4-5.1); Sodium 140 mmol/L (137-145)
--- NOTE | 2023-10-12 08:10 | P.PN_ITS ---
Subjective Subjective Interval history: Patient's son at bedside. Patient awaiting EGD today with gen surg. Hgb dipped 12.9 to 11.3. Exam Vital Signs (past 8 hours): - 10/12/23 00:17 10/12/23 04:41 Temperature 99.8 F H 98.4 F Pulse Rate 101 H 96 H Respiratory Rate 20 20 Blood Pressure 130/66 113/65 Pulse Oximetry 97 95 Oxygen Flow Rate 5 3 Oxygen Delivery Method Non -Rebreather Oxygen Flow Rate 3 Const General: cooperative (nonverbal) Eyes General: appearance normal, both eyes and all related structures Chest Chest: normal inspection of the chest Resp Auscultation: diminished lung sounds Cardio Rate: tachycardic Rhythm: regular rhythm GI Inspection: normal to inspection Auscultation: normal bowel sounds Skin General: no rashes or lesions noted Neuro General: patient alert, patient awake and moves all extremities Other: Aphasic Extrem General: no pedal edema and amputation noted (Right BKA) Objective Labs 10/12/23 06:03 10/12/23 06:03 Labs: Laboratory Results - last 24 hr 10/11/23 10/11/23 10/11/23 17:56 20:15 21:40 WBC 12.1 H RBC 4.82 Hgb 14.0 Hct 43.4 MCV 89.9 MCH 29.1 MCHC 32.4 RDW 14.3 Plt Count 341 Neut % (Auto) 80.0 H Lymph % (Auto) 14.7 L [place] % (Auto) 4.2 Eos % (Auto) 0.5 L Baso % (Auto) 0.6 Neut # (Auto) 9700 H Lymph # (Auto) 1800 [place] # (Auto) 500 Eos # (Auto) 100 Baso # (Auto) 100 PT INR Sodium 139 Potassium 4.1 Chloride 108 H Carbon Dioxide 23 BUN 17 Creatinine 0.51 L Estimated GFR > 60 BUN/Creatinine Ratio 33.3 H Glucose 131 H Calcium 8.8 Magnesium 2.1 Total Bilirubin 0.6 AST 32 ALT 16 Alkaline Phosphatase 205 H Troponin I < 0.012 Total Protein 8.1 Albumin 3.8 Globulin 4.3 H Albumin/Globulin Ratio 0.9 L Lipase 77 Urine Color Yellow Urine Appearance Clear Urine pH 6.0 Ur Specific [place] 1.020 Urine Protein Negative Urine Glucose (UA) Negative Urine Ketones 1+ H Urine Occult Blood Negative Urine Nitrate Negative Urine Bilirubin Negative Urine Urobilinogen 0.2 Ur Leukocyte Esterase Negative Urine RBC 0-1/hpf Urine WBC 0-1/hpf Ur Squamous Epith Cells 0-1 /hpf Urine Bacteria None seen Ur Culture Indicated? Cult not indicated Vol Urine Centrifuged 10ml (spun) Blood Type A Positive Antibody Screen Negative 10/11/23 10/12/23 10/12/23 23:50 00:05 06:03 WBC 18.2 H D RBC 3.79 L Hgb 12.9 11.3 L Hct 39.1 33.8 L MCV 89.3 MCH 29.8 MCHC 33.4 RDW 14.1 Plt Count 285 Neut % (Auto) 87.3 H Lymph % (Auto) 9.3 L [place] % (Auto) 3.2 Eos % (Auto) 0.0 L Baso % (Auto) 0.2 Neut # (Auto) 84927 H Lymph # (Auto) 1700 [place] # (Auto) 600 Eos # (Auto) 0 Baso # (Auto) 0 PT 11.9 INR 1.0 Sodium 140 Potassium 3.5 Chloride 113 H Carbon Dioxide 25 BUN 15 Creatinine 0.50 L Estimated GFR > 60 BUN/Creatinine Ratio 30.0 H Glucose 132 H Calcium 7.8 L Magnesium Total Bilirubin AST ALT Alkaline Phosphatase Troponin I Total Protein Albumin Globulin Albumin/Globulin Ratio Lipase Urine Color Urine Appearance Urine pH Ur Specific [place] Urine Protein Urine Glucose (UA) Urine Ketones Urine Occult Blood Urine Nitrate Urine Bilirubin Urine Urobilinogen Ur Leukocyte Esterase Urine RBC Urine WBC Ur Squamous Epith Cells Urine Bacteria Ur Culture Indicated? Vol Urine Centrifuged Blood Type Antibody Screen PFSH Surgical History Hx laparoscopic cholecystectomy Social History household members: other Smoking Status: Never smoker alcohol intake: never Assessment & Plan Assessment & Plan narrative: Sepsis 2/2 suspected aspiration Aspiration pneumonia Acute respiratory failure with hypoxia - Temp 100.7, RR 38, HR 139, WBC 12.1, O2 82%; no hypotension - CXR with bibasilar opacities - Antibx started with Rocephin for aspiration, BCx pending - UA ketones, continue IV fluids while NPO - Oxygen therapy now down to 1L NC - continue pulmonary optimization - swallow eval following EGD, previously required dysphagia diet Hemoptysis, reported DIRECTOR CLINICAL PHARMACOLOGY - unable to obtain further details, unclear if blood in emesis, although dropping in Hgb - tachycardic, no elevation in BUN to suggest fast bleed, no further episodes, BP stable, hemoccult ordered - troponin negative, continue cardiac monitoring - ED provider discussed wtih Gen Surg Dr. 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 2-3 days. Time Spent With Patient Time with patient: 70 minutes or more, with 50% spent counseling/coordinating
[2023-10-12] MEDS: PANTOPRAZOLE 40 MG VIAL IV ×2 (10:04→21:56)
[2023-10-12] MEDS: POTASSIUM CHLORIDE IN WATER 10 MEQ/100 ML PIGGYBACK 100 MEQ IV ×2 (10:05→11:17)
--- NOTE | 2023-10-12 11:19 | P.HP_ITS ---
History of Present Illness History of Present Illness Date Patient Seen: 10/12/23 Chief complaint: Bloody vomit Narrative: Quyen is 83-year-old woman I had a long-term care facility. She was brought in last night because of bloody vomit. Her hemoglobin was normal in the ER last night at 14 but has dropped 3 points. She is nonverbal due to a prior cerebral vascular accident. She did undergo a laparoscopic cholecystectomy in August. She has made a good recovery since that time. [facility] Surgical History Hx laparoscopic cholecystectomy Social History household members: other Smoking Status: Never smoker alcohol intake: never Meds Home Medications and Allergies Home Medications Medication Instructions Recorded Confirmed Type lamotrigine 150 mg tablet 150 mg PO DAILY #90 tabs 04/23/21 10/11/23 Rx Probiotic #30 ea 06/22/21 10/11/23 Rx ascorbic acid (vitamin C) 500 mg 500 mg PO DAILY #30 tabs 06/22/21 10/11/23 Rx tablet polyethylene glycol 3350 17 17 g PO DAILY PRN constipation 06/22/21 10/11/23 Rx gram/dose oral powder (Miralax) #510 grams primidone 250 mg tablet 250 mg PO BEDTIME #90 tabs 06/24/21 10/11/23 Rx primidone 50 mg tablet 50 mg PO BEDTIME #90 tabs 06/24/21 10/11/23 Rx acetaminophen 500 mg tablet 1,000 mg (2 x 500 mg) PO TID PRN 07/09/21 10/11/23 Rx fever or pain #180 tabs calcitriol 0.25 mcg capsule 0.25 mcg PO DAILY #90 caps 03/07/22 10/11/23 Rx sodium di- and 1 tab PO BID #180 tabs 04/05/22 10/11/23 Rx monophosphate-potassium phos monobasic 250 mg tablet (C-[id number]) escitalopram oxalate 20 mg tablet 20 mg PO DAILY #15 tabs 07/26/22 10/11/23 Rx lisinopril 10 mg tablet 10 mg PO DAILY #30 tabs 08/24/22 10/11/23 Rx Allergies Allergy/AdvReac Type Severity Reaction Status Date / Time No Known Allergies Allergy Verified 10/11/23 17:16 Exam Vital Signs (past 8 hours): - 10/12/23 04:41 10/12/23 08:00 10/12/23 09:42 Temperature 98.4 F 98.2 F Pulse Rate 96 H 86 Respiratory Rate 20 20 Blood Pressure 113/65 123/58 L Pulse Oximetry 95 95 93 Oxygen Delivery Method Nasal Cannula Oxygen Flow Rate 3 1 1 10/12/23 10:19 Temperature Pulse Rate Respiratory Rate Blood Pressure Pulse Oximetry Oxygen Delivery Method Nasal Cannula Oxygen Flow Rate Oxygen Delivery Method Nasal Cannula Oxygen Flow Rate 1 Narrative Exam Narrative: Asleep Resp Effort & Inspection: normal respiratory effort Objective Labs 10/12/23 06:03 10/12/23 06:03 Labs: Laboratory Results - last 24 hr 10/11/23 10/11/23 10/11/23 17:56 20:15 21:40 WBC 12.1 H RBC 4.82 Hgb 14.0 Hct 43.4 MCV 89.9 MCH 29.1 MCHC 32.4 RDW 14.3 Plt Count 341 Neut % (Auto) 80.0 H Lymph % (Auto) 14.7 L [place] % (Auto) 4.2 Eos % (Auto) 0.5 L Baso % (Auto) 0.6 Neut # (Auto) 9700 H Lymph # (Auto) 1800 [place] # (Auto) 500 Eos # (Auto) 100 Baso # (Auto) 100 PT INR Sodium 139 Potassium 4.1 Chloride 108 H Carbon Dioxide 23 BUN 17 Creatinine 0.51 L Estimated GFR > 60 BUN/Creatinine Ratio 33.3 H Glucose 131 H Calcium 8.8 Magnesium 2.1 Total Bilirubin 0.6 AST 32 ALT 16 Alkaline Phosphatase 205 H Troponin I < 0.012 Total Protein 8.1 Albumin 3.8 Globulin 4.3 H Albumin/Globulin Ratio 0.9 L Lipase 77 Urine Color Yellow Urine Appearance Clear Urine pH 6.0 Ur Specific [place] 1.020 Urine Protein Negative Urine Glucose (UA) Negative Urine Ketones 1+ H Urine Occult Blood Negative Urine Nitrate Negative Urine Bilirubin Negative Urine Urobilinogen 0.2 Ur Leukocyte Esterase Negative Urine RBC 0-1/hpf Urine WBC 0-1/hpf Ur Squamous Epith Cells 0-1 /hpf Urine Bacteria None seen Ur Culture Indicated? Cult not indicated Vol Urine Centrifuged 10ml (spun) Blood Type A Positive Antibody Screen Negative 10/11/23 10/12/23 10/12/23 23:50 00:05 06:03 WBC 18.2 H D RBC 3.79 L Hgb 12.9 11.3 L Hct 39.1 33.8 L MCV 89.3 MCH 29.8 MCHC 33.4 RDW 14.1 Plt Count 285 Neut % (Auto) 87.3 H Lymph % (Auto) 9.3 L [place] % (Auto) 3.2 Eos % (Auto) 0.0 L Baso % (Auto) 0.2 Neut # (Auto) 62562 H Lymph # (Auto) 1700 [place] # (Auto) 600 Eos # (Auto) 0 Baso # (Auto) 0 PT 11.9 INR 1.0 Sodium 140 Potassium 3.5 Chloride 113 H Carbon Dioxide 25 BUN 15 Creatinine 0.50 L Estimated GFR > 60 BUN/Creatinine Ratio 30.0 H Glucose 132 H Calcium 7.8 L Magnesium Total Bilirubin AST ALT Alkaline Phosphatase Troponin I Total Protein Albumin Globulin Albumin/Globulin Ratio Lipase Urine Color Urine Appearance Urine pH Ur Specific [place] Urine Protein Urine Glucose (UA) Urine Ketones Urine Occult Blood Urine Nitrate Urine Bilirubin Urine Urobilinogen Ur Leukocyte Esterase Urine RBC Urine WBC Ur Squamous Epith Cells Urine Bacteria Ur Culture Indicated? Vol Urine Centrifuged Blood Type Antibody Screen Assessment & Plan Assessment and plan (1) Hemoptysis: Status: Acute Plan Recommend esophagogastroduodenoscopy for hemoptysis and an acute decrease in hemoglobin.
--- NOTE | 2023-10-12 12:38 | CM.DANOTE ---
Initial DCP Assessment Visit Note Reviewed EMR and team rounds for pt's medical status and updates. Went to meet with pt/family at bedside, family were not there, and pt is non-verbal. Pt appears comfortable until this CLINICAL SYSTEMS EDUCATOR starting offering supportive words reassuring her, and she began grimacing and calling out. Pt has had 2-recent hospitalizations for similiar reasons, mostly aspiration pneumonia. Payor: Medicare PCP: Facility IT DESKTOP SUPPORT TECHNICIAN Pt is a 83 year-old F who presented from [facility] via EMS last evening where pt is a long-term resident. She has a R-below the knee amputation, and hx of several strokes. She is non-verbal, and requires total assistance with all care and ADL's. Her dtr and son are both very involved in her care coordination, her dtr is local and visits her often at the facility. She was sent to the ED due to having an episode of bloody vomiting, concerns for aspiration pneumonia. Pt was febrile and hypoxic upon ED evaluation. She was started on IV ABO's, oxygen, and was admitted to the floor for further eval/tx. Surgery was consulted for the bloody vomit episode. Dr. Quigley recommends esophagogastroduodenoscopy for further assessment. D/C plan will be to return to [facility]. DCP will continue to follow and assist with final recommendations at d/c. Discharge Planning/Care Management CM Discharge Assessment Start: 10/12/23 11:08 Freq: Status: Active Protocol: Document 10/12/23 11:08 DPL (Rec: 10/12/23 11:13 DPL [id number]) Discharge Planning Assessment Assigned Pathologist Assistant JAYME Bills Advance Directives? Yes: and POL Advance Directives on File No: Requested guardian ppk from son History Provided By Family Member,Medical Record Has Patient been admitted in last 30 Yes days? Comment last admissions: 07/31/23-, 09/01/23-09/08/23 Prior Living Arrangements Skilled Nurse Facility Household Members other Type of transporation used prior to Relies on Others admit Facility Name Admitted From: [facility] Willing to Return to Facility? Yes Independent with ADL's No: Pt is dependent on all ADL 's Is patient alert and oriented? No Needs Assistance With Bathing,Eating,Grooming,Meal Prep,Toileting,Managing Medications,Home Chores / Shopping Caregiver for Another No DME Already Rented / Owned Hospital Bed,Wheelchair Patient/Family Preference Alf Facility Comment Return to [facility] expected. Discharge Plan Alf Facility Transportation Arrangement facility transportation Referrals Initiated Alf Additional Comment [facility] can accept back, long-term resident. Inpatient Status as of 09/08/23 Whiteboard Updated in Patient Room with Yes name and ext. # of Pathologist Assistant Review Status In Process Please Provide Date Initial DC 10/12/23 Assessment Was Performed
--- NOTE | 2023-10-12 13:41 | ST.IPCSEOM ---
Visit Care Team Role Provider Type Gil Quigley MD Other Providers Physician Specialty: General Surgery Address: [address] [place] [address], [address], [address] Email: [email or web address] Russell DO Emergency Provider Physician Referring Provider Specialty: Emergency Medicine Address: [address] [place] [address], [address] Email: [email or web address] Velma Condon DO Admit Provider Physician Attending Provider Specialty: Internal Medicine Address: [address] [place] [address], [address] Fax: Email: Current Diagnoses Sepsis, unspecified organism (10/11/23) Cerebral infarction, unspecified (10/11/23) Pneumonitis due to inhalation of food and vomit (10/11/23) Hemoptysis (10/11/23) Speech-Language Pathology Swallow Evaluation HOT IRON WORKER Clinical Swallow Evaluation Start: 10/12/23 13:21 Freq: Status: Active Protocol: Document 10/12/23 13:21 CG (Rec: 10/12/23 13:41 CG [id number]) Clinical Swallow Evaluation Session Time Visit Start Time 09:10 Visit Stop Time 09:30 Total Visit Minutes 20 Visit Information Visit Number [address] Ansari Reason for Referral dysphagia Next Note Type Next Note Type Treatment Note Patient Information History Per H&P: Patient aphasic, unable to obtain history from patient. Son at bedside previously, was not able to give further history. Per records, brought from [facility] for hypoxia and bloody emesis. No further details were able to be obtained. ED evaluation found the patient to be hypoxic with saturations in the 80's, started on NRB 10-15L, intermittently able to wean to 4L NC however failed trial off oxygen. Discussed with General surgeron who is amenable to endoscopy tomorrow if indicated, plan for medical management as this time. Previous admission for aspiration pneumonia 09/01-, 07/2023. Evaluated by HOT IRON WORKER, dyphagia diet ordered. During admission 08/2023, sepsis secondary to acute cholangitis, gallstone pancreatitis requiring cholecystectomy. Severe dysphagia, chronic. Present on admission and active. -MBS showed deep penetration but not aspiration, pureed and nectar thick diet recommended -continue dysphagia diet, continue to reassess. Family not interested in PEG at this time. -continue HOT IRON WORKER evaluation and therapies DNR/DNI okay for procedures. This pt was previously seen by ST in August for a similar incident in which she was suspected to have aspirated emesis. At that time, she had an MBS which showed some possible penetration but no aspiration during the swallow. Due to oral motor control deficits, it was recommended that the pt continue on a diet of nectar thick (IDDSI 2 mildly thick) liquids and puree solids. Subjective Observations Pt sitting upright in bed. Pt is primarily non-verbal with cognitive deficits. Pt's son ( ? son in law) was present at bedside. Pt with O2 via in place via nasal cannula. She was agreeable to HOT IRON WORKER inspecting oral cavity and providing oral care. Pt opened her mouth whenever HOT IRON WORKER brought toothette or toothbrush to her lips to allow for inspection and OME. Partway through OME and providing family education re oral care, nurse (Giuseppe) came into the room and noted that the pt was going to have an endoscopy done today, so pt to remain NPO until this procedure had finished. Therefore, HOT IRON WORKER unable to conduct PO trials. Reported by Patient/Caregiver Baseline Feeding Method Dependent for feeding The IDDSI Framework Protocol: IDDSI.1 Objective Assessment Mental Status Alert,Cooperative Oral Integrity Oral residue,Sores/Lesions Dentition Missing teeth,Decay,Upper dentures/partials,Lower dentures/partials Lip Function Severe impairment Tongue Function Severe impairment Comment HOT IRON WORKER assisted with oral care in the process of OME and provided family education to pt's son throughout. Explained the importance of oral care in reducing bacterial load in the oral cavity in order to decrease risk of aspiration pneumonia, even while pt is NPO (as the pt can still aspirate saliva). Provided education in use of toothbrush for friction due to bacterial biofilm that forms in the oral cavity, which cannot be adequately broken down by sponges. Pt had upper and lower partial , and a few remaining teeth present in upper and lower jaw . Of the few remaining, about 50% are at least partially decayed with root nearly exposed. Pt's dentures were removed and cleaned. Approximately 1tsp of oral residue was removed from the pt's mouth. Pt was unable to follow commands to move her tongue or lips, and son in law reports that she has lost most motor control of her mouth 2/ strokes. Overall, oral integrity is significantly decreased, which presents as a risk factor for aspiration pneumonia. This is exacerbated by the fact that the pt is dependent for oral care and all other ADLs. Food and Liquid Trials Results Unable to conduct PO trials due to NPO status for pending endoscopy. Will attempt PO trials in AM. Pt's risk of recurring aspiration pneumonia is exacerbated by the following factors: -poor oral health -dependence for oral care -bedbound -cognitive deficits 2/ CVA The IDDSI Framework Protocol: IDDSI.1 Recommendations Medication Recommendations Crushed in Carrier Discharge Recommendations snf facility Goals Short-term Goals STG 1: Patient will tolerate PO trials of IDDSI 4 with no clinical s/s of dysphagia 100% of the time in order to consume least restrictive diet . STG 2: Patient will tolerate PO trials of nectar thick liquids with no clinical s/s of aspiration 100% of the time in order to consume least restrictive diet. Long-term Goals LTG: Patient will tolerate safest and most efficient diet with no clinical s/s of aspiration or dysphagia 100% of the time in order to consume least restrictive diet .
[2023-10-12] MEDS: LACTATED RINGERS 1,000 ML 50 ML IV ×2 (15:02→20:49)
--- NOTE | 2023-10-12 15:03 | SUR.HOLD ---
Godwin roy and DPOA with patient to pre-op. Spoke with Anesthesia and Dr Quigley and signed consent.
--- NOTE | 2023-10-12 15:57 | PM.OP.EGD ---
Operative Date/Time/Diagnoses Date of procedure: 10/12/23 Time of procedure: 15:58 Pre-op diagnosis: Hematemesis and anemia Post-op diagnosis: same Procedure & Clinicians Study performed: Esophagogastroduodenoscopy Same procedure as scheduled: Yes Surgeon: Gil Quigley Procedure Notes Procedure in detail: Surgeon: Gil Quigley MD Anesthesia: Florinda Lea CRNA A timeout was performed. A bite blocked was placed. The patient was positioned in the supine position. General endotracheal anesthesia was administered. The endoscope was inserted through the bite block and passed through the esophagus and stomach and into the duodenum. The duodenal mucosa appeared normal. The scope was withdrawn into the duodenal bulb and no abnormalities were seen. The scope was withdrawn into the stomach. No abnormalities were seen. No fresh or old blood was noted. The rest of the stomach was normal. The scope was retroflexed and no hiatal hernia was seen. The scope was withdrawn into the esophagus and no abnormalities were seen. The remainder of the esophagus was normal. The scope was withdrawn. The patient was awakened and brought to recovery. Sedation time: 4 minutes Findings: No source of GI bleeding identified Post-procedure Disposition: PACU
[2023-10-12 20:52] LABS: Occult Blood 1 Negative (Negative)
[2023-10-12] MEDS: cefTRIAXone 1,000 MG in SODIUM CHLORIDE 0.9% 100 ML 200 MG IV (23:42)
[2023-10-13 05:30] VITALS: TEMP 37.2
[2023-10-13 06:42] VITALS: O2SAT 95
[2023-10-13] MEDS: PANTOPRAZOLE 40 MG VIAL IV (08:37)
[2023-10-13] MEDS: HYDROMORPHONE 0.5 MG INJ 0.25 MG IV ×2 (09:43→13:47)
[2023-10-13 10:12] LABS: Add Manual Diff / Slide Review NO; Basophils Absolute Auto 0 /uL (0-100); Basophils Percent Auto 0.3 % (0-2); Eosinophils Absolute Auto 0 /uL (0-450); Eosinophils Percent Auto 0.1 % (2-4); Hematocrit 34.2 % (36-46); Hemoglobin 11.2 g/dL (12.0-16.0); Lymphocytes Absolute Auto 1700 /uL (1100-4500); Lymphocytes Percent Auto 13.7 % (25-40); Mean Corpuscular HGB Conc 32.6 % (30-36); Mean Corpuscular Hemoglobin 29.5 PG (26-34); Mean Corpuscular Volume 90.5 fL (80-100); Monocytes Absolute Auto 600 /uL (0-900); Monocytes Percent Auto 4.7 % (3-14); Neutrophils Absolute Auto 10300 /uL (1500-7000); Neutrophils Percent Auto 81.2 % (50-75); Platelet Count 287 X10^3/uL (150-400); Red Blood Cell Count 3.78 X10^6/uL (4.0-5.2); Red Cell Distribution Width 14.1 % (11.6-14.8); White Blood Cell Count 12.7 X10^3/uL (4.5-11.0)
[2023-10-13 10:23] LABS: BUN Creatinine Ratio 27.1 (6-22); Blood Urea Nitrogen 13 mg/dL (7-17); Calcium 8.3 mg/dL (8.4-10.2); Carbon Dioxide 26 mmol/L (22-32); Chloride 110 mmol/L (98-107); Estimated Glomerular Filt Rate > 60 mL/min (>60); Glucose 83 mg/dL (80-110); HEMOLYSIS < 15 (0-50); Potassium 3.7 mmol/L (3.4-5.1); Sodium 139 mmol/L (137-145)
[2023-10-13] MEDS: metroNIDAZOLE 500 MG/100 ML PIGGYBACK 100 MG IV ×2 (10:28→17:49)
[2023-10-13 10:48] VITALS: O2SAT 92
--- NOTE | 2023-10-13 11:00 | P.PN_ITS ---
Subjective Subjective Interval history: Patient's metal bridge teeth fell out this morning. She is refusing food or pills, possibly due to pain. IV pain meds ordered as well as oral lidocaine gel. EGD was normal yesterday so advancing diet and continuing to treat for PNA. Exam Vital Signs (past 8 hours): - 10/13/23 06:42 10/13/23 07:49 10/13/23 10:48 Pulse Oximetry 95 92 Oxygen Delivery Method Nasal Cannula Nasal Cannula Oxygen Flow Rate 1 2.5 Oxygen Delivery Method Nasal Cannula Oxygen Flow Rate 2.5 Const General: cooperative (nonverbal) Eyes General: appearance normal, both eyes and all related structures Chest Chest: normal inspection of the chest Resp Other: coarse breath sounds Cardio Rate: tachycardic Rhythm: regular rhythm GI Inspection: normal to inspection Auscultation: normal bowel sounds Skin General: no rashes or lesions noted Neuro General: patient alert, patient awake and moves all extremities Other: Aphasic Extrem General: no pedal edema and amputation noted (Right BKA) Objective Labs 10/13/23 10:03 10/13/23 10:03 Labs: Laboratory Results - last 24 hr 10/12/23 10/13/23 20:30 10:03 WBC 12.7 H RBC 3.78 L Hgb 11.2 L Hct 34.2 L MCV 90.5 MCH 29.5 MCHC 32.6 RDW 14.1 Plt Count 287 Neut % (Auto) 81.2 H Lymph % (Auto) 13.7 L [place] % (Auto) 4.7 Eos % (Auto) 0.1 L Baso % (Auto) 0.3 Neut # (Auto) 27413 H Lymph # (Auto) 1700 [place] # (Auto) 600 Eos # (Auto) 0 Baso # (Auto) 0 Sodium 139 Potassium 3.7 Chloride 110 H Carbon Dioxide 26 BUN 13 Creatinine 0.48 L Estimated GFR > 60 BUN/Creatinine Ratio 27.1 H Glucose 83 Calcium 8.3 L Stool Occult Blood Negative PFSH Surgical History Hx laparoscopic cholecystectomy Social History household members: other Smoking Status: Never smoker alcohol intake: never Assessment & Plan Assessment & Plan narrative: Sepsis 2/2 suspected aspiration Aspiration pneumonia Acute respiratory failure with hypoxia - Temp 100.7, RR 38, HR 139, WBC 12.1, O2 82%; no hypotension - CXR with bibasilar opacities - Antibx started with Rocephin for aspiration, BCx NG at 24 hours - Oxygen therapy at 2.5L - continue pulmonary optimization - patient refused to work with BRINE TANK TENDER, dysphagia diet ordered and they will try again later - leukocytosis improving Possible Hemoptysis, reported INSPECTOR FILTER TIP - unable to obtain further details, unclear if blood in emesis, although dropping in Hgb - tachycardic, no elevation in BUN to suggest fast bleed, no further episodes, BP stable, hemoccult negative - troponin negative, continue cardiac monitoring - ED provider discussed wtih Gen Surg Dr. 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 2 days. If patient refuses to eat, hospice discussions should be had, but family has been resistant to this in the past. Time Spent With Patient Time with patient: 70 minutes or more, with 50% spent counseling/coordinating
--- NOTE | 2023-10-13 12:00 | ST.IPDYTX ---
Visit Care Team Role Provider Type Gil Quigley MD Other Providers Physician Specialty: General Surgery Address: [address] [place] [address], [address], [place], [address] Email: [email or web address] Caleb Russell DO Emergency Provider Physician Referring Provider Specialty: Emergency Medicine Address: [address] [place] [address], [address] Email: [email or web address] Velma Condon DO Admit Provider Physician Attending Provider Specialty: Internal Medicine Address: [address] [place] [address], [address] Fax: Email: FOOD PHOTOGRAPHER Dysphagia Treatment FOOD PHOTOGRAPHER Dysphagia Treatment Start: 10/13/23 11:42 Freq: Status: Active Protocol: Document 10/13/23 11:44 MA (Rec: 10/13/23 11:59 MA [id number]) Dysphagia Treatment Session Time Visit Start Time 08:35 Visit Stop Time 08:50 Total Visit Minutes 15 Visit Information Visit Number 1 Patient Information Subjective Observations Pt sitting upright in bed. Pt is primarily non-verbal with cognitive deficits. Pt's son was present at bedside. Treatment Pharyngeal Strategies Small Bites and Sips The IDDSI Framework Protocol: IDDSI.1 Assessment Patient Response to Treatment Fair Assessment of Improvement ST attempted to administer PO trials of pureed solids and nectar thick liquids, however Pt refused, characterized by her pushing food/liquid away and yelling. Pt son suggested putting her dentures in. ST placed upper dentures in, however Pt continued to refused. Her bottom plate appeared to become lose. ST got nurse Jacob to assist with fixing her plate, however Pt then refused to open mouth given verbal, visual and tactile cues. ST unable to recommend safe PO diet d/t Pt refusing trials, however Pt had a MBS completed in August with recommendation for pureed solids and nectar thick liquids, which she was tolerating well at that time and may tolerate well now. ST recommends diet ordered per MD discretion. ST communicated recommendations with nursing, MD and patient son. Recommendations Medication Recommendations As Tolerated Treatment Plan Placement Recommendation after Discharge Alf Facility,[facility]pc Care Facility,Home with Hospice Appropriate for Continued Therapy Yes
--- NOTE | 2023-10-13 13:14 | CM.DPC ---
DCP Cont. Reviewed EMR and team rounds for status updates. Pt is refusing all oral intake, refusing to work with NON ACOUSTIC OPERATOR/therapies. Plan is to continue IV ABO's, continue to evaluate and monitor for possible hymoptysis and falling hemoglobin, etiology not yet known for this. SCREENING SPECIALIST will contact family tomorrow and assess goals of care.
[2023-10-13 15:00] VITALS: TEMP 37.6
--- NOTE | 2023-10-13 15:43 | DIET.CONS ---
Dietary Consultation Note Admission Date: 10/11/2023 20:07 Assessment: 83 y F presented for bloody emesis. Nutrition screened for low alvaro score. Chart reviewed. Pt refusing PO intake at this time, possibly r/t to pain. Refused PO trails with DIABETES TRAINER. Diet order consistent with [facility] rec in Aug. Pt at high risk for malnutrition due to inadequate intake. MUSEUM HOST/HOSTESS to contact family tomorrow to assess goals of care. Ht: 152.4 cm Wt: 54.431 kg BMI: 23.4 UBW: 57.606 kg per chart on 07/31/23, 5.5% weight loss within 2 months, non-severe Last BM: 10/12/23 (10/12/23 22:10) MNA: Alvaro Score: 13 Diet: 10/13/23 Lunch Dysphagia Diet Diet Modifications: Food Texture: Level 4 - Pureed Liquid Consistency: Level 3 -Moderately Thick Labs: RBC 3.78 X10^6/uL (4.0-5.2) L 10/13/23 10:03 Hgb 11.2 g/dL (12.0-16.0) L 10/13/23 10:03 Hct 34.2 % (36-46) L 10/13/23 10:03 Creatinine 0.48 mg/dL (0.52-1.04) L 10/13/23 10:03 Nutrition Diagnosis: Inadequate energy intake r/t pt denying food as evidenced by 0% PO intake Interventions: 1. Will provide Ensure plus for liquid over solid option 2. Await goals of care discussion EER: 5427-1711 kcals/day (25 kcals/kg) 80 g protein/day (1.5 g/kg) Monitoring/Evaluations: PO intake, ONS tolerance, weight Electronically Signed by: Amita Ojeda 10/13/23 15:43 Clinical Diet[address] [address]
--- NOTE | 2023-10-13 17:58 | PC.NURSE ---
Throughout the day oral care and nutrition was offered however, pt declined all efforts given. Pt is apprehensive to open mouth to receive food and any oral care.
[2023-10-13 19:36] VITALS: PULSE 76; O2SAT 95
[2023-10-13 20:16] VITALS: BP 133/55; PULSE 74; RESP 18; TEMP 36.1; O2SAT 94
[2023-10-13] MEDS: LACTATED RINGERS 1,000 ML 50 ML IV (21:59)
[2023-10-13] MEDS: cefTRIAXone 1,000 MG in SODIUM CHLORIDE 0.9% 100 ML 200 MG IV (23:15)
--- NOTE | 2023-10-14 02:56 | PC.NURSE ---
0150 Noted her left arm very edematous notified coordinator. CAD DETAILER. checked if able to place another IV access but can't find any veins to place an IV. Notified Dr. Horton that 0215 Flagyl was not administer, he ordered to place a midline. Coordinator notified with the new order.
[2023-10-14] MEDS: metroNIDAZOLE 500 MG/100 ML PIGGYBACK 100 MG IV ×3 (03:41→18:14)
[2023-10-14 06:53] LABS: Add Manual Diff / Slide Review NO; Basophils Absolute Auto 100 /uL (0-100); Basophils Percent Auto 0.4 % (0-2); Eosinophils Absolute Auto 100 /uL (0-450); Eosinophils Percent Auto 0.6 % (2-4); Hematocrit 34.5 % (36-46); Hemoglobin 11.3 g/dL (12.0-16.0); Lymphocytes Absolute Auto 1600 /uL (1100-4500); Lymphocytes Percent Auto 13.4 % (25-40); Mean Corpuscular HGB Conc 32.6 % (30-36); Mean Corpuscular Hemoglobin 29.3 PG (26-34); Mean Corpuscular Volume 89.8 fL (80-100); Monocytes Absolute Auto 700 /uL (0-900); Monocytes Percent Auto 5.5 % (3-14); Neutrophils Absolute Auto 9400 /uL (1500-7000); Neutrophils Percent Auto 80.1 % (50-75); Platelet Count 308 X10^3/uL (150-400); Red Blood Cell Count 3.84 X10^6/uL (4.0-5.2); Red Cell Distribution Width 13.9 % (11.6-14.8); White Blood Cell Count 11.8 X10^3/uL (4.5-11.0)
[2023-10-14 06:59] LABS: Blood Urea Nitrogen 9 mg/dL (7-17); Calcium 7.9 mg/dL (8.4-10.2); Carbon Dioxide 27 mmol/L (22-32); Chloride 105 mmol/L (98-107); Estimated Glomerular Filt Rate > 60 mL/min (>60); Glucose 70 mg/dL (80-110); HEMOLYSIS 36 (0-50); Potassium 3.4 mmol/L (3.4-5.1); Sodium 139 mmol/L (137-145)
[2023-10-14 07:57] VITALS: O2SAT 95
--- NOTE | 2023-10-14 08:17 | PM.PN.1 ---
Subjective Subjective Interval history: NAD, does not speak. Exam Vital Signs (past 8 hours): - 10/14/23 07:57 Pulse Oximetry 95 Oxygen Delivery Method Nasal Cannula Oxygen Flow Rate 4 Fraction of Inspired Oxygen 36 Fraction of Inspired Oxygen 36 SaO2/FiO2 Ratio 263 Oxygen Delivery Method Nasal Cannula Oxygen Flow Rate 4 Narrative Exam Narrative: Objective Labs 10/14/23 06:17 10/14/23 06:17 Labs: Laboratory Results - last 24 hr 10/13/23 10/14/23 10:03 06:17 WBC 12.7 H 11.8 H RBC 3.78 L 3.84 L Hgb 11.2 L 11.3 L Hct 34.2 L 34.5 L MCV 90.5 89.8 MCH 29.5 29.3 MCHC 32.6 32.6 RDW 14.1 13.9 Plt Count 287 308 Neut % (Auto) 81.2 H 80.1 H Lymph % (Auto) 13.7 L 13.4 L [place] % (Auto) 4.7 5.5 Eos % (Auto) 0.1 L 0.6 L Baso % (Auto) 0.3 0.4 Neut # (Auto) 85322 H 9400 H Lymph # (Auto) 1700 1600 [place] # (Auto) 600 700 Eos # (Auto) 0 100 Baso # (Auto) 0 100 Sodium 139 139 Potassium 3.7 3.4 Chloride 110 H 105 Carbon Dioxide 26 27 BUN 13 9 Creatinine 0.48 L 0.41 L Estimated GFR > 60 > 60 BUN/Creatinine Ratio 27.1 H 22.0 Glucose 83 70 L Calcium 8.3 L 7.9 L PFSH Surgical History Hx laparoscopic cholecystectomy Social History household members: other Smoking Status: Never smoker alcohol intake: never Assessment & Plan Assessment & Plan narrative: [address] [address] Progress Note Patient: Quyen Hyde MR#: [id number] : 1940 Acct:[id number] Age/Sex: 83 / F Admit Date: 10/11/23 Provider: Luis Ansari D.O. Subjective Subjective Interval history: Patient's metal bridge teeth fell out this morning. She is refusing food or pills, possibly due to pain. IV pain meds ordered as well as oral lidocaine gel. EGD was normal yesterday so advancing diet and continuing to treat for PNA. Exam Vital Signs (past 8 hours): - 10/12/2405:42 10/12/2406:49 10/12/2409:48 Pulse Oximetry 95 92 Oxygen Delivery Method Nasal Cannula Nasal Cannula Oxygen Flow Rate 1 2.5 Oxygen Delivery Method Nasal Cannula Oxygen Flow Rate 2.5 Const General: cooperative (nonverbal) Eyes General: appearance normal, both eyes and all related structures Chest Chest: normal inspection of the chest Resp Other: coarse breath sounds Cardio Rate: tachycardic Rhythm: regular rhythm GI Inspection: normal to inspection Auscultation: normal bowel sounds Skin General: no rashes or lesions noted Neuro General: patient alert, patient awake and moves all extremities Other: Aphasic Extrem General: no pedal edema and amputation noted (Right BKA) Objective Labs 10/13/23 10:03 10/13/23 10:03 Labs: Laboratory Results - last 24 hr 10/12/23 10/13/23 20:30 10:03 WBC 12.7 H RBC 3.78 L Hgb 11.2 L Hct 34.2 L MCV 90.5 MCH 29.5 MCHC 32.6 RDW 14.1 Plt Count 287 Neut % (Auto) 81.2 H Lymph % (Auto) 13.7 L [place] % (Auto) 4.7 Eos % (Auto) 0.1 L Baso % (Auto) 0.3 Neut # (Auto) 30450 H Lymph # (Auto) 1700 [place] # (Auto) 600 Eos # (Auto) 0 Baso # (Auto) 0 Sodium 139 Potassium 3.7 Chloride 110 H Carbon Dioxide 26 BUN 13 Creatinine 0.48 L Estimated GFR > 60 BUN/Creatinine Ratio 27.1 H Glucose 83 Calcium 8.3 L Stool Occult Blood Negative PFSH Surgical History Hx laparoscopic cholecystectomy Social History household members: other Smoking Status: Never smoker alcohol intake: never Assessment & Plan 1. Sepsis 2/2 suspected aspiration, present on admission and active. 2. Aspiration pneumonia, present on admission and active. 3. Acute respiratory failure with hypoxia, present on admission and active. - Temp 100.7, RR 38, HR 139, WBC 12.1, O2 82%; no hypotension - CXR with bibasilar opacities - Antibx started with Rocephin for aspiration, BCx NG at 24 hours - Oxygen therapy at 2.5L - continue pulmonary optimization - patient refused to work with PLANNING COORDINATOR, dysphagia diet ordered and they will try again later - leukocytosis improving 4. Possible Hemoptysis, reported CORDUROY CUTTING SUPERVISOR, , present on admission and active. - unable to obtain further details, unclear if blood in emesis, although dropping in Hgb - tachycardic, no elevation in BUN to suggest fast bleed, no further episodes, BP stable, hemoccult negative - troponin negative, continue cardiac monitoring - ED provider discussed wtih Gen Surg Dr. Quigley, performed EGD which was normal - monitor H/H - antiemetics prn - can stop PPI 5. Hyperglcyemia, improving. 6. HTN, , present on admission and active. - hold home lisinopril as NPO, monitor for indication for prn if BP > 180/110 7. History of CVA (aphasic, non-ambulatory at baseline), present on admission and active. 8. History of meningioma, present on admission and active. 9. History of anemia 10. Anxiety 11. Depression, hold home Lexapro 12. Epilepsy, continue home lamotrigine, primidone 13. Chronic tremor 14. History of SAH 15. Diverticulosis Dispo: Pending weaning O2, treatment of PNA. 2 days. If patient refuses to eat, hospice discussions should be had, but family has been resistant to this in the past.
--- NOTE | 2023-10-14 09:34 | P.PN_ITS ---
Subjective Subjective Interval history: Awake and does not speak. Exam Vital Signs (past 8 hours): - 10/14/23 07:57 Pulse Oximetry 95 Oxygen Delivery Method Nasal Cannula Oxygen Flow Rate 4 Fraction of Inspired Oxygen 36 Fraction of Inspired Oxygen 36 SaO2/FiO2 Ratio 263 Oxygen Delivery Method Nasal Cannula Oxygen Flow Rate 4 Narrative Exam Narrative: NAD, Awake and tracking. Lungs are clear, normal rate and effort. Heart is regular, no murmur gallop or rub. Abdomen is soft, non distended. Extremities are free of edema. Good radial and pedal pulses. Objective Labs 10/14/23 06:17 10/14/23 06:17 Labs: Laboratory Results - last 24 hr 10/13/23 10/14/23 10:03 06:17 WBC 12.7 H 11.8 H RBC 3.78 L 3.84 L Hgb 11.2 L 11.3 L Hct 34.2 L 34.5 L MCV 90.5 89.8 MCH 29.5 29.3 MCHC 32.6 32.6 RDW 14.1 13.9 Plt Count 287 308 Neut % (Auto) 81.2 H 80.1 H Lymph % (Auto) 13.7 L 13.4 L [place] % (Auto) 4.7 5.5 Eos % (Auto) 0.1 L 0.6 L Baso % (Auto) 0.3 0.4 Neut # (Auto) 01361 H 9400 H Lymph # (Auto) 1700 1600 [place] # (Auto) 600 700 Eos # (Auto) 0 100 Baso # (Auto) 0 100 Sodium 139 139 Potassium 3.7 3.4 Chloride 110 H 105 Carbon Dioxide 26 27 BUN 13 9 Creatinine 0.48 L 0.41 L Estimated GFR > 60 > 60 BUN/Creatinine Ratio 27.1 H 22.0 Glucose 83 70 L Calcium 8.3 L 7.9 L PFSH Surgical History Hx laparoscopic cholecystectomy Social History household members: other Smoking Status: Never smoker alcohol intake: never Assessment & Plan Assessment & Plan narrative: 1. Sepsis 2/2 suspected aspiration, present on admission and improved. 2. Aspiration pneumonia, present on admission and improved. 3. Acute respiratory failure with hypoxia, present on admission and resolved. - Temp 100.7, RR 38, HR 139, WBC 12.1, O2 82%; no hypotension - CXR with bibasilar opacities - Antibx started with Rocephin for aspiration, BCx NG at 24 hours 4. Possible Hemoptysis, reported MEETING COORDINATOR, resolved. - unable to obtain further details, unclear if blood in emesis, although dropping in Hgb - tachycardic, no elevation in BUN to suggest fast bleed, no further episodes, BP stable, hemoccult negative - troponin negative, continue cardiac monitoring - ED provider discussed wtih Gen Surg Dr. Quigley, performed EGD which was normal - monitor H/H 5. Hyperglcyemia, suspect reactive, judicious monitoring. Improved. 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 We will continue antibiotics for 7 days. These will be oral.
--- NOTE | 2023-10-14 10:30 | CM.DPC ---
YESIKAP Cont. Reviewed EMR and team rounds for pt's medical status and updates. She continues to refuse any oral care or PO intake, including meds. Called and spoke to her dtr, Nicci, who is out of town but arriving back home tonight. Updated her on pt's status and that she may be approaching end of life if she continues to refuse all oral intake/meds, and that this seems to be a pattern of ongoing decline in overall functioning/disease progression. Dtr was insistent that she did not want comfort measures, and that the family has been told for 6 1/2 years that she was going to and she always improves. She will come see pt either tonight when she gets home or tomorrow. She will update staff as to next steps per family's preference once she is better able to assess pt herself. This RFID MANAGER encouraged her to reach out to the RFID MANAGER tomorrow if we can provide assistance re: resources, questions/concerns, and level of care needs.
[2023-10-14] MEDS: DEXTROSE 5%-0.45% NS 1,000 ML 84 ML IV ×2 (11:23→22:52)
[2023-10-14] MEDS: ENOXAPARIN 30 MG/0.3 ML SYRINGE SUBCUT (11:25)
--- NOTE | 2023-10-14 12:21 | ST.IPDYTX ---
Visit Care Team Role Provider Type Gil Quigley MD Other Providers Physician Specialty: General Surgery Address: [address] [place] [address], [address], [place], [address] Email: [email or web address] Caleb Russell DO Emergency Provider Physician Referring Provider Specialty: Emergency Medicine Address: [address] [place] [address], [address] Email: [email or web address] Velma Condon DO Admit Provider Physician Attending Provider Specialty: Internal Medicine Address: [address] [place] [address], [address] Fax: Email: TOP LOADER Dysphagia Treatment TOP LOADER Dysphagia Treatment Start: 10/13/23 11:42 Freq: Status: Active Protocol: Document 10/14/23 12:16 MG (Rec: 10/14/23 12:21 MG [id number]) Dysphagia Treatment Session Time Visit Start Time 09:30 Visit Stop Time 09:40 Total Visit Minutes 10 Visit Information Visit Number 2 Patient Information Subjective Observations Pt sitting reclined in bed. Pt is primarily non-verbal with cognitive deficits. Prior to entering the room, this TOP LOADER checked in with the MANAGER STONE and they reported the pt refused to participate in breakfast this AM. Treatment Liquids Trialed Mildly Thick (IDDSI 2), Moderately Thick (IDDSI 3 Solids Trialed Purred (IDDSI 4) Administration Type Tea Spoon,Cup Single Sip, Dependent Feeding Oral Strategies Upright at 90 degrees, Controlled Bite/Sip Size Pharyngeal Strategies Small Bites and Sips The IDDSI Framework Protocol: IDDSI.1 Assessment Patient Response to Treatment Fair Assessment of Improvement ST attempted to administer PO trials of pureed solids and nectar thick liquids, however the pt refused, characterized by her turning her head away from this TOP LOADER. Checked in with pt's nurse who reported that the pt has not particpated in any consumption of solids/ liquids while admitted at this hospital. Recommend continuing current diet orders based on MBSS results and attempt therapy when pt is willing to participate. Recommendations Recommendations Continue Current Diet Liquids Order Moderately Thick (IDDSI 3) Diet Order Pureed (IDDSI 4) Medication Recommendations As Tolerated Additional Dietary Needs Single Sips,1:1 Assistance Aspiration Precautions Additional Precautions SLOW feeding due to poor oral transition to pharynx Treatment Plan Placement Recommendation after Discharge Group Home Facility,Custodial Care Facility,Home with Hospice Appropriate for Continued Therapy Yes Therapy Recommendations Attempt oral care and oral intake when the pt is willing to participate in PO trials.
[2023-10-14] MEDS: ESCITALOPRAM 10 MG TABLET 20 MG PO (12:48)
[2023-10-14] MEDS: lamoTRIgine 100 MG TABLET 150 MG PO (12:48)
[2023-10-14 13:35] VITALS: BP 148/62; PULSE 69; RESP 16; TEMP 36.8; O2SAT 94
[2023-10-14] MEDS: ONDANSETRON 4 MG/2 ML INJ IV (18:48)
[2023-10-14 19:39] VITALS: PULSE 72; O2SAT 96
[2023-10-14 20:00] VITALS: BP 139/65; PULSE 69; RESP 17; TEMP 36.7; O2SAT 96
[2023-10-14] MEDS: PRIMIDONE 50 MG TABLET PO (21:20)
[2023-10-14] MEDS: PRIMIDONE 50 MG TABLET 250 MG PO (21:21)
[2023-10-14] MEDS: ACETAMINOPHEN 325 MG TABLET 650 MG PO (21:27)
[2023-10-14] MEDS: cefTRIAXone 1,000 MG in SODIUM CHLORIDE 0.9% 100 ML 200 MG IV (22:48)
[2023-10-14 22:59] VITALS: O2SAT 96
[2023-10-15] MEDS: metroNIDAZOLE 500 MG/100 ML PIGGYBACK 100 MG IV ×3 (02:05→18:43)
[2023-10-15 06:28] LABS: Add Manual Diff / Slide Review NO; Basophils Absolute Auto 0 /uL (0-100); Basophils Percent Auto 0.2 % (0-2); Eosinophils Absolute Auto 100 /uL (0-450); Eosinophils Percent Auto 1.4 % (2-4); Hematocrit 31.7 % (36-46); Hemoglobin 10.6 g/dL (12.0-16.0); Lymphocytes Absolute Auto 1800 /uL (1100-4500); Lymphocytes Percent Auto 21.8 % (25-40); Mean Corpuscular HGB Conc 33.5 % (30-36); Mean Corpuscular Hemoglobin 29.8 PG (26-34); Mean Corpuscular Volume 88.9 fL (80-100); Monocytes Absolute Auto 600 /uL (0-900); Monocytes Percent Auto 6.9 % (3-14); Neutrophils Absolute Auto 5900 /uL (1500-7000); Neutrophils Percent Auto 69.7 % (50-75); Platelet Count 315 X10^3/uL (150-400); Red Blood Cell Count 3.57 X10^6/uL (4.0-5.2); Red Cell Distribution Width 13.8 % (11.6-14.8); White Blood Cell Count 8.4 X10^3/uL (4.5-11.0)
[2023-10-15 06:40] LABS: BUN Creatinine Ratio 7.3 (6-22); Blood Urea Nitrogen 3 mg/dL (7-17); Calcium 7.4 mg/dL (8.4-10.2); Carbon Dioxide 31 mmol/L (22-32); Chloride 105 mmol/L (98-107); Estimated Glomerular Filt Rate > 60 mL/min (>60); Glucose 115 mg/dL (80-110); HEMOLYSIS < 15 (0-50); Sodium 138 mmol/L (137-145)
[2023-10-15 06:57] LABS: Potassium 2.6 mmol/L (3.4-5.1)
--- NOTE | 2023-10-15 07:20 | P.PN_ITS ---
Subjective Subjective Interval history: Non-verbal. K is 2.6 this AM. No fevers or hypoxia. Exam Vital Signs (past 8 hours): Fraction of Inspired Oxygen 36 SaO2/FiO2 Ratio 263 Oxygen Delivery Method Nasal Cannula Oxygen Flow Rate 2.5 Narrative Exam Narrative: NAD, nonverbal, tracking me. Lungs are clear with normal effort. Heart is regular without murmur. Abdomen is non distended. Legs are free of edema. Family members at bedside assisting feeding the patient. She definitely eats better with family member assistance. Objective Labs 10/15/23 06:06 10/15/23 06:06 Labs: Laboratory Results - last 24 hr 10/15/23 06:06 WBC 8.4 RBC 3.57 L Hgb 10.6 L Hct 31.7 L MCV 88.9 MCH 29.8 MCHC 33.5 RDW 13.8 Plt Count 315 Neut % (Auto) 69.7 Lymph % (Auto) 21.[address] [place] % (Auto) 6.9 Eos % (Auto) 1.4 L Baso % (Auto) 0.2 Neut # (Auto) 5900 Lymph # (Auto) 1800 [place] # (Auto) 600 Eos # (Auto) 100 Baso # (Auto) 0 Sodium 138 Potassium 2.6 L* Chloride 105 Carbon Dioxide 31 BUN 3 L Creatinine 0.41 L Estimated GFR > 60 BUN/Creatinine Ratio 7.3 Glucose 115 H Calcium 7.4 L PFSH Surgical History Hx laparoscopic cholecystectomy Social History household members: other Smoking Status: Never smoker alcohol intake: never Assessment & Plan Assessment & Plan narrative: 1. Hypokalemia, new and active. -replace and recheck. 2. Sepsis secondary to suspected aspiration, present on admission and resolved. 3. Aspiration pneumonia, present on admission and improved. -complete 5-7 days Abx. 4. Acute respiratory failure with hypoxia, present on admission and resolved. - Temp 100.7, RR 38, HR 139, WBC 12.1, O2 82%; no hypotension - CXR with bibasilar opacities 5. Possible Hemoptysis, reported PATIENT REGISTRATION SPECIALIST, resolved. - unable to obtain further details, unclear if blood in emesis, although dropping in Hgb - tachycardic, no elevation in BUN to suggest fast bleed, no further episodes, BP stable, hemoccult negative - troponin negative, continue cardiac monitoring - ED provider discussed wtih Gen Surg Dr. Quigley, performed EGD which was normal - monitor H/H, remains stable. 6. Hyperglcyemia, suspect reactive, judicious monitoring. Improved. 7. 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 We will continue antibiotics for 7 days. These can be oral.
[2023-10-15 08:00] VITALS: BP 152/70; PULSE 65; RESP 16; TEMP 36.2; O2SAT 100
[2023-10-15] MEDS: POTASSIUM CHLORIDE IN WATER 10 MEQ/100 ML PIGGYBACK 100 MEQ IV ×6 (08:24→14:04)
[2023-10-15 08:40] VITALS: O2SAT 95
[2023-10-15] MEDS: lamoTRIgine 100 MG TABLET 150 MG PO (09:42)
[2023-10-15] MEDS: ENOXAPARIN 30 MG/0.3 ML SYRINGE SUBCUT (09:42)
[2023-10-15] MEDS: ESCITALOPRAM 10 MG TABLET 20 MG PO (09:42)
[2023-10-15] MEDS: DEXTROSE 5%-0.45% NS 1,000 ML 84 ML IV ×2 (10:40→23:05)
--- NOTE | 2023-10-15 13:41 | CM.DPNOTE ---
DCP Note TELECOMMUNICATION OPERATOR reviewed EMR. Per hospitalist in morning rounds, want to keep pt until at least Monday due to drop in potassium. Per RN, pt eating food/took meds with pudding. Per Lore at [facility], can take pt back whenever as long as eating and taking meds consistently. TELECOMMUNICATION OPERATOR met briefly with dtr Nicci in morning- agreeable to [facility] when stable. TELECOMMUNICATION OPERATOR attempted to meet with pt and dtr at bedside in afternoon- dtr gone home for a bit. Pt non-verbal/unclear how much pt understands due to dementia. Plan: [facility] Mon vs Mon when medically stable. No PASRR needed. CM team will continue to follow closely. JAYME Gilliam
[2023-10-15 15:30] LABS: BUN Creatinine Ratio 10.5 (6-22); Blood Urea Nitrogen 4 mg/dL (7-17); Calcium 7.3 mg/dL (8.4-10.2); Carbon Dioxide 28 mmol/L (22-32); Chloride 105 mmol/L (98-107); Estimated Glomerular Filt Rate > 60 mL/min (>60); Glucose 114 mg/dL (80-110); HEMOLYSIS 27 (0-50); Potassium 3.6 mmol/L (3.4-5.1); Sodium 135 mmol/L (137-145)
[2023-10-15 20:00] VITALS: BP 143/59; PULSE 82; RESP 16; TEMP 37.2; O2SAT 93
[2023-10-15] MEDS: KETOROLAC 30 MG/ML VIAL IV (20:47)
[2023-10-15 21:30] VITALS: O2SAT 93
[2023-10-15] MEDS: cefTRIAXone 1,000 MG in SODIUM CHLORIDE 0.9% 100 ML 200 MG IV (23:05)
[2023-10-16] MEDS: metroNIDAZOLE 500 MG/100 ML PIGGYBACK 100 MG IV ×2 (02:53→09:55)
[2023-10-16 06:42] LABS: Add Manual Diff / Slide Review NO; Basophils Absolute Auto 0 /uL (0-100); Basophils Percent Auto 0.3 % (0-2); Eosinophils Absolute Auto 200 /uL (0-450); Eosinophils Percent Auto 2.9 % (2-4); Hematocrit 32.2 % (36-46); Hemoglobin 10.7 g/dL (12.0-16.0); Lymphocytes Absolute Auto 2100 /uL (1100-4500); Mean Corpuscular HGB Conc 33.3 % (30-36); Mean Corpuscular Hemoglobin 29.8 PG (26-34); Mean Corpuscular Volume 89.3 fL (80-100); Monocytes Absolute Auto 500 /uL (0-900); Monocytes Percent Auto 7.7 % (3-14); Neutrophils Absolute Auto 3800 /uL (1500-7000); Neutrophils Percent Auto 57.1 % (50-75); Platelet Count 291 X10^3/uL (150-400); Red Blood Cell Count 3.61 X10^6/uL (4.0-5.2); Red Cell Distribution Width 13.7 % (11.6-14.8); White Blood Cell Count 6.6 X10^3/uL (4.5-11.0)
[2023-10-16 06:54] VITALS: PULSE 63; O2SAT 92
[2023-10-16 06:55] LABS: Calcium 7.5 mg/dL (8.4-10.2); Carbon Dioxide 32 mmol/L (22-32); Chloride 110 mmol/L (98-107); Estimated Glomerular Filt Rate > 60 mL/min (>60); Glucose 105 mg/dL (80-110); Potassium 3.1 mmol/L (3.4-5.1); Sodium 141 mmol/L (137-145)
[2023-10-16 07:17] LABS: HEMOLYSIS 17 (0-50)
[2023-10-16 07:19] LABS: BUN Creatinine Ratio 5.7 (6-22); Blood Urea Nitrogen < 2 mg/dL (7-17)
[2023-10-16 08:00] VITALS: BP 147/65; PULSE 75; RESP 18; TEMP 36.6; O2SAT 94
[2023-10-16] MEDS: POTASSIUM CHLORIDE IN WATER 10 MEQ/100 ML PIGGYBACK 100 MEQ IV ×3 (08:43→10:50)
[2023-10-16] MEDS: lamoTRIgine 100 MG TABLET 150 MG PO (08:57)
[2023-10-16] MEDS: ESCITALOPRAM 10 MG TABLET 20 MG PO (08:58)
[2023-10-16 09:02] LABS: Magnesium 1.8 mg/dL (1.6-2.3)
[2023-10-16] MEDS: ENOXAPARIN 30 MG/0.3 ML SYRINGE SUBCUT (09:02)
[2023-10-16] MEDS: MAGNESIUM SULFATE 2 GM/50 ML PIGGYBACK IV (10:51)
--- NOTE | 2023-10-16 11:09 | ST.IPDYTX ---
Visit Care Team Role Provider Type Gil Quigley MD Other Providers Physician Specialty: General Surgery Address: [address] [place] [address], [address], [place], [address] Email: [email or web address] Caleb Russell DO Emergency Provider Physician Referring Provider Specialty: Emergency Medicine Address: [address] [place] [address], [address] Email: [email or web address] Velma Condon DO Admit Provider Physician Attending Provider Specialty: Internal Medicine Address: [address] [place] [address], [address] Fax: Email: KILN WORKER Dysphagia Treatment KILN WORKER Dysphagia Treatment Start: 10/13/23 11:42 Freq: Status: Active Protocol: Document 10/16/23 11:04 OR (Rec: 10/16/23 11:09 OR [id number]) Dysphagia Treatment Session Time Visit Start Time 10:35 Visit Stop Time 10:55 Total Visit Minutes 20 Visit Information Visit Number 2 Patient Information Subjective Observations Pt sitting upright in bed with daughter present at bedside. Pt is primarily non-verbal with cognitive deficits. Prior to entering the room, this ST checked with nursing who reports Pt has been eating pureed and nectar thick liquids without difficulties. Treatment Solids Trialed Purred (IDDSI 4) Administration Type Tea Spoon,Dependent Feeding Oral Strategies Upright at 90 degrees, Controlled Bite/Sip Size Pharyngeal Strategies Small Bites and Sips Treatment Activities PO trials, education The IDDSI Framework Protocol: IDDSI.1 Assessment Patient Response to Treatment Fair Assessment of Improvement ST attempted to administer trials of nectar thick, however Pt refused. Pt compliant with taking 1 bite of pudding. Pt demonstrated yelling after taking bite of pudding. She exhibited good oral acceptance and containment, prolonged bolus manipulation, extended ap transport, suspected delay in swallow, no overt s/s of aspiration. Pt daughter reports she yells like that when she doesn't like what the food is. Pt daughter reports plan for Pt to discharge back home today. ST educated Pt daugther on reason for recommended diet and safe swallowing strategies. ST recommends pureed solids and nectar thick liquids. Recommendations Recommendations Continue Current Diet Liquids Order Mildly Thick (IDDSI 2) Diet Order Pureed (IDDSI 4) Medication Recommendations As Tolerated Additional Dietary Needs Single Sips,1:1 Assistance Aspiration Precautions Recommended Precautions Upright at 90 Degrees, Alternate Liquids/Solids,Small Bites/Sips Additional Precautions SLOW feeding due to poor oral transition to pharynx Treatment Plan Therapy Recommendations Attempt oral care and oral intake when the pt is willing to participate in PO trials.
--- NOTE | 2023-10-16 11:56 | PM.DS.1 ---
History of Present Illness History of Present Illness Chief complaint: Bloody vomit Narrative: 82 years old female with history of SAH, epilepsy, hypertension, anxiety, depression, DNR/DNI presented from rehab facility after she vomited and most likely aspirated. Found to be hypoxic in the 70s and short of breath. She was given albuterol nebulizer by the staff without improvement of her symptoms and EMS was called. She also was hypotensive, placed on nonrebreather which brought her oxygenation greater than 90%. The patient is nonverbal at her baseline secondary to prior stroke. Laboratory shows WBC 27.1, lactate 4.6, procalcitonin 0.73. The rest of the lab is still pending. Chest x-ray shows improvement from previous imaging study. In the ER she was given Zosyn 4.5 g IV, Tylenol and was decided to be admitted for further management. Discharge Providers Provider Date of admission: 10/11/23 20:07 Discharge Date: 10/16/23 Consults: 10/11/23 19:54 Consult to General Surgery Stat Comment: Consulting Provider: Gil Quigley Reason for consultation: Hematemesis Has provider been notified: Yes 10/11/23 22:11 Consult to Speech Therapy Evaluate & Treat Comment: 1:1 assist for meals, pureed, nectar thick, Physician Instructions: Evaluate and treat Discharge provider: Luis Ansari DO Summary Hospital Course Discharge Diagnosis: 1. Hypokalemia, new and active. -repleted 2. Sepsis secondary to suspected aspiration, present on admission and resolved. 3. Aspiration pneumonia, present on admission and improved. -complete 5-7 days Abx. 4. Acute respiratory failure with hypoxia, present on admission and resolved. - Temp 100.7, RR 38, HR 139, WBC 12.1, O2 82%; no hypotension - CXR with bibasilar opacities - on rocephin and flagyl - discharged to SNF on po augmentin 5. Possible Hemoptysis, reported SENIOR STRATEGY ANALYST, resolved. - unable to obtain further details, unclear if blood in emesis, although dropping in Hgb - tachycardic, no elevation in BUN to suggest fast bleed, no further episodes, BP stable, hemoccult negative - troponin negative, continue cardiac monitoring - ED provider discussed wtih Gen Surg Dr. Quigley, performed EGD which was normal - monitor H/H, remains stable. 6. Hyperglcyemia, suspect reactive, judicious monitoring. Improved. 7. 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 Question of hematemesis so underwent EGD which was normal. Received 5 days of IV rocephin and flagyl. Discharged on augmentin to finish course. Went back to [facility]. Exam Vital Signs (past 8 hours): - 10/16/23 06:54 10/16/23 08:00 Temperature 97.8 F Pulse Rate 63 75 Respiratory Rate 18 Blood Pressure 147/65 H Pulse Oximetry 92 94 Oxygen Delivery Method Room Air Oxygen Flow Rate 0 1 Fraction of Inspired Oxygen 21 Fraction of Inspired Oxygen 21 SaO2/FiO2 Ratio 438 Oxygen Delivery Method Room Air Oxygen Flow Rate 1 Narrative Exam Narrative: NAD, nonverbal, tracking me. Lungs are clear with normal effort. Heart is regular without murmur. Abdomen is non distended. Legs are free of edema. Objective Labs 10/16/23 06:30 10/16/23 06:30 Labs: Laboratory Results - last 24 hr 10/15/23 10/16/23 15:11 06:30 WBC 6.6 RBC 3.61 L Hgb 10.7 L Hct 32.2 L MCV 89.3 MCH 29.8 MCHC 33.3 RDW 13.7 Plt Count 291 Neut % (Auto) 57.1 Lymph % (Auto) 32.0 [place] % (Auto) 7.7 Eos % (Auto) 2.9 Baso % (Auto) 0.3 Neut # (Auto) 3800 Lymph # (Auto) 2100 [place] # (Auto) 500 Eos # (Auto) 200 Baso # (Auto) 0 Sodium 135 L 141 Potassium 3.6 3.1 L Chloride 105 110 H Carbon Dioxide 28 32 BUN 4 L < 2 L Creatinine 0.38 L 0.35 L Estimated GFR > 60 > 60 BUN/Creatinine Ratio 10.5 5.7 L Glucose 114 H 105 Calcium 7.3 L 7.5 L Magnesium 1.8 PFSH Surgical History Hx laparoscopic cholecystectomy Social History household members: other Smoking Status: Never smoker alcohol intake: never Discharge Plan Discharge Plan Patient Disposition: SNF Discharge orders & Medications Prescriptions: New Orajel 3X Toothache-Gum 20-0.26-0.15 % Gel 1 ea topical QID PRN (Reason: painful gums) Qty: 11.9 0RF amoxicillin-pot clavulanate 875-125 mg tablet 1 tab PO BID 1 Days Qty: 2 0RF Rx Instructions: start evening of 10/15 Continued lamotrigine 150 mg tablet 150 mg PO DAILY Qty: 90 3RF (DME) Probiotic See Rx Instructions .Route .MEDSUPPLY Qty: 30 6RF Rx Instructions: 1 capsule by mouth daily; ascorbic acid (vitamin C) 500 mg tablet 500 mg PO DAILY Qty: 30 6RF polyethylene glycol 3350 [Miralax] 17 gram/dose powder 17 g PO DAILY PRN (Reason: constipation) Qty: 510 3RF primidone 50 mg tablet 50 mg PO BEDTIME Qty: 90 3RF primidone 250 mg tablet 250 mg PO BEDTIME Qty: 90 3RF acetaminophen 500 mg tablet 1,000 mg PO TID PRN (Reason: fever or pain) Qty: 180 0RF Rx Instructions: Ok to crush if needed for easier use of taking calcitriol 0.25 mcg capsule 0.25 mcg PO DAILY Qty: 90 0RF Rx Instructions: APPT DUE WITH PCP. PLEASE CALL TO SCHEDULE APPT. THANK YOU 03/07/22 V-Aboz-Ayxsrfl 250 mg tablet 1 tab PO BID Qty: 180 0RF escitalopram oxalate 20 mg tablet 20 mg PO DAILY Qty: 15 0RF Rx Instructions: NO FURTHER REFILLS UNTIL SEEN. PLEASE CALL TO SCHEDULE APPT. THANKS 07/26/22. lisinopril 10 mg tablet 10 mg PO DAILY Qty: 30 0RF Rx Instructions: Patient is overdue for an appointment with Dr. Jarrett for annual follow up. Patient will need to be seen before next renewal. 08/24/22 Visit Report/Discharge Packet Instructions: DI for Aspiration Pneumonia Stand Alone Forms: Patient Portal/API
[2023-10-16] MEDS: POTASSIUM CHLORIDE 20 MEQ/15 ML UDC PO (12:00)
--- NOTE | 2023-10-16 12:10 | PC.NURSE ---
This RN notified that patient would be picked up at [address] [facility] Ansari notified that potassium and magnesium infusion not completed yet. Final KCL 10 MEQ IV not given, per Dr. Ansari patient will take a 20MEQ of kcl oral solution. (given as ordered, see MAR). The rest of magnesium dose can be wasted prior to discharge if not completed per Dr. Ansari as her magnesium level was OK.
--- NOTE | 2023-10-16 13:22 | CM.DPNOTE ---
DCP Note PHYSICAL THERAPY DIRECTOR reviewed EMR. Per hospitalist, pt cleared to dc today. PHYSICAL THERAPY DIRECTOR spoke with Tata from . Limited transport availability- can take pt back at 1215 today. Transport will bring pt's chair and O2. no PASRR needed. PHYSICAL THERAPY DIRECTOR updated provider and RN and SYSTEM CONSULTANT. ZI Marge kindly agreed to send dc information to Tata at [facility]/place med sheet in chart. PHYSICAL THERAPY DIRECTOR spoke with dtr Nicci to update her on dcp- agreeable but concerned about meds. PHYSICAL THERAPY DIRECTOR reported that she was good with magnesium and provider came up with alternative plan for potassium. dtr will meet pt back at [facility]. Plan: pt to dc home today to [facility] at approx 1215. CM team will continue to follow closely. JAYME Gilliam
== END 2023-10-16 13:28 | DRG 871 ==
LOC: ED 20:07 → AC 20:08
PROVIDERS: Emergency Medicine; Hospitalist; Student in an Organized Health Care Education/Training Program; Surgery; Admitting Provider Internal Medicine; Emergency Provider Emergency Medicine; Referring Provider Emergency Medicine; Visit Provider Internal Medicine
PROC: 0DJ08ZZ Inspection of Upper Intestinal Tract, Via Natural or Artificial Opening Endoscopic (ICD-10-PCS; CPT 43235; principal; 2023-10-12 15:00)
DX: A41.9 Sepsis, unspecified organism (principal); J69.0 Pneumonitis due to inhalation of food and vomit; J96.01 Acute respiratory failure with hypoxia; R04.2 Hemoptysis; I10 Essential (primary) hypertension; I69.320 Aphasia following cerebral infarction; G40.909 Epilepsy, unspecified, not intractable, without status epilepticus; F32.A Depression, unspecified; D64.9 Anemia, unspecified; R65.20 Severe sepsis without septic shock; R73.9 Hyperglycemia, unspecified; E87.6 Hypokalemia; Z66 Do not resuscitate
CPT/HCPCS: 36415; 43235; 71045; 80048; 80053; 81001; 82270; 83690; 83735; 84484; 85014; 85018; 85025; 85610; 86850; 86900; 86901; 87040; 92526; 92610; 93005; 94762; 96365; 96375; 99232; 99285; C9113; J0696; J1170; J1650; J1885; J2405; J2543; J3475

== ENCOUNTER → 2023-11-27 12:40 | Outpatient (CLI) | payer MEDICARE, MEDICAID, SELFPAY ==
[2023-10-11 21:38] VITALS: BMI 23.4
--- NOTE | 2023-11-27 12:43 | DI.US.S_ITS ---
PROCEDURE: US RENAL COMPLETE INDICATIONS: ABDOMINAL DISTENTION TECHNIQUE: Real-time scanning was performed of the kidneys and bladder, with image documentation. COMPARISON: [facility], CT, CT CHEST ABD PEL W CON, 09/01/2023, 10:24. FINDINGS: Kidneys: Right kidney measures 7.7 cm long; left kidney measures 8.3 cm long. Right renal cortical thickness is 1.1 cm; left renal cortical thickness is 1.1 cm. Renal cortical echotexture is normal. No hydronephrosis or nephrolithiasis. No suspicious solid mass lesions. Bladder: Pre-void bladder volume is 316 mL. No postvoid residual measurement could be obtained. Pre-void images demonstrate no intraluminal masses or stones. Dependent debris can be seen within the urinary bladder. On pre-void images, neither of the ureteral jets are noted with color Doppler interrogation. (Of note, ureteral jets may not be detectable in up to 25% of cases due to insufficient differences in specific gravity between ureteral and bladder urine). Miscellaneous: No free pelvic fluid. Note is made of a cystic region within the endometrial stripe, without abnormal vascularity. The endometrial stripe appears thickened at 12 mm. IMPRESSION: There is dependent debris seen within the urinary bladder. Please consider UTI. Negative for hydronephrosis. Small kidney size. Apparent thickening of the endometrial stripe, 12 mm. Differential diagnosis includes endometrial hyperplasia and endometrial neoplasm in a patient of this age. Please correlate with a history of postmenopausal bleeding. - Please consider gynecology consultation. - if clinically appropriate, a dedicated follow-up pelvic ultrasound could be considered for further evaluation. Dictated by: Rikki Jimenez M.D. on 11/27/2023 at 14:48 Approved by: Rikki Jimenez M.D. on 11/27/2023 at 14:52
== END ==
LOC: US 12:42
PROVIDERS: Referring Provider Nurse Practitioner; Visit Provider Nurse Practitioner
DX: R10.9 Unspecified abdominal pain (principal); R14.0 Abdominal distension (gaseous); R93.89 Abnormal findings on diagnostic imaging of other specified body structures
CPT/HCPCS: 76770

== ENCOUNTER 2024-06-07 15:03 | Inpatient (IN) | payer MEDICARE, MEDICAID, SELFPAY ==
[2023-10-11 21:38] VITALS: BMI 23.4
[2024-06-07] VITALS (28 sets, daily range): BP systolic 119–185; BP diastolic 55–110; PULSE 64–135; RESP 17–60; TEMP 36.7–38.3; O2SAT 85–98; BMI 29.0
--- NOTE | 2024-06-07 15:13 | DI.RAD.S_ITS ---
PROCEDURE: XR CHEST 1V INDICATIONS: Shortness of breath TECHNIQUE: One view of the chest was acquired. COMPARISON: [facility], CR, XR CHEST 1V, 10/11/2023, 17:20. FINDINGS: Surgical changes and devices: None. Lungs and pleura: Airspace opacity is seen in left lung base. Small left pleural effusion is also noted. No pneumothorax. Mediastinum: Mediastinal contours appear normal. Heart size is enlarged. Bones and chest wall: No suspicious bony lesions. Overlying soft tissues appear unremarkable. Severe bilateral shoulder joint osteoarthritis. IMPRESSION: Small left pleural effusion and suggestion of left lower lobe infiltrate versus atelectasis. No gross pneumothorax. Dictated by: Ahsan Gonzales M.D. on 06/07/2024 at 15:40 Approved by: Ahsan Gonzales M.D. on 06/07/2024 at 15:41
--- NOTE | 2024-06-07 15:21 | ED.GENADULT ---
HPI - General Adult General Chief complaint: Shortness of Breath/Dyspnea Stated complaint: SOB Time Seen by Provider: 06/07/24 15:12 Source: EMS Mode of arrival: EMS Limitations: other (History of CVA, nonverbal) History of Present Illness HPI narrative: Patient is an 83-year-old female. Arrives by EMS from [facility]. Patient is nonverbal at baseline secondary to history of a CVA. She was a DNR/DNI with limited interventions. She was brought to the emergency department today because of a cough for the past week. This information was provided by EMS. It was reported that she does not have a history of a fever although EMS stated that her temperature was 100.7?. Review of the medical record shows that she has had issues with hypoxia in the past and presumed aspiration pneumonias. No other information available Related Data Previous Rx's Medication Instructions Recorded lamotrigine 150 mg tablet 150 mg PO DAILY #90 tabs 04/23/21 Probiotic #30 ea 06/22/21 ascorbic acid (vitamin C) 500 mg 500 mg PO DAILY #30 tabs 06/22/21 tablet polyethylene glycol 3350 17 17 g PO DAILY PRN constipation 06/22/21 gram/dose oral powder (Miralax) #510 grams primidone 250 mg tablet 250 mg PO BEDTIME #90 tabs 06/24/21 primidone 50 mg tablet 50 mg PO BEDTIME #90 tabs 06/24/21 acetaminophen 500 mg tablet 1,000 mg (2 x 500 mg) PO TID PRN 07/09/21 fever or pain #180 tabs calcitriol 0.25 mcg capsule 0.25 mcg PO DAILY #90 caps 03/07/22 sodium di- and 1 tab PO BID #180 tabs 04/05/22 monophosphate-potassium phos monobasic 250 mg tablet (S-Odby-Yxucgez) escitalopram oxalate 20 mg tablet 20 mg PO DAILY #15 tabs 07/26/22 lisinopril 10 mg tablet 10 mg PO DAILY #30 tabs 08/24/22 benzocaine 20 %-menthol 0.26 1 ea topical QID PRN painful gums 10/16/23 %-zinc chloride 0.15 % mucosal gel #11.9 grams (Orajel 3X Toothache-Gum) Allergies Allergy/AdvReac Type Severity Reaction Status Date / Time No Known Allergies Allergy Verified 10/11/23 17:16 Review of Systems Review of Systems Narrative: See HPI Patient History Surgical History Hx laparoscopic cholecystectomy Social History household members: other Smoking Status: Never smoker alcohol intake: never Smoking Status: Never smoker Substance Use Type: does not use Exam Initial Vital Signs Initial Vital Signs: Vital Signs Temperature 99.1 F 06/07/24 15:06 Pulse Rate 122 H 06/07/24 15:06 Respiratory Rate 28 H 06/07/24 15:06 Blood Pressure 185/110 H 06/07/24 15:06 Pulse Oximetry 85 L 06/07/24 15:06 Oxygen Delivery Method Room Air 06/07/24 15:06 Const General: comfortable Other: Chronically ill-appearing HENMT Head: normal to inspection and normocephalic Resp Effort & Inspection: normal respiratory effort, cough, not labored and tachypneic Auscultation: clear to auscultation bilaterally Cardio Rate: tachycardic Rhythm: regular rhythm GI Inspection: normal to inspection Skin General: no rashes or lesions noted Extrem General: No edema Course Orders Ordered: ED Orders 06/07/24 15:13 XR chest 1V Stat EKG-12 Lead Stat 06/07/24 15:16 Respiratory Panel (Film Array) Stat 06/07/24 15:40 High flow/High humidity nasal NOW 06/07/24 15:45 Complete Blood Count AUTO DIFF Stat Comprehensive Metabolic Panel Stat Lipase Stat Discontinued Medications Piperacillin Sod/Tazobactam (Sod 4.5 gm/ Sodium Chloride) 100 mls @ 200 mls/hr IV NOW ONE Stop: 06/07/24 15:23 Last Infusion: 06/07/24 16:56 Dose: Infused Documented By: Admin: 06/07/24 16:16 Dose: 200 mls/hr Documented By: ALICJA Vital Signs Vital signs: Vital Signs - 8 hr 06/07/24 15:06 06/07/24 15:08 06/07/24 15:10 Temperature 99.1 F Pulse Rate 122 H 132 H 135 H Respiratory Rate 28 H 25 H Blood Pressure 185/110 H 185/110 H Pulse Oximetry 85 L 86 L 89 L Oxygen Delivery Method Room Air Oxygen Flow Rate 06/07/24 15:40 06/07/24 16:03 06/07/24 16:30 Temperature Pulse Rate 126 H 122 H Respiratory Rate 44 H 34 H Blood Pressure 185/110 H 177/81 H 144/72 H Pulse Oximetry 94 89 L Oxygen Delivery Method Oxygen Flow Rate 06/07/24 16:46 06/07/24 17:00 06/07/24 17:15 Temperature Pulse Rate 114 H 110 H 112 H Respiratory Rate 28 H 24 30 H Blood Pressure 154/70 H 136/55 L 129/58 L Pulse Oximetry 92 89 L 91 Oxygen Delivery Method Heated High Flow Oxygen Flow Rate 45 06/07/24 17:30 Temperature 98.1 F Pulse Rate 109 H Respiratory Rate 29 H Blood Pressure 122/60 Pulse Oximetry 91 Oxygen Delivery Method High Flow Nasal Cannula Heated High Flow Oxygen Flow Rate 45 Medical Decision Making Medical Records Medical records reviewed: Yes I reviewed the patient's medical records. Lab Data Lab results reviewed: Yes I reviewed the patient's lab results. 06/07/24 15:45 06/07/24 15:45 Labs: Lab Results 06/07/24 06/07/24 Range/Units 15:16 15:45 WBC 21.1 H (4.5-11.0) X10^3/uL RBC 4.35 (4.0-5.2) X10^6/uL Hgb 13.0 (12.0-16.0) g/dL Hct 39.8 (36-46) % MCV 91.7 (80-100) fL MCH 29.9 (26-34) PG MCHC 32.6 (30-36) % RDW 13.0 (11.6-14.8) % Plt Count 504 H (150-400) X10^3/uL Neut % (Auto) 76.5 H (50-75) % Lymph % (Auto) 15.9 L (25-40) % [place] % (Auto) 6.7 (3-14) % Eos % (Auto) 0.7 L (2-4) % Baso % (Auto) 0.2 (0-2) % Neut # (Auto) 49679 H (7509-1009) /uL Lymph # (Auto) 3400 (3914-4995) /uL [place] # (Auto) 1400 H (0-900) /uL Eos # (Auto) 200 (0-450) /uL Baso # (Auto) 0 (0-100) /uL Sodium 145 (137-145) mmol/L Potassium 4.1 (3.4-5.1) mmol/L Chloride 108 H (98-107) mmol/L Carbon Dioxide 30 (22-32) mmol/L BUN 25 H (7-17) mg/dL Creatinine 0.57 (0.52-1.04) mg/dL Estimated GFR > 60 (>60) mL/min BUN/Creatinine Ratio 43.9 H (6-22) Glucose 152 H (80-110) mg/dL Calcium 8.3 L (8.4-10.2) mg/dL Total Bilirubin 0.3 (0.2-1.3) mg/dL AST 37 H (14-36) IU/L ALT 39 H (<35) IU/L Alkaline Phosphatase 205 H (38-126) U/L Total Protein 8.6 H (6.3-8.2) g/dL Albumin 4.1 (3.5-5.0) g/dL Globulin 4.5 H (1.7-4.1) g/dL Albumin/Globulin Ratio 0.9 L (1.0-2.8) Lipase 64 (23-300) U/L Chlamy pneumoniae PCR Not detected (Not Detect) Adenovirus (PCR) Not detected (Not Detect) B. pertussis DNA (PCR) Not detected (Not Detect) B.parapertussis DNA PCR Not detected (Not Detecte) Coronavirus OC43 (PCR) Not detected (Not Detect) Coronavirus HKU1 (PCR) Not detected (Not Detect) Coronavirus 229E (PCR) Not detected (Not Detect) SARS-CoV-2 (PCR) Not detected (Not Detecte) Coronavirus NL63 (PCR) Not detected (Not Detect) Human Metapneumovir PCR Not detected (Not Detect) Influenza Type A (PCR) Not detected (Not Detect) Influenza Type B (PCR) Not detected (Not Detect) M. pneumoniae (PCR) Not detected (Not Detect) Parainfluenza 1 (PCR) Not detected (Not Detect) Parainfluenza 2 (PCR) Not detected (Not Detect) Parainfluenza 3 (PCR) Not detected (Not Detect) Parainfluenza 4 (PCR) Not detected (Not Detect) RSV (PCR) Not detected (Not Detect) Entero/Rhino (PCR) Detected H (Not Detect) Imaging Data Chest x-ray: Radiologist's Impression: PROCEDURE: XR CHEST 1V INDICATIONS: Shortness of breath TECHNIQUE: One view of the chest was acquired. COMPARISON: [facility], , XR CHEST 1V, 10/11/2023, 17:20. FINDINGS: Surgical changes and devices: None. Lungs and pleura: Airspace opacity is seen in left lung base. Small left pleural effusion is also noted. No pneumothorax. Mediastinum: Mediastinal contours appear normal. Heart size is enlarged. Bones and chest wall: No suspicious bony lesions. Overlying soft tissues appear unremarkable. Severe bilateral shoulder joint osteoarthritis. IMPRESSION: Small left pleural effusion and suggestion of left lower lobe infiltrate versus atelectasis. No gross pneumothorax. ECG Data Attestation: I personally reviewed and interpreted this ECG as follows: Interpretation: Sinus tachycardia Ventricular rate of 118 Normal axis Normal QRS Normal QTC Nonspecific ST T wave changes MDM Narrative Medical decision making narrative: Patient is nonverbal given her prior history of CVA. I did talk with the patient's daughter over the phone and once again confirmed that the patient was DNR/DNI with limited interventions but they are okay with antibiotics, high-flow and BiPAP if needed. Chest x-ray today is concerning for pneumonia. She was given antibiotics. She was also positive for rhino virus. She was had a significant history of multiple aspiration pneumonias in the past. Given her need for oxygen she does require admission to the hospital. Discussed the case with Dr. Tena hospitalist on-call who will admit. Discussed the need for admission with the patient's daughter who expressed understanding and agreement as well. Discharge Plan Departure Patient Disposition: Admitted As Inpatient Clinical Impression: Pneumonia, Hypoxia Admit Date/Time: 06/07/24 17:52 Admit Provider: Buddy Tena V
--- NOTE | 2024-06-07 15:49 | PC.NURSE ---
Placed on Hi-Alfred O2 at this time. 45L/min at 70% FiO2. spO2 reading 94%.
[2024-06-07 15:53] LABS: Add Manual Diff / Slide Review NO; Basophils Absolute Auto 0 /uL (0-100); Basophils Percent Auto 0.2 % (0-2); Eosinophils Absolute Auto 200 /uL (0-450); Eosinophils Percent Auto 0.7 % (2-4); Hematocrit 39.8 % (36-46); Lymphocytes Absolute Auto 3400 /uL (1100-4500); Lymphocytes Percent Auto 15.9 % (25-40); Mean Corpuscular HGB Conc 32.6 % (30-36); Mean Corpuscular Hemoglobin 29.9 PG (26-34); Mean Corpuscular Volume 91.7 fL (80-100); Monocytes Absolute Auto 1400 /uL (0-900); Monocytes Percent Auto 6.7 % (3-14); Neutrophils Absolute Auto 16100 /uL (1500-7000); Neutrophils Percent Auto 76.5 % (50-75); Platelet Count 504 X10^3/uL (150-400); Red Blood Cell Count 4.35 X10^6/uL (4.0-5.2); White Blood Cell Count 21.1 X10^3/uL (4.5-11.0)
[2024-06-07 16:04] LABS: Alanine Aminotransferase 39 IU/L (<35); Albumin 4.1 g/dL (3.5-5.0); Albumin Globulin Ratio 0.9 (1.0-2.8); Alkaline Phosphatase 205 U/L (38-126); Aspartate Aminotransferase 37 IU/L (14-36); BUN Creatinine Ratio 43.9 (6-22); Bilirubin Total 0.3 mg/dL (0.2-1.3); Blood Urea Nitrogen 25 mg/dL (7-17); Calcium 8.3 mg/dL (8.4-10.2); Carbon Dioxide 30 mmol/L (22-32); Chloride 108 mmol/L (98-107); Estimated Glomerular Filt Rate > 60 mL/min (>60); Globulin 4.5 g/dL (1.7-4.1); Glucose 152 mg/dL (80-110); HEMOLYSIS < 15 (0-50); Lipase 64 U/L (23-300); Potassium 4.1 mmol/L (3.4-5.1); Sodium 145 mmol/L (137-145); Total Protein 8.6 g/dL (6.3-8.2)
--- NOTE | 2024-06-07 16:15 | EKG_ITS ---
[address] [address] Test Date: 2024-06-07 Pat Name: Quyen Hyde Department: [facility] Room: Gender: Female [employer] Director: LEWIS : 1940 Requested By: Order Number: [id number] Reading MD: Tom Funez MD Measurements Intervals [place] Rate: 118 P: 54 HI: 142 QRS: 38 QRSD: 76 T: -8 QT: 314 QTc: 440 Interpretive Statements Sinus tachycardia Nonspecific ST and T wave abnormality Electronically Signed On 06-07-2024 16:50:49 PST by Tom Funez MD
[2024-06-07] MEDS: PIPERACILLIN/TAZO 4.5 GM in SODIUM CHLORIDE 0.9% 100 ML IV (16:16)
[2024-06-07 16:18] LABS: Adenovirus Not Detected (Not Detect); B. parapertussis Not Detected (Not Detecte); Bordetella pertussis Not Detected (Not Detect); Chlamydophila pneumoniae Not Detected (Not Detect); Coronavirus 229E Not Detected (Not Detect); Coronavirus HKU1 Not Detected (Not Detect); Coronavirus NL 63 Not Detected (Not Detect); Coronavirus OC43 Not Detected (Not Detect); Human Metapneumovirus Not Detected (Not Detect); Human Rhinovirus/Enterovirus Detected (Not Detect); Influenza A Not Detected (Not Detect); Influenza B Not Detected (Not Detect); Mycoplasma pneumoniae Not Detected (Not Detect); Parainfluenza Virus 1 Not Detected (Not Detect); Parainfluenza Virus 2 Not Detected (Not Detect); Parainfluenza Virus 3 Not Detected (Not Detect); Parainfluenza Virus 4 Not Detected (Not Detect); Respiratory Syncytial Virus Not Detected (Not Detect); SARS- CoV-2 Not Detected (Not Detecte)
--- NOTE | 2024-06-07 18:04 | PM.HP.1 ---
History of Present Illness History of Present Illness Date Patient Seen: 06/07/24 Time Patient Seen: 18:00 Date of Onset of Symptoms: 06/07/24 Chief complaint: SOB Narrative: 83-year-old woman living at a local memory care facility, nonverbal with a history of 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 EMS found her temperature to be 100.7? F. She has had a history of presumed aspiration pneumonias. She was tested positive for Enterococcus/rhino virus in the emergency department. Chest x-ray showed a left lower lobe infiltrate. In discussion with family in the emergency department physician, they wished DNR/DNI status though would accept noninvasive ventilation for her. [facility] Surgical History Hx laparoscopic cholecystectomy Social History household members: other Smoking Status: Never smoker alcohol intake: never Meds Home Medications and Allergies Home Medications Medication Instructions Recorded Confirmed Type lamotrigine 150 mg tablet 150 mg PO DAILY #90 tabs 04/23/21 10/11/23 Rx Probiotic #30 ea 06/22/21 10/11/23 Rx ascorbic acid (vitamin C) 500 mg 500 mg PO DAILY #30 tabs 06/22/21 10/11/23 Rx tablet polyethylene glycol 3350 17 17 g PO DAILY PRN constipation 06/22/21 10/11/23 Rx gram/dose oral powder (Miralax) #510 grams primidone 250 mg tablet 250 mg PO BEDTIME #90 tabs 06/24/21 10/11/23 Rx primidone 50 mg tablet 50 mg PO BEDTIME #90 tabs 06/24/21 10/11/23 Rx acetaminophen 500 mg tablet 1,000 mg (2 x 500 mg) PO TID PRN 07/09/21 10/11/23 Rx fever or pain #180 tabs calcitriol 0.25 mcg capsule 0.25 mcg PO DAILY #90 caps 03/07/22 10/11/23 Rx sodium di- and 1 tab PO BID #180 tabs 04/05/22 10/11/23 Rx monophosphate-potassium phos monobasic 250 mg tablet (G-Kgmf-Njjnuli) escitalopram oxalate 20 mg tablet 20 mg PO DAILY #15 tabs 07/26/22 10/11/23 Rx lisinopril 10 mg tablet 10 mg PO DAILY #30 tabs 08/24/22 10/11/23 Rx benzocaine 20 %-menthol 0.26 1 ea topical QID PRN painful gums 10/16/23 Rx %-zinc chloride 0.15 % mucosal gel #11.9 grams (Orajel 3X Toothache-Gum) Allergies Allergy/AdvReac Type Severity Reaction Status Date / Time No Known Allergies Allergy Verified 10/11/23 17:16 Review of Systems Review of Systems ROS: Yes All systems reviewed with the patient and are negative except as otherwise documented Exam Vital Signs (past 8 hours): - 06/07/24 15:06 06/07/24 15:08 06/07/24 15:10 Temperature 99.1 F Pulse Rate 122 H 132 H 135 H Respiratory Rate 28 H 25 H Blood Pressure 185/110 H 185/110 H Pulse Oximetry 85 L 86 L 89 L Oxygen Delivery Method Room Air Oxygen Flow Rate 06/07/24 15:40 06/07/24 16:03 06/07/24 16:30 Temperature Pulse Rate 126 H 122 H Respiratory Rate 44 H 34 H Blood Pressure 185/110 H 177/81 H 144/72 H Pulse Oximetry 94 89 L Oxygen Delivery Method Oxygen Flow Rate 06/07/24 16:46 06/07/24 17:00 06/07/24 17:15 Temperature Pulse Rate 114 H 110 H 112 H Respiratory Rate 28 H 24 30 H Blood Pressure 154/70 H 136/55 L 129/58 L Pulse Oximetry 92 89 L 91 Oxygen Delivery Method Heated High Flow Oxygen Flow Rate 45 06/07/24 17:30 Temperature 98.1 F Pulse Rate 109 H Respiratory Rate 29 H Blood Pressure 122/60 Pulse Oximetry 91 Oxygen Delivery Method High Flow Nasal Cannula Heated High Flow Oxygen Flow Rate 45 Oxygen Delivery Method High Flow Nasal Cannula,Heated High Flow Oxygen Flow Rate 45 Narrative Exam Narrative: GENERAL: This is a female with advanced dementia, making unintelligible verbal utterances, appears otherwise comfortable, with high-flow nasal cannula oxygen in place. HEAD: Atraumatic. Normocephalic. No temporal or scalp tenderness. Left forehead with 3 mm punctate eschar. EYES: Pupils equal round and reactive. Extraocular motions intact. No scleral icterus. No injection or drainage. ENT: Mucous membranes pink and moist. NECK: Trachea midline. No JVD, bruits or lymphadenopathy. Supple, nontender, no meningeal signs. CARDIOVASCULAR: Regular rate and rhythm without murmurs, gallops, or rubs. RESPIRATORY: Decreased breath sounds left lower lobe. GASTROINTESTINAL: Abdomen soft, non-tender, nondistended. EXTREMITIES: Right BKA, no edema left leg. BACK: Nontender without deformity or crepitance. No flank tenderness. NEUROLOGIC: Alert, unintelligible speech, mostly monosyllabic, full upper and lower motor strength, no focal deficits evident. DERMATOLOGIC: No rashes or skin lesions. Objective ECG Impression: Sinus tachycardia at 118bpm Nonspecific ST and T wave abnormality Imaging Chest x-ray: Radiologist's impression: Small left pleural effusion and suggestion of left lower lobe infiltrate versus atelectasis. No gross pneumothorax. Labs 06/07/24 15:45 06/07/24 15:45 Labs: Laboratory Results - last 24 hr 06/07/24 06/07/24 15:16 15:45 WBC 21.1 H RBC 4.35 Hgb 13.0 Hct 39.8 MCV 91.7 MCH 29.9 MCHC 32.6 RDW 13.0 Plt Count 504 H Neut % (Auto) 76.5 H Lymph % (Auto) 15.9 L [place] % (Auto) 6.7 Eos % (Auto) 0.7 L Baso % (Auto) 0.2 Neut # (Auto) 39556 H Lymph # (Auto) 3400 [place] # (Auto) 1400 H Eos # (Auto) 200 Baso # (Auto) 0 Sodium 145 Potassium 4.1 Chloride 108 H Carbon Dioxide 30 BUN 25 H Creatinine 0.57 Estimated GFR > 60 BUN/Creatinine Ratio 43.9 H Glucose 152 H Calcium 8.3 L Total Bilirubin 0.3 AST 37 H ALT 39 H Alkaline Phosphatase 205 H Total Protein 8.6 H Albumin 4.1 Globulin 4.5 H Albumin/Globulin Ratio 0.9 L Lipase 64 Chlamy pneumoniae PCR Not detected Adenovirus (PCR) Not detected B. pertussis DNA (PCR) Not detected B.parapertussis DNA PCR Not detected Coronavirus OC43 (PCR) Not detected Coronavirus HKU1 (PCR) Not detected Coronavirus 229E (PCR) Not detected SARS-CoV-2 (PCR) Not detected Coronavirus NL63 (PCR) Not detected Human Metapneumovir PCR Not detected Influenza Type A (PCR) Not detected Influenza Type B (PCR) Not detected M. pneumoniae (PCR) Not detected Parainfluenza 1 (PCR) Not detected Parainfluenza 2 (PCR) Not detected Parainfluenza 3 (PCR) Not detected Parainfluenza 4 (PCR) Not detected RSV (PCR) Not detected Entero/Rhino (PCR) Detected H Assessment & Plan Assessment & Plan narrative: 1. Community-acquired pneumonia due to enterovirus/rhinovirus versus aspiration 2. Acute hypoxic respiratory failure due to 1. 3. 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 Hypertension. 4. Anxiety 5. Depression 6. Seizure disorder 7. Chronic tremor 8. BKA status 9. DVT prophylaxis: Lovenox 10. Code status: DNR/DNI Plan: -admit to ICU for potential noninvasive ventilation -continue high-flow oxygen -IV Zosyn -swallow screen and speech evaluation for possible aspiration -continue routine home medications otherwise -DVT prophylaxis -DNR DNI The patient is admitted to inpatient status as she will require at least 2 midnights of inpatient level care. Quality MIPS - Admit I confirm the patient?s Advance Care Plan is present, Code status is documented, Surrogate decision maker is in patient?s record [If Yes, STOP here]: Yes MIPS - Meds 'Current medications' to include all prescriptions, [id number] products, herbals, cannabis/cannabidiol products, and vitamin/mineral/dietary (nutritional) supplements. I have utilized all available resources to obtain, update, or review the patient?s current medications. [If Yes, STOP here]: Yes PROFEE Charge Codes Initial inpatient/observation care: 35434
[2024-06-07] MEDS: polyethylene glycoL 3350 17 GM POWD.PACK PO (20:20)
[2024-06-07] MEDS: SODIUM CHLORIDE 0.9% FLUSH 10 ML IV (20:20)
[2024-06-07 21:34] LABS: MRSA (Nasal) PCR NOT DETECTED (Not Detect)
[2024-06-07] MEDS: PIPERACILLIN/TAZO 3.375 GM in SODIUM CHLORIDE 0.9% 100 ML IV (23:29)
[2024-06-08] VITALS (65 sets, daily range): BP systolic 114–180; BP diastolic 59–109; PULSE 47–167; RESP 9–72; TEMP 36.2–36.9; O2SAT 80–100
[2024-06-08 05:09] LABS: Add Manual Diff / Slide Review NO; Basophils Absolute Auto 100 /uL (0-100); Basophils Percent Auto 0.8 % (0-2); Eosinophils Absolute Auto 100 /uL (0-450); Eosinophils Percent Auto 0.9 % (2-4); Hematocrit 36.1 % (36-46); Hemoglobin 11.5 g/dL (12.0-16.0); Lymphocytes Absolute Auto 2300 /uL (1100-4500); Lymphocytes Percent Auto 16.2 % (25-40); Mean Corpuscular Hemoglobin 29.7 PG (26-34); Mean Corpuscular Volume 92.6 fL (80-100); Monocytes Absolute Auto 1000 /uL (0-900); Monocytes Percent Auto 6.9 % (3-14); Neutrophils Absolute Auto 10700 /uL (1500-7000); Neutrophils Percent Auto 75.2 % (50-75); Platelet Count 335 X10^3/uL (150-400); Red Blood Cell Count 3.89 X10^6/uL (4.0-5.2); Red Cell Distribution Width 12.7 % (11.6-14.8); White Blood Cell Count 14.3 X10^3/uL (4.5-11.0)
[2024-06-08 05:21] LABS: BUN Creatinine Ratio 34.5 (6-22); Blood Urea Nitrogen 19 mg/dL (7-17); Calcium 7.9 mg/dL (8.4-10.2); Carbon Dioxide 28 mmol/L (22-32); Chloride 113 mmol/L (98-107); Estimated Glomerular Filt Rate > 60 mL/min (>60); Glucose 109 mg/dL (80-110); HEMOLYSIS < 15 (0-50); Potassium 3.8 mmol/L (3.4-5.1); Sodium 145 mmol/L (137-145)
[2024-06-08] MEDS: PIPERACILLIN/TAZO 3.375 GM in SODIUM CHLORIDE 0.9% 100 ML IV ×3 (08:13→23:38)
[2024-06-08] MEDS: ENOXAPARIN 40 MG/0.4 ML SYRINGE SUBCUT (09:01)
[2024-06-08] MEDS: lisinopriL 10 MG TABLET PO (09:01)
[2024-06-08] MEDS: lamoTRIgine 100 MG TABLET 150 MG PO (09:02)
[2024-06-08] MEDS: ESCITALOPRAM 10 MG TABLET 20 MG PO (09:04)
[2024-06-08] MEDS: PANTOPRAZOLE 40 MG VIAL IV (09:05)
[2024-06-08] MEDS: SODIUM CHLORIDE 0.9% FLUSH 10 ML IV ×3 (09:06→22:55)
--- NOTE | 2024-06-08 12:05 | ST.IPCSEOM ---
Visit Care Team Role Provider Type Doctor MD Roya Primary Care Provider Non-Staff Specialty: Medical Address: Phone: Fax: Email: Caleb Russell DO Emergency Provider Physician Referring Provider Specialty: Emergency Medicine Address: [address] [place] [address], [id number] Email: [email or web address] Buddy Tena MD Admit Provider Physician Attending Provider Specialty: Internal Medicine Address: [address] [place] [address], [address] Email: [email or web address] Current Diagnoses Pneumonia, unspecified organism (06/07/24) Speech-Language Pathology Swallow Evaluation DIRECTOR OF HEALTH EDUCATION Clinical Swallow Evaluation Start: 06/08/24 10:35 Freq: Status: Active Protocol: Document 06/08/24 11:14 MG (Rec: 06/08/24 12:05 MG [id number]) Clinical Swallow Evaluation Session Time Visit Start Time 09:20 Visit Stop Time 09:45 Total Visit Minutes 25 Visit Information Visit Number 1 Setting Assessment Location Acute Care Visit Type Note Type Initial evaluation Next Note Type Next Note Type Treatment Note Patient Information Identification Type Name,Wristband History Per H&P: 83-year-old woman living at a local memory care facility, nonverbal with a history of 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 EMS found her temperature to be 100.7? F. She has had a history of presumed aspiration pneumonias. She was tested positive for Enterococcus/ rhino virus in the emergency department. Chest x-ray showed a left lower lobe infiltrate. In discussion with family in the emergency department physician, they wished DNR/DNI status though would accept noninvasive ventilation for her. Of note per nurse report after a phone call with the pt's daughter, the pt is on a nectar thick liquid/minced and moist solids at her facility. Subjective Observations Pt was in a slightly reclined position in bed upon DIRECTOR OF HEALTH EDUCATION entry . Nurse provided oral care and assisted in repositioning prior to breakfast. Nurse reported the pt consumed pills in pudding and had no overt concerns with swallowing at that time. Pt has no teeth and no dentures at the facililty at this time. Of note, the pt presented with coughing prior to PO intake. Reported by Patient/Caregiver Current Diet Minced & Moist (IDDSI 5) The IDDSI Framework Protocol: IDDSI.1 Objective Assessment Mental Status Responsive,Lethargic Oral Integrity WFL Dentition Missing teeth Lip Function Moderate impairment Observation of Lips at Rest Symmetrical Pucker Reduced range of motion, Reduced strength Lip Retraction Reduced range of motion Alternating Pucker/Lip Retraction Reduced range of motion Tongue Function Moderate impairment Observations of Tongue at Rest Within normal limits Tongue Protrusion Reduced range of motion, Reduced strength Tongue Retraction Reduced range of motion, Reduced strength Tongue Lateralization Reduced range of motion, Reduced strength Observation of Jaw at Rest Within normal limits Jaw Opening Reduced strength Jaw Closing Reduced strength Jaw Lateralization Reduced range of motion, Reduced strength Jaw Protrusion Reduced range of motion, Reduced strength Jaw Retraction Reduced range of motion, Reduced strength Hard/Soft Palate Function Mild impairment Observations of Hard/Soft Palate Reduced strength/ROM of soft palate elevation Respiratory Sufficiency Mild impairment Comment Pt overall experiences generalized weakness of the oral cavity. The pt is using a nasal cannula at this time for oxygen support. No denture are present at this time. Pt has difficulty following directions so exam was conducted during breakfast. Food and Liquid Trials Position During Assessment Upright (90 degrees) Liquids Trialed Mildly Thick (IDDSI 2) Solid Trials Purred (IDDSI 4),Minced & Moist (IDDSI 5) Administration Type Tea spoon,Cup single sip Oral Impairment Moderately impaired Oral Phase Comments Upon trials of minced and moist, the pt's mastication time was longer than anticipated. Moderate oral residue noted after trial of minced and moist. Liquid wash was observed to help but pocketed food remained. Pt could hold an adequate lip seal around spoon on trials; no anterior spillage noted. Pharyngeal Impairment Moderately impaired Pharyngeal Phase Comments Laryngeal palpation indicated reduced hyolaryngeal movement and reduced anterior hyoid excursion. Inconsistent cough was present prior to PO intake . Delayed cough was noted on cup sip of nectar thick liquid . No overt s/sx of of aspiration on teaspoon sips of nectar thick liquid. No overt s/sx of aspiration on puree consistency of solids. Fatigue/Endurance Moderate fatigue Comment Per nurse, the pt had just woken up. The pt required some verbal and tactile stimuli to stay alert. The IDDSI Framework Protocol: IDDSI.1 Findings Swallowing Function Oropharyngeal phase dysphagia Severity of Swallow Impairment Moderately impaired Contributing Factors to Swallow Reduced alertness or attention Impairment ,Difficulty following directions,Mastication inefficiency,Impaired oral- pharyngeal transport,Delayed swallow initiation Prognosis Fair Based on Cognitive status,Age,History of aspiration/aspiration pneumonia,Comorbidities, Duration of symptoms/severity Impact on Safety and Functioning Risk for aspiration,Risk for inadequate nutrition/hydration Recommendations Swallowing Treatment Yes Frequency daily upon hospital stay Recommended Solids Pureed (IDDSI 4) Recommended Liquids Mildly Thick (IDDSI 2) Safety Precautions/Swallowing Supervision needed for all Recommendations meals,Feed only when alert, Reduce distractions,Remain upright (90 degrees) during all oral intake,Upright position at least 30 minutes after meals,Small bites and sips when eating,Slow rate; swallow between bites,No straw ,1 to 1 feeding assistance, Strict oral care after intake, Check for pocketing Medication Recommendations Whole in Carrier,Crushed in Carrier Discharge Recommendations halfway care facility Education Patient/Caregiver Education Described results of evaluation,Patient requires further education/training, Family/caregivers require further education/training Goals Short-term Goals Pt's family will participate in further education re: diet modifications, swallowing mechanism. Pt will participate in trials of minced and moist solids (5) and not demonstrate overt s/ sx of aspiration. Long-term Goals Pt will tolerate baseline diet of nectar thick liquids (2) and minced and moist solids (5 ) without demonstrating overt s/sx of aspiration in 100% of opportunities.
--- NOTE | 2024-06-08 13:42 | CM.DANOTE ---
Patient is an 83 yo female who was admitted INPT Status on 06/07/24 for SOB. Pt has [facility] and [facility] for insurance and her PCP is Dr. Head. EMR was reviewed. Per MD, pt with hx of dementia, bka, expressive aphasia, and admitted for enterovirus/rhinovirus/pneumonia and was on HHFNC but able to currently tolerate about 4LO2. Not yet medically stable to d/c. Per , recommending pureed diet at this time due to pt having more difficulty with swallowing and high risk of aspiration. SW met bedside with pt, unable to participate in goal directed discussion due to prior stroke and aphasia, and her local supportive Dtr Nicci and pt resides LTC at [facility] and is w/c bound at baseline. Pt requires assist with all ADLs and DNR/DNI with limited interventions. Pt's last admission was in September 2023 and was able to d/c back to [facility]. Pt's Guardian is her son Godwin who lives in [place] but local Dtr provides the most assist and involvement. Dtr confirms that pt looks better than yesterday but not yet back to her baseline with her ability with adequate oral intake and needing oxygen. Preference is to return to [facility] when medically stable, likely in another couple days. [facility] following. Plan: SW to follow closely for plan of discharge back to LTC at [facility] and any further identified discharge planning needs. JAYME Medellin Discharge Planning/Care Management CM Discharge Assessment Start: 06/08/24 13:40 Freq: Status: Active Protocol: Document 06/08/24 13:40 BF (Rec: 06/08/24 13:42 BF [id number]) Discharge Planning Assessment Assigned Desolderer JAYME Jose DPOA/Assigned Designee Name son Advance Directives? Yes: and POLST Advance Directives on File No: Requested guardian ppk from son History Provided By Family Member,Medical Record Has Patient been admitted in last 30 No days? Prior Living Arrangements Skilled Nurse Facility Household Members other Type of transporation used prior to Relies on Others admit Facility Name Admitted From: [facility] Willing to Return to Facility? Yes: [facility] Independent with ADL's No Is patient alert and oriented? No Needs Assistance With Bathing,Eating,Grooming,Meal Prep,Toileting,Managing Medications,Home Chores / Shopping Caregiver for Another No DME Already Rented / Owned Wheelchair Patient/Family Preference Long-Term Facility Comment Return to [facility] expected. Discharge Plan Long-Term Facility Transportation Arrangement facility transportation Referrals Initiated Long-Term Additional Comment [facility] can accept back, long-term resident. Whiteboard Updated in Patient Room with Yes name and ext. # of Desolderer Review Status In Process Please Provide Date Initial DC 06/08/24 Assessment Was Performed Next Review Type Continued Stay Review
--- NOTE | 2024-06-08 13:42 | PM.PN.1 ---
Subjective Subjective Date Patient Seen: 06/08/24 Time Patient Seen: 08:11 Interval history: Narrative: 83-year-old woman living at a local memory care facility, nonverbal with a history of 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 EMS found her temperature to be 100.7? F. She has had a history of presumed aspiration pneumonias. She was tested positive for Enterococcus/rhino virus in the emergency department. Chest x-ray showed a left lower lobe infiltrate. In discussion with family in the emergency department physician, they wished DNR/DNI status though would accept noninvasive ventilation for her. Interval history: The patient remains nonverbal at baseline but appears more comfortable, not requiring BiPAP overnight, with oxygenation improved to 4 L nasal cannula this morning. She was able to swallow with speech therapy with a puree/nectar thick liquid diet advised. Exam Vital Signs (past 8 hours): - 06/08/24 06:00 06/08/24 06:00 06/08/24 06:30 Temperature Pulse Rate 90 90 90 Respiratory Rate 23 22 24 Blood Pressure Pulse Oximetry 99 99 98 Oxygen Delivery Method Oxygen Flow Rate 45 Fraction of Inspired Oxygen 50 06/08/24 07:00 06/08/24 07:30 06/08/24 07:32 Temperature Pulse Rate 91 H 89 90 Respiratory Rate 20 25 H 16 Blood Pressure Pulse Oximetry 98 99 99 Oxygen Delivery Method Oxygen Flow Rate Fraction of Inspired Oxygen 06/08/24 07:58 06/08/24 07:58 06/08/24 08:00 Temperature 97.2 F L Pulse Rate 90 90 Respiratory Rate 20 20 Blood Pressure 128/64 128/64 Pulse Oximetry 98 98 Oxygen Delivery Method Oxygen Flow Rate 45 Fraction of Inspired Oxygen 44 06/08/24 08:00 06/08/24 08:30 06/08/24 08:39 Temperature Pulse Rate 89 94 H Respiratory Rate 23 22 Blood Pressure Pulse Oximetry 97 99 Oxygen Delivery Method Nasal Cannula Oxygen Flow Rate Fraction of Inspired Oxygen 06/08/24 09:00 06/08/24 09:01 06/08/24 09:30 Temperature Pulse Rate 92 H 88 95 H Respiratory Rate 23 28 H Blood Pressure 128/64 Pulse Oximetry 98 99 Oxygen Delivery Method Oxygen Flow Rate Fraction of Inspired Oxygen 06/08/24 10:00 06/08/24 10:30 06/08/24 11:00 Temperature Pulse Rate 97 H 99 H 96 H Respiratory Rate 26 H 24 27 H Blood Pressure Pulse Oximetry 97 97 98 Oxygen Delivery Method Oxygen Flow Rate Fraction of Inspired Oxygen 06/08/24 11:30 06/08/24 11:50 06/08/24 11:50 Temperature Pulse Rate 94 H 105 H Respiratory Rate 25 H 31 H Blood Pressure 155/71 H Pulse Oximetry 96 92 Oxygen Delivery Method Oxygen Flow Rate Fraction of Inspired Oxygen 06/08/24 12:00 06/08/24 12:00 06/08/24 12:11 Temperature 97.9 F Pulse Rate 98 H 97 H 104 H Respiratory Rate 28 H 35 H 29 H Blood Pressure 155/71 H Pulse Oximetry 95 95 90 L Oxygen Delivery Method Oxygen Flow Rate 4 Fraction of Inspired Oxygen 06/08/24 12:11 06/08/24 12:30 06/08/24 12:30 Temperature Pulse Rate 103 H Respiratory Rate 34 H Blood Pressure 162/73 H 157/75 H Pulse Oximetry 90 L Oxygen Delivery Method Oxygen Flow Rate Fraction of Inspired Oxygen 06/08/24 13:00 06/08/24 13:30 Temperature Pulse Rate 167 H 106 H Respiratory Rate 42 H 30 H Blood Pressure Pulse Oximetry 80 L 93 Oxygen Delivery Method Oxygen Flow Rate Fraction of Inspired Oxygen Fraction of Inspired Oxygen 44 Oxygen Delivery Method Nasal Cannula Oxygen Flow Rate 4 Narrative Exam Narrative: GENERAL: This is a female with advanced dementia, nonverbal, appears otherwise comfortable, with nasal cannula oxygen in place. HEAD: Atraumatic. Normocephalic. No temporal or scalp tenderness. Left forehead with 3 mm punctate eschar. EYES: Pupils equal round and reactive. Extraocular motions intact. No scleral icterus. No injection or drainage. ENT: Mucous membranes pink and moist. NECK: Supple, nontender, no meningeal signs. CARDIOVASCULAR: Regular rate and rhythm without murmurs, gallops, or rubs. RESPIRATORY: Decreased breath sounds left lower lobe. GASTROINTESTINAL: Abdomen soft, non-tender, nondistended. EXTREMITIES: Right BKA, no edema left leg. NEUROLOGIC: Alert, nonverbal, full upper and lower motor strength, no focal deficits evident. DERMATOLOGIC: No rashes or skin lesions. Objective Labs 06/08/24 04:11 06/08/24 04:11 Labs: Laboratory Results - last 24 hr 11/15/24 11/15/24 11/15/24 15:16 15:45 20:00 WBC 21.1 H RBC 4.35 Hgb 13.0 Hct 39.8 MCV 91.7 MCH 29.9 MCHC 32.6 RDW 13.0 Plt Count 504 H Neut % (Auto) 76.5 H Lymph % (Auto) 15.9 L [place] % (Auto) 6.7 Eos % (Auto) 0.7 L Baso % (Auto) 0.2 Neut # (Auto) 72286 H Lymph # (Auto) 3400 [place] # (Auto) 1400 H Eos # (Auto) 200 Baso # (Auto) 0 Sodium 145 Potassium 4.1 Chloride 108 H Carbon Dioxide 30 BUN 25 H Creatinine 0.57 Estimated GFR > 60 BUN/Creatinine Ratio 43.9 H Glucose 152 H Calcium 8.3 L Total Bilirubin 0.3 AST 37 H ALT 39 H Alkaline Phosphatase 205 H Total Protein 8.6 H Albumin 4.1 Globulin 4.5 H Albumin/Globulin Ratio 0.9 L Lipase 64 Nasal Screen MRSA (PCR) Not detected Chlamy pneumoniae PCR Not detected Adenovirus (PCR) Not detected B. pertussis DNA (PCR) Not detected B.parapertussis DNA PCR Not detected Coronavirus OC43 (PCR) Not detected Coronavirus HKU1 (PCR) Not detected Coronavirus 229E (PCR) Not detected SARS-CoV-2 (PCR) Not detected Coronavirus NL63 (PCR) Not detected Human Metapneumovir PCR Not detected Influenza Type A (PCR) Not detected Influenza Type B (PCR) Not detected M. pneumoniae (PCR) Not detected Parainfluenza 1 (PCR) Not detected Parainfluenza 2 (PCR) Not detected Parainfluenza 3 (PCR) Not detected Parainfluenza 4 (PCR) Not detected RSV (PCR) Not detected Entero/Rhino (PCR) Detected H 06/08/24 04:11 WBC 14.3 H RBC 3.89 L Hgb 11.5 L Hct 36.1 MCV 92.6 MCH 29.7 MCHC 32.0 RDW 12.7 Plt Count 335 Neut % (Auto) 75.2 H Lymph % (Auto) 16.2 L [place] % (Auto) 6.9 Eos % (Auto) 0.9 L Baso % (Auto) 0.8 Neut # (Auto) 48074 H Lymph # (Auto) 2300 [place] # (Auto) 1000 H Eos # (Auto) 100 Baso # (Auto) 100 Sodium 145 Potassium 3.8 Chloride 113 H Carbon Dioxide 28 BUN 19 H Creatinine 0.55 Estimated GFR > 60 BUN/Creatinine Ratio 34.5 H Glucose 109 Calcium 7.9 L Total Bilirubin AST ALT Alkaline Phosphatase Total Protein Albumin Globulin Albumin/Globulin Ratio Lipase Nasal Screen MRSA (PCR) Chlamy pneumoniae PCR Adenovirus (PCR) B. pertussis DNA (PCR) B.parapertussis DNA PCR Coronavirus OC43 (PCR) Coronavirus HKU1 (PCR) Coronavirus 229E (PCR) SARS-CoV-2 (PCR) Coronavirus NL63 (PCR) Human Metapneumovir PCR Influenza Type A (PCR) Influenza Type B (PCR) M. pneumoniae (PCR) Parainfluenza 1 (PCR) Parainfluenza 2 (PCR) Parainfluenza 3 (PCR) Parainfluenza 4 (PCR) RSV (PCR) Entero/Rhino (PCR) PFSH Surgical History Hx laparoscopic cholecystectomy Social History household members: other Smoking Status: Never smoker alcohol intake: never Assessment & Plan Assessment & Plan narrative: 1. Community-acquired pneumonia due to enterovirus/rhinovirus versus aspiration 2. Acute hypoxic respiratory failure due to 1. 3. 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 Hypertension. 4. Anxiety 5. Depression 6. Seizure disorder 7. Chronic tremor 8. BKA status 9. DVT prophylaxis: Lovenox 10. Code status: DNR/DNI Plan: -transferred to floor status -continue nasal cannula oxygen -IV Zosyn, likely switch to oral broad-spectrum coverage tomorrow for possible aspiration/community-acquired for 5 day course -diet per speech as above -continue routine home medications -DVT prophylaxis -DNR DNI The patient is admitted to inpatient status as she will require at least 2 midnights of inpatient level care. Quality VTE Deep Vein Thrombosis/Pulmonary Embolism Present on Admission: No IH PROFEE Charge codes Subsequent inpatient/observation care: [id number]
[2024-06-08] MEDS: PRIMIDONE 50 MG TABLET 300 MG PO (20:24)
[2024-06-08] MEDS: ALBUTEROL 2.5 MG/3 ML NEB (ADULT) INH (21:32)
[2024-06-08] MEDS: LORazepam 2 MG/ML INJ 0.25 MG IV (22:54)
[2024-06-09] VITALS (55 sets, daily range): BP systolic 104–224; BP diastolic 50–108; PULSE 83–125; RESP 23–64; TEMP 36.2–37.6; O2SAT 81–99
--- NOTE | 2024-06-09 08:12 | P.PN_ITS ---
Subjective Subjective Date Patient Seen: 06/09/24 Time Patient Seen: 08:15 Interval history: Narrative: 83-year-old woman living at a local memory care facility, nonverbal with a history of 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 EMS found her temperature to be 100.7? F. She has had a history of presumed aspiration pneumonias. She was tested positive for Enterococcus/rhino virus in the emergency department. Chest x-ray showed a left lower lobe infiltrate. In discussion with family in the emergency department physician, they wished DNR/DNI status though would accept noninvasive ventilation for her. Interval history: The patient was transferred to medical floor status yesterday. She was weaned to 3 L of oxygen by nasal cannula overnight, though kept at a higher flow rate as she kept taking the oxygen off. Exam Vital Signs (past 8 hours): - 06/09/24 00:30 06/09/24 01:00 06/09/24 01:30 Pulse Rate 96 H 92 H 87 Respiratory Rate 28 H 26 H 25 H Blood Pressure Pulse Oximetry 98 98 99 Oxygen Delivery Method Oxygen Flow Rate 06/09/24 01:39 06/09/24 01:39 06/09/24 02:00 Pulse Rate 86 87 Respiratory Rate 26 H 25 H Blood Pressure 106/54 L Pulse Oximetry 99 97 Oxygen Delivery Method Oxygen Flow Rate 06/09/24 02:00 06/09/24 02:30 06/09/24 03:00 Pulse Rate 85 87 Respiratory Rate 23 24 Blood Pressure 104/50 L Pulse Oximetry 96 96 Oxygen Delivery Method Oxygen Flow Rate 06/09/24 03:01 06/09/24 03:01 06/09/24 03:30 Pulse Rate 86 85 Respiratory Rate 23 25 H Blood Pressure 124/59 L Pulse Oximetry 96 98 Oxygen Delivery Method Oxygen Flow Rate 06/09/24 04:00 06/09/24 04:00 06/09/24 04:30 Pulse Rate 84 83 Respiratory Rate 25 H 24 Blood Pressure 112/52 L Pulse Oximetry 98 99 Oxygen Delivery Method Oxygen Flow Rate 06/09/24 05:00 06/09/24 05:00 06/09/24 05:30 Pulse Rate 83 83 Respiratory Rate 25 H 24 Blood Pressure 117/58 L Pulse Oximetry 96 96 Oxygen Delivery Method Oxygen Flow Rate 06/09/24 06:00 06/09/24 06:00 06/09/24 07:00 Pulse Rate 95 H Respiratory Rate 36 H Blood Pressure Pulse Oximetry 95 Oxygen Delivery Method Oximask Oxygen Flow Rate 6 Fraction of Inspired Oxygen 45 SaO2/FiO2 Ratio 208 Oxygen Delivery Method Oximask Oxygen Flow Rate 6 Narrative Exam Narrative: GENERAL: This is a female with advanced dementia, nonverbal, appears otherwise comfortable, with nasal cannula oxygen in place. HEAD: Atraumatic. Normocephalic. No temporal or scalp tenderness. Left forehead with 3 mm punctate eschar. EYES: Pupils equal round and reactive. Extraocular motions intact. No scleral icterus. No injection or drainage. ENT: Mucous membranes pink and moist. NECK: Supple, nontender, no meningeal signs. CARDIOVASCULAR: Regular rate and rhythm without murmurs, gallops, or rubs. RESPIRATORY: Decreased breath sounds left lower lobe. GASTROINTESTINAL: Abdomen soft, non-tender, nondistended. EXTREMITIES: Right BKA, no edema left leg. NEUROLOGIC: Alert, nonverbal, full upper and lower motor strength, no focal deficits evident. DERMATOLOGIC: No rashes or skin lesions. Objective Labs 06/08/24 04:11 06/08/24 04:11 [facility] Surgical History Hx laparoscopic cholecystectomy Social History household members: other Smoking Status: Never smoker alcohol intake: never Assessment & Plan Assessment & Plan narrative: 1. Community-acquired pneumonia due to enterovirus/rhinovirus versus aspiration with bronchospasm, responsive to antibiotics and nebulizers. Diet per speech therapy. 2. Acute hypoxic respiratory failure due to 1. 3. 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 Hypertension. 4. Anxiety 5. Depression 6. Seizure disorder 7. 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 9. DVT prophylaxis: Lovenox 10. Code status: DNR/DNI Plan: -floor status -continue nasal cannula oxygen -IV Zosyn, likely switch to oral broad-spectrum coverage tomorrow for possible aspiration/community-acquired for 5 day course -diet per speech as above -continue routine home medications -DVT prophylaxis -DNR DNI The patient is admitted to inpatient status as she will require at least 2 midnights of inpatient level care. Quality VTE Deep Vein Thrombosis/Pulmonary Embolism Present on Admission: No IH PROFEE Charge codes Subsequent inpatient/observation care: [id number]
[2024-06-09] MEDS: PIPERACILLIN/TAZO 3.375 GM in SODIUM CHLORIDE 0.9% 100 ML IV ×2 (08:22→15:46)
[2024-06-09] MEDS: ENOXAPARIN 40 MG/0.4 ML SYRINGE SUBCUT (08:24)
[2024-06-09] MEDS: lamoTRIgine 100 MG TABLET 150 MG PO (08:24)
[2024-06-09] MEDS: ESCITALOPRAM 10 MG TABLET 20 MG PO (08:25)
[2024-06-09] MEDS: lisinopriL 10 MG TABLET PO (08:25)
[2024-06-09] MEDS: SODIUM CHLORIDE 0.9% FLUSH 10 ML IV (08:26)
[2024-06-09] MEDS: PANTOPRAZOLE 40 MG VIAL IV (08:26)
--- NOTE | 2024-06-09 10:16 | PC.NURSE ---
Report received from offgoing RN, Pt appears to be resting comfortably. IV in LAC infiltrated, ad IV in L hand pulled out. IV restarted in L forearm with 22ga. IV abx infusing.
[2024-06-09] MEDS: LORazepam 2 MG/ML INJ 0.25 MG IV (11:40)
--- NOTE | 2024-06-09 11:57 | PC.NURSE ---
Pt pulling at nasal cannula, crying out - attempts to soothe pt unsuccessful. Ativan given IV as ordered for anxiety.
--- NOTE | 2024-06-09 13:39 | CM.DPC ---
Reviewed EMR and team rounds for status updates. Pt is weaning down on O2, is now down to 3LO2 this am, and RN will cont. to attempt to wean down further throughout the day. Plan is back to [facility] hopefully Monday, Monday at the latest.
--- NOTE | 2024-06-09 18:47 | PC.NURSE ---
Shift note: - Pt pulled out L forearm IV, notified and order noted to DC IV access. Pt transfered from recliner to her own WC and appears comfortable. O2 Sats 92-95 on 2L NC
[2024-06-09] MEDS: ALBUTEROL 2.5 MG/3 ML NEB (ADULT) INH (19:00)
[2024-06-09] MEDS: PRIMIDONE 50 MG TABLET 300 MG PO (20:13)
[2024-06-09] MEDS: AMOXICILLIN/CLAV 875/125 MG 1 TAB PO (20:14)
[2024-06-09] MEDS: ACETAMINOPHEN 325 MG TABLET 650 MG PO (22:26)
[2024-06-10] VITALS (16 sets, daily range): BP systolic 112–181; BP diastolic 57–109; PULSE 85–118; RESP 24–40; TEMP 36.4–37.2; O2SAT 88–98
--- NOTE | 2024-06-10 06:56 | PC.NURSE ---
pt has been restless off and on this shift; she was given a dose of tylenol, and that seemed to help her rest; she is aphasic but she does appear to have some understanding, as she does follow some simple commands; she has been on 08/25-3l/ overnight; ge lift was used to get pt from wheelchair to bed, and pt seemed familiar with the process; spoke w/ daughter last night and she will be in today to see pt
[2024-06-10] MEDS: ESCITALOPRAM 10 MG TABLET 20 MG PO (08:51)
[2024-06-10] MEDS: ALBUTEROL 2.5 MG/3 ML NEB (ADULT) INH ×3 (09:07→22:05)
--- NOTE | 2024-06-10 09:46 | ST.IPDYTX ---
Visit Care Team Role Provider Type Doctor MD Roya Primary Care Provider Non-Staff Specialty: Medical Address: Phone: Fax: Email: Caleb Russell DO Emergency Provider Physician Referring Provider Specialty: Emergency Medicine Address: [address] [place] [address], [id number] Email: [email or web address] Buddy Tena MD Admit Provider Physician Attending Provider Specialty: Internal Medicine Address: [address] [place] [address], [id number] Email: [email or web address] TREASURY ANALYST Dysphagia Treatment TREASURY ANALYST Dysphagia Treatment Start: 06/10/24 09:37 Freq: Status: Active Protocol: Document 06/10/24 09:37 MA (Rec: 06/10/24 09:45 MA [id number]) Dysphagia Treatment Session Time Visit Start Time 09:00 Visit Stop Time 09:35 Total Visit Minutes 35 Visit Information Visit Number 2 Setting Assessment Location Acute Care Patient Information Subjective Observations Pt sitting upright in bed completing breathing treatment prior to ST beginning treatment. Nursing and aid reports Pt has been coughing on pureed solids and nectar thick liquids. Treatment Liquids Trialed Mildly Thick (IDDSI 2) Solids Trialed Purred (IDDSI 4) Administration Type Tea Spoon,Dependent Feeding Oral Strategies Upright at 90 degrees, Controlled Bite/Sip Size Pharyngeal Strategies Small Bites and Sips Treatment Activities Assessment of swallow through PO trials of pureed solids and nectar thick liquids The IDDSI Framework Protocol: IDDSI.1 Assessment Patient Response to Treatment Fair Assessment of Improvement Pt consumed about 1-2 oz of yogurt and about a couple sips of nectar thick milk via spoon/cup. Pt is nonverbal, however was awake and alert. Pt required 100% feeding assistance. For pureed solid, Pt demonstrated good oral acceptance and containment, timely bolus manipulation and good bolus control, extended ap transport, suspected delay in swallow, audible swallow reflex. Pt consumed about 3 bites of yogurt before coughing several times. Pt with immediate coughing reflex after consuming 2 sips of nectar thick milk, 1 via tsp and 1 via controlled cup sips. Pt with slightly weak wet cough reflex. ST recommends no safe PO diet at this time. ST communicated recommendation to nurse and MD, Dr. Beltran. Recommendations Recommendations Downgrade Diet Order Liquids Order Mildly Thick (IDDSI 2) Diet Order NPO Medication Recommendations Not Recommended by Mouth Aspiration Precautions Recommended Precautions Upright at 90 Degrees Treatment Plan Placement Recommendation after Discharge [facility] Facility,[facility],Home with Hospice Appropriate for Continued Therapy Yes Therapy Recommendations Continue consistent oral care. ST to f/u in order to determine if PO trials safe and appropriate
[2024-06-10] MEDS: ENOXAPARIN 40 MG/0.4 ML SYRINGE SUBCUT (11:48)
[2024-06-10] MEDS: PIPERACILLIN/TAZO 3.375 GM in SODIUM CHLORIDE 0.9% 100 ML IV ×2 (12:27→18:24)
--- NOTE | 2024-06-10 13:17 | CM.DPNOTE ---
DCP Cont Reviewed chart. Patient discussed in multidisciplinary rounds. Speech recommends NPO- no safe po diet at this time. According to Dr Beltran, patient may be an upcoming candidate for comfort care and hospice depending on goals of care conversation with patient/family. CM team following clinical course closely . FRANCISCO
--- NOTE | 2024-06-10 17:18 | PC.NURSE ---
Pt assisted to BSC at beginning of shift. Pt tachypnic with activity, diaphoretic, vital signs WDL other than BP elevated. At breakfast when assisting pt with pudding, pt began coughing persistently. Speech at bedside. Pt made NPO. Pt sliding down in bed frequently. Assisted by this RN and PCT up in bed, repositioning wedges placed, foam heel protector placed over R residue limb. Clarified IV fluid order with provider, no new orders. Care ongoing.
[2024-06-10] MEDS: DEXTROSE 5% WATER 1,000 ML 50 ML IV (18:23)
--- NOTE | 2024-06-10 18:30 | P.PN_ITS ---
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 EMS found her temperature to be 100.7? F. She has had a history of presumed aspiration pneumonias. She was tested positive for Enterococcus/rhino virus in the emergency department. Chest x-ray showed a left lower lobe infiltrate. In discussion with family in the emergency department physician, they wished DNR/DNI status though would accept noninvasive ventilation for her. Interval history: The patient was transferred to medical floor status yesterday. She was weaned to 3 L of oxygen by nasal cannula remains there today. She had swallow eval and was NPO today by STATION SUPERINTENDENT. Exam Vital Signs (past 8 hours): - 06/10/24 12:00 06/10/24 14:41 Temperature 98.7 F Pulse Rate 89 111 H Respiratory Rate 32 H 24 Blood Pressure 149/109 H Pulse Oximetry 94 92 Oxygen Delivery Method Room Air Fraction of Inspired Oxygen 32 SaO2/FiO2 Ratio 290 Oxygen Delivery Method Room Air Oxygen Flow Rate 3 Narrative Exam Narrative: GENERAL: This is a female with advanced dementia, nonverbal, appears otherwise comfortable, with nasal cannula oxygen in place. HEAD: Atraumatic. Normocephalic. No temporal or scalp tenderness. Left forehead with 3 mm punctate eschar. EYES: Pupils equal round and reactive. Extraocular motions intact. No scleral icterus. No injection or drainage. ENT: Mucous membranes pink and moist. NECK: Supple, nontender, no meningeal signs. CARDIOVASCULAR: Regular rate and rhythm without murmurs, gallops, or rubs. RESPIRATORY: Decreased breath sounds left lower lobe. GASTROINTESTINAL: Abdomen soft, non-tender, nondistended. EXTREMITIES: Right BKA, no edema left leg. NEUROLOGIC: Alert, nonverbal, full upper and lower motor strength, no focal deficits evident. DERMATOLOGIC: No rashes or skin lesions. Objective Labs 06/08/24 04:11 06/08/24 04:11 [facility] Surgical History Hx laparoscopic cholecystectomy Social History household members: other Smoking Status: Never smoker alcohol intake: never Assessment & Plan Assessment & Plan narrative: 1. Probable aspiration pnuemonia with committant enterovirus/rhinovirus with bronchospasm, responsive to antibiotics and nebulizers. Diet per speech therapy. 2. Acute hypoxic respiratory failure due to 1. 3. 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 Hypertension. 4. Anxiety 5. Depression 6. Seizure disorder 7. 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 9. DVT prophylaxis: Lovenox 10. Code status: DNR/DNI Plan: -floor status -continue nasal cannula oxygen as needed goal O2 90% on supplemental therapy. -Continue IV Zosyn, as patient is NPO today. -NPO today. -continue routine home medications -DVT prophylaxis -DNR DNI -start D5w today based on previous sodium 145, repeat labs ordered. Follow daily BMP. See if swallow improves with fluids. -consider goals of care discussions if no improvement The patient is admitted to inpatient status as she will require at least 2 midnights of inpatient level care. Time-Based Coding :: [TOTAL MINUTES] spent with patient and on the chart (including review of chart, obtaining history, exam, reviewing outside data, placing orders, documenting exam and treatment plan, and counseling patient) on [DATE]. Quality VTE Deep Vein Thrombosis/Pulmonary Embolism Present on Admission: No
[2024-06-10] MEDS: LORazepam 2 MG/ML INJ 0.25 MG IV ×2 (20:23→22:24)
[2024-06-11] MEDS: PIPERACILLIN/TAZO 3.375 GM in SODIUM CHLORIDE 0.9% 100 ML IV ×3 (03:30→18:20)
[2024-06-11 05:06] LABS: Add Manual Diff / Slide Review NO; Basophils Absolute Auto 0 /uL (0-100); Basophils Percent Auto 0.2 % (0-2); Eosinophils Absolute Auto 0 /uL (0-450); Eosinophils Percent Auto 0.2 % (2-4); Hematocrit 33.6 % (36-46); Hemoglobin 10.9 g/dL (12.0-16.0); Lymphocytes Absolute Auto 1700 /uL (1100-4500); Lymphocytes Percent Auto 10.3 % (25-40); Mean Corpuscular HGB Conc 32.5 % (30-36); Mean Corpuscular Hemoglobin 29.6 PG (26-34); Monocytes Absolute Auto 1100 /uL (0-900); Monocytes Percent Auto 6.8 % (3-14); Neutrophils Absolute Auto 13700 /uL (1500-7000); Neutrophils Percent Auto 82.5 % (50-75); Platelet Count 437 X10^3/uL (150-400); Red Blood Cell Count 3.69 X10^6/uL (4.0-5.2); Red Cell Distribution Width 12.4 % (11.6-14.8); White Blood Cell Count 16.6 X10^3/uL (4.5-11.0)
[2024-06-11 05:16] LABS: Alanine Aminotransferase 26 IU/L (<35); Albumin 3.1 g/dL (3.5-5.0); Albumin Globulin Ratio 0.8 (1.0-2.8); Alkaline Phosphatase 149 U/L (38-126); Aspartate Aminotransferase 31 IU/L (14-36); Bilirubin Total 0.3 mg/dL (0.2-1.3); Blood Urea Nitrogen 13 mg/dL (7-17); Calcium 7.7 mg/dL (8.4-10.2); Carbon Dioxide 30 mmol/L (22-32); Chloride 104 mmol/L (98-107); Estimated Glomerular Filt Rate > 60 mL/min (>60); Globulin 3.7 g/dL (1.7-4.1); Glucose 129 mg/dL (80-110); HEMOLYSIS < 15 (0-50); Magnesium 1.9 mg/dL (1.6-2.3); Sodium 138 mmol/L (137-145); Total Protein 6.8 g/dL (6.3-8.2)
[2024-06-11 05:51] VITALS: PULSE 94; O2SAT 95
[2024-06-11 09:00] VITALS: TEMP 36.9
[2024-06-11] MEDS: SODIUM CHLORIDE 0.9% FLUSH 10 ML IV (09:05)
[2024-06-11] MEDS: ENOXAPARIN 40 MG/0.4 ML SYRINGE SUBCUT (09:05)
[2024-06-11] MEDS: POTASSIUM CHLORIDE IN WATER 10 MEQ/100 ML PIGGYBACK 100 MEQ IV ×4 (09:35→12:48)
--- NOTE | 2024-06-11 11:19 | SLP.IPNOTE ---
OVERHAULER HELPER consulted with hospitalist Dr. Beltran re pt status. Hospitalist requests hold ST for another day until antibiotics have had more time to take effect, then re-evaluate pt tomorrow (ideally while sitting in chair if pt able to tolerate transfer).
--- NOTE | 2024-06-11 11:45 | CM.DPNOTE ---
DCP Note LAND LEASES AND RENTALS MANAGER reviewed EMR. Per RN report, dtr Nicci wants pt to attempt swallow eval again in chair today. pt currently NPO.. will need to discuss plan moving forward for nutrition if pt cannot swallow. Per speech note, hold ST for another day to see how another day of abx impact overall functioning/safe swallow ability. Per hospitalist in morning rounds, anticipate another two days or so before medically stable to dc back to [facility]. on 6ltrs of O2. LAND LEASES AND RENTALS MANAGER updated Tata at [facility]. Appreciated update. P: return to [facility] when medically stable for LTC. CM team will continue to follow closely for coordination of plan/any additional DCP needs. Will coordinate with dtr/son (POA) as needed. JAYME Gilliam
--- NOTE | 2024-06-11 12:28 | P.PN_ITS ---
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 EMS found her temperature to be 100.7? F. She has had a history of presumed aspiration pneumonias. She was tested positive for Enterococcus/rhino virus in the emergency department. Chest x-ray showed a left lower lobe infiltrate. In discussion with family in the emergency department physician, they wished DNR/DNI status though would accept noninvasive ventilation for her. Interval history: Slight improvement in O2 requirements this morning, appears comfortable, unable to perform subjective history with patient. Exam Vital Signs (past 8 hours): - 06/11/24 05:51 06/11/24 09:00 06/11/24 09:19 Temperature 98.4 F Pulse Rate 94 H Pulse Oximetry 95 Oxygen Delivery Method Oximask Oximask Oxygen Flow Rate 6 Fraction of Inspired Oxygen 32 SaO2/FiO2 Ratio 290 Oxygen Delivery Method Oximask Oxygen Flow Rate 6 Narrative Exam Narrative: GENERAL: This is a female with advanced dementia, nonverbal, appears otherwise comfortable, with nasal cannula oxygen in place. HEAD: Atraumatic. Normocephalic. No temporal or scalp tenderness. Left forehead with 3 mm punctate eschar. EYES: Pupils equal round and reactive. Extraocular motions intact. No scleral icterus. No injection or drainage. ENT: Mucous membranes pink and moist. NECK: Supple, nontender, no meningeal signs. CARDIOVASCULAR: Regular rate and rhythm without murmurs, gallops, or rubs. RESPIRATORY: Decreased breath sounds left lower lobe. GASTROINTESTINAL: Abdomen soft, non-tender, nondistended. EXTREMITIES: Right BKA, no edema left leg. NEUROLOGIC: Alert, nonverbal, full upper and lower motor strength, no focal deficits evident. DERMATOLOGIC: No rashes or skin lesions. Objective Labs 06/11/24 04:40 06/11/24 04:40 Labs: Laboratory Results - last 24 hr 06/11/24 04:40 WBC 16.6 H RBC 3.69 L Hgb 10.9 L Hct 33.6 L MCV 91.0 MCH 29.6 MCHC 32.5 RDW 12.4 Plt Count 437 H Neut % (Auto) 82.5 H Lymph % (Auto) 10.3 L [place] % (Auto) 6.8 Eos % (Auto) 0.2 L Baso % (Auto) 0.2 Neut # (Auto) 84859 H Lymph # (Auto) 1700 [place] # (Auto) 1100 H Eos # (Auto) 0 Baso # (Auto) 0 Sodium 138 Potassium 3.0 L Chloride 104 Carbon Dioxide 30 BUN 13 Creatinine 0.52 Estimated GFR > 60 BUN/Creatinine Ratio 25.0 H Glucose 129 H Calcium 7.7 L Magnesium 1.9 Total Bilirubin 0.3 AST 31 ALT 26 Alkaline Phosphatase 149 H Total Protein 6.8 Albumin 3.1 L Globulin 3.7 Albumin/Globulin Ratio 0.8 L [facility] Surgical History Hx laparoscopic cholecystectomy Social History household members: other Smoking Status: Never smoker alcohol intake: never Assessment & Plan Assessment & Plan narrative: 1. Probable aspiration pnuemonia with committant enterovirus/rhinovirus with bronchospasm, responsive to antibiotics and nebulizers. Diet per speech therapy. Sepsis ruled out. 2. Acute hypoxic respiratory failure due to 1. 3. 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 Hypertension. 4. Anxiety 5. Depression 6. Seizure disorder 7. 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 9. DVT prophylaxis: Lovenox 10. Code status: DNR/DNI Plan: -floor status. Patient ruled out for sepsis with SOFA score of 1 for respiratory failure. -continue nasal cannula oxygen as needed goal O2 90% on supplemental therapy. -Continue IV Zosyn, rising WBC count likely with re-aspiration event. -NPO today. Reassess with PRESIDENT PRACTICING UROLOGIST tomorrow, will attempt in her wheelchair where patient normally eats meals. -continue routine home medications when able -DVT prophylaxis -DNR DNI -started D5w based on previous sodium 145, improved at 138 today so will continue. Potassium repleted today with K at 3.0 -consider goals of care discussions if no improvement in a couple of days The patient is admitted to inpatient status as she will require at least 2 midnights of inpatient level care. Time-Based Coding :: [TOTAL MINUTES] spent with patient and on the chart (including review of chart, obtaining history, exam, reviewing outside data, placing orders, documenting exam and treatment plan, and counseling patient) on [DATE]. Quality VTE Deep Vein Thrombosis/Pulmonary Embolism Present on Admission: No
[2024-06-11 15:52] VITALS: BP 160/77; PULSE 89; RESP 25; TEMP 37.6; O2SAT 96
[2024-06-11 19:08] VITALS: PULSE 101; O2SAT 94
[2024-06-11 20:00] VITALS: BP 148/83; PULSE 98; RESP 22; TEMP 37.1; O2SAT 94
[2024-06-11 20:30] VITALS: O2SAT 95
[2024-06-12] MEDS: DEXTROSE 5% WATER 1,000 ML 50 ML IV (00:47)
[2024-06-12] MEDS: PIPERACILLIN/TAZO 3.375 GM in SODIUM CHLORIDE 0.9% 100 ML IV ×3 (02:50→19:31)
[2024-06-12 05:57] LABS: Add Manual Diff / Slide Review NO; Basophils Absolute Auto 0 /uL (0-100); Basophils Percent Auto 0.4 % (0-2); Eosinophils Absolute Auto 200 /uL (0-450); Hematocrit 32.7 % (36-46); Lymphocytes Absolute Auto 1500 /uL (1100-4500); Lymphocytes Percent Auto 12.8 % (25-40); Mean Corpuscular HGB Conc 33.7 % (30-36); Mean Corpuscular Hemoglobin 30.4 PG (26-34); Mean Corpuscular Volume 90.1 fL (80-100); Monocytes Absolute Auto 800 /uL (0-900); Monocytes Percent Auto 6.8 % (3-14); Neutrophils Absolute Auto 9100 /uL (1500-7000); Platelet Count 456 X10^3/uL (150-400); Red Blood Cell Count 3.63 X10^6/uL (4.0-5.2); Red Cell Distribution Width 12.5 % (11.6-14.8); White Blood Cell Count 11.7 X10^3/uL (4.5-11.0)
[2024-06-12 06:23] LABS: Alanine Aminotransferase 28 IU/L (<35); Albumin 3.1 g/dL (3.5-5.0); Albumin Globulin Ratio 0.8 (1.0-2.8); Alkaline Phosphatase 140 U/L (38-126); Aspartate Aminotransferase 41 IU/L (14-36); BUN Creatinine Ratio 28.1 (6-22); Bilirubin Total 0.4 mg/dL (0.2-1.3); Blood Urea Nitrogen 16 mg/dL (7-17); Calcium 7.9 mg/dL (8.4-10.2); Carbon Dioxide 27 mmol/L (22-32); Chloride 106 mmol/L (98-107); Estimated Glomerular Filt Rate > 60 mL/min (>60); Globulin 3.8 g/dL (1.7-4.1); Glucose 91 mg/dL (80-110); HEMOLYSIS 23 (0-50); Potassium 3.3 mmol/L (3.4-5.1); Sodium 138 mmol/L (137-145); Total Protein 6.9 g/dL (6.3-8.2)
[2024-06-12 08:00] VITALS: BP 165/94; PULSE 85; RESP 18; TEMP 37.2; O2SAT 90
[2024-06-12] MEDS: ENOXAPARIN 40 MG/0.4 ML SYRINGE SUBCUT (08:24)
--- NOTE | 2024-06-12 08:41 | PC.NURSE ---
Addendum entered by Tiff Little R.N. 06/12/24 08:54: notified that pt pulling O2 off. Original Note: Pt pulling O2 off, tried switching to oxymask but pt pulling it off as well. O2 sats 86% on room air.
--- NOTE | 2024-06-12 09:13 | PC.NURSE ---
Distracted pt and she allowed O2 to be replaced. SPO2 95% on 3L
[2024-06-12 09:14] VITALS: O2SAT 95
[2024-06-12] MEDS: POTASSIUM CHLORIDE IN WATER 10 MEQ/100 ML PIGGYBACK 100 MEQ IV ×4 (09:57→13:09)
--- NOTE | 2024-06-12 10:12 | DIET.CONS ---
Dietary Consultation Note Admission Date: 06/07/2024 17:52 Assessment: 83 y F admitted for SOB. RD screened for LOS. EMR reviewed. PMH of dementia d/t stroke, nonverbal. Pt initially evaluated by ST and put on pureed diet on 06/08. One recorded PO intake of 75%. Pt now NPO per ST since 06/10. ST to re-eval today. On D5w. No significant recent weight changes. Ht: 144.78 cm Wt: 54.75 kg BMI: 26.1 UBW: 54.431 kg on 10/11/23 Last BM: 06/11/24 (06/11/24 14:07) MNA: Alvaro Score: 12 Diet: 06/10/24 12:24 NPO Diet Diet Modifications: NPO Type: Strict Nutrition Percent Meal Consumed pt is npo 06/11/24 18:00 Labs: RBC 3.63 X10^6/uL (4.0-5.2) L 06/12/24 05:25 Hgb 11.0 g/dL (12.0-16.0) L 06/12/24 05:25 Hct 32.7 % (36-46) L 06/12/24 05:25 Creatinine 0.57 mg/dL (0.52-1.04) 06/12/24 05:25 Nutrition Diagnosis: Inadequate oral intake r/t swallowing difficulty aeb NPO status per speech therapy Interventions: 1. Monitor for diet per ST EER: 3534-9970 kcals (25-28 kcals/kg) 60-65 g protein (1.2 g/kg per [facility] critical care/pnuemonia) Monitoring/Evaluations: diet reccs and PO intakes Electronically Signed by: Amita Ojeda 06/12/24 10:12 [address] [address]
--- NOTE | 2024-06-12 10:23 | CM.DPNOTE ---
Addendum entered by JAYME Gilliam 06/12/24 12:19: per RAILROAD COMMISSIONER, rec moist/minced PO intake. did overall very well. POSTAL TRANSPORTATION CLERK updated Tata at . SL Original Note: DCP Note POSTAL TRANSPORTATION CLERK reviewed EMR. Per RN report, pt keeps pulling off oxygen. Per hospitalist in morning rounds, anticipate ready to return to in a day or two. RAILROAD COMMISSIONER pending for today. Pt looks better today. Per hospitalist, if pt can tolerate PO intake, will dc on PO abx. if not, will figure out IV abx plan. POSTAL TRANSPORTATION CLERK updated Tata at . Plans to keep an eye out for RAILROAD COMMISSIONER eval later this afternoon. P: anticipate return to [facility], pending RAILROAD COMMISSIONER recommendation. Likely a day or so. CM team will continue to follow closely for coordination of plan/any additional DCP needs (i.e., if IV abx is needed). Will coordinate with dtr/son (POA) as needed. JAYME Gilliam
[2024-06-12] MEDS: ESCITALOPRAM 10 MG TABLET 20 MG PO (11:53)
[2024-06-12] MEDS: lamoTRIgine 100 MG TABLET 150 MG PO (11:54)
[2024-06-12 11:55] VITALS: BP 165/81; PULSE 88
[2024-06-12] MEDS: lisinopriL 10 MG TABLET PO (11:55)
--- NOTE | 2024-06-12 12:10 | ST.IPDYTX ---
Visit Care Team Role Provider Type Doctor MD Roya Primary Care Provider Non-Staff Specialty: Medical Address: Phone: Fax: Email: Caleb Russell DO Emergency Provider Physician Referring Provider Specialty: Emergency Medicine Address: [address] [place] [address], [id number] Email: [email or web address] MD Admit Provider Physician Attending Provider Specialty: Internal Medicine Address: [address] [place] [address], [id number] Email: [email or web address] POT BUILDER Dysphagia Treatment POT BUILDER Dysphagia Treatment Start: 06/10/24 09:37 Freq: Status: Active Protocol: Document 06/12/24 11:51 SS (Rec: 06/12/24 12:10 SS [id number]) Dysphagia Treatment Session Time Visit Start Time 11:20 Visit Stop Time 11:45 Total Visit Minutes 25 Visit Information Visit Number 3 Setting Assessment Location Acute Care Visit Type Note Type Treatment Note Next Note Type Next Note Type Treatment Note Patient Information Identification Type Name Subjective Observations Pt sitting upright in armchair and was awake and alert. Pt is nonverbal, though vocalized several times during the session to decline liquids/ solids provided. She tracked POT BUILDER across the room, though did not follow simple directions. Treatment Liquids Trialed Thin (IDDSI 0) Solids Trialed Purred (IDDSI 4),Soft & Bite- sized (IDDSI 6) Administration Type Straw,Dependent Feeding Oral Strategies Upright at 90 degrees, Controlled Bite/Sip Size, Alternate Liquids/Solids Pharyngeal Strategies Small Bites and Sips Treatment Activities Assessment of swallow function with PO trials of thin liquids via straw, puree, and soft and bite-sized solids via tsp. The IDDSI Framework Protocol: IDDSI.1 Assessment Patient Response to Treatment Good Rehab Potential Good Assessment of Improvement Pt initially declined liquids via cup and via straw by looking away and vocalizing. However, she was agreeable to consume thin liquids via straw as session progressed. She was able to utilize controlled -rate independently and took single small sips via straw without need for POT BUILDER cueing. Good oral acceptance and containment, AP transit appeared timely, and no overt s/sx of penetration/aspiration with thin liquid. Pt consumed about 1-2 oz of apple sauce and about 1-2 oz of diced peaches. Easy to chew texture soft bar attempted, though pt declined to trial it. Pt required complete feeding assistance today. For all solids, pt demonstrated good oral acceptance and containment, prolonged bolus manipulation and likely disorganized bolus control, suspected delayed AP transport , and suspected delay in swallow initiation. No overt s /sx of penetration/aspiration with trials of solids today. Oral phase was mildly prolonged and disorganized with pocketing observed though largely functional and pharyngeal phase appeared timely and coordinated. Recommend advancement to minced and moist textures, thin liquids, and medications in puree carrier with adherence to aspiration precautions below, 1:1 assistance and supervision with intake, and BID oral care . POT BUILDER communicated pt progress and diet advancement recommendation to RN. Recommendations Recommendations Upgrade Diet Order Liquids Order Thin (IDDSI 0) Diet Order Minced & Moist (IDDSI 5) Medication Recommendations Whole in Carrier,One at a Time Additional Dietary Needs Chopped Food,Single Sips,1:1 Supervision,1:1 Assistance Aspiration Precautions Recommended Precautions Upright at 90 Degrees, Alternate Liquids/Solids,Small Bites/Sips,Check for Pocketing Treatment Plan Placement Recommendation after Discharge [facility] Appropriate for Continued Therapy Yes Therapy Recommendations POT BUILDER to follow-up to assess further advancement of solid textures and tolerance of current diet.
--- NOTE | 2024-06-12 12:17 | P.PN_ITS ---
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 EMS found her temperature to be 100.7? F. She has had a history of presumed aspiration pneumonias. She was tested positive for Enterococcus/rhino virus in the emergency department. Chest x-ray showed a left lower lobe infiltrate. In discussion with family in the emergency department physician, they wished DNR/DNI status though would accept noninvasive ventilation for her. Interval history: Improvement in O2 requirements this morning, appears comfortable, unable to perform subjective history with patient but she is much more alert. She removed her supplemental oxygen and kept doing so overnight. Exam Vital Signs (past 8 hours): - 06/12/24 07:00 06/12/24 09:14 06/12/24 11:55 Pulse Rate 88 Blood Pressure 165/81 H Pulse Oximetry 95 Oxygen Delivery Method Nasal Cannula Nasal Cannula Oxygen Flow Rate 3 Fraction of Inspired Oxygen 32 Fraction of Inspired Oxygen 32 SaO2/FiO2 Ratio 296 Oxygen Delivery Method Nasal Cannula Oxygen Flow Rate 3 Narrative Exam Narrative: GENERAL: This is a female with advanced dementia, nonverbal, appears otherwise comfortable. Sitting in her wheelchair this morning. Ext: no edema Objective Labs 06/12/24 05:25 06/12/24 05:25 Labs: Laboratory Results - last 24 hr 06/12/24 05:25 WBC 11.7 H RBC 3.63 L Hgb 11.0 L Hct 32.7 L MCV 90.1 MCH 30.4 MCHC 33.7 RDW 12.5 Plt Count 456 H Neut % (Auto) 78.0 H Lymph % (Auto) 12.8 L [place] % (Auto) 6.8 Eos % (Auto) 2.0 Baso % (Auto) 0.4 Neut # (Auto) 9100 H Lymph # (Auto) 1500 [place] # (Auto) 800 Eos # (Auto) 200 Baso # (Auto) 0 Sodium 138 Potassium 3.3 L Chloride 106 Carbon Dioxide 27 BUN 16 Creatinine 0.57 Estimated GFR > 60 BUN/Creatinine Ratio 28.1 H Glucose 91 Calcium 7.9 L Magnesium 2.0 Total Bilirubin 0.4 AST 41 H ALT 28 Alkaline Phosphatase 140 H Total Protein 6.9 Albumin 3.1 L Globulin 3.8 Albumin/Globulin Ratio 0.8 L PFSH Surgical History Hx laparoscopic cholecystectomy Social History household members: other Smoking Status: Never smoker alcohol intake: never Assessment & Plan Assessment & Plan narrative: 1. Probable aspiration pnuemonia with committant enterovirus/rhinovirus with bronchospasm, responsive to antibiotics and nebulizers. Diet per speech therapy. Sepsis ruled out. 2. Acute hypoxic respiratory failure due to 1. 3. 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 Hypertension. 4. Anxiety 5. Depression 6. Seizure disorder 7. 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 9. DVT prophylaxis: Lovenox 10. Code status: DNR/DNI Plan: -floor status. Patient ruled out for sepsis with SOFA score of 1 for respiratory failure. -continue nasal cannula oxygen as needed and or tolerated with goal O2 90% on supplemental therapy. -Continue IV Zosyn, rising WBC count likely with re-aspiration event, WBC count now much improved today along with the patient. -NPO today. Reassess with ABRASIVE COATING MACHINE OPERATOR today in her wheelchair. If she continues to show signs of aspiration will needs goals of care discussion as she appears quite well this morning. -continue routine home medications when able -DVT prophylaxis -DNR DNI -started D5w based on previous sodium 145, improved at 138 today so will continue. Potassium 3.3 today. The patient is admitted to inpatient status as she will require at least 2 midnights of inpatient level care. Dispo: Likely discharge in 1-2 days depending on ABRASIVE COATING MACHINE OPERATOR evaluation today. Time-Based Coding :: [TOTAL MINUTES] spent with patient and on the chart (including review of chart, obtaining history, exam, reviewing outside data, placing orders, documenting exam and treatment plan, and counseling patient) on [DATE]. Quality VTE Deep Vein Thrombosis/Pulmonary Embolism Present on Admission: No
[2024-06-12 16:00] VITALS: BP 163/86; PULSE 91; RESP 16; TEMP 36.4; O2SAT 91
[2024-06-12 19:45] VITALS: O2SAT 93
[2024-06-12 20:00] VITALS: BP 169/75; PULSE 103; RESP 24; TEMP 36.9; O2SAT 83
[2024-06-12] MEDS: LORazepam 2 MG/ML INJ 0.25 MG IV (20:41)
--- NOTE | 2024-06-12 21:35 | PC.NURSE ---
Addendum entered by Minnie Michelle R.N. 06/13/24 06:40: Patient did cough more at beginning of shift than she did the previous night. Placed 2L NC back on after she fell asleep, SpO2 up to 99% Original Note: Junior Network Engineer Note-Patient more restless and anxious tonight, refused chocolate pudding with her HS meds. Attempt to given her Tylenol for FLACC 4 and discomfort, refused by turning her head away. Continues to pull NC off, SpO2 86% on RA. 0.25mg IV Ativan given, will monitor and attempt to replace NC. Purewick intact and patent, brief dry.
[2024-06-13] VITALS: BP 121/58; PULSE 84; RESP 24; TEMP 36.5; O2SAT 97
[2024-06-13] MEDS: PIPERACILLIN/TAZO 3.375 GM in SODIUM CHLORIDE 0.9% 100 ML IV ×2 (03:25→11:00)
[2024-06-13 04:00] VITALS: BP 124/60; PULSE 76; RESP 24; TEMP 36.6; O2SAT 98
[2024-06-13 05:32] LABS: Add Manual Diff / Slide Review NO; Basophils Absolute Auto 0 /uL (0-100); Basophils Percent Auto 0.4 % (0-2); Eosinophils Absolute Auto 400 /uL (0-450); Eosinophils Percent Auto 4.5 % (2-4); Hematocrit 31.2 % (36-46); Hemoglobin 10.8 g/dL (12.0-16.0); Lymphocytes Absolute Auto 1700 /uL (1100-4500); Lymphocytes Percent Auto 19.6 % (25-40); Mean Corpuscular HGB Conc 34.5 % (30-36); Mean Corpuscular Hemoglobin 31.1 PG (26-34); Mean Corpuscular Volume 90.2 fL (80-100); Monocytes Absolute Auto 600 /uL (0-900); Monocytes Percent Auto 6.4 % (3-14); Neutrophils Absolute Auto 6100 /uL (1500-7000); Neutrophils Percent Auto 69.1 % (50-75); Platelet Count 459 X10^3/uL (150-400); Red Blood Cell Count 3.45 X10^6/uL (4.0-5.2); Red Cell Distribution Width 12.2 % (11.6-14.8); White Blood Cell Count 8.8 X10^3/uL (4.5-11.0)
[2024-06-13 05:49] LABS: HEMOLYSIS < 15 (0-50); Potassium 3.3 mmol/L (3.4-5.1)
[2024-06-13 05:51] LABS: Alanine Aminotransferase 29 IU/L (<35); Albumin Globulin Ratio 0.8 (1.0-2.8); Aspartate Aminotransferase 39 IU/L (14-36); BUN Creatinine Ratio 21.5 (6-22); Blood Urea Nitrogen 14 mg/dL (7-17); Calcium 7.7 mg/dL (8.4-10.2); Carbon Dioxide 29 mmol/L (22-32); Chloride 107 mmol/L (98-107); Estimated Glomerular Filt Rate > 60 mL/min (>60); Globulin 3.6 g/dL (1.7-4.1); Glucose 100 mg/dL (80-110); Sodium 138 mmol/L (137-145); Total Protein 6.6 g/dL (6.3-8.2)
[2024-06-13 05:52] LABS: Alkaline Phosphatase 131 U/L (38-126); Bilirubin Total 0.4 mg/dL (0.2-1.3)
[2024-06-13] MEDS: ENOXAPARIN 40 MG/0.4 ML SYRINGE SUBCUT (08:07)
[2024-06-13] MEDS: lamoTRIgine 100 MG TABLET 150 MG PO (08:08)
[2024-06-13] MEDS: lisinopriL 10 MG TABLET PO (08:08)
[2024-06-13] MEDS: ESCITALOPRAM 10 MG TABLET 20 MG PO (08:08)
[2024-06-13] MEDS: SODIUM CHLORIDE 0.9% FLUSH 10 ML IV (08:35)
[2024-06-13 09:43] VITALS: O2SAT 97
[2024-06-13] MEDS: POTASSIUM CHLORIDE IN WATER 10 MEQ/100 ML PIGGYBACK 100 MEQ IV ×4 (09:46→12:51)
--- NOTE | 2024-06-13 10:34 | PM.DS.1 ---
History of Present Illness History of Present Illness Chief complaint: SOB Narrative: From H&P: 83-year-old woman living at a local memory care facility, nonverbal with a history of 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 EMS found her temperature to be 100.7? F. She has had a history of presumed aspiration pneumonias. She was tested positive for Enterococcus/rhino virus in the emergency department. Chest x-ray showed a left lower lobe infiltrate. In discussion with family in the emergency department physician, they wished DNR/DNI status though would accept noninvasive ventilation for her. Discharge Providers Provider Date of admission: 06/07/24 17:52 Discharge Date: 06/13/24 Primary care physician: Doctor Roya MD Consults: 06/07/24 18:38 Consult to Speech Therapy Evaluate & Treat Comment: Physician Instructions: Evaluate and treat Discharge provider: Keith Orosco MD Summary Hospital Course Discharge Diagnosis: 1. Probable aspiration pnuemonia with committant enterovirus/rhinovirus with bronchospasm, responsive to antibiotics and nebulizers. Diet per speech therapy. Sepsis ruled out. 2. Acute hypoxic respiratory failure due to 1. 3. 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 Hypertension. 4. Anxiety 5. Depression 6. Seizure disorder 7. 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 9. DVT prophylaxis: Lovenox 10. Code status: DNR/DNI Hospital Course: The patient is a 83-year-old female who presented with fever and was felt to have rhino virus and possible aspiration pneumonia. Chest x-ray revealed a left lobe infiltrate. The patient is DNR and DNI but is okay for positive pressure ventilation such as BiPAP if this is ever needed. She was treated with oxygen supplementation initially. She was given Zosyn. She was able to wean down in terms of her oxygen demand over the last several days of the hospital stay and did not have further fevers. In the day of discharge she was comfortable and appeared to be stable for discharge back to her rehab facility. Speech therapy continues to recommend nectar thick liquids, with minced and moist food texture. The patient was felt to be at a reasonably high risk for recurrent aspiration pneumonia. She was also treated for mild hypernatremia with free water. Status at Discharge Cognitive/behavioral status at discharge: at baseline, confused Functional status at discharge: uses cane/walker Overall status at discharge: patient is back to baseline Time Spent with Patient Time spent: Greater than 30 minutes Exam Vital Signs (past 8 hours): - 06/13/24 04:00 06/13/24 07:00 06/13/24 09:43 Temperature 97.9 F Pulse Rate 76 Respiratory Rate 24 Blood Pressure 124/60 Pulse Oximetry 98 97 Oxygen Delivery Method Room Air Nasal Cannula Nasal Cannula Oxygen Flow Rate 2 2 Fraction of Inspired Oxygen 28 Fraction of Inspired Oxygen 28 SaO2/FiO2 Ratio 346 Oxygen Delivery Method Nasal Cannula Oxygen Flow Rate 2 Narrative Exam Narrative: Not able to speak, no distress. Lungs are clear with normal rate and effort. Heart is regular without murmur. Abdomen is non distended. Extremities are free of edema. Objective ECG Impression: Intervals [place] Rate: 118 P: 54 MS: 142 QRS: 38 QRSD: 76 T: -8 QT: 314 QTc: 440 Interpretive Statements Sinus tachycardia Nonspecific ST and T wave abnormality Imaging Chest x-ray: Radiologist's impression: Small left pleural effusion and suggestion of left lower lobe infiltrate versus atelectasis. No gross pneumothorax. Labs 06/13/24 05:20 06/13/24 05:20 Labs: Laboratory Results - last 24 hr 06/13/24 05:20 WBC 8.8 RBC 3.45 L Hgb 10.8 L Hct 31.2 L MCV 90.2 MCH 31.1 MCHC 34.5 RDW 12.2 Plt Count 459 H Neut % (Auto) 69.1 Lymph % (Auto) 19.6 L [place] % (Auto) 6.4 Eos % (Auto) 4.5 H Baso % (Auto) 0.4 Neut # (Auto) 6100 Lymph # (Auto) 1700 [place] # (Auto) 600 Eos # (Auto) 400 Baso # (Auto) 0 Sodium 138 Potassium 3.3 L Chloride 107 Carbon Dioxide 29 BUN 14 Creatinine 0.65 Estimated GFR > 60 BUN/Creatinine Ratio 21.5 Glucose 100 Calcium 7.7 L Magnesium 2.0 Total Bilirubin 0.4 AST 39 H ALT 29 Alkaline Phosphatase 131 H Total Protein 6.6 Albumin 3.0 L Globulin 3.6 Albumin/Globulin Ratio 0.8 L [facility] Surgical History Hx laparoscopic cholecystectomy Social History household members: other Smoking Status: Never smoker alcohol intake: never Discharge Assessment & Plan Assessment and Plan Assessment: 1. Probable aspiration pnuemonia with committant enterovirus/rhinovirus with bronchospasm, responsive to antibiotics and nebulizers. Diet per speech therapy. Sepsis ruled out. Improved. 2. Acute hypoxic respiratory failure due to 1. Improved. 3. Rhino virus URI, present on admission and improved. Plan of Treatment: Stable for discharge back to her facility. Antibiotics have been ongoing since the day of admission and will be stopped at this time. She will be given a low dose of potassium, 10 mEq a day for the next 10 days for recurrent mild hypokalemia noted in the hospital. Discharge Plan Discharge Plan Patient Disposition: SNF Under care of provider: Dr. Adrian Provider Discharge Comment: Returned to nursing facility. Discharge orders & Medications Prescriptions: New potassium chloride 10 mEq packet 10 meq PO DAILY Qty: 10 0RF Continued lamotrigine 150 mg tablet 150 mg PO DAILY Qty: 90 3RF (DME) Probiotic See Rx Instructions .Route .MEDSUPPLY Qty: 30 6RF Rx Instructions: 1 capsule by mouth daily; ascorbic acid (vitamin C) 500 mg tablet 500 mg PO DAILY Qty: 30 6RF polyethylene glycol 3350 [Miralax] 17 gram/dose powder 17 g PO DAILY PRN (Reason: constipation) Qty: 510 3RF primidone 50 mg tablet 50 mg PO BEDTIME Qty: 90 3RF primidone 250 mg tablet 250 mg PO BEDTIME Qty: 90 3RF acetaminophen 500 mg tablet 1,000 mg PO TID PRN (Reason: fever or pain) Qty: 180 0RF Rx Instructions: Ok to crush if needed for easier use of taking calcitriol 0.25 mcg capsule 0.25 mcg PO DAILY Qty: 90 0RF Rx Instructions: APPT DUE WITH PCP. PLEASE CALL TO SCHEDULE APPT. THANK YOU 03/07/22 T-Vrhn-Wnbrupw 250 mg tablet 1 tab PO BID Qty: 180 0RF escitalopram oxalate 20 mg tablet 20 mg PO DAILY Qty: 15 0RF Rx Instructions: NO FURTHER REFILLS UNTIL SEEN. PLEASE CALL TO SCHEDULE APPT. THANKS 07/26/22. lisinopril 10 mg tablet 10 mg PO DAILY Qty: 30 0RF Rx Instructions: Patient is overdue for an appointment with Dr. Jarrett for annual follow up. Patient will need to be seen before next renewal. 08/24/22 Orajel 3X Toothache-Gum 20-0.26-0.15 % Gel 1 ea topical QID PRN (Reason: painful gums) Qty: 11.9 0RF Follow up/Referrals: Roya,DoctorMD [Primary Care Provider] - Discharge Health Status Multidrug resistant organism: No MDRO Precautions: [place] Diet/Activity/Treatments Diet: Regular Liquid consistency: [place] Consistency Diet comment: Minced and moist per ST Skin/Wound/Dressing Care Report to your healthcare provider any signs of infection, such as:: chills, fever and night sweats Special Rehabilitation Services Reason for rehabilitation: Recovery r/t decondition Rehab type: Physical therapy and Speech therapy Visit Report/Discharge Packet Instructions: DI for Aspiration Pneumonia Discharge Data Primary Care Provider: Doctor Roya Quality VTE Deep Vein Thrombosis/Pulmonary Embolism Present on Admission: No
--- NOTE | 2024-06-13 11:25 | SLP.IPNOTE ---
Writing CHUTE BOSS consulted with hospitalist re pt status prior to discharge. This CHUTE BOSS did not evaluate pt in person this date. Most recent CHUTE BOSS re-evaluation (06/12/24) recommended thin liquids (IDDSI 0) and minced/moist solids (IDDSI 5) while inpatient. Plan is for patient to dc back to [facility] care this afternoon at 1300. Given writing CHUTE BOSS's history of care with pt, there were concerns regarding pt continuing on thin liquids at next level of care. This CHUTE BOSS recommends return to baseline admit liquid consistency of nectar thick liquids (IDDSI 2) and minced/moist solids (IDDSI 5). Reasoning for this change is based on: -Lower level of supervision at next level of care leaves more potential for pt to consume liquids in less than optimal position for swallowing (not fully upright) -History of previous MBSS (most recently in August of 2023) recommending nectar thick liquids based on objective assessment -History of recurrent aspiration pneumonias -Baseline liquid consistency of NTL/IDDSI 2 on admit Even given diet modifications, this pt remains at high risk for recurring aspiration pneumonias based on history. Diet/liquid modifications do not eliminate the risk for aspiration pneumonia for this patient, though nectar liquids appear to be safest for pt based on most recent objective assessment (MBS in Aug 2023). Writing CHUTE BOSS consulted with hospitalist, Dr. Orosco, who was in agreement with CHUTE BOSS recommendation of returning to nectar thick liquids based on pt history and baseline diet.
--- NOTE | 2024-06-13 11:36 | CM.DPNOTE ---
DCP Note PHYSICIST ASTROPHYSICS reviewed EMR. Per nursing/hospitalist, stable to dc back to today. Per [facility] at , transport to p/u pt at 1300. Updated hospitalist/RN/speech/PROFESSOR OF SOCIAL WORK. Gave RN report number. CC Marge kindly agreed to send med list/dc information to [facility] from . no PASRR needed. PHYSICIST ASTROPHYSICS spoke with son Godwin to update him on the plan. (p [phone]). answered questions to the best of ability. P: pt to dc to LTC at today at 1300. No further CM needs at this time, CM team will continue to follow as needed JAYME Gilliam
[2024-06-13 12:10] VITALS: BP 134/64; PULSE 93; RESP 17; TEMP 36.3; O2SAT 94
--- NOTE | 2024-06-13 12:21 | PC.NURSE ---
Addendum entered by Re Cason R.N. 06/13/24 15:02: Third attempt made to call report to , Care management has also attempted several times to contact [facility] as well, no response. Will wait for their return call to give report Addendum entered by Re Cason R.N. 06/13/24 13:52: Second attempt to give report to , no answer. Will continue to attempt to get ahold of someone. Pt picked up by transport at 1300. No further patient contact at this time Original Note: Called to give report, no answer, left message to return call.
== END 2024-06-13 13:24 | DRG 177 ==
LOC: ED 17:51 → AC 17:54 → ICU 18:20
PROVIDERS: Internal Medicine; Admitting Provider Internal Medicine; Emergency Provider Emergency Medicine; Referring Provider Emergency Medicine; Visit Provider Internal Medicine
DX: J69.0 Pneumonitis due to inhalation of food and vomit (principal); J96.01 Acute respiratory failure with hypoxia; F03.90 Unspecified dementia, unspecified severity, without behavioral disturbance, psychotic disturbance, mood disturbance, and anxiety; I10 Essential (primary) hypertension; F41.9 Anxiety disorder, unspecified; F32.A Depression, unspecified; G40.909 Epilepsy, unspecified, not intractable, without status epilepticus; R25.1 Tremor, unspecified; I69.318 Other symptoms and signs involving cognitive functions following cerebral infarction; I69.328 Other speech and language deficits following cerebral infarction; J98.01 Acute bronchospasm; E83.31 Familial hypophosphatemia; B34.8 Other viral infections of unspecified site; Z89.511 Acquired absence of right leg below knee; Z66 Do not resuscitate
CPT/HCPCS: 36415; 71045; 80048; 80053; 83690; 83735; 85025; 87633; 87797; 92526; 92610; 93005; 93010; 94640; 94762; 96365; 99284; 99285; J1642; J1650; J2060; J2470; J2543; J7613

== ENCOUNTER → 2024-10-14 14:39 | Outpatient (CLI) | payer MEDICARE, MEDICAID, SELFPAY ==
[2024-06-07 18:49] VITALS: BMI 29.0
== END ==
PROVIDERS: Referring Provider Hospitalist; Visit Provider Surgery
DX: L89.893 Pressure ulcer of other site, stage 3 (principal); T87.89 Other complications of amputation stump; L53.8 Other specified erythematous conditions
CPT/HCPCS: 11042; 87070; 87075; 87077; 87147; 87186; 87205; 99203; 99214

== ENCOUNTER → 2024-10-16 14:19 | Outpatient (CLI) | payer MEDICARE, MEDICAID, SELFPAY ==
[2024-06-07 18:49] VITALS: BMI 29.0
--- NOTE | 2024-10-16 14:20 | DI.RAD.S_ITS ---
PROCEDURE: XR TIBIA FUBULA RT 2V INDICATIONS: non-healing ulcer on right leg distal amputation/stump site TECHNIQUE: 2 views of the tibia and fibula were acquired. COMPARISON: None. FINDINGS: Bones: Status post amputation of the proximal tibia with postsurgical changes at the stump. Query areas of cortical lucency at the stump. No significant periosteal reaction. Soft tissues: No suspicious soft tissue calcifications or masses. Soft tissue edema at the stump. No subcutaneous gas. IMPRESSION: Status post amputation at the level of the proximal tibia. Query area of cortical lucency at the stump without significant periosteal reaction. Finding may represent postsurgical changes versus osteomyelitis. No priors are available for comparison. If there is high clinical concern for osteomyelitis, MRI is more sensitive. Approved by: Jocelyn Ybarra M.D.,Ph.D. on 10/17/2024 at 6:10
== END ==
PROVIDERS: Referring Provider Surgery; Visit Provider Surgery
DX: L97.919 Non-pressure chronic ulcer of unspecified part of right lower leg with unspecified severity (principal); Z89.511 Acquired absence of right leg below knee
CPT/HCPCS: 73590

== ENCOUNTER → 2024-10-21 14:07 | Outpatient (CLI) | payer MEDICARE, MEDICAID, SELFPAY ==
[2024-06-07 18:49] VITALS: BMI 29.0
== END ==
PROVIDERS: Visit Provider Surgery
DX: L89.893 Pressure ulcer of other site, stage 3 (principal); T87.89 Other complications of amputation stump; L53.8 Other specified erythematous conditions
CPT/HCPCS: 11042

== ENCOUNTER 2024-11-07 13:40 | Emergency (ER) | payer MEDICARE, MEDICAID, SELFPAY ==
[2024-06-07 18:49] VITALS: BMI 29.0
[2024-11-07] VITALS (15 sets, daily range): BP systolic 102–125; BP diastolic 51–63; PULSE 70–84; RESP 14–23; TEMP 36.3; O2SAT 91–100
--- NOTE | 2024-11-07 13:49 | EKG_ITS ---
[place] [id number] [place] [id number] Test Date: 2024-11-07 Pat Name: Quyen Hyde Department: [facility] Room: Gender: Female Developmental Education Instructor: : 1940 Requested By: Order Number: [id number] Reading MD: Tom Funez MD Measurements Intervals Logan Rate: 79 P: 37 WI: 162 QRS: 13 QRSD: 86 T: 12 QT: 414 QTc: 474 Interpretive Statements Normal sinus rhythm Minimal voltage criteria for LVH, may be normal variant ( R in aVL ) Possible Inferior infarct , age undetermined Cannot rule out Anterior infarct , age undetermined Electronically Signed On 11-07-2024 14:00:19 PDT by Tom Funez MD
--- NOTE | 2024-11-07 13:49 | DI.RAD.S_ITS ---
PROCEDURE: XR CHEST 1V INDICATIONS: syncope, COVID + TECHNIQUE: One view of the chest was acquired. COMPARISON: [facility], CR, XR CHEST 1V, 06/07/2024, 15:11. [facility], CR, XR CHEST 1V, 10/11/2023, 17:20. FINDINGS AND IMPRESSION: Left lung base opacity and suspect small effusion, possibly infectious. Consider future imaging surveillance to assess for resolution. Low lung volumes. Heart size is at the upper limit of normal. Unchanged cardiomediastinal contours. Degenerative osseous changes. Dictated by: Lv Vargas M.D. on 11/07/2024 at 14:36 Approved by: Lv Vargas M.D. on 11/07/2024 at 14:37
--- NOTE | 2024-11-07 13:52 | ED.SYNCOPE ---
HPI - Syncope General Chief Complaint: Syncope Stated Complaint: Syncope Time Seen by Provider: 11/07/24 13:45 History of Present Illness HPI narrative: Patient is a 84-year-old female with a past medical history of hemorrhagic stroke patient is baseline nonverbal secondary to this, she is DNR/DNI with limited interventions. She is brought into the emergency department from [facility] for evaluation of syncope. According to medics they were called because patient had a witnessed syncopal event, according to the medics they were told the patient was in there chair and ?zoned out according to medics patient normally can nod yes and no and make grunting noises, they state that patient was also noted to have low blood pressures mapping in the 50s, at time of evaluation here patient is at her alleged baseline, she is nodding her head yes and no, she is grunting with response to questions. Patient with initial normotension at time of evaluation. To note patient was just diagnosed with COVID yesterday Related Data Previous Rx's Medication Instructions Recorded lamotrigine 150 mg tablet 150 mg PO DAILY #90 tabs 04/23/21 Probiotic #30 ea 06/22/21 ascorbic acid (vitamin C) 500 mg 500 mg PO DAILY #30 tabs 06/22/21 tablet polyethylene glycol 3350 17 17 g PO DAILY PRN constipation 06/22/21 gram/dose oral powder (Miralax) #510 grams primidone 250 mg tablet 250 mg PO BEDTIME #90 tabs 06/24/21 primidone 50 mg tablet 50 mg PO BEDTIME #90 tabs 06/24/21 acetaminophen 500 mg tablet 1,000 mg (2 x 500 mg) PO TID PRN 07/09/21 fever or pain #180 tabs calcitriol 0.25 mcg capsule 0.25 mcg PO DAILY #90 caps 03/07/22 sodium di- and 1 tab PO BID #180 tabs 04/05/22 monophosphate-potassium phos monobasic 250 mg tablet (I-Qkee-Kybmhqq) escitalopram oxalate 20 mg tablet 20 mg PO DAILY #15 tabs 07/26/22 lisinopril 10 mg tablet 10 mg PO DAILY #30 tabs 08/24/22 benzocaine 20 %-menthol 0.26 1 ea topical QID PRN painful gums 10/15/ %-zinc chloride 0.15 % mucosal gel #11.9 grams (Orajel 3X Toothache-Gum) potassium chloride 10 mEq oral 10 meq PO DAILY #10 ea 06/13/24 packet doxycycline hyclate 100 mg capsule 100 mg PO BID 5 days #10 jesica 11/07/24 Allergies Allergy/AdvReac Type Severity Reaction Status Date / Time No Known Allergies Allergy Verified 11/07/24 13:54 Review of Systems Review of Systems ROS Unobtainable: Unobtainable due to medical condition and Other (Patient history of nonverbal secondary to hemorrhagic stroke) Patient History Surgical History Hx laparoscopic cholecystectomy Social History household members: other Smoking Status: Unknown if ever smoked alcohol intake: never Exam Narrative Exam Narrative: General: Elderly, frail, nonacute distress HEENT: Normocephalic, atraumatic, PERRLA, normal sclera, eyelids normal Neck: Active full range of motion, atraumatic Chest: Normal to inspection, negative crepitus, no overlying erythema ecchymosis Respiratory: Normal respiratory effort, not in acute respiratory distress, clear to auscultation bilaterally negative cough, wheeze, tachypnea, rhonchi, rales Cardiology: Regular rate rhythm negative gallop, murmur, rubs GI/: No tenderness to palpation, soft, non rigid, normal to inspection, exam deferred MSK: atraumatic, no tenderness to palpation of any bony prominences Skin: No rashes or lesions noted Neuro: Patient nonverbal at baseline, grunting which is her baseline Initial Vital Signs Initial Vital Signs: Vital Signs Temperature 97.3 F L 11/07/24 13:45 Pulse Rate 70 11/07/24 13:45 Respiratory Rate 14 11/07/24 13:45 Blood Pressure 102/55 L 11/07/24 13:45 Pulse Oximetry 97 11/07/24 13:45 Oxygen Delivery Method Room Air 11/07/24 13:45 Course Orders Ordered: ED Orders 11/07/24 13:49 XR chest 1V Stat EKG-12 Lead Stat 11/07/24 14:57 Complete Blood Count AUTO DIFF Stat Comprehensive Metabolic Panel Stat Lipase Stat MAG [Magnesium] Stat NT-proBNP (BNP-Adult 18+) Stat Troponin & CK Cardiac Panel Stat Discontinued Medications Sodium Chloride (Normal Saline 0.9%) 1,000 mls @ 1,000 mls/hr IV BOLUS ONE Stop: 11/07/24 14:48 Vital Signs Vital signs: Vital Signs - 8 hr 11/07/24 13:45 11/07/24 13:45 11/07/24 13:45 Temperature 97.3 F L Pulse Rate 70 77 Respiratory Rate 14 Blood Pressure 102/55 L 102/55 L Pulse Oximetry 97 99 Oxygen Delivery Method Room Air 11/07/24 14:00 11/07/24 14:06 11/07/24 14:06 Temperature Pulse Rate 79 79 Respiratory Rate 22 22 Blood Pressure 115/52 L Pulse Oximetry 99 100 Oxygen Delivery Method 11/07/24 14:26 11/07/24 14:26 Temperature Pulse Rate 80 Respiratory Rate 22 Blood Pressure 116/59 L Pulse Oximetry 99 Oxygen Delivery Method MDM - Syncope Differential Diagnosis Differential diagnosis: Likely syncope due to orthostatic hypotension, vasovagal syncope, dehydration and other (Pneumonia, ACS, electrolyte abnormality) Lab Data 11/07/24 14:57 11/07/24 14:57 Labs: Lab Results 11/07/24 Range/Units 14:57 WBC 8.8 (4.5-11.0) X10^3/uL RBC 4.38 (4.0-5.2) X10^6/uL Hgb 13.5 (12.0-16.0) g/dL Hct 40.1 (36-46) % MCV 91.4 (80-100) fL MCH 30.7 (26-34) PG MCHC 33.6 (30-36) % RDW 13.0 (11.6-14.8) % Plt Count 326 (150-400) X10^3/uL Neut % (Auto) 77.0 H (50-75) % Lymph % (Auto) 14.7 L (25-40) % Hendricks % (Auto) 7.7 (3-14) % Eos % (Auto) 0.2 L (2-4) % Baso % (Auto) 0.4 (0-2) % Neut # (Auto) 6700 (8058-6108) /uL Lymph # (Auto) 1300 (5106-7695) /uL Hendricks # (Auto) 700 (0-900) /uL Eos # (Auto) 0 (0-450) /uL Baso # (Auto) 0 (0-100) /uL Sodium 139 (137-145) mmol/L Potassium 4.0 (3.4-5.1) mmol/L Chloride 107 (98-107) mmol/L Carbon Dioxide 24 (22-32) mmol/L BUN 33 H (7-17) mg/dL Creatinine 1.22 H (0.52-1.04) mg/dL Estimated GFR 44 L (>60) mL/min BUN/Creatinine Ratio 27.0 H (6-22) Glucose 104 (80-110) mg/dL Calcium 7.7 L (8.4-10.2) mg/dL Magnesium 2.1 (1.6-2.3) mg/dL Total Bilirubin 0.6 (0.2-1.3) mg/dL AST 38 H (14-36) IU/L ALT 22 (<35) IU/L Alkaline Phosphatase 182 H (38-126) U/L Total Creatine Kinase 212 H (30-135) U/L Troponin I < 0.012 (0.01-0.034) ng/mL NT-Pro-B Natriuret Pep 127 (<450) pg/mL Total Protein 7.9 (6.3-8.2) g/dL Albumin 3.9 (3.5-5.0) g/dL Globulin 4.0 (1.7-4.1) g/dL Albumin/Globulin Ratio 1.0 (1.0-2.8) Lipase 115 (23-300) U/L Imaging Data Chest x-ray: Radiologist's Impression: [address] [address] XRay Report Signed Patient: Quyen Hyde MR#: [id number] : 1940 Acct:[id number] Age/Sex: 84 / F Date of Service: 11/07/24 Loc: ED Accession Number: [id number] Procedure: XR chest 1V Ordering Provider: Cholo Jara D.O. PROCEDURE: XR CHEST 1V INDICATIONS: syncope, COVID + TECHNIQUE: One view of the chest was acquired. COMPARISON: [facility], CR, XR CHEST 1V, 06/07/2024, 15:11. [facility], CR, XR CHEST 1V, 10/11/2023, 17:20. FINDINGS AND IMPRESSION: Left lung base opacity and suspect small effusion, possibly infectious. Consider future imaging surveillance to assess for resolution. Low lung volumes. Heart size is at the upper limit of normal. Unchanged cardiomediastinal contours. Degenerative osseous changes. ECG Data Interpretation: EKG interpreted ED physician sinus 79 beats per minute QTC 474 left axis deviation nonspecific ST changes no STEMI MDM Narrative Medical decision making narrative: 84-year-old female with a history of hemorrhagic stroke non verbal at baseline presents for syncope and hypotension. Patient presents from local care facility, patient's baseline normally able to nod yes and no and make grunting noises. This is her baseline, according to medics they were told patient had a witnessed syncopal event with hypotension 1 hour prior to arrival, here patient normotensive, she is back to baseline, she is DNR DNI with limited treatment, to note patient just tested COVID positive yesterday she had lab work imaging and chest x-ray performed here in the emergency department. Chest x-ray showing possible left lung base opacity effusion versus infection, therefore will treat for pneumonia. Patient with out leukocytosis, she is not requiring any supplemental oxygen, patient received 1 L normal saline has been normotensive since. Patient with creatinine 1.22, and she is known COVID positive, patient will be sent back to facility with oral antibiotics and to have follow up with her primary care physician/facility. Discharge Plan Departure Patient Disposition: Home Clinical Impression: Pneumonia Activity Restrictions/Additional Instructions: Please follow up with primary care Please read the discharge instructions sheet carefully and bring all papers to all doctor follow-up visits, as it may contain information that your doctor may want to see. Disease processes change and evolve, if your symptoms worsen or if you develop any new symptoms that are concerning to you please return for evaluation. Your evaluation today does not show any evidence of any life-threatening/serious illnesses requiring admission to the hospital or surgery. Please follow-up with your doctor for re-evaluation in approximately 1 day. Seek immediate medical attention for any worrisome symptoms. *If you do not have a primary care provider please contact the [facility] Resource line at [phone]. They will ask some questions about your medical history and help get you set up with a doctor in the community. Prescriptions: New doxycycline hyclate 100 mg capsule 100 mg PO BID 5 Days Qty: 10 0RF No Action lamotrigine 150 mg tablet 150 mg PO DAILY Qty: 90 3RF (DME) Probiotic See Rx Instructions .Route .MEDSUPPLY Qty: 30 6RF Rx Instructions: 1 capsule by mouth daily; ascorbic acid (vitamin C) 500 mg tablet 500 mg PO DAILY Qty: 30 6RF polyethylene glycol 3350 [Miralax] 17 gram/dose powder 17 g PO DAILY PRN (Reason: constipation) Qty: 510 3RF primidone 50 mg tablet 50 mg PO BEDTIME Qty: 90 3RF primidone 250 mg tablet 250 mg PO BEDTIME Qty: 90 3RF acetaminophen 500 mg tablet 1,000 mg PO TID PRN (Reason: fever or pain) Qty: 180 0RF Rx Instructions: Ok to crush if needed for easier use of taking calcitriol 0.25 mcg capsule 0.25 mcg PO DAILY Qty: 90 0RF Rx Instructions: APPT DUE WITH PCP. PLEASE CALL TO SCHEDULE APPT. THANK YOU 03/07/22 H-Kgoy-Vgkwsxc 250 mg tablet 1 tab PO BID Qty: 180 0RF escitalopram oxalate 20 mg tablet 20 mg PO DAILY Qty: 15 0RF Rx Instructions: NO FURTHER REFILLS UNTIL SEEN. PLEASE CALL TO SCHEDULE APPT. THANKS 07/26/22. lisinopril 10 mg tablet 10 mg PO DAILY Qty: 30 0RF Rx Instructions: Patient is overdue for an appointment with Dr. Jarrett for annual follow up. Patient will need to be seen before next renewal. 08/24/22 Orajel 3X Toothache-Gum 20-0.26-0.15 % Gel 1 ea topical QID PRN (Reason: painful gums) Qty: 11.9 0RF potassium chloride 10 mEq packet 10 meq PO DAILY Qty: 10 0RF Stand Alone Forms: Patient Portal/API/Survey
[2024-11-07 15:07] LABS: Add Manual Diff / Slide Review NO; Basophils Absolute Auto 0 /uL (0-100); Basophils Percent Auto 0.4 % (0-2); Eosinophils Absolute Auto 0 /uL (0-450); Eosinophils Percent Auto 0.2 % (2-4); Hematocrit 40.1 % (36-46); Hemoglobin 13.5 g/dL (12.0-16.0); Lymphocytes Absolute Auto 1300 /uL (1100-4500); Lymphocytes Percent Auto 14.7 % (25-40); Mean Corpuscular HGB Conc 33.6 % (30-36); Mean Corpuscular Hemoglobin 30.7 PG (26-34); Mean Corpuscular Volume 91.4 fL (80-100); Monocytes Absolute Auto 700 /uL (0-900); Monocytes Percent Auto 7.7 % (3-14); Neutrophils Absolute Auto 6700 /uL (1500-7000); Platelet Count 326 X10^3/uL (150-400); Red Blood Cell Count 4.38 X10^6/uL (4.0-5.2); White Blood Cell Count 8.8 X10^3/uL (4.5-11.0)
[2024-11-07 15:21] LABS: Alanine Aminotransferase 22 IU/L (<35); Albumin 3.9 g/dL (3.5-5.0); Alkaline Phosphatase 182 U/L (38-126); Aspartate Aminotransferase 38 IU/L (14-36); Bilirubin Total 0.6 mg/dL (0.2-1.3); Blood Urea Nitrogen 33 mg/dL (7-17); Calcium 7.7 mg/dL (8.4-10.2); Carbon Dioxide 24 mmol/L (22-32); Chloride 107 mmol/L (98-107); Creatine Kinase 212 U/L (30-135); Estimated Glomerular Filt Rate 44 mL/min (>60); Glucose 104 mg/dL (80-110); HEMOLYSIS 48 (0-50); Lipase 115 U/L (23-300); Magnesium 2.1 mg/dL (1.6-2.3); Sodium 139 mmol/L (137-145); Total Protein 7.9 g/dL (6.3-8.2)
[2024-11-07 15:30] LABS: NT-proBNP (BNP-Adult 18+) 127 pg/mL (<450)
[2024-11-07 15:32] LABS: Troponin I < 0.012 ng/mL (0.01-0.034)
[2024-11-07] MEDS: DOXYCYCLINE HYCLATE 100 MG TABLET PO (16:19)
== END 2024-11-07 17:34 | disposition home or self-care (01) ==
PROVIDERS: Emergency Provider Student in an Organized Health Care Education/Training Program
DX: J18.9 Pneumonia, unspecified organism (principal); U07.1 COVID-19; R55 Syncope and collapse; R03.1 Nonspecific low blood-pressure reading
CPT/HCPCS: 71045; 80053; 82550; 83690; 83735; 83880; 84484; 85025; 93005; 93010; 99283

== ENCOUNTER → 2024-11-18 13:20 | Outpatient (ROUT) | payer MEDICARE, MEDICAID, SELFPAY ==
[2024-06-07 18:49] VITALS: BMI 29.0
== END ==
PROVIDERS: Visit Provider Registered Nurse
DX: T81.31XA Disruption of external operation (surgical) wound, not elsewhere classified, initial encounter (principal)
CPT/HCPCS: 87070; 87075; 87077; 87147; 87186; 87205

== ENCOUNTER → 2025-02-06 08:36 | Outpatient (CLI) | payer MEDICARE, MEDICAID, SELFPAY ==
[2024-06-07 18:49] VITALS: BMI 29.0
--- NOTE | 2025-02-06 11:15 | ST.SWALLOW ---
Visit Care Team Role Provider Type Keith Orosco MD Attending Provider Physician Referring Provider Specialty: Internal Medicine Address: [address] [place] [address], [address] Email: [email or web address] ([email or web address]) Modified Barium Swallow Study PROFESSIONAL HEALTHCARE REPRESENTATIVE Modified Barium Swallow Study Start: 02/06/25 09:33 Freq: Status: Active Protocol: Document 02/06/25 09:34 LNK (Rec: 02/06/25 10:08 LNK Desktop) Modified Barium Swallow Study Total Time Visit Start Time 09:00 Visit Stop Time 09:30 Total Visit Minutes 30 Referral Referring Physician Magali Ayers DNP; Dr Orosco; Reason for Referral dysphagia Setting Setting Outpatient Care Patient Information Identification Type Name,Date of Patient History Pt was seen for a Modified Barium Swallow Study to determine objective evaluation of her current oropharyngeal swallowing function. Pt is 84 years old and is non verbal secondary to a hemorrhagic stroke. She is kip paretic as a result of her stroke. Pt's swallowing was evaluated via MBSS 09/01/2023 after suspected aspiration of vomitus while inpt at . The results of that MBSS indicated Moderate to severe oropharyngeal dysphagia characterized by overall weakness, poor coordination of structures and poor bolus control. Additionally, silent aspiration risk was noted secondary to the large amount of pharyngeal residue that was observed following all swallows. Subjective Pt arrived in the fluoroscopy chair to the fluoro room. Observations Pt s nonverbal and unsure if receptive language intact. pt is reported to have cognitive function deficits as well. Instructions were described for the pt. Pt was observed to moving her upper body and head in a bobbing pattern Patient Positioning Position View Lateral Imaging Lateral View Textures Administered Trials Presented Thin Liquid via Spoon (IDDSI 0),Mildly Thick Liquid via Spoon (IDDSI 2),Mildly Thick Liquid via Straw (IDDSI 2 ),Puree (IDDSI 4),Minced & Moist (IDDSI 5) Barium Tablet No The IDDSI Framework Protocol: IDDSI.1 Oral Impairment Source: The Modified Barium Swallow Impairment Profile (MBSImP??) Lip Closure No labial escape Tongue Control Posterior escape of greater than half of bolus During Bolus Hold Bolus Preparation/ Minimal chewing/mashing with majority of bolus unchewed Mastication Bolus Transport/ Repetitive/disorganized tongue motion Lingual Motion Oral Residue Residue collection on oral structures Location Floor of mouth,Tongue Initiation of Bolus head at pyriforms Pharyngeal Swallow Additional Oral Unable to perform OME as pt unable to follow directions Impairment . Pt is edentulous. Pt sits in a forward hunched Observations position with upper body movement (bobbing) observed When presented with puree and liquid trials, pt had significant difficulty with AP transition. Lingual rocking with oral spillage to the floor of mouth was observed for all trials. Mastication appeared to be disorganized with minimal chewing. A tongue mashing against palate was observed. Bolus transition AP was noted to take a minimum of 30 seconds to over 1 minute to clear oral cavity. Swallow initiation was delayed with >50% of the bolus in the valeculla and pyriforms before swallow initiation occurred. Oral residue was noted post swallow increasing aspiration risk of residue if not cleared from mouth. Pharyngeal Impairment Source: The Modified Barium Swallow Impairment Profile (MBSImP??) Soft Palate No bolus between soft palate & pharyngeal wall Elevation Laryngeal Elevation Min.sup.move. thyroid cart. w/min.approx.arytenoids to epiglot.petiole Anterior Hyoid No anterior movement Excursion Epiglottic Movement Complete inversion Laryngeal Vestibular Complete; no air/contrast in laryngeal vestibule Closure Pharyngeal Stripping Present - diminished Wave Pharyngoesophageal Complete distention & complete duration; no obstruction Segment Opening of flow Tongue Base Wide column of contrast/air betwn tongue base & post. Retraction pharyngeal wall Pharyngeal Residue Collection of residue within/on pharyngeal structures Location Valleculae Additional *Overall pharyngeal weakness noted. Pharyngeal *Tongue base retraction strength reduced Impairment *Minimal hyolaryngeal elevation and movement Observations *The epiglottis was noted to be horizontal at greatest extension. *No penetration or aspiration observed with trials presented *Pharyngeal pooling observed throughout pharynx especially in valeculla. Repeated cues to swallow again minimally effective in clearing valecullar residue. This pooling within the pharynx poses a silent aspiration risk. Recommend HOB elevation to silent reduce aspiration risk. A/P View The IDDSI Framework Protocol: IDDSI.1 A/P View Observations Additional A-P AP view was not attempted Observations Clinical Impressions Dysphagia Type Oral,Pharyngeal Findings Moderate/severe oropharyngeal dysphagia characterized by overall oral and pharyngeal weakness, poor coordination of structures and poor bolus control observed. When comparing the current MBSS results with those obtained on 09/01/2023, pt's swallowing has regressed in her ability to to control a bolus within her mouth and pharynx. She appeared to be minimally responsive to cues to swallow and directions. Pt's risk of aspiration increases with rapid feeding, not allowing for the time it takes for the pt to move a bolus from the front of her mouth to the pharynx. Pt's current diet of puree texture with nectar thick liquids remains the safest and most appropriate for the pt. Rehabilitation Poor Potential Patient Appropriate Yes: Family eduation and training recommended re: pt for Therapy current swallow status Recommendations Diet Liquids Order Mildly Thick (IDDSI 2) Diet Order Pureed (IDDSI 4) Medication Crushed in Carrier Recommendation Comments No change in diet recommended Additional Dietary No Straws Needs Aspiration Precautions Recommended Upright at 90 Degrees,Frequent Rest Periods,Small Bites Precautions /Sips,Check for Pocketing Additional Wait a minimum of 30 seconds before offering more food/ Precautions liquid Treatment Plan Therapy Strategy Sitting Upright (90 deg),No Straw,Small Bites and Sips Recommendations
== END ==
LOC: RAD 08:38
PROVIDERS: Referring Provider Hospitalist; Visit Provider Hospitalist
DX: R13.12 Dysphagia, oropharyngeal phase (principal)
CPT/HCPCS: 74230; 92611